=== PATIENT | female | born 1960 | race Two or more races ===

== ENCOUNTER 2022-11-24 11:00 | Outpatient (RCR) | payer OTHER, SELFPAY ==
--- NOTE | 2022-10-29 16:17 | MHC.OT.EP ---
[address] [phone] Occupational Therapy Plan of Care Date of Evaluation: 10/29/22 Diagnosis: Pain in right hand and shoulder Pain Location: Pain R shoulder/hand 10/10 Best: 5/10 Pain Score: 10 Pain Scale Used: Numeric (0 - 10) Aggravating Factors: AROM past 60 degrees shoulder flexion Forceful grasp Alleviating Factors: Heat, pain medication Assessment: Pt is a 62 y/o female referred for right hand pain. Pt states pain originated in the upper arm, and has progressively gotten worse over the last year. She has a history of HTN, fibromyalgia, falls, and obstructive sleep apnea. Pt. 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 She is dependent on a joey lift for bed/commode/chair transfers. She experiences pain with active shoulder flex/ABd past 60 degrees, reportedly 10/10 with movement and demonstrates generalized fatigue with light activity. Hand pain is mostly in the radial wrist and thumb, with decreased gross grasp strength and FMC R/L. Pt would benefit from skilled OT to address pain management, A/AA/PROM exercises for increased ease with ADL's, as well as education on home program for continued strengthening. Due to transportation constraints and decreased endurance, pt. will be seen 1x/wk for 4 weeks then d/c to HEP. Pt and son in agreement. Frequency and Duration: The patient will be seen 1x/wk for 4 weeks Short Term Goals: Decrease R UE pain <5/10 Improve B shoulder flexion by 20 degrees to inc ease w/ dressing IND with cane/dowel shoulder ROM HEP Improve R gross grasp by 5# Hydrator Operator Goals: Same as above Treatment Plan: Therapeutic Exercise Therapeutic Activity Home Exercise Program Patient Education ADL Training MHP Soft Tissue Mobilization Electronically Signed By: Diamante Alanis MS OTR/L Please Sign and return to therapist. Thank you once again for your referral.
== END 2023-02-02 11:17 | disposition home or self-care (01) ==
LOC: HO.OT 11:00
PROVIDERS: PCP Internal Medicine; Visit Provider Internal Medicine
DX: M79.641 Pain in right hand (principal)
CPT/HCPCS: 97110; 97166

== ENCOUNTER 2023-02-11 10:00 | Outpatient (RCR) | payer OTHER, SELFPAY ==
--- NOTE | 2023-02-05 13:55 | MHC.PT.EP ---
[facility] [place] [facility] [place] [facility] [place] Office [address] Andrea [address] [phone] F: [phone] F: [phone] F: [phone] F: [phone] Physical Therapy Plan of Care Date of Evaluation: Date of Surgery: Diagnosis: PAIN IN RIGHT ARM Assessment: 62 YO FEMALE REF TO PT FOR Rt UE PAIN- SHE IS NON-AMB, HAS BEEN IN A POWER CHAIR x 5YRS AND HER SON IS HER FREELANCE GRAPHIC DESIGNER (65 HRS/WK). THE Pt USES A MAT LIFT FOR TRANSFERS AND PER THE Pt AND HER FREELANCE GRAPHIC DESIGNER, SHE REQ MAX ASSIST W ALL ADLs. OBJECTIVE FINDINGS: DECR POSTURE WHILE IN WC, (+) NEER'S SIGN RT SH, DECR AROM NATE SH, DECR SCAP / POST RC STRENGTH NATE, DECR ADL KEYSHAWN, AND FLUCTUATING Rt SH Jt LINE PAIN. THE Pt WAS RECENTLY RECEIVING OCCUPATIONAL THERAPY FOR THE SAME DX AND A CUSTOM HEP WAS ISSUED, WITH WHICH THE Pt NOTES SHE HAS HAD POOR COMPLIANCY. THE Pt MAY BENEFIT FROM RE-ED RE HEP, POSTURAL ED AND SELF-CORRECT TECHN, AND INCR HER ACTIVE PARTICIPATION IN HER ADLs. Frequency and Duration: The patient will be seen 1 x WK x 4 WKS Short Term Goals: *DECR Rt SH PAIN TO 5/10 (AT EVAL 10/10) *EDUC THE Pt AND HER FREELANCE GRAPHIC DESIGNER-> IMPROVE Pt'S POSTURAL AWARENESS, ESPEC W SITTING IN HER POWER CHAIR AND POSTIONING IN HER BED *INCR ACTIV OF PARASCAP / POST RC MM *INCR Rt SH AROM *IMPROVE STRENGTH AND ADL PERF EVIDENT W IMPROVED SPADI (AT EVAL 80/80) Fpc Goals: SAME ABOVE STG Treatment Plan: Modalities to reduce pain, spasms and effusion. Manual therapy to restore motion and function. Therapeutic exercise to improve strength and flexibility. Neuromuscular re-education for posture and balance. Therapeutic activities to return to functional activities of daily living. Electronically signed by: CONCHITA CHRISTIAN,PT Please sign and return to therapist. Thank you for your referral.
--- NOTE | 2023-03-16 13:46 | MHC.PT.DC ---
[facility] [place] [facility] [place] Office [place] Office [address] [phone] F: [phone] F: [phone] F: [phone] F: [phone] Physical Therapy Discharge Report Diagnosis: PAIN IN RIGHT ARM Date of Surgery: Date of Evaluation: 02/05/23 Date of Discharge: 03/16/23 Treatments to Date: 2 Cancellations to Date: 3 No Shows to Date: 1 Discharge Status: Visit Non-compliance Discharge Summary: THE Pt IS D/C'D THIS DATE FROM PT DUE TO POOR ATTENDANCE FOR SCHED PT APPTS- SHE HAS A THOROUGH HEP AND WE HAVE ADDRESSED POSTURE, REPOSITIONING IN WC TO REDUCE POSTURAL STRAIN, AND SH PAIN MGMT. THE Pt WAS NOTING RELIEF FROM EDUC FOR HER FOREIGN CLERK AND Pt. Electronically signed by: Usman CHRISTIAN,PT Please sign and return to therapist. Thank you for your referral.
== END 2023-03-16 13:47 | disposition home or self-care (01) ==
LOC: HO.PT 10:00
PROVIDERS: PCP Internal Medicine; Visit Provider Internal Medicine
DX: M79.606 Pain in leg, unspecified (principal); M79.601 Pain in right arm
CPT/HCPCS: 97110; 97140; 97162; 97530

== ENCOUNTER 2023-02-11 10:59 | Outpatient (REF) | payer OTHER, SELFPAY ==
[2023-02-11 11:15] LABS: MANUAL DIFF FLAG NO
[2023-02-11 12:36] LABS: Basophils Absolute Auto 0.1 X10*3/uL (0.0-0.2); Basophils Percent Auto 0.6 % (0-2); Eosinophils Absolute Auto 0.3 X10*3/uL (0.0-0.4); Hematocrit 39.3 % (37.0-47.0); Hemoglobin 11.8 g/dl (12.0-16.0); Imm Gran Abs Auto 0.03 X10*3/uL (0.00-0.03); Imm Gran Pct Auto 0.3 % (0.0-0.4); Lymphocytes Absolute Auto 3.6 X10*3/uL (1.2-4.9); Lymphocytes Percent Auto 34.1 % (20-40); Mean Corpuscular Hemoglobin 26.5 pg (27.0-33.0); Mean Corpuscular Volume 88.3 fL (80.0-98.0); Mean Platelet Volume 11.3 fL (9.4-12.3); Monocytes Absolute Auto 0.8 X10*3/uL (0.1-1.2); Monocytes Percent Auto 7.9 % (2-11); Neutrophils Absolute Auto 5.6 x10*3/uL (2.0-8.3); Neutrophils Percent Auto 54.1 % (45-73); Platelet Count 252 X10*3/uL (160-400); Red Blood Count 4.45 X10*6/uL (4.20-5.50); Red Cell Distribution Width 15.4 % (11.0-16.0); White Blood Count 10.4 X10*3/uL (4.8-10.8)
[2023-02-11 13:25] LABS: Alanine Aminotransferase 14 U/L (0-31); Albumin Level 3.9 g/dL (3.5-5.0); Alkaline Phosphatase 91 U/L (39-117); Anion Gap 14 (12-20); Aspartate Amino Transferase 18 U/L (5-31); Bilirubin Total 0.4 mg/dL (0.0-1.0); Blood Urea Nitrogen 8 mg/dL (9-16); Calcium 8.7 mg/dL (8.4-10.2); Carbon Dioxide 29 mmol/L (22-29); Chloride 103 mmol/L (96-108); Cholesterol 164 mg/dL; Estimated Glomerular Filt Rate > 60; Glucose Fasting 75 mg/dL (60-99); HDL Cholesterol 37 mg/dL; Iron 69 mcg/dL (30-160); LDL Cholesterol Calculated 113 mg/dl; Percent Iron Saturation 28 % (15-50); Potassium 4.4 mmol/L (3.3-5.1); Sodium 142 mmol/L (135-145); Total Iron Binding Capacity 246 mcg/dL (228-428); Triglycerides 71 mg/dL; Unsaturated Iron Binding 177 ug/dL
[2023-02-11 13:29] LABS: Thyroid Stimulating Hormone 3.41 uIU/mL (0.32-4.0); Vitamin D 25-OH Total 8.8 ng/mL (>30)
== END 2023-02-11 11:00 | disposition home or self-care (01) ==
LOC: HO.LAB 10:59
PROVIDERS: PCP Internal Medicine; Visit Provider Internal Medicine
DX: G43.909 Migraine, unspecified, not intractable, without status migrainosus (principal); D64.9 Anemia, unspecified; E78.5 Hyperlipidemia, unspecified; E55.9 Vitamin D deficiency, unspecified; E66.9 Obesity, unspecified
CPT/HCPCS: 36415; 80053; 80061; 82306; 83540; 84443; 85025

== ENCOUNTER 2023-03-17 12:25 | Outpatient (REF) | payer OTHER, SELFPAY ==
[2023-03-17 13:12] LABS: Appearance Urine Clear; Color Urine Yellow; Glucose Urine UA Negative (Negative); Leukocyte Esterase Urine Small (1+) (Negative); Nitrite Urine Negative (Negative); Specific Gravity - Urine 1.025 (1.005-1.025); UMIC TRIGGER UACC YES; Urine Blood Negative (Negative); Urine Ketones Negative (Negative); Urine Protein 30 (1+) mg/dL (Neg-Trace)
[2023-03-17 13:14] LABS: Bacteria Urine 1+ (None Seen); Hyaline Casts Urine 0-2 /LPF (0-2); RBC Urine 0-2 /HPF (0-2); UACC Culture Trigger YES
== END 2023-03-17 12:26 | disposition home or self-care (01) ==
LOC: HO.LNP 12:25
PROVIDERS: Visit Provider Internal Medicine
DX: R39.9 Unspecified symptoms and signs involving the genitourinary system (principal)
CPT/HCPCS: 81001; 87086

== ENCOUNTER 2023-04-28 11:06 | Outpatient (AMB) | payer OTHER, SELFPAY ==
[2023-04-28 11:13] VITALS: BP 124/86
--- NOTE | 2023-04-28 11:13 | A.OFFPC_ITS ---
Vital Signs 04/28/23 11:13 BMI Reason not done Patient refused/unable BP 124/86 Blood Pressure Location Lt radial Position Sitting Intake Visit Reasons: bp Intake Note: Patient here for a follow up BP Certified Scrum Master Required: No Accompanied by: Self / Same As Patient Allergies Penicillins [PENICILLINS] Allergy (Unknown, Verified 04/28/23 11:27) ITCHING Medication List - Last Reconciled 04/28/23 by Rhina Malave MD albuterol sulfate 90 mcg/actuation (Ventolin HFA) 0 mcg inhalation albuterol sulfate mg inhalation Q6H PRN amitriptyline 50 mg PO BEDTIME amlodipine 5 mg PO DAILY cetirizine 10 mg PO DAILY [hospital mattress As directed] incontinence pad, liner, disp Use 1 pad three times a day lisinopril 40 mg PO DAILY miconazole nitrate 2% (Remedy Phytoplex Antifungal) 1 appl topical BID 30 days pregabalin 75 mg PO TID sumatriptan succinate 25 mg PO Q2-4H PRN 30 days Tobacco use date assessed: 12/08/22 Dental Screening Dental Screen Date: 04/28/23 Did you have a dental visit in the last 12 months?: No Did you have a dental problem in the last 6 months where you did not have access to dental care?: No Was dental information given to patient?: Patient has dentist HPI HPI Comments History of Present Illness Details This is a 62-year-old female with hypertension, migraines, fibromyalgia and urge urinary incontinence that comes today for follow-up on her conditions. She has alone in the room and is wheelchair-bound with electric wheelchair. Blood pressure stable. Blood pressure stable. Has migraines few times a month and I will start her on sumatriptan. Complains of dizziness and will be referred to vestibular therapy. On pregabalin for her fibromyalgia which is still present. Has urge urinary incontinence and would like incontinent pads. She is about 300 lb and was advised to diet. [facility] Surgical History History of knee surgery Family History Mother Diabetes Throat cancer Hypertension Father Hypertension Social History Housing: Apartment Alcohol intake: never Patient Tobacco Use Status: Never used Tobacco e-Cigarette/Vaping Use: Never Used Second Hand Smoke Exposure: No service: No Current occupational status: disabled Cognitive needs: Yes Hearing needs: No Vision needs: Yes Questionnaire Thrive Questionnaire Date Thrive assessed: 12/08/22 AUGUSTO-7 AMB Questionnaire AUGUSTO-7 Date AUGUSTO - 7 assessed: 12/08/22 Source: Developed by Drs. Jeronimo Trinidad, Nora Stone, Hipolito Finley and colleagues, with an educational neil from [employer]. Review of Systems Const All systems reviewed & are unremarkable except as noted in HPI and below Eyes Reports no additional complaints, Denies change in vision and Denies other visual disturbances Card Denies chest pain at rest, Denies chest pain with activity, Denies edema, Denies irregular heart rhythm, Denies claudication, Denies dyspnea, Denies dyspnea on exertion, Denies orthopnea, Denies paroxysmal nocturnal dyspnea and Denies slow heart rate Resp Denies cough, Denies dyspnea and Denies dyspnea on exertion GI Denies abdominal pain, Denies change in bowel habits, Denies excessive flatus, Denies nausea and Denies vomiting Denies urinary incontinence, Denies urinary hesitancy and Denies urinary urgency Musc Denies abnormal gait, Denies atrophy, Denies deformity and Denies limited range of motion Skin/Breast Denies bleeding lesions, Denies changing lesions and Denies rash Neuro Denies abnormal gait and Denies lack of coordination Physical exam (Primary Care) Vital Signs: Last Vital Signs BP 124/86 04/28/23 11:13 Tobacco/Smoking Status: Tobacco use Status Tobacco use date assessed 12/08/22 04/28/23 11:17 Patient Tobacco Use Status Never used Tobacco 04/28/23 11:17 e-Cigarette/Vaping Use Never Used 04/28/23 11:17 Thrive Assessment: Date of Thrive Assessment Date Thrive assessed 12/08/22 04/28/23 11:17 Const Limitations: wheelchair Eyes General: appearance normal, both eyes and all related structures Eyelids: Yes eyelids normal Conjunctivae: conjunctivae normal Neck Neck: Yes normal visual inspection and Yes supple Resp Effort & Inspection: normal respiratory effort Auscultation: clear to auscultation bilaterally Cardio Jugular venous distension: no JVD Rate: regular rate Rhythm: regular rhythm Heart sounds: S1 normal heart sound present and S2 normal heart sound present Extrem General: Yes full ROM Assessment and Plan Assessment & Plan (1) Essential hypertension: Code(s): I10 - Essential (primary) hypertension Plan: Continue lisinopril and amlodipine. Blood pressure goal is equal or less than 130/80. (2) Fibromyalgia: Code(s): M79.7 - Fibromyalgia Plan: Continue pregabalin. (3) Migraines: Code(s): G43.909 - Migraine, unspecified, not intractable, without status migrainosus Plan: Start sumatriptan as needed (4) Urge urinary incontinence: Code(s): N39.41 - Urge incontinence Plan: Start using incontinence pads Orders: Orders PT Evaluation and Treatment Today R42 - Dizziness and giddiness Referrals Gastroenterology Referral Z12.11 - Encounter for screening for malignant neoplasm of colon AIRCRAFT MOTOR MECHANIC Referral N93.8 - Other specified abnormal uterine and vaginal bleeding Medications: New sumatriptan succinate do not exceed 8 doses per 24 hrs 25 mg PO Q2-4H 30 days PRN 9 tabs 0RF migraine headache incontinence pad, liner, disp Use 1 pad three times a day 90 ea 11RF N39.41 - Urge incontinence, Z99.3 - Dependence on wheelchair Refilled miconazole nitrate 2% (Remedy Phytoplex Antifungal) 1 appl topical BID 30 days 85 grams 1RF B36.9 - Superficial mycosis, unspecified Coding Level of Care Code Est Pt Level 4 (80996) Diagnoses Essential hypertension I10 Fibromyalgia M79.7 Migraines G43.909 Urge urinary incontinence N39.41 Time Spent (min) 25
== END 2023-04-28 11:36 | disposition home or self-care (01) ==
PROVIDERS: Visit Provider Internal Medicine
DX: I10 Essential (primary) hypertension (principal); M79.7 Fibromyalgia; G43.909 Migraine, unspecified, not intractable, without status migrainosus; N39.41 Urge incontinence
CPT/HCPCS: 99214

== ENCOUNTER 2023-06-30 08:50 | Outpatient (AMB) | payer OTHER, SELFPAY ==
--- NOTE | 2023-06-30 09:04 | MHC.OFFVIS ---
Intake Vital Signs 06/30/23 09:16 Height 5 ft 4 in BMI Reason not done Patient refused/unable BP 160/83 H Blood Pressure Location Lt brachial Position Sitting Pulse 83 Intake Visit Reasons: Colonoscopy Screening Intake Note: Patient new consult for 2nd pre colonoscopy screening. Patient cc: Constant LLQ pain, acid reflex, swallowing problem with solid food on and off, constipation with bloody stool. Continuous Process Rotary Drum Tanner Required: Yes Accompanied by: Son Allergies Penicillins [PENICILLINS] Allergy (Unknown, Verified 06/30/23 09:03) ITCHING Medication List - Last Reconciled 06/30/23 by Mickie Ryan PA-C albuterol sulfate 90 mcg/actuation (Ventolin HFA) 0 mcg inhalation albuterol sulfate mg inhalation Q6H PRN amitriptyline 50 mg PO BEDTIME amlodipine 5 mg PO DAILY cetirizine 10 mg PO DAILY [hospital mattress As directed] incontinence pad, liner, disp Use 1 pad three times a day lisinopril 40 mg PO DAILY miconazole nitrate 2% (Remedy Phytoplex Antifungal) 1 appl topical BID 30 days pregabalin 75 mg PO TID sumatriptan succinate 25 mg PO Q2-4H PRN 30 days HPI HPI Comments History of Present Illness Details A 62 y/o obese female referred -for screening colonoscopy- she presents with chronic abdominal pain- (LLQ pain constant past4-6 months 7/10 pain scale) and chronic Constipation- BM Q3-4 days- rarely takes miralax- does not eat fiber She is w/c dependant has no excercise Weight is unknown- Appetite is very good She is w/c assisted- son is present- he is her BUSINESS QUALITY ASSURANCE ANALYST Continuous Process Rotary Drum Tanner device assisted No nausea, vomiting, hematemesis, hematochezia fever or chills PFSH Surgical History History of knee surgery Family History Mother Diabetes Throat cancer Hypertension Father Hypertension Social History Housing: Apartment Alcohol intake: never Patient Tobacco Use Status: Never used Tobacco e-Cigarette/Vaping Use: Never Used Second Hand Smoke Exposure: No service: No Current occupational status: disabled Cognitive needs: Yes Hearing needs: No Vision needs: Yes Review of Systems Const All systems reviewed & are unremarkable except as noted in HPI and below Card Denies chest pain and Denies dyspnea Resp Denies dyspnea GI Reports abdominal pain, Denies hematochezia, Denies constipation, Denies nausea and Denies vomiting Physical Exam Vital Signs: Last Vital Signs Pulse 83 06/30/23 09:16 BP 160/83 H 06/30/23 09:16 Const General: cooperative, comfortable and no acute distress Orientation/consciousness: patient oriented x3 Limitations: language barrier Eyes Sclerae: sclerae normal Resp Effort & Inspection: normal respiratory effort and able to speak in complete sentences Auscultation: clear to auscultation bilaterally, no rhonchi and no wheezes Cardio Rate: regular rate Rhythm: regular rhythm Heart sounds: S1 normal heart sound present and S2 normal heart sound present GI Inspection: Yes Abdominal panniculus present and Yes obesity Palpation (GI): Soft to palpation and nontender Auscultation: normal bowel sounds Skin General skin exam: no rashes or lesions noted Neuro General: patient oriented x3 Extrem Other: Lower extremities edema bilat Psych Affect: Labile affect present Attitude: cooperative Thought content: Normal thought content present Results Reviewed Results Reviewed: labs Assessment & Plan Assessment & Plan (1) Chronic abdominal pain: Comment: Morbidly obese-wheelchair dependent Chronic constipation Not a great historian- at check out-she tells me she is having U/S tomorrow ordered by pcp Code(s): R10.9 - Unspecified abdominal pain; G89.29 - Other chronic pain (2) Chronic constipation: Comment: Encouraged consistent bowel regimen Code(s): K59.09 - Other constipation Plan: Consistent bowel regimen High-fiber diet (3) Wheelchair confinement: Comment: Since 2017 Code(s): Z99.3 - Dependence on wheelchair Plan: Sedentary (4) Obesity: Comment: Weight and Code(s): E66.9 - Obesity, unspecified (5) Poor historian: Comment: Difficult to assess limited detail Code(s): Z78.9 - Other specified health status Plan Abdominal CT- IV oral contrast rule out-underlying causes pain, neoplasm CBC CMP Consistent bowel regimen HFD Call with concerns Orders: Orders CT abdomen wo/w IV con Today E66.9 - Obesity, unspecified, G89.29 - Other chronic pain, R10.9 - Unspecified abdominal pain Complete Blood Count Auto Diff Today G89.29 - Other chronic pain, R10.9 - Unspecified abdominal pain Comprehensive Met. Panel Today G89.29 - Other chronic pain, R10.9 - Unspecified abdominal pain Medications: New bisacodyl (Dulcolax (bisacodyl)) 10 mg [place] DAILY PRN 20 ea 2RF constipation polyethylene glycol 3350 (Miralax) 17 grams PO DAILY PRN 510 grams 6RF constipation 30 days barium sulfate 2%(w/v) (Readi-Cat 2) 450 mL PO DIRECTED 900 mL 0RF 1 day methylcellulose (laxative) (Citrucel) 500 mg PO TID 90 tabs 5RF 30 days docusate sodium (Colace) 200 mg (2 x 100 mg) PO BEDTIME 60 caps 5RF Patient Instructions: Abdominal CT- however will follow-up ultrasound CBC CMP Consistent bowel regimen HFD, literature given Call with concerns Coding Level of Care Code New Pt Level 4 (10958) Diagnoses Chronic abdominal pain R10.9; G89.29 Chronic constipation K59.09 Wheelchair confinement Z99.3 Obesity E66.9 Poor historian Z78.9 Time Spent (min) 40 Comment [id number]
[2023-06-30 09:16] VITALS: BP 160/83; PULSE 83
== END 2023-06-30 10:03 | disposition home or self-care (01) ==
PROVIDERS: PCP Internal Medicine; Visit Provider Physician Assistant
DX: R10.9 Unspecified abdominal pain (principal); K59.09 Other constipation; Z12.11 Encounter for screening for malignant neoplasm of colon
CPT/HCPCS: 99203

== ENCOUNTER → 2023-06-30 08:50 | Outpatient (BNVA) | payer OTHER, SELFPAY | PROVIDERS: PCP Internal Medicine; Visit Provider Physician Assistant ==

== ENCOUNTER 2023-07-02 10:42 | Outpatient (REF) | payer OTHER, SELFPAY ==
--- NOTE | ~2023-07-02 | US_ITS ---
EXAMINATION: US PELVIS CLINICAL INFORMATION: Postmenopausal bleeding COMPARISON: None available. TECHNIQUE: Ultrasound of the pelvis is performed using transabdominal transducers along with Doppler. Transabdominal imaging limited due to body habitus and limited range of motion. Transvaginal imaging was not completed due to patient's inability to tolerate. FINDINGS: Uterus: The uterus is anteverted measuring 11.1 x 4.6 x 4.9. No identifiable fibroid. The endometrium is heterogeneous measuring 0.9 to 1.2 cm. Adnexa: Bilateral ovaries are not visualized. No. US/US pelvic and transvaginal IMPRESSION: Thickened endometrium in patient presenting with postmenopausal bleeding. Consider tissue sampling.
== END 2023-07-02 10:43 | disposition home or self-care (01) ==
LOC: HO.US 10:42
PROVIDERS: PCP Internal Medicine; Visit Provider Obstetrics & Gynecology
DX: N95.0 Postmenopausal bleeding (principal)
CPT/HCPCS: 76830; 76856

== ENCOUNTER 2023-09-01 09:34 | Outpatient (AMB) | payer OTHER, SELFPAY ==
[2023-09-01 09:37] VITALS: BP 185/76; PULSE 83
--- NOTE | 2023-09-01 09:37 | A.OFFVIS_ITS ---
Intake Vital Signs 09/01/23 09:37 Height 5 ft 4 in BMI Reason not done Patient refused/unable BP 185/76 H Blood Pressure Location Lt brachial Position Sitting Pulse 83 Intake Visit Reasons: 2 month follow up Intake Note: Patient 2 month follow up for Chronic abdominal pain. Patient cc: abdominal pain with bloating, acid reflex on and off, diarrhea and some swallowing problems on and off. Laster Hand Required: Yes Laster Hand Name: Gemini [id number] Accompanied by: Family/Other Allergies Penicillins [PENICILLINS] Allergy (Unknown, Verified 09/01/23 09:36) ITCHING Medication List - Last Reconciled 09/01/23 by Mickie Ryan PA-C albuterol sulfate mg inhalation Q6H PRN amitriptyline 50 mg PO BEDTIME amlodipine 5 mg PO DAILY barium sulfate 2%(w/v) (Readi-Cat 2) 450 mL PO DIRECTED 1 day bisacodyl (Dulcolax (bisacodyl)) 10 mg [place] DAILY PRN cetirizine 10 mg PO DAILY docusate sodium (Colace) 200 mg (2 x 100 mg) PO BEDTIME [hospital mattress As directed] incontinence pad, liner, disp Use 1 pad three times a day lisinopril 40 mg PO DAILY methylcellulose (laxative) (Citrucel) 500 mg PO TID 30 days miconazole nitrate 2% (Remedy Phytoplex Antifungal) 1 appl topical BID 30 days polyethylene glycol 3350 (Miralax) 17 grams PO DAILY PRN 30 days pregabalin 75 mg PO TID sumatriptan succinate 25 mg PO Q2-4H PRN 30 days Ventolin HFA 90 mcg/actuation (albuterol sulfate) 2 puffs inhalation Q6H PRN 30 days NS HPI HPI Comments History of Present Illness Details A 63 y/o female wheelchair confined, seen in June with constipation-and chronic abdominal pain-left quadrant, right quadrant, wanders CT was ordered at that time-insurance denied auth- Now present s with c/o when she eats she has diarrhea- no blood in the stool, she has constant LQ pain- nothing specific causes it or makes it better, she has never had a fever, does not effect her appetite 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-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 have colonoscopy - could not do cologuard- seems it would be easier than repeating Cologuard, instructions were to difficult She is having a [employer] PERSONAL[employer] procedure in September- she / shearing shed worker- unclear-poor historian Reviewed medication list taking Colace and MiraLax daily- She complains of shortness of breath, however well wheelchair confined, no ambulation She does not use toilet or commode, Difficult assessment due to limited detail despite medical support assistant Denies nausea, vomiting, hematemesis, hematochezia, no fever or chills CT- insurance-for peer to peer- they will call back- for review submit Mickie this is the information you need to do the peer to peer for CT scan for this patient phone number- [phone] ref #- [id number] CPT CODE- 68381 ICD_10 CODES- R10.9, G89.29, E66.9 Called -Camelia MOODY Surgical History History of knee surgery Family History Mother Diabetes Throat cancer Hypertension Father Hypertension Social History Housing: Apartment Alcohol intake: never Patient Tobacco Use Status: Never used Tobacco e-Cigarette/Vaping Use: Never Used Second Hand Smoke Exposure: No service: No Current occupational status: disabled Cognitive needs: Yes Hearing needs: No Vision needs: Yes Review of Systems Const All systems reviewed & are unremarkable except as noted in HPI and below Denies chills, Denies fever(s) and Reports snoring ENT Denies odynophagia Card Denies chest pain and Reports dyspnea Resp Reports cough, Reports dyspnea and Reports snoring GI Reports abdominal pain, Denies hematochezia, Denies heartburn, Reports diarrhea, Denies nausea, Denies odynophagia, Denies vomiting and Reports other (Does not use commode-obese, wheelchair assisted) Physical Exam Vital Signs: Last Vital Signs Pulse 83 09/01/23 09:37 BP 185/76 H 09/01/23 09:37 Const General: comfortable Nutritional Appearance: obese Orientation/consciousness: patient oriented x3 Limitations: language barrier Resp Effort & Inspection: normal respiratory effort Auscultation: wheezes and diminished lung sounds Skin General skin exam: no rashes or lesions noted Neuro General: patient oriented x3 Psych Affect: Labile affect present Attitude: cooperative Thought process: Circumstantial thought process present Results Reviewed Results Reviewed: US/US pelvic and transvaginal IMPRESSION: Thickened endometrium in patient presenting with postmenopausal bleeding. Consider tissue sampling. Assessment & Plan Assessment & Plan (1) Chronic abdominal pain: Comment: Morbidly obese-wheelchair dependent-difficult to assess CT ordered last visit for chronic abdominal pain has a denied Chronic constipation initially, now diarrhea-however taking MiraLax Colace daily may had try to tweak that Not a great historian-and AFTER SCHOOL DRIVER present he is unable to give detail as well CBC Code(s): R10.9 - Unspecified abdominal pain; G89.29 - Other chronic pain Plan: Will try to get peer to peer however CT may be low yield (2) Poor historian: Comment: Extremely Difficult to assess limited detail Code(s): Z78.9 - Other specified health status (3) Diarrhea: Comment: Requesting colonoscopy however due to multiple comorbidities, increased anesthesia risk Code(s): R19.7 - Diarrhea, unspecified Plan: stool tests (4) Wheelchair confinement: Comment: Since 2017 Code(s): Z99.3 - Dependence on wheelchair Plan stool test CBC peer to peer- Call with plan Orders: Orders CDiff Gene PCR 09/01/23 R19.7 - Diarrhea, unspecified GI Panel 09/01/23 R19.7 - Diarrhea, unspecified Complete Blood Count Auto Diff 09/01/23 K52.9 - Noninfective gastroenteritis and colitis, unspecified Comprehensive Met. Panel 09/01/23 R19.7 - Diarrhea, unspecified Patient Instructions: Very difficult to assess, burring wheel operator issues currently no details available Will get stool test r/o underlying causes diarrhea However made to week Colace and MiraLax this may play a role, as we reviewed initially had diarrhea CBC peer to peer- Will call with progress with after insurance authorization Encouraged to call with any questions or concerns No major barriers to understanding were identified Coding Level of Care Code Est Pt Level 4 (66709) Diagnoses Chronic abdominal pain R10.9; G89.29 Poor historian Z78.9 Diarrhea R19.7 Wheelchair confinement Z99.3 Time Spent (min) 45 Comment [id number] interp, shearing shed worker-46
== END 2023-09-01 11:23 | disposition home or self-care (01) ==
PROVIDERS: PCP Internal Medicine; Visit Provider Physician Assistant
DX: R10.9 Unspecified abdominal pain (principal); G89.29 Other chronic pain; Z78.9 Other specified health status; R19.7 Diarrhea, unspecified; Z99.3 Dependence on wheelchair
CPT/HCPCS: 99214

== ENCOUNTER 2023-09-01 09:34 | Outpatient (REF) | payer OTHER, SELFPAY ==
[2023-09-01 11:24] LABS: MANUAL DIFF FLAG NO
[2023-09-01 11:47] LABS: Basophils Percent Auto 0.4 % (0-2); Eosinophils Absolute Auto 0.2 X10*3/uL (0.0-0.4); Hematocrit 39.2 % (37.0-47.0); Hemoglobin 11.8 g/dl (12.0-16.0); Imm Gran Abs Auto 0.02 X10*3/uL (0.00-0.03); Imm Gran Pct Auto 0.2 % (0.0-0.4); Lymphocytes Absolute Auto 3.3 X10*3/uL (1.2-4.9); Lymphocytes Percent Auto 32.4 % (20-40); Mean Corpuscular HGB Conc 30.1 g/dl (31.0-35.0); Mean Corpuscular Volume 89.7 fL (80.0-98.0); Mean Platelet Volume 10.2 fL (9.4-12.3); Monocytes Absolute Auto 0.8 X10*3/uL (0.1-1.2); Monocytes Percent Auto 7.6 % (2-11); Neutrophils Absolute Auto 5.8 x10*3/uL (2.0-8.3); Neutrophils Percent Auto 57.4 % (45-73); Platelet Count 274 X10*3/uL (160-400); Red Blood Count 4.37 X10*6/uL (4.20-5.50); Red Cell Distribution Width 15.8 % (11.0-16.0); White Blood Count 10.2 X10*3/uL (4.8-10.8)
[2023-09-01 12:30] LABS: Alanine Aminotransferase 13 U/L (0-31); Albumin Level 3.8 g/dL (3.5-5.0); Alkaline Phosphatase 76 U/L (39-117); Anion Gap 10 (12-20); Aspartate Amino Transferase 16 U/L (5-31); Bilirubin Total 0.4 mg/dL (0.0-1.0); Blood Urea Nitrogen 11 mg/dL (9-16); Carbon Dioxide 34 mmol/L (22-29); Chloride 102 mmol/L (96-108); Estimated Glomerular Filt Rate > 60; Glucose Random 77 mg/dL (60-115); Potassium 3.7 mmol/L (3.3-5.1); Sodium 142 mmol/L (135-145); Total Protein 8.2 g/dL (6.5-8.0)
== END 2023-09-01 09:35 | disposition home or self-care (01) ==
LOC: HO.LAB 09:34
PROVIDERS: PCP Internal Medicine; Visit Provider Physician Assistant
DX: R10.9 Unspecified abdominal pain (principal); R19.7 Diarrhea, unspecified; G89.29 Other chronic pain; Z78.9 Other specified health status; Z99.3 Dependence on wheelchair
CPT/HCPCS: 36415; 80053; 85025; 99212

== ENCOUNTER 2023-09-10 14:56 | Outpatient (REF) | payer OTHER, SELFPAY ==
[2023-09-11 10:40] LABS: Adenovirus F 40/41 Not Detected (Not Detect.); Astrovirus Not Detected (Not Detect.); Campylobacter Not Detected (Not Detect.); Cryptosporidium Not Detected (Not Detect.); Cyclospora cayetanensis Not Detected (Not Detect.); E. coli EAEC Not Detected (Not Detect.); E. coli EPEC Not Detected (Not Detect.); E. coli ETEC Not Detected (Not Detect.); E. coli STEC Not Detected (Not Detect.); Entamoeba histolytica Not Detected (Not Detect.); Giardia lamblia Not Detected (Not Detect.); Norovirus GI/GII Not Detected (Not Detect.); Plesiomonas shigelloides Not Detected (Not Detect.); Rotavirus A Not Detected (Not Detect.); Salmonella Not Detected (Not Detect.); Sapovirus Not Detected (Not Detect.); Shigella sp./EIEC Not Detected (Not Detect.); Vibrio Not Detected (Not Detect.); Vibrio Cholerae Not Detected (Not Detect.); Yersinia enterocolitica Not Detected (Not Detect.)
== END 2023-09-10 14:57 | disposition home or self-care (01) ==
LOC: HO.LNP 14:56
PROVIDERS: Visit Provider Physician Assistant
DX: R19.7 Diarrhea, unspecified (principal)
CPT/HCPCS: 87493; 87507

== ENCOUNTER 2023-11-04 08:16 | Outpatient (AMB) | payer OTHER, SELFPAY ==
--- NOTE | 2023-11-04 08:21 | MHC.OFFVIS ---
Intake Vital Signs 11/04/23 08:30 Height 5 ft 4 in BMI Reason not done Patient refused/unable BP 146/94 H Intake Visit Reasons: EMB/? Hyst/45 mins RM5 Records Manager Required: Yes Records Manager Language: Painting Department Supervisor Name: Jeimy MO Information Interpreted: non-clinical & clinical Board Stacker: Board Stacker Present (Jeimy MO) Accompanied by: Daughter Allergies Penicillins [PENICILLINS] Allergy (Unknown, Verified 11/04/23 08:34) ITCHING Post menopausal: Yes HPI HPI Comments History of Present Illness Details Presenting with history of continuous postmenopausal bleeding. Pelvic ultrasound done in 06/26 showed the following: Uterus: The uterus is anteverted measuring 11.1 x 4.6 x 4.9. No identifiable fibroid. The endometrium is heterogeneous measuring 0.9 to 1.2 cm. Adnexa: Bilateral ovaries are not visualized. No. Last co testing was many years ago [facility] Medical History Pre-diabetes HTN (hypertension) Surgical History Hx of tubal ligation Hx of section History of knee surgery Family History Mother Diabetes Throat cancer Hypertension Father Hypertension Social History Household Members Other:: son, jazmine Housing: Apartment Alcohol intake: never Patient Tobacco Use Status: Never used Tobacco e-Cigarette/Vaping Use: Never Used Second Hand Smoke Exposure: No service: No Current occupational status: disabled Sexually active: No Sexual orientation: Straight/Heterosexual Gender identity: Female Cognitive needs: Yes Hearing needs: No Vision needs: Yes Review of Systems Const All systems reviewed & are unremarkable except as noted in HPI and below Physical Exam Vital Signs: Last Vital Signs BP 146/94 H 11/04/23 08:30 Other: The patient is unable to abduct her right hip in addition because of the body habitus large amount of soft tissue was obstructing the perineum. With the help of 2 EMS and 2 assistants in the office, the patient was positioned on the examination table; then, multiple trials were attempted to insert the speculum in the vagina to evaluate the cervix and the vagina can not and to collect co testing and perform an EMB but failed because the patient could not tolerate an exam the exam, so at this point the evaluation was aborted. General: Yes no CVA tenderness External Female Exam: normal external appearance and normal appearance of the urethra Speculum Exam - Vagina: lesion and mass Speculum Exam - Cervix: Cervical mass present Bimanual Exam- Adnexa, other: normal adnexae Back/Spine/Pelvis Back: no CVA tenderness Assessment & Plan Assessment & Plan (1) Postmenopausal bleeding: Code(s): N95.0 - Postmenopausal bleeding Plan: Discussed with the patient the differential diagnosis of post menopausal bleeding with normal pelvic exam including but not limited to, endometrial hyperplasia, cancer, polyps and other causes; Discussed with the patient the pelvic ultrasound findings, the endometrial stripe thickenss measured by ultrasound was more than 4mm. The negative predictive value, positive predictive value, Sensitivity, specificity of using ultrasound measurement of endometrial stripe to detecting endometrial pathology including hyperplasia , polyp or cancer were discussed with the patient. Recommended to the patient that the next step is pelvic exam, co testing and an endometrial sampling via hysteroscopy D&C possible polypectomy versus endometrial biopsy to r/o endometrial pathology including hyperplasia or cancer. Given the patient's body habitus and her right hip inability to be abducted, a pelvic exam, co testing an EMB were not performed successfully. Recommended referral to [facility], a tertiary care center with more available resource for further evaluation . All questions answered, the patient verbalized understanding and agreed with the plan. Instructed the patient to call our office back in case a referral appointment is not scheduled, missed or canceled so that we will assist on rescheduling another appointment, the patient verbalized understanding agreed with the plan. Coding Level of Care Code Est Pt Level 3 (92570) Diagnoses Postmenopausal bleeding N95.0
[2023-11-04 08:30] VITALS: BP 146/94
== END 2023-11-04 09:28 | disposition home or self-care (01) ==
LOC: HO.HWS 08:16
PROVIDERS: PCP Internal Medicine; Visit Provider Obstetrics & Gynecology
DX: N95.0 Postmenopausal bleeding (principal)
CPT/HCPCS: 99213

== ENCOUNTER → 2023-11-04 08:16 | Outpatient (BNVA) | payer OTHER, SELFPAY | PROVIDERS: PCP Internal Medicine; Visit Provider Obstetrics & Gynecology | DX: N95.0 Postmenopausal bleeding (principal) | CPT/HCPCS: 99212 ==

== ENCOUNTER 2023-12-14 08:42 | Outpatient (AMB) | payer OTHER, SELFPAY ==
[2023-12-14 08:55] VITALS: BP 144/82; PULSE 81; O2SAT 97
--- NOTE | 2023-12-14 08:55 | A.OFFPC_ITS ---
Vital Signs 12/14/23 08:55 12/14/23 11:39 Height 5 ft 4 in BMI Reason not done Patient refused/unable BP 144/82 H 145/88 H Blood Pressure Location Lt brachial Lt brachial Position Sitting Sitting Pulse 81 Pulse Source Pulse Oximeter Pulse Oximetry (%) 97 Oxygen Delivery Method Room Air Intake Visit Reasons: Annual exam Web Site Specialist Required: No Accompanied by: Self / Same As Patient Allergies Penicillins [PENICILLINS] Allergy (Unknown, Verified 12/14/23 09:10) ITCHING Medication List - Last Reconciled 12/14/23 by Rhina Malave MD albuterol sulfate mg inhalation Q6H PRN amitriptyline 50 mg PO BEDTIME 90 days amlodipine 5 mg PO DAILY 90 days barium sulfate 2%(w/v) (Readi-Cat 2) 450 mL PO DIRECTED 1 day bisacodyl (Dulcolax (bisacodyl)) 10 mg MD DAILY PRN cetirizine 10 mg PO DAILY 90 days docusate sodium (Colace) 200 mg (2 x 100 mg) PO BEDTIME [[facility] bariatric mattress lifetime use] incontinence pad, liner, disp Use 1 pad three times a day lisinopril 40 mg PO DAILY 90 days methylcellulose (laxative) (Citrucel) 500 mg PO TID 30 days miconazole nitrate 2% (Remedy Phytoplex Antifungal) 1 appl topical BID 30 days miconazole nitrate 2% (Remedy Phytoplex Antifungal) 1 appl topical DAILY 30 days polyethylene glycol 3350 (Miralax) 17 grams PO DAILY PRN 30 days pregabalin 75 mg PO TID sumatriptan succinate 25 mg PO Q2-4H PRN 30 days Ventolin HFA 90 mcg/actuation (albuterol sulfate) 2 puffs inhalation Q6H PRN 30 days NS [wheelchair As directed] Tobacco use date assessed: 12/14/23 Dental Screening Dental Screen Date: 12/14/23 Did you have a dental visit in the last 12 months?: Yes Did you have a dental problem in the last 6 months where you did not have access to dental care?: No Was dental information given to patient?: Patient has dentist HPI HPI Comments History of Present Illness Details This is a 63-year-old female that comes accompanied by son in a wheelchair due to bilateral leg weakness and multiple falls and fractures in legs not able to walk for her physical exam. Mammogram was over a year ago. Will be referred for colonoscopy. Was having postmenopausal bleeding and was referred to [facility] by [facility]. Blood pressure elevated but she has not take her medication yet and will be recheck in 3 weeks by nurse navigator. No chest pain or shortness of breath. [facility] Medical History Pre-diabetes HTN (hypertension) Surgical History Hx of tubal ligation Hx of section History of knee surgery Family History Mother Diabetes Throat cancer Hypertension Father Hypertension Social History Household Members Other:: son, grandaughter Housing: Apartment Alcohol intake: never Patient Tobacco Use Status: Never used Tobacco e-Cigarette/Vaping Use: Never Used Second Hand Smoke Exposure: No service: No Current occupational status: disabled Sexual orientation: Straight/Heterosexual Gender identity: Female Cognitive needs: Yes Hearing needs: No Vision needs: Yes Questionnaire PHQ-9 Over the last 2 weeks, how often have you been bothered by any of the following problems? 1. Little interest or pleasure in doing things: not at all 2. Feeling down, depressed, or hopeless: several days 3. Trouble falling or staying asleep, or sleeping too much: several days 4. Feeling tired or having little energy: not at all 5. Poor appetite or overeating: several days 6. Feeling bad about yourself - or that you are a failure or have let yourself or your family down: not at all 7. Trouble concentrating on things, such as reading the newspaper or watching television: not at all 8. Moving or speaking so slowly that other people could have noticed. Or the opp osite - being so fidgety or restless that you have been moving around a lot more than usual: not at all 9. Thoughts that you would be better off or of hurting yourself in some way: not at all Total score: 3 Depression Screening Interpretation: Negative Depression Screening Done: Yes 95289 - PHQ-9 Billing: Yes Source: Developed by Drs. Jeronimo Trinidad, Nora Stone, Hipolito Finley and colleagues, with an educational neil from [employer]. Thrive Questionnaire Date Thrive assessed: 12/14/23 I am a: Patient What is your living situation today?: I have a steady place to live Within the past 12 months, did the food you bought not last and you didn't have the money to get more?: Never true Within the past 12 months, did you worry whether your food would run out before you got money to buy more?: Never true Do you have trouble paying for medicines?: No Do you have trouble getting transportation to medical appointments?: No Do you have trouble paying your heating and electricity bill?: No Do you have trouble taking care of your child, family member or friend?: No Do you have trouble with day-to-day activities such as bathing, preparing meals, shopping, managing finances, etc.?: No Are you currently unemployed and looking for a job?: No Are you interested in more education?: No Currently or been in a relationship where the following occur: no concerns reported THRIVE Score: 0 AUDIT C Alcohol Use Questionnaire (AUDIT-C) 1. How often do you have a drink containing alcohol?: Never Total Score: 0 AUGUSTO-7 AMB Questionnaire AUGUSTO-7 Date AUGUSTO - 7 assessed: 12/14/23 Feeling nervous, anxious, or on edge: 0 = Not at all Not being able to stop or control worryin = Not at all Worrying too much about different things: 0 = Not at all Trouble relaxin = Not at all Being so restless that it is hard to sit still: 0 = Not at all Becoming easily annoyed or irritable: 0 = Not at all Feeling afraid as if something awful might happen: 0 = Not at all Total AUGUSTO-7 score (0-4 normal; 5-9 mild; 10-14 moderate; 15-21 severe): 0 Source: Developed by Drs. Jeronimo Trinidad, Hipolito Diaz and colleagues, with an educational neil from [employer]. AUGUSTO-7 Assessment Billing AUGUSTO-7 Assessment Tool: AUGUSTO-7 Assessment 02077 Review of Systems Const All systems reviewed & are unremarkable except as noted in HPI and below Eyes Reports no additional complaints, Denies change in vision and Denies other visual disturbances Card Denies chest pain at rest, Denies chest pain with activity, Denies edema, Denies irregular heart rhythm, Denies claudication, Denies dyspnea, Denies dyspnea on exertion, Denies orthopnea, Denies paroxysmal nocturnal dyspnea and Denies slow heart rate Resp Denies cough, Denies dyspnea and Denies dyspnea on exertion GI Denies abdominal pain, Denies change in bowel habits, Denies excessive flatus, Denies nausea and Denies vomiting Denies urinary incontinence, Denies urinary hesitancy and Denies urinary urgency Skin/Breast Denies bleeding lesions, Denies changing lesions and Denies rash Neuro Denies lack of coordination Physical exam (Primary Care) Vital Signs: Last Vital Signs Pulse 81 12/14/23 08:55 BP 144/82 H 12/14/23 08:55 Pulse Ox 97 12/14/23 08:55 Oxygen Delivery Method Room Air 12/14/23 08:55 Tobacco/Smoking Status: Tobacco use Status Tobacco use date assessed 12/14/23 12/14/23 09:02 Patient Tobacco Use Status Never used Tobacco 12/14/23 09:02 e-Cigarette/Vaping Use Never Used 12/14/23 09:02 PHQ-9: PHQ-9 Score PHQ-9: Total score 3 12/14/23 09:13 Depression Screening Interpretation: Negative Thrive Assessment: Date of Thrive Assessment Date Thrive assessed 12/14/23 12/14/23 09:02 Currently or been in a relationship where the following occur: no concerns reported Const Orientation/consciousness: patient oriented x3 Limitations: wheelchair HENMT Head: Yes normal to inspection, Yes normocephalic and Yes atraumatic Ears: external ears normal Eyes General: appearance normal, both eyes and all related structures Eyelids: Yes eyelids normal Conjunctivae: conjunctivae normal Neck Neck: Yes normal visual inspection and Yes supple Resp Effort & Inspection: normal respiratory effort Auscultation: clear to auscultation bilaterally Cardio Jugular venous distension: no JVD Rate: regular rate Rhythm: regular rhythm Heart sounds: S1 normal heart sound present and S2 normal heart sound present GI Inspection: Yes normal to inspection Palpation (GI): Soft to palpation and nontender Auscultation: normal bowel sounds Skin General skin exam: no rashes or lesions noted Neuro Other: 3/5 left leg, 1/5 right leg General: patient oriented x3 Psych Appearance: grossly normal Assessment and Plan Assessment & Plan (1) Physical exam: Code(s): Z00.00 - Encounter for general adult medical examination without abnormal findings Plan: Repeat in a year. Orders: Orders MM screening mammo BI Today Z12.31 - Encounter for screening mammogram for malignant neoplasm of breast Lipid Panel Today E78.5 - Hyperlipidemia, unspecified, Z00.00 - Encounter for general adult medical examination without abnormal findings Comprehensive [place]. Panel Fast Today Z00.00 - Encounter for general adult medical examination without abnormal findings Referrals Gastroenterology Referral Z12.11 - Encounter for screening for malignant neoplasm of colon Medications: New spironolactone 25 mg PO DAILY 90 days 90 tabs 1RF Refilled miconazole nitrate 2% (Remedy Phytoplex Antifungal) 1 appl topical DAILY 30 days 85 grams 2RF Coding Level of Care Code Est Pt Prev Care 40-64y(03636) Diagnoses Physical exam Z00.00 Additional Codes AUGUSTO-7 Assessment Billing - AUGUSTO-7 Assessment Tool: AUGUSTO-7 Assessment 07238 ([id number]) Time Spent (min) 32
[2023-12-14 11:39] VITALS: BP 145/88
== END 2023-12-14 09:22 | disposition home or self-care (01) ==
PROVIDERS: Visit Provider Internal Medicine
DX: Z00.00 Encounter for general adult medical examination without abnormal findings (principal)
CPT/HCPCS: 99396

== ENCOUNTER 2024-01-20 11:15 | Outpatient (REF) | payer OTHER, SELFPAY ==
[2024-01-20 13:10] LABS: Alanine Aminotransferase 14 U/L (0-31); Alkaline Phosphatase 79 U/L (39-117); Anion Gap 10 (12-20); Aspartate Amino Transferase 18 U/L (5-31); Bilirubin Total 0.4 mg/dL (0.0-1.0); Blood Urea Nitrogen 11 mg/dL (9-16); Calcium 8.9 mg/dL (8.4-10.2); Carbon Dioxide 33 mmol/L (22-29); Chloride 102 mmol/L (96-108); Cholesterol 154 mg/dL (<200); Estimated Glomerular Filt Rate > 60; Glucose Fasting 83 mg/dL (60-99); HDL Cholesterol 37 mg/dL (>40); LDL Cholesterol Calculated 105 mg/dL (<100); Potassium 4.8 mmol/L (3.3-5.1); Sodium 140 mmol/L (135-145); Total Protein 8.5 g/dL (6.5-8.0); Triglycerides 60 mg/dL (<150)
== END 2024-01-20 11:16 | disposition home or self-care (01) ==
LOC: HO.LAB 11:15
PROVIDERS: Absent Provider Internal Medicine; PCP Internal Medicine; Visit Provider Physician Assistant
DX: Z00.00 Encounter for general adult medical examination without abnormal findings (principal); E78.5 Hyperlipidemia, unspecified; E66.9 Obesity, unspecified; R10.9 Unspecified abdominal pain; G89.29 Other chronic pain; Z99.3 Dependence on wheelchair
CPT/HCPCS: 36415; 80053; 80061; 99212

== ENCOUNTER 2024-01-20 11:15 | Outpatient (AMB) | payer OTHER, SELFPAY ==
--- NOTE | 2024-01-20 11:18 | A.OFFVIS_ITS ---
Vital Signs 01/20/24 11:20 Height 5 ft 4 in BMI Reason not done Patient refused/unable BP 148/59 H Blood Pressure Location Lt radial Position Sitting Pulse 80 Intake Visit Reasons: pre colonoscopy Intake Note: Monica presents in the office today as a pre colonoscopy screening CC: She states that she is constipated at times. Emergency Medicine Nurse Practitioner Required: Yes Emergency Medicine Nurse Practitioner Name: Fab [id number] Allergies Penicillins [PENICILLINS] Allergy (Unknown, Verified 01/20/24 11:24) ITCHING Medication List - Last Reconciled 01/20/24 by FARIDA GoldsteinC albuterol sulfate mg inhalation Q6H PRN amitriptyline 50 mg PO BEDTIME 90 days amlodipine 5 mg PO DAILY 90 days bisacodyl (Dulcolax (bisacodyl)) 10 mg AR DAILY PRN cetirizine 10 mg PO DAILY 90 days docusate sodium (Colace) 200 mg (2 x 100 mg) PO BEDTIME [hospital bariatric mattress lifetime use] incontinence pad, liner, disp Use 1 pad three times a day lisinopril 40 mg PO DAILY 90 days methylcellulose (laxative) (Citrucel) 500 mg PO TID 30 days miconazole nitrate 2% (Remedy Phytoplex Antifungal) 1 appl topical BID 30 days miconazole nitrate 2% (Remedy Phytoplex Antifungal) 1 appl topical DAILY 30 days polyethylene glycol 3350 (Miralax) 17 grams PO DAILY PRN 30 days pregabalin 75 mg PO TID spironolactone 25 mg PO DAILY 90 days sumatriptan succinate 25 mg PO Q2-4H PRN 30 days Ventolin HFA 90 mcg/actuation (albuterol sulfate) 2 puffs inhalation Q6H PRN 30 days NS [wheelchair As directed] HPI Comments Details: A 63 y/o obese female w/c assisted referred back for colonoscopy- accompanied by FOREST AIDE and granddaughter Seen last nov-with LLQ pain- we had ordered abdominal CT however it was not authorized by insurance- pretty much resolved- She has occ. Nonspecific abdominal pain- nothing brings it on- or makes worse or better- alternating stool pattern-has been typical for her for many years Appetite is good She has no other GI or general complaints No nausea, vomiting, hematemesis, hematochezia fever or chills Emergency Medicine Nurse Practitioner device [facility] Medical History (Updated 01/20/24 @ 14:17 by Mickie Ryan PA-C) Pre-diabetes HTN (hypertension) Surgical History Hx of colonoscopy Hx of tubal ligation Hx of section History of knee surgery Family History Mother Diabetes Throat cancer Hypertension Father Hypertension Social History Household Members Other:: son, jazmine Housing: Apartment Alcohol intake: never Patient Tobacco Use Status: Never used Tobacco e-Cigarette/Vaping Use: Never Used Second Hand Smoke Exposure: No service: No Current occupational status: disabled Sexual orientation: Straight/Heterosexual Gender identity: Female Cognitive needs: Yes Hearing needs: No Vision needs: Yes Physical Exam Vital Signs: Last Vital Signs Pulse 80 01/20/24 11:20 BP 148/59 H 01/20/24 11:20 pt states approx wt- 300lb Const General: cooperative, comfortable and no acute distress Nutritional Appearance: obese Orientation/consciousness: patient oriented x3 Limitations: language barrier, physical limitations and wheelchair Eyes Sclerae: sclerae normal Resp Effort & Inspection: normal respiratory effort and able to speak in complete sentences Auscultation: no rales, rhonchi and no wheezes Cardio Rate: regular rate Rhythm: regular rhythm Heart sounds: S1 normal heart sound present and S2 normal heart sound present GI Inspection: Yes Abdominal panniculus present and Yes obesity Palpation (GI): Soft to palpation and nontender Auscultation: normal bowel sounds Rectal Exam - Female: deferred Neuro General: patient oriented x3 Psych Speech and movement: Normal speech and movement present Affect: normal affect Attitude: cooperative Assessment & Plan Assessment & Plan (1) Chronic abdominal pain: Comment: Not appreciated on exam Morbidly obese-wheelchair dependent-difficult to assess CT ordered last visit for chronic abdominal pain has a denied MiraLax Colace daily may had try to tweak that FOREST AIDE present he is unable to give detail as well CBC Code(s): R10.9 - Unspecified abdominal pain; G89.29 - Other chronic pain Category: Medical (2) Encounter for screening colonoscopy: Code(s): Z12.11 - Encounter for screening for malignant neoplasm of colon Category: Medical Plan colonoscopy-anesthesia consult obesity Bariatric bed PEG/ dulcolax Orders: Orders Colonoscopy - GI Use Only Today E66.9 - Obesity, unspecified, G89.29 - Other chronic pain, R10.9 - Unspecified abdominal pain, Z99.3 - Dependence on wheelchair Medications: New bisacodyl (Dulcolax (bisacodyl)) Day before procedure @ 12 noon Take 4 tablets by mouth followed by large glass of water 20 mg (4 x 5 mg) PO ONCE 1 day PRN 4 tabs 0RF colonoscopy prep Z12.11 - Encounter for screening for malignant neoplasm of colon peg-electrolyte soln 420 gram Start at 6:00pm the evening before procedure, drink one 8oz glass every 15 minutes until complete 240 mL PO ONCE 1 day 4,000 mL 0RF laxative effect Patient Instructions: colonoscopy-discussed procedure, rare risks need for escort PEG/ dulcolax reviewed literature Encouraged to call questions or concerns
[2024-01-20 11:20] VITALS: BP 148/59; PULSE 80
== END 2024-01-20 13:10 | disposition home or self-care (01) ==
PROVIDERS: PCP Internal Medicine; Visit Provider Physician Assistant
DX: R10.9 Unspecified abdominal pain (principal); G89.29 Other chronic pain; Z12.11 Encounter for screening for malignant neoplasm of colon
CPT/HCPCS: 99213

== ENCOUNTER 2024-01-28 08:18 | Outpatient (REF) | payer OTHER, SELFPAY | END 2024-01-28 08:19 | disposition home or self-care (01) | LOC: HO.MAMMO 08:18 | PROVIDERS: PCP Internal Medicine; Visit Provider Internal Medicine | DX: Z13.89 Encounter for screening for other disorder (principal) ==

== ENCOUNTER 2024-06-19 09:38 | Outpatient (AMB) | payer OTHER, SELFPAY ==
--- NOTE | 2024-06-19 09:40 | A.OFFPC_ITS ---
Vital Signs 06/19/24 09:51 BMI Reason not done Patient refused/unable BP 128/80 Blood Pressure Location Lt radial Position Sitting Intake Visit Reasons: 6 Month F/U Intake Note: Patient here for a 6 month follow up Tub Washer Required: No Accompanied by: Son Allergies Penicillins [PENICILLINS] Allergy (Unknown, Verified 06/19/24 10:00) ITCHING Medication List - Last Reconciled 06/19/24 by Rhina Malave MD albuterol sulfate 2.5 mg (3 mL) inhalation Q6H PRN amitriptyline 50 mg PO BEDTIME 90 days amlodipine 5 mg PO DAILY 90 days [bariatric hospital bed As directed] [bariatric twin bed As directed] [bedside morales repair As directed] bisacodyl (Dulcolax (bisacodyl)) 10 mg UT DAILY PRN bisacodyl (Dulcolax (bisacodyl)) 20 mg (4 x 5 mg) PO ONCE PRN 1 day cetirizine 10 mg PO DAILY 90 days docusate sodium (Colace) 200 mg (2 x 100 mg) PO BEDTIME [electric marc lift As directed] [foam mattress As directed] [hospital bariatric mattress lifetime use] incontinence pad, liner, disp Use 1 pad three times a day lisinopril 40 mg PO DAILY 90 days [mattress repair As directed] methylcellulose (laxative) (Citrucel) 500 mg PO TID 30 days miconazole nitrate 2% (Remedy Phytoplex Antifungal) 1 appl topical BID 30 days miconazole nitrate 2% (Remedy Phytoplex Antifungal) 1 appl topical DAILY 30 days peg-electrolyte soln 420 gram 240 mL PO ONCE 1 day polyethylene glycol 3350 (Miralax) 17 grams PO DAILY PRN 30 days pregabalin 75 mg PO TID spironolactone 25 mg PO DAILY 90 days sumatriptan succinate 25 mg PO Q2-4H PRN 30 days [vehicle wheelchair lift repair As directed] Ventolin HFA 90 mcg/actuation (albuterol sulfate) 2 puffs inhalation Q6H PRN 30 days NS [wheelchair As directed] Tobacco use date assessed: 12/14/23 Dental Screening Dental Screen Date: 12/14/23 HPI HPI Comments History of Present Illness Details This is a 63-year-old female with hypertension, fibromyalgia, chronic constipation and wheelchair confinement that comes today accompanied by son which is her CAR WASH SUPERVISOR for follow-up on her conditions. Blood pressure stable. On Lyrica for her fibromyalgia. Constipation well controlled with medications as needed. She is wheelchair confined for over 5 years and is not able to flex her right knee since she has 10 years old. She has had multiple falls due to leg giving up and this is why she is on a wheelchair. She will benefit from an electric Marc lift. She also has a bariatric hospital bed at home and needs a new mattress. FORMERLY [facility], [facility] Medical History Pre-diabetes HTN (hypertension) Surgical History Hx of colonoscopy Hx of tubal ligation Hx of section History of knee surgery Family History Mother Diabetes Throat cancer Hypertension Father Hypertension Social History Household Members Other:: son, [facility] Housing: Apartment Alcohol intake: never Patient Tobacco Use Status: Never used Tobacco e-Cigarette/Vaping Use: Never Used Second Hand Smoke Exposure: No service: No Current occupational status: disabled Sexual orientation: Straight/Heterosexual Gender identity: Female Cognitive needs: Yes Hearing needs: No Vision needs: Yes Questionnaire Thrive Questionnaire Date Thrive assessed: 12/14/23 Are you currently unemployed and looking for a job?: I choose not to answer this question AUGUSTO-7 AMB Questionnaire AUGUSTO-7 Date AUGUSTO - 7 assessed: 12/14/23 Source: Developed by Drs. Jeronimo Trinidad, Nora Stone, Hipolito Finley and colleagues, with an educational neil from [employer]. Review of Systems Const All systems reviewed & are unremarkable except as noted in HPI and below Card Denies chest pain at rest, Denies chest pain with activity, Denies edema, Denies irregular heart rhythm, Denies claudication, Denies dyspnea, Denies dyspnea on exertion, Denies orthopnea, Denies paroxysmal nocturnal dyspnea and Denies slow heart rate Resp Denies cough, Denies dyspnea and Denies dyspnea on exertion GI Denies abdominal pain, Denies change in bowel habits, Denies excessive flatus, Denies nausea and Denies vomiting Denies urinary incontinence, Denies urinary hesitancy and Denies urinary urgency Musc Reports back pain, Denies atrophy, Denies deformity, Reports arthralgias and Reports limited range of motion Skin/Breast Denies bleeding lesions, Denies changing lesions and Denies rash Neuro Denies behavioral changes and Denies lack of coordination Psych Denies behavioral changes Physical exam (Primary Care) Vital Signs: Last Vital Signs BP 128/80 06/19/24 09:51 BMI Assessment/Plan discussion: High BMI High, discussed plan: lifestyle, weight reduction, dietary and physical activity Tobacco/Smoking Status: Tobacco use Status Tobacco use date assessed 12/14/23 06/19/24 09:42 Patient Tobacco Use Status Never used Tobacco 06/19/24 09:42 e-Cigarette/Vaping Use Never Used 06/19/24 09:42 Thrive Assessment: Date of Thrive Assessment Date Thrive assessed 12/14/23 06/19/24 09:42 Const Nutritional Appearance: obese morbidly obese Limitations: wheelchair (electric wheelchair) Resp Effort & Inspection: normal respiratory effort Auscultation: clear to auscultation bilaterally Cardio Jugular venous distension: no JVD Rate: regular rate Rhythm: regular rhythm Heart sounds: S1 normal heart sound present and S2 normal heart sound present Extrem Other: not able to flex right knee Assessment and Plan Assessment & Plan (1) Essential hypertension: Code(s): I10 - Essential (primary) hypertension Plan: Continue amlodipine, lisinopril and spironolactone. Blood pressure goal is equal or less than 130/80. (2) Wheelchair confinement: Comment: Since 2017 Code(s): Z99.3 - Dependence on wheelchair Plan: Continue the use of electric wheelchair. (3) Fibromyalgia: Code(s): M79.7 - Fibromyalgia Plan: Continue Lyrica. (4) Chronic constipation: Comment: Encouraged consistent bowel regimen Code(s): K59.09 - Other constipation Plan: Continue Colace as needed. Coding Level of Care Code Est Pt Level 4 (35500) Complex EM visit Add On G2211 Diagnoses Essential hypertension I10 Wheelchair confinement Z99.3 Fibromyalgia M79.7 Chronic constipation K59.09 Time Spent (min) 24
[2024-06-19 09:51] VITALS: BP 128/80
== END 2024-06-19 10:08 | disposition home or self-care (01) ==
PROVIDERS: PCP Internal Medicine; Visit Provider Internal Medicine
DX: I10 Essential (primary) hypertension (principal); Z99.3 Dependence on wheelchair; M79.7 Fibromyalgia; K59.09 Other constipation

== ENCOUNTER → 2024-06-19 09:38 | Outpatient (BNVA) | payer OTHER, SELFPAY | PROVIDERS: PCP Internal Medicine; Visit Provider Internal Medicine | DX: I10 Essential (primary) hypertension (principal); M79.7 Fibromyalgia; K59.09 Other constipation; Z99.3 Dependence on wheelchair | CPT/HCPCS: 99212 ==

== ENCOUNTER 2024-09-22 16:02 | Inpatient (IN) | payer OTHER, SELFPAY ==
--- NOTE | ~2024-09-22 | XR_ITS ---
EXAMINATION: XR CHEST CLINICAL INFORMATION: sob COMPARISON: None available. TECHNIQUE: Frontal view of the chest was obtained. FINDINGS: Study somewhat limited by patient body habitus. Cardiac enlargement. Mediastinal contours normal. Vascular congestion in the hilar regions. Diffuse hazy increased bronchovascular markings throughout both lungs with low lung volumes, without overt edema or Jesus B lines noted. Patchy airspace disease in the retrocardiac region, possibly atelectasis versus pneumonia. Mildly dilated colonic loops in the upper abdomen. Cholecystostomy tube in place, difficult to visualize. No soft tissue or osseous abnormality. XR/XR chest 1V IMPRESSION: 1. Limited exam due to patient habitus and low lung volumes. 2. Cardiac enlargement and mild vascular congestion without overt pulmonary edema. 3. Patchy bibasilar predominantly retrocardiac opacities, likely atelectasis although pneumonia is excluded. Would correlate with clinical presentation. 4. Partially imaged cholecystostomy tube in place. Electronically signed by: Cleveland Angela MD 09/28/2024 11:10 AM [facility]
--- NOTE | ~2024-09-22 | US_ITS ---
PROCEDURE: Ultrasound-guided cholecystostomy tube placement History: Acute cholecystitis Medications: 10 mL 1% lidocaine administered by M.DDyana 25 mcg fentanyl delivered by RN TECHNIQUE/FINDINGS: Informed consent was obtained following a discussion of the risks and benefits of the procedure with the patient utilizing a tire duster. Appropriate preprocedural clinical history and imaging studies were reviewed. The patient was brought to the department and placed on the CT gantry with the intention of performing the cholecystostomy tube under CT guidance. However, patient was unable to fit into the scanner on account of body habitus. We therefore elected to proceed with ultrasound guidance. Ultrasound demonstrates distended gallbladder with gallstones, wall thickening and minimal adjacent free fluid consistent with acute cholecystitis in concordance with previous imaging. A site was marked in the right upper quadrant and the area was sterilely prepped and draped. 1% lidocaine was administered. The gallbladder was then accessed with an 8 Yoruba pigtail drainage catheter utilizing trocar technique. Bilious fluid was encountered. 20 mL was manually aspirated and the catheter was maintained to LESLY bulb drainage. The external portion of the catheter was secured with a suture and a dressing was applied. Patient tolerated the procedure well. US/US drain judy retro perc Impression: Cholecystostomy tube placement Electronically signed by: Edson Hackett MD 09/25/2024 05:28 PM [facility]
--- NOTE | ~2024-09-22 | CT_ITS ---
EXAMINATION: CT ABDOMEN AND PELVIS WITH CONTRAST CLINICAL INFORMATION: . COMPARISON: Pelvic ultrasound dated 07/02/2023. Abdominal ultrasound dated 01/12/2020. TECHNIQUE: Multidetector volumetric images were obtained from the superior aspect of the liver through the pubic symphysis following administration 85 mL of Omnipaque 350 intravenous contrast. Sagittal and coronal reformatted images were obtained on the technologist's workstation. Oral contrast: No This CT examination was performed using dose optimization techniques as appropriate, variously including the following: *Automated exposure control *Adjustment of mA and/or kV according to patient size (this includes techniques or standardized protocols for targeted exams where dose is matched to indication/reason for exam; i.e. extremities or head) *Use of iterative reconstruction technique DLP: 1614 mGy-cm FINDINGS: LUNG BASES: Bibasilar linear atelectasis. LIVER, GALLBLADDER, AND BILIARY TREE: The liver is normal in size and shape. Parenchymal hypoattenuation, consistent with steatosis. Fatty sparing adjacent to the gallbladder fossa. No focal hepatic lesion or biliary ductal dilatation is present. The gallbladder is dilated with multiple gallstones. There is mild adjacent stranding extending inferiorly within the right retroperitoneum. Findings could represent early cholecystitis in the appropriate clinical setting. No organized fluid collection or abscess formation. PANCREAS: Unremarkable. SPLEEN: Unremarkable. ADRENAL GLANDS: Unremarkable. KIDNEYS AND URETERS: The kidneys are normal in size, shape, and attenuation. No hydronephrosis, hydroureter, or calculi seen. No perinephric stranding. BLADDER: Unremarkable. GASTROINTESTINAL TRACT: Mild air and stool throughout the colon. No small or large bowel obstruction. Sigmoid diverticulosis without evidence of acute diverticulitis. No bowel wall thickening or inflammatory change. There are lower pelvic fluid-filled small bowel loops without dilatation or significant enhancement/wall thickening. Findings could represent mild enteritis in the appropriate clinical setting. Unremarkable appendix. PERITONEAL CAVITY: No intra-abdominal free air. No significant free fluid. ABDOMINAL WALL: Diastasis of the rectus abdominal muscles without significant abdominal wall hernia. LYMPH NODES: Subcentimeter retroperitoneal lymph nodes without significant lymphadenopathy. VASCULAR: Unremarkable. PELVIC VISCERA: There is a somewhat linear cystic structure within the right adnexa measuring up to 3.6 x 2.4 x 6 cm in greatest dimension. Mild adjacent stranding which extends proximally into the mesenteric root and right upper quadrant in the region of the gallbladder. Exophytic soft tissue lesion along the right side of the uterine base measuring up to 3.3 cm in greatest dimension. Findings could be related to patient's reported history of uterine cancer. OSSEOUS STRUCTURES: Severe right hip osteoarthritis with prominent bony remodeling. No concerning lytic or blastic osseous lesion. CT/CT abdomen pelvis w IV con IMPRESSION: 1. Dilated gallbladder with multiple gallstones and mild adjacent stranding. Findings could represent early cholecystitis in the appropriate clinical setting. No organized fluid collection or abscess formation. 2. Sigmoid diverticulosis without evidence of acute diverticulitis. Fluid-filled lower pelvic small bowel loops without dilatation or wall thickening. Findings could represent mild enteritis in the appropriate clinical setting. No small or large bowel obstruction. Unremarkable appendix. 3. Hepatic steatosis. No hepatic parenchymal lesion or biliary ductal dilatation. 4. Somewhat linear cystic structure within the right adnexa measuring up to 6 cm in greatest dimension. Mild adjacent stranding which extends proximally into the mesenteric root and right upper quadrant in the region of the gallbladder. Findings could represent early cholecystitis in the appropriate clinical setting. 5. Exophytic soft tissue lesion along the right side of the uterine base measuring up to 3.3 cm. Findings could be related to patient's reported history of uterine cancer. 6. Severe right hip osteoarthritis with prominent bony remodeling. Fleischner guidelines were followed. Electronically signed by: Morgan Fish MD 09/22/2024 09:08 PM [facility]
--- NOTE | ~2024-09-22 | XR_ITS ---
EXAMINATION: XR CHEST CLINICAL INFORMATION: Hypoxia COMPARISON: Chest x-ray on 09/28/2024 TECHNIQUE: Frontal view of the chest was obtained. FINDINGS: HEART & VASCULARITY: There are moderate cardiomegaly and normal and pulmonary vascularity. LUNGS: Lungs are hypoinflated with exaggerated vascular markings. No pneumothorax is seen. BONES: Bony skeleton is intact. XR/XR chest 1V IMPRESSION: 1. Persistent moderate cardiomegaly without radiographic signs of congestive heart failure. 2. Unchanged marked hypoinflation of lungs. 3. Interval decrease in left lower lobe retrocardiac alveolar infiltrates. Electronically signed by: Nela James MD 09/29/2024 07:36 AM EST
--- NOTE | ~2024-09-22 | XR_ITS ---
EXAMINATION: XR CHEST CLINICAL INFORMATION: Cough. Shortness of breath. COMPARISON: Most recent chest CT dated 01/10/2020. TECHNIQUE: Frontal view of the chest was obtained. FINDINGS: No focal airspace consolidation. No pleural effusion or pneumothorax. Stable borderline cardiomegaly. XR/XR chest 1V IMPRESSION: No acute cardiopulmonary findings. Electronically signed by: Morgan Fish MD 09/22/2024 08:55 PM EST
--- NOTE | ~2024-09-22 | US_ITS ---
EXAMINATION: US PELVIS CLINICAL INFORMATION: Anemia and vaginal bleeding COMPARISON: Ultrasound pelvis 07/02/2023. TECHNIQUE: Ultrasound of the pelvis is performed using both transabdominal and transvaginal transducers along with Doppler. Transvaginal imaging is performed due to inadequate visualization transabdominally. FINDINGS: Uterus: The uterus is anteverted, anteflexed and measures 10.1 x 5.5 cm. The double wall endometrial thickness is 13 mm. The endometrium is thickened with echogenic clot of fluid within cervical canal. Cervix is not optimally visualized. The uterus is smooth in contour and has normal myometrial echogenicity. No visible fibroid. Adnexa: Both ovaries are not visualized. There is no free fluid in the cul-de-sac. US/US transvaginal IMPRESSION: Thickened endometrium with echogenic clot and fluid in cervix. The uterus is otherwise unremarkable. Ovaries are not seen. There is no free fluid in the cul-de-sac. Electronically signed by: Yazan Gonzalez MD 10/10/2024 10:44 AM [facility]
--- NOTE | ~2024-09-22 | XR_ITS ---
CLINICAL HISTORY: colonic ilues 1 view abdomen Comparison: None Findings: No definite free air. Well-positioned enteric tube. Looped pigtail drain projecting over the right kidney. Gas seen throughout mildly distended bowel. Severe degenerative change of the right hip and moderate degenerative change of the left hip. Impression: Gas-filled loops of mildly distended bowel, nonspecific. Continued follow-up. No evidence of free air. Severe degenerative change of the right hip. Tubes and lines as detailed. This document has been electronically signed by: Yosi Thomas MD on 10/06/2024 11:27:16
--- NOTE | ~2024-09-22 | XR_ITS ---
CLINICAL HISTORY: dialysis line Single view of the chest. Comparison 09/30/2024. Findings: Body habitus limits the study. The heart is enlarged. Mild elevation of the right hemidiaphragm. Nasogastric tube extends to the stomach. Impression: There is bronchial wall thickening in the lung suspicious for mild edema. The tip of the right central line is projected superior to the clavicle and exact position is uncertain. This document has been electronically signed by: Bran Lozano MD on 10/02/2024 18:12:25
--- NOTE | ~2024-09-22 | CT_ITS ---
EXAMINATION: CT ABDOMEN AND PELVIS WITH CONTRAST CLINICAL INFORMATION: Vomiting. Right upper quadrant pain. Question ileus versus bowel obstruction. COMPARISON: Most recent abdominal ultrasound dated 09/22/[address] abdomen/pelvis dated 09/22/2024. TECHNIQUE: Multidetector volumetric images were obtained from the superior aspect of the liver through the pubic symphysis following administration 85 mL of Omnipaque 350 intravenous contrast. Sagittal and coronal reformatted images were obtained on the technologist's workstation. Oral contrast: No This CT examination was performed using dose optimization techniques as appropriate, variously including the following: *Automated exposure control *Adjustment of mA and/or kV according to patient size (this includes techniques or standardized protocols for targeted exams where dose is matched to indication/reason for exam; i.e. extremities or head) *Use of iterative reconstruction technique DLP: 1148 mGy-cm FINDINGS: LUNG BASES: Bibasilar atelectasis versus infiltrates, slightly increased. LIVER, GALLBLADDER, AND BILIARY TREE: The liver is normal in size and shape. Parenchymal hypoattenuation, consistent with steatosis. No focal hepatic lesion or biliary ductal dilatation is present. Dilated gallbladder with multiple gallstones and associated wall thickening as well as mild adjacent inflammatory change, slightly decreased when compared to the prior examination. No evidence of perforation. PANCREAS: Unremarkable. SPLEEN: Unremarkable. ADRENAL GLANDS: Unremarkable. KIDNEYS AND URETERS: The kidneys are normal in size, shape, and attenuation. No hydronephrosis, hydroureter, or calculi seen. No perinephric stranding. BLADDER: Nondistended and unremarkable. GASTROINTESTINAL TRACT: Dilated and fluid-filled small bowel loops with air-fluid levels. The right colon and transverse colon are somewhat dilated with air-fluid levels. The descending, sigmoid colon, and rectum are nondistended. No definite transition point. Findings are thought to represent ileus. A distal colonic partial obstruction could be considered in the appropriate clinical setting. No significant bowel wall thickening or inflammatory change. Appendix not identified. Trace right hepatic ascites, new when compared to the prior examination. No organized fluid collection or abscess formation. ABDOMINAL WALL: No significant hernia is appreciated. LYMPH NODES: No significant lymphadenopathy. VASCULAR: No abdominal aortic dilatation or dissection. PELVIC VISCERA: The uterus and adnexa are unremarkable. OSSEOUS STRUCTURES: Severe right hip osteoarthritis and bony remodeling is redemonstrated. No acute osseous abnormality. CT/CT abdomen pelvis w IV con IMPRESSION: 1. Dilated and fluid-filled small bowel loops with air-fluid levels. Mildly dilated right colon and transverse colon with air-fluid levels. The descending, sigmoid colon, and rectum are nondistended. No definite transition point. Findings are thought to represent ileus. A distal colonic partial obstruction could be considered in the appropriate clinical setting. No significant bowel wall thickening or inflammatory change. 2. Trace right hepatic ascites, new when compared to the prior examination. No organized fluid collection or abscess formation. 3. Dilated gallbladder with multiple gallstones and associated wall thickening as well as mild adjacent inflammatory change, slightly decreased when compared to the prior examination. Findings are consistent with acute cholecystitis. No evidence of perforation. 4. Bibasilar atelectasis versus infiltrates, slightly increased when compared to the prior examination. Fleischner guidelines were followed. Electronically signed by: Morgan Fish MD 09/29/2024 12:24 PM [facility]
--- NOTE | ~2024-09-22 | XR_ITS ---
CLINICAL HISTORY: ng tube 1 view chest x-ray Comparison: Chest x-ray from 09/28/2024 Findings: A new enteric tube courses below the diaphragm with tip below the field of view. Worsening bilateral pulmonary opacities. These are nonspecific and potentially accentuated by technique. Question small right pleural effusion. No pneumothorax. Degenerative changes include imaged right AC joint. IMPRESSION: New enteric tube courses below the diaphragm. Mild worsening of the pulmonary opacities. This document has been electronically signed by: Nathanael Burk MD on 09/30/2024 01:31:31
--- NOTE | ~2024-09-22 | XR_ITS ---
EXAMINATION: XR CHEST CLINICAL INFORMATION: Maksoy catheter left IJ placement confirmation COMPARISON: Chest x-ray 10/02/2024. TECHNIQUE: Frontal view of the chest was obtained. FINDINGS: There is new left central venous catheter in the distal brachiocephalic vein. Right jugular central line has been removed from the neck. There is endotracheal tube is above the diaphragm the stomach. The lungs are expanded and clear. The heart size is borderline enlarged. Pulmonary vascularity is maintained normal. No gross bony abnormality seen. XR/XR chest 1V IMPRESSION: New enteric tube and left-sided jugular central line in satisfactory position. Electronically signed by: Yazan Gonzalez MD 10/05/2024 10:54 AM EST
--- NOTE | ~2024-09-22 | US_ITS ---
EXAMINATION: US ABDOMEN LIMITED CLINICAL INFORMATION: Right upper quadrant abdominal pain. Evaluate for acute cholecystitis. COMPARISON: CT abdomen/pelvis done earlier the same day. TECHNIQUE: Real-time imaging of the right upper quadrant abdominal viscera. FINDINGS: Gallbladder stones and sludge. Mild gallbladder wall thickening measuring up to 0.6 cm. Trace pericholecystic free fluid. Right upper quadrant pain during the examination. No common bile duct dilatation measuring up to 0.5 cm. US/US abdomen limited IMPRESSION: Cholelithiasis with gallbladder wall thickening and trace pericholecystic free fluid. Findings are consistent with acute cholecystitis. Electronically signed by: Morgan Fish MD 09/22/2024 10:55 PM EST
--- NOTE | ~2024-09-22 | NM_ITS ---
EXAMINATION: BILIARY TRACT IMAGING STUDY CLINICAL INDICATION: Right upper quadrant abdominal pain. Abnormal gallbladder seen on prior CT study as well as right upper quadrant abdominal ultrasound done on 09/22/2024. COMPARISON: CT of the abdomen and pelvis and right upper quadrant abdominal ultrasound and chest radiograph done on 09/22/2024. TECHNIQUE: Scintillation camera images were obtained over the abdomen for an observation of 120 minutes following the intravenous administration of 8 millicuries technetium 99m mebrofenin. The radiotracer was injected through a left hand superficial vein without complications. Following obtaining 2 hours post injection delayed images, the patient was requested to return for delayed 4 hours imaging (per protocol). However, the patient apparently declined. FINDINGS: There is good concentration of activity in the liver by 5 minutes post injection. Biliary activity is well visualized by 10 minutes, and there is good visualization of small bowel activity by 10 minutes. The gallbladder remains nonvisualized throughout the entire study (120 minutes post injection images). NM/NM hepatobiliary wo pharm IMPRESSION: * The common bile duct is patent. Liver function appears normal. * Nonvisualization of the gallbladder at 2 hours post injection images. Differential includes acute cholecystitis however, due to variable physiologic changes such as physiologically distended or contracted gallbladder as well as in patients with chronic cholecystitis, the scintigraphic appearance may have overlapping imaging features and cannot be absolutely differentiated. Clinical and lab correlation would be helpful for further differentiation. * 4 hours delayed imaging may also be considered for further clarification. This critical result was discussed with ROSEANN Ward at 4:07 PM on 09/23/2024 and it was ascertained that the content and urgency of the report was understood at the time of direct communication. Electronically signed by: Nathen Sheth MD 09/23/2024 04:13 PM [facility]
[2024-09-22 16:09] VITALS: BP 176/84; PULSE 120; PULSE 122; RESP 20; TEMP 37.1; O2SAT 100; O2SAT 77; BMI 63.7
--- NOTE | 2024-09-22 16:11 | ECG_ITS ---
Test Reason : SOB Blood Pressure : / mmHG Vent. Rate : 119 BPM Atrial Rate : 119 BPM P-R Int : 170 ms QRS Dur : 150 ms QT Int : 328 ms P-R-T Axes : 044 -21 017 degrees QTc Int : 461 ms Sinus tachycardia Right bundle branch block Abnormal ECG No previous ECGs available Referred By: Prabha Barrera Electronically Signed By:JUSTINO FRANKEL
[2024-09-22 16:17] VITALS: PULSE 119; RESP 18; O2SAT 100
[2024-09-22] MEDS: levalbuterol HCL 2.5 MG, Ipratropium Bromide 0.5 MG INHALE (16:22)
[2024-09-22] MEDS: methylPREDNISolone Sod Succ 125 MG/2 ML VIAL IVPUSH (16:31)
[2024-09-22] MEDS: Magnesium Sulfate/H2O 2 GM/50 ML PIGGYBACK IV (16:31)
--- NOTE | 2024-09-22 16:36 | ED_ITS ---
HPI - SOB/Dyspnea General Chief Complaint: Dyspnea Stated Complaint: DIFF BREATH, 77% ON RA, ABD PAIN PER EMS Time Seen by Provider: 09/22/24 16:03 Source: patient Mode of arrival: EMS Limitations: no limitations History of Present Illness ED Provider: Dr. Prabha Barrera HPI Narrative: Patient comes to the emergency room via ambulance from home. Patient reports that she has been having cough for 2 weeks, no fever. Patient states that also she has been having abdominal pain, constipation for 5 days, nausea and vomiting. Patient states that she was instructed by 1 of her providers to not use albuterol because she was nauseous. At this time, patient complaining of abdominal pain, constipation, and shortness of breath. Per EMS, patient's oxygenation was 70% on room air. Patient was given a DuoNeb EN route to the hospital. Patient reports that she is not a smoker, no previous history of COPD, known to be asthmatic. Also, patient mentioned that within the last 3 weeks, she was informed that she may have uterine cancer. Related Data Home Medications ?Medication ?Instructions ?Recorded ?Confirmed pregabalin 75 mg capsule 75 mg PO TID 12/08/22 07/10/24 Previous Rx's ?Medication ?Instructions ?Recorded incontinence pad, liner, disp #90 ea 04/28/23 bisacodyl 10 mg rectal suppository 10 mg SC DAILY PRN constipation 06/30/23 (Dulcolax (bisacodyl)) #20 ea docusate sodium 100 mg capsule 200 mg (2 x 100 mg) PO BEDTIME #60 06/30/23 (Colace) caps methylcellulose (laxative) 500 mg 500 mg PO TID 30 days #90 tabs 06/30/23 tablet (Citrucel) polyethylene glycol 3350 17 17 g PO DAILY PRN constipation 30 06/30/23 gram/dose oral powder (Miralax) days #510 grams sumatriptan succinate 25 mg tablet 25 mg PO Q2-4H PRN migraine 07/06/23 headache 30 days #9 tabs miconazole nitrate 2 % topical 1 appl topical BID 30 days #85 09/16/23 powder (Remedy Phytoplex grams Antifungal) Ventolin HFA 90 mcg/actuation 2 puff inhalation Q6H PRN wheezing 11/23/23 aerosol inhaler (albuterol sulfate) 30 days #18 grams wheelchair #1 ea 11/23/23 bisacodyl 5 mg tablet,delayed 20 mg (4 x 5 mg) PO ONCE PRN 01/20/24 release (Dulcolax (bisacodyl)) colonoscopy prep 1 day #4 tabs peg-electrolyte solution 420 gram 240 ml PO ONCE laxative effect 1 01/20/24 oral solution day #4,000 mL foam mattress #1 ea 03/01/24 miconazole nitrate 2 % topical 1 appl topical DAILY 30 days #85 05/12/24 powder (Remedy Phytoplex grams Antifungal) mattress repair #1 ea 05/21/24 vehicle wheelchair lift repair #1 ea 05/21/24 albuterol sulfate 2.5 mg/3 mL 2.5 mg (3 mL) inhalation Q6H PRN 05/24/24 (0.083 %) solution for nebulization wheezing #90 mL amitriptyline 50 mg tablet 50 mg PO BEDTIME 90 days #90 tabs 05/25/24 amlodipine 5 mg tablet 5 mg PO DAILY 90 days #90 tabs 05/25/24 cetirizine 10 mg tablet 10 mg PO DAILY 90 days #90 tabs 05/25/24 lisinopril 40 mg tablet 40 mg PO DAILY 90 days #90 tabs 05/25/24 bedside morales repair #1 ea 06/03/24 spironolactone 25 mg tablet 25 mg PO DAILY 90 days #90 tabs 06/14/24 bariatric hospital bed #1 ea 06/16/24 bariatric twin bed #1 ea 06/16/24 electric joey lift #1 ea 06/19/24 [facility] bariatric mattress #1 ea 06/19/24 Allergies Allergy/AdvReac Type Severity Reaction Status Date / Time Penicillins [PENICILLINS] Allergy Unknown ITCHING Verified 09/22/24 16:12 Review of Systems 2 Review of Systems: Constitutional : No Weight loss, No Fever, No Chills, No Night Sweats, No Fatigue, No Malaise ENT/Mouth : No Hearing loss, No Ear Pain, No Nasal Congestion, No Sinus Pain, No Hoarseness, No sore throat, No Rhinorrhea, No Swallowing Difficulty Eyes: No Eye Pain, No Swelling, No Redness, No Foreign Body, No Discharge, No Vision Changes Cardiovascular : No Chest Pain, No SOB, No Dyspnea on Exertion, No Orthopnea, No Edema, No Palpitations Respiratory : Complaining of cough for 3 weeks, wheezing, shortness of breath Gastrointestinal : No Nausea, No Vomiting, No Diarrhea, complaining of Constipation, complaining of abdominal discomfort secondary to constipation, denies melena or hematochezia Genitourinary : no irregular bleeding, No Dysuria, No Urinary Frequency, No Hematuria, No Urinary Incontinence, No Urgency, No Flank Pain, No Urinary Flow Changes, No Hesitancy Musculoskeletal : No joint pain, No Myalgias, No Joint Swelling Skin : No Skin Lesions, No rash Neuro : No Weakness, No Numbness, No Paresthesias, No Loss of Consciousness, No Dizziness, No Headache Psych : No Anxiety/Panic, No Depression, No SI/HI/AH/VH, No Social Issues, Heme/Lymph: No Bruising, No Bleeding,No Lymphadenopathy Endocrine : No Polyuria, No Polydipsia, No Temperature Intolerance PMFSH Past Medical History Medical History Fibromyalgia Hx of migraine headaches DELANEY (obstructive sleep apnea) Asthma Wheelchair dependent Obesity, morbid, BMI 50 or higher Pre-diabetes HTN (hypertension) Surgical History History of hysteroscopy (~05/2024) Hx of colonoscopy Hx of tubal ligation Hx of section History of knee surgery Family History Family History Mother Diabetes Throat cancer Hypertension Father Hypertension Social History Social History Household Members Other:: son, grandaughter Housing: Apartment Are you a primary workforce investment act career manager to a significant other at home: No Alcohol intake: never Patient Tobacco Use Status: Never used Tobacco Smoked in Last 30 Days: No e-Cigarette/Vaping Use: Never Used Second Hand Smoke Exposure: No Use of substances other than those prescribed or required for medical reasons: No Advance Directives: No Advance Directives Information Provided: Yes Patient : No service: No Current occupational status: disabled Sexual orientation: Straight/Heterosexual Gender identity: Female Cognitive needs: Yes Hearing needs: No Vision needs: Yes Physical Exam 2 Vital Signs: Vital Signs: Last Vital Signs Temp 98 F 09/22/24 20:33 Pulse 116 H 09/22/24 20:33 Resp 20 09/22/24 20:33 BP 146/65 H 09/22/24 20:33 Pulse Ox 95 09/22/24 20:33 O2 Del Method Nasal Cannula 09/22/24 20:33 O2 Flow Rate 2 09/22/24 20:33 Oxygen Flow Rate 9 09/22/24 16:09 BMI result Body Mass Index 63.7 Const: Other: Appearance: Alert. Oriented X3. No acute distress. Eyes: Pupils equal, round and reactive to light. ENT: Pharynx normal. Neck: Normal inspection. Neck supple. No lymph nodes noted. No crepitus CVS: Normal heart rate and rhythm. Pulses normal. Normal S1 and S2 Respiratory: Tachypneic, bilateral wheezing, no rales or crackles, oxygen saturation 100% currently finishing her 1st DuoNeb Abdomen: Soft , moderately tenderness to palpation in all quadrants No rigidity. Moderately distention. Skin: Skin warm and dry. Normal skin color. Normal skin turgor. Extremities: No lower extremity edema. No Lacerations. No Rash Neuro: Oriented X 3. No motor deficit. No sensory deficit. Moving all extremities. No slurred speech. CN 2 through 12 grossly intact Psych: calm, cooperative, normal affect Course Course Course Narrative: All of patient's labs and imaging pending. Patient receiving nebulization treatment, bronch protocol started, patient receiving Solu-Medrol and magnesium. Medications Administered Discontinued Medications Generic Name Dose Route Start Last Admin Trade Name Freq PRN Reason Stop Dose Admin Levalbuterol HCl 2.5 mg/ 0 mg 09/22/24 16:16 09/22/24 16:22 Ipratropium [place] 0.5 mg INHALE 09/22/24 16:17 1 dose ONCE ONE Administration Magnesium Sulfate 2 gm in 50 mls @ 25 mls/hr 09/22/24 16:13 09/22/24 18:19 Magnesium Sulfate/H2o IV 09/22/24 18:12 Infused ONCE ONE Infusion Iohexol 100 ml 09/22/24 19:07 09/22/24 19:07 Iohexol 350 Mg/Ml 100 Ml Infus..Btl IV 09/22/24 19:08 100 ml ONCE ONE Administration Methylprednisolone Sodium Succinate 125 mg 09/22/24 16:13 09/22/24 16:31 Methylprednisolone Sod Succ 125 Mg/2 Ml Vial IVPUSH 09/22/24 16:14 125 mg ONCE ONE Administration Medical Decision Making Medical Decision Making [facility] Narrative: My interpretation of labs: Patient's white blood cell count at 8.9. Patient recently received steroids for asthma for acute exacerbation. Chemistry does not show any abnormality. Serology negative for influenza, RSV and COVID CT scan of the abdomen shows suspicion for acute cholecystitis. Ultrasound of the abdomen pending Patient's asthma exacerbation has improved. Ultrasound of the abdomen is pending. -patient is saturating 94% on nasal cannula. Patient still feels a bit short of breath. -I discussed the patient with , patient being admitted for asthma exacerbation and abdominal pain. Possible acute cholecystitis. However, patient's LFTs do not suggest Pratima cholecystitis. Patient was empirically given Zosyn. At this time, sepsis is not suspected. Differential Diagnosis Differential Diagnoses: The differential diagnosis associated with the presentation includes (Asthma exacerbation, acute cholecystitis) Admission/Observation Consideration of admission/observation: Escalation of care including admission/observation considered Consult Healthcare Provider Management of the patient was discussed with: Hospitalist Lab Data [facility] Lab Attestation statement: I reviewed the patient's lab results. 09/22/24 16:30 09/22/24 18:00 Labs: Lab Results 09/22/24 09/22/24 09/22/24 Range/Units 16:30 16:36 18:00 WBC 19.9 H (4.8-10.8) X10*3/uL RBC 4.32 (4.20-5.50) X10*6/uL Hgb 11.7 L (12.0-16.0) g/dl Hct 38.7 (37.0-47.0) % MCV 89.6 (80.0-98.0) fL MCH 27.1 (27.0-33.0) pg MCHC 30.2 L (31.0-35.0) g/dl RDW 15.1 (11.0-16.0) % Plt Count 326 (160-400) X10*3/uL MPV 9.8 (9.4-12.3) fL Immature Gran % (Auto) 0.6 H (0.0-0.4) % Neut % (Auto) 77.2 H (45-73) % Lymph % (Auto) 10.2 L (20-40) % Lincoln % (Auto) 11.7 H (2-11) % Eos % (Auto) 0.1 (0-4) % Baso % (Auto) 0.2 (0-2) % Lymph # (Auto) 2.0 (1.2-4.9) X10*3/uL Lincoln # (Auto) 2.3 H (0.1-1.2) X10*3/uL Eos # (Auto) 0.0 (0.0-0.4) X10*3/uL Baso # (Auto) 0.0 (0.0-0.2) X10*3/uL Abs Immat Gran (auto) 0.11 H (0.00-0.03) X10*3/uL Absolute Neuts (auto) 15.3 H (2.0-8.3) x10*3/uL Absolute Nucleated RBC 0.000 (0.0-0.012) X10*3/uL Nucleated RBC % (auto) 0.0 (0.0-0.2) /100WBC Smear Tech's Comments VERIFIED PT 14.6 H (10.9-12.4) SEC INR 1.3 H (0.9-1.1) VBG pH 7.51 H (7.32-7.43) VBG pCO2 52 mmHg VBG pO2 183 mmHg VBG HCO3 41 H (22-26) mmol/L VBG O2 Saturation 100.0 % VBG Base Excess 16.3 mmol/L Sodium 143 (135-145) mmol/L Potassium 4.4 (3.3-5.1) mmol/L Chloride 103 (96-108) mmol/L Carbon Dioxide 33 H (22-29) mmol/L Anion Gap 11 L (12-20) BUN 15 (9-16) mg/dL Creatinine 0.72 (0.5-1.4) mg/dL Estim Creat Clear Calc 126.4 Estimated GFR > 60 Random Glucose 140 H (60-115) mg/dL Lactic Acid 1.0 (0.5-2.0) mmol/L Calcium 9.1 (8.4-10.2) mg/dL Total Bilirubin 0.8 (0.0-1.0) mg/dL Direct Bilirubin 0.3 (0.0-0.5) mg/dL AST 52 H (5-31) U/L ALT 23 (0-31) U/L Alkaline Phosphatase 96 (39-117) U/L Troponin I High Sens 2.8 (<3.5-17.0) ng/L B-Natriuretic Peptide < 10 (<100) pg/mL Total Protein 9.2 H (6.5-8.0) g/dL Albumin 4.1 (3.5-5.0) g/dL Influenza Type A (PCR) NEGATIVE (Negative) Influenza Type B (PCR) NEGATIVE (Negative) RSV RNA Qual (PCR) NEGATIVE (Negative) SARS-CoV-2 RNA (RT-PCR) NEGATIVE (Negative) 09/22/24 Range/Units 18:04 WBC (4.8-10.8) X10*3/uL RBC (4.20-5.50) X10*6/uL Hgb (12.0-16.0) g/dl Hct (37.0-47.0) % MCV (80.0-98.0) fL MCH (27.0-33.0) pg MCHC (31.0-35.0) g/dl RDW (11.0-16.0) % Plt Count (160-400) X10*3/uL MPV (9.4-12.3) fL Immature Gran % (Auto) (0.0-0.4) % Neut % (Auto) (45-73) % Lymph % (Auto) (20-40) % Lincoln % (Auto) (2-11) % Eos % (Auto) (0-4) % Baso % (Auto) (0-2) % Lymph # (Auto) (1.2-4.9) X10*3/uL Lincoln # (Auto) (0.1-1.2) X10*3/uL Eos # (Auto) (0.0-0.4) X10*3/uL Baso # (Auto) (0.0-0.2) X10*3/uL Abs Immat Gran (auto) (0.00-0.03) X10*3/uL Absolute Neuts (auto) (2.0-8.3) x10*3/uL Absolute Nucleated RBC (0.0-0.012) X10*3/uL Nucleated RBC % (auto) (0.0-0.2) /100WBC Smear Tech's Comments PT (10.9-12.4) SEC INR (0.9-1.1) VBG pH 7.45 H (7.32-7.43) VBG pCO2 52 mmHg VBG pO2 136 mmHg VBG HCO3 36 H (22-26) mmol/L VBG O2 Saturation 100.0 % VBG Base Excess 10.9 mmol/L Sodium (135-145) mmol/L Potassium (3.3-5.1) mmol/L Chloride (96-108) mmol/L Carbon Dioxide (22-29) mmol/L Anion Gap (12-20) BUN (9-16) mg/dL Creatinine (0.5-1.4) mg/dL Estim Creat Clear Calc Estimated GFR Random Glucose (60-115) mg/dL Lactic Acid (0.5-2.0) mmol/L Calcium (8.4-10.2) mg/dL Total Bilirubin (0.0-1.0) mg/dL Direct Bilirubin (0.0-0.5) mg/dL AST (5-31) U/L ALT (0-31) U/L Alkaline Phosphatase (39-117) U/L Troponin I High Sens (<3.5-17.0) ng/L B-Natriuretic Peptide (<100) pg/mL Total Protein (6.5-8.0) g/dL Albumin (3.5-5.0) g/dL Influenza Type A (PCR) (Negative) Influenza Type B (PCR) (Negative) RSV RNA Qual (PCR) (Negative) SARS-CoV-2 RNA (RT-PCR) (Negative) Independent Interpretation I performed an independent interpretation of an: Plain X-Ray Radiology Impression Discussion of test interpretation with radiology: I have reviewed the radiologist's reading. Radiologist Impression: Frontal view of the chest was obtained. FINDINGS: No focal airspace consolidation. No pleural effusion or pneumothorax. Stable borderline cardiomegaly. XR/XR chest 1V IMPRESSION: No acute cardiopulmonary findings. Critical Care Time Critical Care Time Critical Care Time: Yes Total Critical Care Time: 60 Attestation: I have personally provided critical care time. Time includes review of lab data, radiology results, discussion with consultants, and monitoring for potential decompensation. Intervention performed as documented. Discharge Plan Discharge Clinical Impression: Asthma exacerbation, Acute cholecystitis Patient Disposition: Admitted As Inpatient Prescriptions: No Action sumatriptan succinate 25 mg tablet 25 mg PO Q2-4H PRN (Reason: migraine headache) 30 Days Qty: 9 0RF Rx Instructions: do not exceed 8 doses per 24 hrs miconazole nitrate [Remedy Phytoplex Antifungal] 2 % powder 1 appl topical BID 30 Days Qty: 85 1RF albuterol sulfate [Ventolin HFA] 90 mcg/actuation HFA aerosol inhaler 2 puff inhalation Q6H PRN (Reason: wheezing) 30 Days Qty: 18 2RF (DME) wheelchair See Rx Instructions .Route .MEDSUPPLY Qty: 1 0RF Rx Instructions: As directed ([facility]) foam mattress See Rx Instructions .Route .MEDSUPPLY Qty: 1 0RF Rx Instructions: As directed miconazole nitrate [Remedy Phytoplex Antifungal] 2 % powder 1 appl topical DAILY 30 Days Qty: 85 2RF (DME) vehicle wheelchair lift repair See Rx Instructions .Route .MEDSUPPLY Qty: 1 0RF Rx Instructions: As directed ([facility]) mattress repair See Rx Instructions .Route .MEDSUPPLY Qty: 1 0RF Rx Instructions: As directed albuterol sulfate 2.5 mg /3 mL (0.083 %) solution for nebulization 2.5 mg inhalation Q6H PRN (Reason: wheezing) Qty: 90 0RF lisinopril 40 mg tablet 40 mg PO DAILY 90 Days Qty: 90 1RF amlodipine 5 mg tablet 5 mg PO DAILY 90 Days Qty: 90 1RF amitriptyline 50 mg tablet 50 mg PO BEDTIME 90 Days Qty: 90 1RF cetirizine 10 mg tablet 10 mg PO DAILY 90 Days Qty: 90 1RF (DME) bedside morales repair See Rx Instructions .Route .MEDSUPPLY Qty: 1 0RF Rx Instructions: As directed spironolactone 25 mg tablet 25 mg PO DAILY 90 Days Qty: 90 1RF (DME) bariatric twin bed See Rx Instructions .Route .MEDSUPPLY Qty: 1 0RF Rx Instructions: As directed (DME) bariatric hospital bed See Rx Instructions .Route .MEDSUPPLY Qty: 1 0RF Rx Instructions: As directed pregabalin 75 mg capsule 75 mg PO TID (DME) incontinence pad, liner, disp Pad See Rx Instructions .Route Qty: 90 11RF Rx Instructions: Use 1 pad three times a day Citrucel 500 mg tablet 500 mg PO TID 30 Days Qty: 90 5RF docusate sodium [Colace] 100 mg capsule 200 mg PO BEDTIME Qty: 60 5RF bisacodyl [Dulcolax (bisacodyl)] 10 mg suppository 10 mg SC DAILY PRN (Reason: constipation) Qty: 20 2RF polyethylene glycol 3350 [Miralax] 17 gram/dose powder 17 g PO DAILY PRN (Reason: constipation) 30 Days Qty: 510 6RF bisacodyl [Dulcolax (bisacodyl)] 5 mg tablet,delayed release (DR/EC) 20 mg PO ONCE PRN (Reason: colonoscopy prep) 1 Days Qty: 4 0RF Rx Instructions: Day before procedure @ 12 noon Take 4 tablets by mouth followed by large glass of water peg-electrolyte soln 420 gram recon soln 240 ml PO ONCE 1 Days Qty: 4000 0RF Rx Instructions: Start at 6:00pm the evening before procedure, drink one 8oz glass every 15 minutes until complete (DME) electric joey lift See Rx Instructions .Route .MEDSUPPLY Qty: 1 0RF Rx Instructions: As directed ([facility]) [facility] bariatric mattress twin See Rx Instructions .Route .MEDSUPPLY Qty: 1 0RF Rx Instructions: lifetime use Print Language: Slovak
[2024-09-22 16:38] LABS: Basophils Percent Auto 0.2 % (0-2); Eosinophils Percent Auto 0.1 % (0-4); Hematocrit 38.7 % (37.0-47.0); Hemoglobin 11.7 g/dl (12.0-16.0); Imm Gran Abs Auto 0.11 X10*3/uL (0.00-0.03); Imm Gran Pct Auto 0.6 % (0.0-0.4); Lymphocytes Percent Auto 10.2 % (20-40); MANUAL DIFF FLAG SCAN; Mean Corpuscular HGB Conc 30.2 g/dl (31.0-35.0); Mean Corpuscular Hemoglobin 27.1 pg (27.0-33.0); Mean Corpuscular Volume 89.6 fL (80.0-98.0); Mean Platelet Volume 9.8 fL (9.4-12.3); Monocytes Absolute Auto 2.3 X10*3/uL (0.1-1.2); Monocytes Percent Auto 11.7 % (2-11); Neutrophils Absolute Auto 15.3 x10*3/uL (2.0-8.3); Neutrophils Percent Auto 77.2 % (45-73); Platelet Count 326 X10*3/uL (160-400); Red Blood Count 4.32 X10*6/uL (4.20-5.50); Red Cell Distribution Width 15.1 % (11.0-16.0); SCAN SMEAR FLAG 1; White Blood Count 19.9 X10*3/uL (4.8-10.8)
[2024-09-22 16:40] LABS: Venous Blood Gas Refer to POC result
[2024-09-22 16:41] LABS: VBG Base Excess 16.3 mmol/L; VBG HCO3 41 mmol/L (22-26); VBG pCO2 52 mmHg; VBG pH 7.51 (7.32-7.43); VBG pO2 183 mmHg
--- NOTE | 2024-09-22 16:44 | MHC.EDTECH ---
at this time this tech attempted to get a second set of blood cultures on the pt, was unable to obtain specemins due to the pt moving during blood draw and stating that the needle hurts
[2024-09-22 16:58] LABS: SLIDE REVIEW VERIFIED
[2024-09-22 17:00] LABS: B Type Natriuretic Peptide < 10 pg/mL (<100)
[2024-09-22 17:01] LABS: Troponin-I High Sensitivity 2.8 ng/L (<3.5-17.0)
[2024-09-22 17:38] LABS: Influenza A PCR NEGATIVE (Negative); Influenza B PCR NEGATIVE (Negative); Resp Syncy Virus RNA Qual PCR NEGATIVE (Negative); SARS COV2 PCR INHOUSE NEGATIVE (Negative)
[2024-09-22 18:08] LABS: Venous Blood Gas Refer to POC result
[2024-09-22 18:09] LABS: VBG Base Excess 10.9 mmol/L; VBG HCO3 36 mmol/L (22-26); VBG pCO2 52 mmHg; VBG pH 7.45 (7.32-7.43); VBG pO2 136 mmHg
[2024-09-22 18:10] VITALS: BP 137/64; PULSE 117; RESP 20; TEMP 36.9; O2SAT 98
--- NOTE | 2024-09-22 18:10 | PC.NURSE ---
pt 100% on 2L of 02. abd firm, distended, reports abd pain
[2024-09-22 18:14] LABS: INTERNATIONAL NORM RATIO 1.3 (0.9-1.1); Prothrombin Time 14.6 SEC (10.9-12.4)
[2024-09-22 18:27] LABS: Alanine Aminotransferase 23 U/L (0-31); Albumin Level 4.1 g/dL (3.5-5.0); Alkaline Phosphatase 96 U/L (39-117); Anion Gap 11 (12-20); Aspartate Amino Transferase 52 U/L (5-31); Bilirubin Direct 0.3 mg/dL (0.0-0.5); Bilirubin Total 0.8 mg/dL (0.0-1.0); Blood Urea Nitrogen 15 mg/dL (9-16); Calcium 9.1 mg/dL (8.4-10.2); Carbon Dioxide 33 mmol/L (22-29); Chloride 103 mmol/L (96-108); Creatinine Clr Calc Pharmacy 126.4; Estimated Glomerular Filt Rate > 60; Glucose Random 140 mg/dL (60-115); Potassium 4.4 mmol/L (3.3-5.1); Sodium 143 mmol/L (135-145); Total Protein 9.2 g/dL (6.5-8.0)
[2024-09-22] MEDS: iohexoL 350 MG/ML 100 ML INFUS..BTL IV (19:07)
[2024-09-22 20:33] VITALS: BP 146/65; PULSE 116; RESP 20; TEMP 36.6; O2SAT 95
--- NOTE | 2024-09-22 21:40 | P.HPHOSP_ITS ---
History of Present Illness Date of Service: 09/22/24 Chief Complaint: Abdominal pain, nausea and vomiting This is a 64-year-old female with pertinent history of asthma not on home oxygen, hypertension, insomnia, migraine, uterine mass, hip osteoarthritis, DELANEY noncompliant with CPAP who presents to the emergency department for evaluation abdominal pain, nausea, vomiting and difficulty breathing. Patient states symptoms started 6 days prior to presentation. She has been having right upper abdominal discomfort which was initially intermittent but progressed to being constant. It was associated with nausea and multiple episodes of nonbloody emesis. Unable to tolerate p.o. intake. Also started having difficulty with breathing 2 days prior to presentation. Associated with wheezing and nonproductive cough. No history of similar abdominal discomfort before. Does endorse constipation. No fever, chills, chest pain, palpitations, changes in urinary habits. In the emergency department, patient requiring 2 L supplemental oxygen. Was found to be tachycardic with white count 19. Imaging concerning for early cholecystitis. Review of Systems 2 Constitutional: Constitutional: Reports fatigue, Reports malaise and Reports poor appetite Cardiovascular: Cardiovascular: Reports dyspnea on exertion Respiratory: Respiratory: Reports cough, Reports dyspnea on exertion and Reports wheezing Gastrointestinal: Gastrointestinal: Reports abdominal pain, Reports nausea and Reports vomiting Genitourinary: Genitourinary: Reports no additional female genitourinary complaints Endocrine: Endocrine: Reports fatigue Allergic/Immunologic: Allergic/Immunologic: Reports wheezing [facility] Medical History Fibromyalgia Hx of migraine headaches DELANEY (obstructive sleep apnea) Asthma Wheelchair dependent Obesity, morbid, BMI 50 or higher Pre-diabetes HTN (hypertension) Family History Mother Diabetes Throat cancer Hypertension Father Hypertension Surgical History History of hysteroscopy (~05/2024) Hx of colonoscopy Hx of tubal ligation Hx of section History of knee surgery Social History Household Members Other:: son, grandaughter Housing: Apartment Are you a primary career development consultant to a significant other at home: No Alcohol intake: never Patient Tobacco Use Status: Never used Tobacco Smoked in Last 30 Days: No e-Cigarette/Vaping Use: Never Used Second Hand Smoke Exposure: No Use of substances other than those prescribed or required for medical reasons: No Advance Directives: No Advance Directives Information Provided: Yes Patient : No service: No Current occupational status: disabled Sexual orientation: Straight/Heterosexual Gender identity: Female Cognitive needs: Yes Hearing needs: No Vision needs: Yes Meds Allergies Allergy/AdvReac Type Severity Reaction Status Date / Time Penicillins [PENICILLINS] Allergy Unknown ITCHING Verified 09/22/24 16:12 Active Medications: Current Medications Lactated Ringer's (Lr) 1,000 mls @ 999 mls/hr IV .Q1H1M ASHLEY Stop: 09/22/24 22:45 Piperacillin Sod/Tazobactam (Sod 4.5 gm/ Sodium Chloride) 100 mls @ 200 mls/hr IV Q6H ASHLEY Levalbuterol HCl (Levalbuterol Hcl 1.25 Mg/3 Ml Vial.Neb) 1.25 mg INHALE Q3H PRN PRN Reason: Wheezing Levalbuterol HCl (Levalbuterol Hcl 1.25 Mg/3 Ml Vial.Neb) 1.25 mg INHALE Q4H ASHLEY Methylprednisolone Sodium Succinate (Methylprednisolone Sod Succ 40 Mg/Ml Vial) 40 mg IVPUSH Q12H ASHLEY Home Medications ?Medication ?Instructions ?Recorded ?Confirmed ?Last Taken ?Type pregabalin 75 mg capsule 75 mg PO TID 12/08/22 07/10/24 Unknown History Physical Exam 2 Vital Signs and Narrative: Vital Signs: Last Vital Signs Temp 98 F 09/22/24 20:33 Pulse 116 H 09/22/24 20:33 Resp 20 09/22/24 20:33 BP 146/65 H 09/22/24 20:33 Pulse Ox 95 09/22/24 20:33 O2 Del Method Nasal Cannula 09/22/24 20:33 O2 Flow Rate 2 09/22/24 20:33 Oxygen Flow Rate 9 09/22/24 16:09 BMI result Body Mass Index 63.7 Middle-aged female lying in bed in mild distress on supplemental oxygen Neck supple, no JVD Regular rate and rhythm, S1-S2 heard Bilateral wheezing present Abdomen with right upper quadrant tenderness, no rigidity Patient is awake, alert and oriented to self, place, time and person ; no focal motor deficit Psych: Normal mood No pedal edema Results Labs 09/22/24 16:30 09/22/24 18:00 Labs: Laboratory Results - last 24 hr 09/22/24 09/22/24 09/22/24 16:30 16:36 18:00 MCV 89.6 MCH 27.1 MCHC 30.2 L RDW 15.1 Plt Count 326 MPV 9.8 Immature Gran % (Auto) 0.6 H Neut % (Auto) 77.2 H Lymph % (Auto) 10.2 L [place] % (Auto) 11.7 H Eos % (Auto) 0.1 Baso % (Auto) 0.2 Lymph # (Auto) 2.0 [place] # (Auto) 2.3 H Eos # (Auto) 0.0 Baso # (Auto) 0.0 Abs Immat Gran (auto) 0.11 H Absolute Neuts (auto) 15.3 H Absolute Nucleated RBC 0.000 Nucleated RBC % (auto) 0.0 Smear Tech's Comments VERIFIED PT 14.6 H INR 1.3 H VBG pH 7.51 H VBG pCO2 52 VBG pO2 183 VBG HCO3 41 H VBG O2 Saturation 100.0 VBG Base Excess 16.3 Anion Gap 11 L Estim Creat Clear Calc 126.4 Estimated GFR > 60 Random Glucose 140 H Lactic Acid 1.0 Calcium 9.1 Total Bilirubin 0.8 Direct Bilirubin 0.3 AST 52 H ALT 23 Alkaline Phosphatase 96 Troponin I High Sens 2.8 B-Natriuretic Peptide < 10 Total Protein 9.2 H Albumin 4.1 Influenza Type A (PCR) NEGATIVE Influenza Type B (PCR) NEGATIVE RSV RNA Qual (PCR) NEGATIVE SARS-CoV-2 RNA (RT-PCR) NEGATIVE 09/22/24 18:04 MCV MCH MCHC RDW Plt Count MPV Immature Gran % (Auto) Neut % (Auto) Lymph % (Auto) [place] % (Auto) Eos % (Auto) Baso % (Auto) Lymph # (Auto) [place] # (Auto) Eos # (Auto) Baso # (Auto) Abs Immat Gran (auto) Absolute Neuts (auto) Absolute Nucleated RBC Nucleated RBC % (auto) Smear Tech's Comments PT INR VBG pH 7.45 H VBG pCO2 52 VBG pO2 136 VBG HCO3 36 H VBG O2 Saturation 100.0 VBG Base Excess 10.9 Anion Gap Estim Creat Clear Calc Estimated GFR Random Glucose Lactic Acid Calcium Total Bilirubin Direct Bilirubin AST ALT Alkaline Phosphatase Troponin I High Sens B-Natriuretic Peptide Total Protein Albumin Influenza Type A (PCR) Influenza Type B (PCR) RSV RNA Qual (PCR) SARS-CoV-2 RNA (RT-PCR) Imaging Radiologist's Impressions: Impressions Chest X-Ray 09/22/24 16:38 IMPRESSION: No acute cardiopulmonary findings. Electronically signed by: Morgan Fish MD 09/22/2024 08:55 PM EST RP Abdomen/Pelvis CT 09/22/24 18:54 IMPRESSION: 1. Dilated gallbladder with multiple gallstones and mild adjacent stranding. Findings could represent early cholecystitis in the appropriate clinical setting. No organized fluid collection or abscess formation. 2. Sigmoid diverticulosis without evidence of acute diverticulitis. Fluid-filled lower pelvic small bowel loops without dilatation or wall thickening. Findings could represent mild enteritis in the appropriate clinical setting. No small or large bowel obstruction. Unremarkable appendix. 3. Hepatic steatosis. No hepatic parenchymal lesion or biliary ductal dilatation. 4. Somewhat linear cystic structure within the right adnexa measuring up to 6 cm in greatest dimension. Mild adjacent stranding which extends proximally into the mesenteric root and right upper quadrant in the region of the gallbladder. Findings could represent early cholecystitis in the appropriate clinical setting. 5. Exophytic soft tissue lesion along the right side of the uterine base measuring up to 3.3 cm. Findings could be related to patient's reported history of uterine cancer. 6. Severe right hip osteoarthritis with prominent bony remodeling. Fleischner guidelines were followed. Electronically signed by: Morgan Fish MD 09/22/2024 09:08 PM EST RP Assessment and Plan (1) Acute calculous cholecystitis: Status: Acute (2) Acute hypoxemic respiratory failure: Status: Acute (3) Acute asthma exacerbation: Status: Acute Plan This is a 64-year-old female with pertinent history of asthma not on home oxygen, hypertension, insomnia, migraine, uterine mass, hip osteoarthritis, DELANEY noncompliant with CPAP who presents to the emergency department for evaluation abdominal pain, nausea, vomiting and difficulty breathing. #. Sepsis due to acute calculous cholecystitis: Resuscitating with IV crystalloids. Initiating IV Zosyn. Will keep patient NPO and consult General surgery. Ultrasound of the abdomen pending. May need HIDA scan and MRCP pending ultrasound results #. Acute hypoxemic respiratory failure due to acute exacerbation of asthma: Initiating systemic steroids, scheduled and p.r.n. Xopenex. Monitor oxygen saturation and wean as tolerated. Continue home inhaler #. Insomnia: On amitriptyline #. DELANEY: Initiating CPAP at bedtime #. Hypertension: Hold lisinopril, continue remaining home antihypertensives #. Obesity: Counseled regarding diet and exercise Med rec pending DVT prophylaxis: Mechanical Full code Admit as inpatient and will require two night minimum hospital stay for supplemental oxygen, IV antibiotics (as above), which is not possible in a lesser acute setting. General surgery consult pending Quality Stroke Does the patient have a stroke diagnosis?: No VTE Prior VTE?: No VTE Risk Level:: Medical - moderate - high VTE Device Contraindication: N/A - Device Ordered VTE Drug Contraindication: Treatment Not Indicated
--- NOTE | 2024-09-22 22:04 | PC.NURSE ---
pt to be admitted for cholecystitis. off unit john for ultrasound.
[2024-09-22] MEDS: Lactated Ringers 1,000 ML 999 ML IV (22:42)
[2024-09-22] MEDS: Amitriptyline HCl 50 MG TABLET PO (22:42)
[2024-09-22] MEDS: Piperacillin Sodium/Tazobactam 4.5 GM in 0.9 % Sodium Chloride 100 ML IV (22:42)
[2024-09-22] MEDS: levalbuterol HCL 1.25 MG/3 ML VIAL.NEB INHALE (23:00)
[2024-09-22 23:01] VITALS: PULSE 120; RESP 20; O2SAT 95
[2024-09-22] MEDS: Morphine Sulfate 4 MG/ML CARTRIDGE IVPUSH (23:52)
[2024-09-22] MEDS: ondansetron HCL 4 MG/2 ML VIAL IVPUSH (23:52)
[2024-09-22 23:53] VITALS: BP 135/74; PULSE 116; RESP 17; TEMP 36.4; O2SAT 94
[2024-09-23] VITALS (10 sets, daily range): BP systolic 129–147; BP diastolic 60–77; PULSE 104–120; RESP 16–20; TEMP 36–36.5; O2SAT 71–100; BMI 60.8
[2024-09-23] MEDS: levalbuterol HCL 1.25 MG/3 ML VIAL.NEB INHALE ×5 (03:14→18:53)
[2024-09-23] MEDS: Piperacillin Sodium/Tazobactam 4.5 GM in 0.9 % Sodium Chloride 100 ML IV ×4 (03:37→21:19)
--- NOTE | 2024-09-23 07:31 | P.PNIM_ITS ---
Subjective Subjective Date of Service: 09/23/24 Review of Systems Follow up abd pain no nausea or vomiting Physical Exam 2 Vital Signs: Vital Signs: Last Vital Signs Temp 97.0 F 09/23/24 00:00 Pulse 114 H 09/23/24 03:15 Resp 19 09/23/24 03:15 BP 142/65 H 09/23/24 00:00 Pulse Ox 94 09/23/24 00:00 O2 Del Method Nasal Cannula 09/23/24 00:00 O2 Flow Rate 2 09/23/24 00:00 Oxygen Flow Rate 9 09/22/24 16:09 BMI result Body Mass Index 60.8 Appearing in no acute distress lung sounds are clear to auscultation heart regular rate rhythm, clear S1, S2 positive bowel sounds, abdomen is soft, nontender neuro patient is alert x3, no focal deficits Objective Data Active Medications Acetaminophen (Acetaminophen 325 Mg Tablet) 650 mg PO Q6H PRN PRN Reason: Pain, Mild (Pain Scale 1-3), fever or headache Calcium Carbonate (Calcium Carbonate 750 Mg Tab.Chew) 750 mg PO Q4H PRN PRN Reason: Heartburn Piperacillin Sod/Tazobactam (Sod 4.5 gm/ Sodium Chloride) 100 mls @ 200 mls/hr IV Q6H [facility] Last Infusion: 09/23/24 04:10 Dose: Infused Documented By: SUJATHA Levalbuterol HCl (Levalbuterol Hcl 1.25 Mg/3 Ml Vial.Neb) 1.25 mg INHALE Q3H PRN PRN Reason: Wheezing Levalbuterol HCl (Levalbuterol Hcl 1.25 Mg/3 Ml Vial.Neb) 1.25 mg INHALE Q4H [facility] Last Admin: 09/23/24 07:31 Dose: 1.25 mg Documented By: JON Magnesium Hydroxide (Milk Of Magnesia 30 Ml Oral.Susp) 30 ml PO DAILY PRN PRN Reason: Constipation Melatonin (Melatonin 3 Mg Tablet) 6 mg PO BEDTIME PRN PRN Reason: Insomnia Methylprednisolone Sodium Succinate (Methylprednisolone Sod Succ 40 Mg/Ml Vial) 40 mg IVPUSH Q12H ASH[facility] Morphine Sulfate (Morphine Sulfate 4 Mg/Ml Cartridge) 4 mg IVPUSH Q4H PRN; Protocol PRN Reason: Pain, Severe (Pain Scale 7-10) Last Admin: 09/22/24 23:52 Dose: 4 mg Documented By: JAUN Ondansetron HCl (Ondansetron Hcl 4 Mg/2 Ml Vial) 4 mg IVPUSH Q8H PRN PRN Reason: Nausea and Vomiting Last Admin: 09/22/24 23:52 Dose: 4 mg Documented By: JAUN Sodium Chloride (0.9 % Sodium Chloride Flush 3 Ml Syringe) 3 ml IVFLUSH QSHIFT ASHLEY Last Admin: 09/23/24 00:32 Dose: Not Given Documented By: JAUN Non-Admin Reason: IV Running Labs 09/23/24 08:34 09/23/24 08:34 Labs: Laboratory Results - last 24 hr 09/22/24 09/22/24 09/22/24 16:30 16:36 18:00 MCV 89.6 MCH 27.1 MCHC 30.2 L RDW 15.1 Plt Count 326 MPV 9.8 Immature Gran % (Auto) 0.6 H Neut % (Auto) 77.2 H Lymph % (Auto) 10.2 L [place] % (Auto) 11.7 H Eos % (Auto) 0.1 Baso % (Auto) 0.2 Lymph # (Auto) 2.0 [place] # (Auto) 2.3 H Eos # (Auto) 0.0 Baso # (Auto) 0.0 Abs Immat Gran (auto) 0.11 H Absolute Neuts (auto) 15.3 H Absolute Nucleated RBC 0.000 Nucleated RBC % (auto) 0.0 Smear Tech's Comments VERIFIED PT 14.6 H INR 1.3 H VBG pH 7.51 H VBG pCO2 52 VBG pO2 183 VBG HCO3 41 H VBG O2 Saturation 100.0 VBG Base Excess 16.3 Anion Gap 11 L Estim Creat Clear Calc 126.4 Estimated GFR > 60 Random Glucose 140 H Lactic Acid 1.0 Calcium 9.1 Total Bilirubin 0.8 Direct Bilirubin 0.3 AST 52 H ALT 23 Alkaline Phosphatase 96 Troponin I High Sens 2.8 B-Natriuretic Peptide < 10 Total Protein 9.2 H Albumin 4.1 Influenza Type A (PCR) NEGATIVE Influenza Type B (PCR) NEGATIVE RSV RNA Qual (PCR) NEGATIVE SARS-CoV-2 RNA (RT-PCR) NEGATIVE 09/22/24 18:04 MCV MCH MCHC RDW Plt Count MPV Immature Gran % (Auto) Neut % (Auto) Lymph % (Auto) [place] % (Auto) Eos % (Auto) Baso % (Auto) Lymph # (Auto) [place] # (Auto) Eos # (Auto) Baso # (Auto) Abs Immat Gran (auto) Absolute Neuts (auto) Absolute Nucleated RBC Nucleated RBC % (auto) Smear Tech's Comments PT INR VBG pH 7.45 H VBG pCO2 52 VBG pO2 136 VBG HCO3 36 H VBG O2 Saturation 100.0 VBG Base Excess 10.9 Anion Gap Estim Creat Clear Calc Estimated GFR Random Glucose Lactic Acid Calcium Total Bilirubin Direct Bilirubin AST ALT Alkaline Phosphatase Troponin I High Sens B-Natriuretic Peptide Total Protein Albumin Influenza Type A (PCR) Influenza Type B (PCR) RSV RNA Qual (PCR) SARS-CoV-2 RNA (RT-PCR) Assessment and Plan (1) Acute cholecystitis: Status: Acute Plan 64-year-old female with pertinent history of asthma not on home oxygen, hypertension, insomnia, migraine, uterine mass, hip osteoarthritis, DELANEY noncompliant with CPAP who presents to the emergency department for evaluation abdominal pain, nausea, vomiting and difficulty breathing. Sepsis due to acute calculous cholecystitis Resuscitating with IV crystalloids. IV Zosyn. keep patient NPO and consult General surgery. Ultrasound of the abdomen showing acute yair Hida scan ordered Acute hypoxemic respiratory failure due to acute exacerbation of asthma. Resp failure resolved Initiating systemic steroids, scheduled and p.r.n. Xopenex. Monitor oxygen saturation and wean as tolerated. Continue home inhaler Insomnia On amitriptyline DELANEY CPAP at bedtime Hypertension Hold lisinopril, continue remaining home antihypertensives Super morbid Obesity. BMI 60.8 Counseled regarding diet and exercise DVT prophylaxis: Mechanical Full code Quality Stroke Does the patient have a stroke diagnosis?: No VTE Prior VTE?: No VTE Risk Level:: Medical - moderate - high VTE Device Contraindication: N/A - Device Ordered VTE Drug Contraindication: Treatment Not Indicated
[2024-09-23] MEDS: 0.9 % Sodium Chloride Flush 3 ML SYRINGE IVFLUSH ×2 (08:18→15:51)
[2024-09-23] MEDS: methylPREDNISolone Sod Succ 40 MG/ML VIAL IVPUSH ×2 (08:18→20:02)
[2024-09-23 08:39] LABS: Mean Corpuscular HGB Conc 29.3 g/dl (31.0-35.0); Mean Corpuscular Volume 92.3 fL (80.0-98.0); Mean Platelet Volume 9.8 fL (9.4-12.3); Platelet Count 342 X10*3/uL (160-400); Red Blood Count 4.44 X10*6/uL (4.20-5.50); Red Cell Distribution Width 15.5 % (11.0-16.0); White Blood Count 29.3 X10*3/uL (4.8-10.8)
[2024-09-23 08:54] LABS: Alanine Aminotransferase 32 U/L (0-31); Alkaline Phosphatase 89 U/L (39-117); Anion Gap 11 (12-20); Aspartate Amino Transferase 50 U/L (5-31); Bilirubin Total 0.6 mg/dL (0.0-1.0); Blood Urea Nitrogen 17 mg/dL (9-16); Calcium 8.9 mg/dL (8.4-10.2); Carbon Dioxide 33 mmol/L (22-29); Chloride 103 mmol/L (96-108); Creatinine Clr Calc Pharmacy 116.1; Estimated Glomerular Filt Rate > 60; Glucose Random 147 mg/dL (60-115); Potassium 4.6 mmol/L (3.3-5.1); Sodium 142 mmol/L (135-145); Total Protein 9.1 g/dL (6.5-8.0)
[2024-09-23 09:24] LABS: SLIDE REVIEW MANUAL DIFF
--- NOTE | 2024-09-23 09:26 | PHA.MEDREC ---
Pharmacy Consult ? Medication Reconciliation Pharmacy has completed the medication reconciliation. [employer] services used; patients son at bedside with RX bottles. He also noted that she uses albuterol, miconazole, miralax, and sumatriptan only as needed.
[2024-09-23 09:27] LABS: Band Neutrophils Percent 8 % (3-5); Lymphocytes Absolute Manual 1.8 X10*3/uL (1.2-4.9); Lymphocytes Percent Manual 6 % (20-40); Metamyelocytes Absolute 0.3 X10*3/uL; Metamyelocytes Percent 1 %; Monocytes Absolute Manual 0.6 X10*3/uL (0.1-1.2); Monocytes Percent Manual 2 % (2-11); Myelocytes Absolute 0.3 X10*/uL; Myelocytes Percent 1 %; Neutrophils Absolute Manual 26.4 X10*3/uL (2.0-8.3); Neutrophils Percent Manual 82 % (45-73)
[2024-09-23 09:29] LABS: RBC Morphology NORMAL
[2024-09-23 09:30] LABS: Platelet Estimate NORMAL (NORMAL); Platelet Morphology Comment NORMAL
[2024-09-23] MEDS: Morphine Sulfate 4 MG/ML CARTRIDGE IVPUSH ×2 (09:58→19:41)
--- NOTE | 2024-09-23 13:05 | P.CONGS_ITS ---
History of Present Illness Consult details Consult date: 09/23/24 Narrative: The pt is a 64 year old female with asthma who has also been having abdominal pain. the pt is morbidly obese with a BMI of 60. In the ER she had CTscan and u/s which showed thickend GB. She was tender in the right upper quadrant and findings were concerning for cholecystitis. Her LFTs were mildly elevated. [place] [address] and then went up to 29,000. HIDA scan was carried out and the patient tolerated this for about 2 hours but the gallbladder did not fill during this time. She said it was too uncomfortable for her to return to do more HIDA scan images. She also has issues with acute hypoxemic respiratory failure and was admitted by the medical team for this. She received steroids was on oxygen in his now on 2 L of oxygen with sats in the 90s. Review of Systems 2 Review of Systems: Yes all other systems are reviewed and are negative PMFSH Past Medical History Medical History Fibromyalgia Hx of migraine headaches DELANEY (obstructive sleep apnea) Asthma Wheelchair dependent Obesity, morbid, BMI 50 or higher Pre-diabetes HTN (hypertension) Family History Family History Mother Diabetes Throat cancer Hypertension Father Hypertension Surgical History Surgical History History of hysteroscopy (~05/2024) Hx of colonoscopy Hx of tubal ligation Hx of section History of knee surgery Social History Social History Household Members: Children Household Members Other:: son, grandaughter Housing: Apartment Are you a primary physician locums urgent care to a significant other at home: No Do you presently have visiting nurse or other home services: No Alcohol intake: never Patient Tobacco Use Status: Never used Tobacco Smoked in Last 30 Days: No e-Cigarette/Vaping Use: Never Used Second Hand Smoke Exposure: No Use of substances other than those prescribed or required for medical reasons: No Currently Displaying Signs/Symptoms of Drug Intoxication Withdrawal: No Have you been hit, kicked, punched, or otherwise hurt by someone within the past year? If so, by whom?: No Do you feel safe in your current relationship?: Yes Is there a partner from a previous relationship who is making you feel unsafe now?: No Are you made to feel afraid or neglected: No Advance Directives: No Advance Directives Information Provided: Yes Do you have a plan to hurt others: No Plan Recently lost weight without trying: No Nutrition Risks: Difficulty swallowing Patient : No : No Poor oral hygiene: No service: No Current occupational status: disabled Sexual orientation: Straight/Heterosexual Gender identity: Female Cognitive needs: Yes Hearing needs: No Vision needs: Yes Meds Allergies Allergy/AdvReac Type Severity Reaction Status Date / Time Penicillins [PENICILLINS] Allergy Unknown ITCHING Verified 09/22/24 16:12 Active Medications: Current Medications Acetaminophen (Acetaminophen 325 Mg Tablet) 650 mg PO Q6H PRN PRN Reason: Pain, Mild (Pain Scale 1-3), fever or headache Amitriptyline HCl (Amitriptyline Hcl 50 Mg Tablet) 50 mg PO BEDTIME ASHLEY Amlodipine Besylate (Amlodipine Besylate 5 Mg Tablet) 5 mg PO DAILY ASHLEY; Protocol Calcium Carbonate (Calcium Carbonate 750 Mg Tab.Chew) 750 mg PO Q4H PRN PRN Reason: Heartburn Piperacillin Sod/Tazobactam (Sod 4.5 gm/ Sodium Chloride) 100 mls @ 200 mls/hr IV Q6H [facility] Last Infusion: 09/23/24 10:22 Dose: Infused Levalbuterol HCl (Levalbuterol Hcl 1.25 Mg/3 Ml Vial.Neb) 1.25 mg INHALE Q3H PRN PRN Reason: Wheezing Levalbuterol HCl (Levalbuterol Hcl 1.25 Mg/3 Ml Vial.Neb) 1.25 mg INHALE Q4H [facility] Last Admin: 09/23/24 11:19 Dose: Not Given Loratadine (Loratadine 10 Mg Tablet) 10 mg PO DAILY [facility] Magnesium Hydroxide (Milk Of Magnesia 30 Ml Oral.Susp) 30 ml PO DAILY PRN PRN Reason: Constipation Melatonin (Melatonin 3 Mg Tablet) 6 mg PO BEDTIME PRN PRN Reason: Insomnia Methylprednisolone Sodium Succinate (Methylprednisolone Sod Succ 40 Mg/Ml Vial) 40 mg IVPUSH Q12H [facility] Last Admin: 09/23/24 08:18 Dose: 40 mg Morphine Sulfate (Morphine Sulfate 4 Mg/Ml Cartridge) 4 mg IVPUSH Q4H PRN; Protocol PRN Reason: Pain, Severe (Pain Scale 7-10) Last Admin: 09/23/24 09:58 Dose: 4 mg Ondansetron HCl (Ondansetron Hcl 4 Mg/2 Ml Vial) 4 mg IVPUSH Q8H PRN PRN Reason: Nausea and Vomiting Last Admin: 09/22/24 23:52 Dose: 4 mg Polyethylene Glycol (Polyethylene Glycol 3350 17 Gm Powd.Pack) 17 gm PO DAILY PRN PRN Reason: constipation Sodium Chloride (0.9 % Sodium Chloride Flush 3 Ml Syringe) 3 ml IVFLUSH QSHIFT ASHLEY Last Admin: 09/23/24 08:18 Dose: 3 ml Spironolactone (Spironolactone 25 Mg Tablet) 25 mg PO DAILY ASHLEY; Protocol Sumatriptan Succinate (Sumatriptan Succinate 25 Mg Tablet) 25 mg PO Q2H PRN PRN Reason: migraine headache Home Medications ?Medication ?Instructions ?Recorded ?Confirmed ?Last Taken ?Type miconazole nitrate 2 % topical 1 appl topical DAILY PRN Rash 09/23/24 09/23/24 Unknown History powder (Remedy Phytoplex Antifungal) Physical Exam 2 Vital Signs: Vital Signs: Last Vital Signs Temp 96.8 F 09/23/24 07:28 Pulse 104 H 09/23/24 07:34 Resp 18 09/23/24 07:34 BP 129/66 09/23/24 07:28 Pulse Ox 98 09/23/24 07:28 O2 Del Method Nasal Cannula 09/23/24 07:28 O2 Flow Rate 2 09/23/24 07:28 Oxygen Flow Rate 9 09/22/24 16:09 BMI result Body Mass Index 60.8 Const: General: cooperative and lethargic Nutritional Appearance: obese Orientation/consciousness: lethargic Eyes: Other: Nonicteric GI: Other: abdo soft tender right upper quadrant Morbidly obese Skin: Other: Not icteric Results Labs 09/24/24 07:45 09/24/24 07:45 Labs: Abnormal lab results 09/22/24 09/22/24 09/22/24 Range/Units 16:30 16:36 18:00 WBC 19.9 H (4.8-10.8) X10*3/uL Hgb 11.7 L (12.0-16.0) g/dl MCHC 30.2 L (31.0-35.0) g/dl Immature Gran % (Auto) 0.6 H (0.0-0.4) % Neut % (Auto) 77.2 H (45-73) % Lymph % (Auto) 10.2 L (20-40) % [place] % (Auto) 11.7 H (2-11) % [place] # (Auto) 2.3 H (0.1-1.2) X10*3/uL Abs Immat Gran (auto) 0.11 H (0.00-0.03) X10*3/uL Absolute Neuts (auto) 15.3 H (2.0-8.3) x10*3/uL Neutrophils % (Manual) (45-73) % Band Neutrophils % (3-5) % Lymphocytes % (Manual) (20-40) % Abs Neuts (Manual) (2.0-8.3) X10*3/uL PT 14.6 H (10.9-12.4) SEC INR 1.3 H (0.9-1.1) VBG pH 7.51 H (7.32-7.43) VBG HCO3 41 H (22-26) mmol/L Carbon Dioxide 33 H (22-29) mmol/L Anion Gap 11 L (12-20) BUN (9-16) mg/dL Random Glucose 140 H (60-115) mg/dL AST 52 H (5-31) U/L ALT (0-31) U/L Total Protein 9.2 H (6.5-8.0) g/dL 09/22/24 09/23/24 Range/Units 18:04 08:34 WBC 29.3 H (4.8-10.8) X10*3/uL Hgb (12.0-16.0) g/dl MCHC 29.3 L (31.0-35.0) g/dl Immature Gran % (Auto) (0.0-0.4) % Neut % (Auto) (45-73) % Lymph % (Auto) (20-40) % [place] % (Auto) (2-11) % [place] # (Auto) (0.1-1.2) X10*3/uL Abs Immat Gran (auto) (0.00-0.03) X10*3/uL Absolute Neuts (auto) (2.0-8.3) x10*3/uL Neutrophils % (Manual) 82 H (45-73) % Band Neutrophils % 8 H (3-5) % Lymphocytes % (Manual) 6 L (20-40) % Abs Neuts (Manual) 26.4 H (2.0-8.3) X10*3/uL PT (10.9-12.4) SEC INR (0.9-1.1) VBG pH 7.45 H (7.32-7.43) VBG HCO3 36 H (22-26) mmol/L Carbon Dioxide 33 H (22-29) mmol/L Anion Gap 11 L (12-20) BUN 17 H (9-16) mg/dL Random Glucose 147 H (60-115) mg/dL AST 50 H (5-31) U/L ALT 32 H (0-31) U/L Total Protein 9.1 H (6.5-8.0) g/dL Short CBC 09/22/24 09/23/24 Range/Units 16:30 08:34 WBC 19.9 H 29.3 H (4.8-10.8) X10*3/uL Hgb 11.7 L 12.0 (12.0-16.0) g/dl Hct 38.7 41.0 (37.0-47.0) % Plt Count 326 342 (160-400) X10*3/uL BMP 09/22/24 09/23/24 18:00 08:34 Sodium 143 142 Potassium 4.4 4.6 Chloride 103 103 Carbon Dioxide 33 H 33 H BUN 15 17 H Creatinine 0.72 0.76 Calcium 9.1 8.9 Liver Function 09/22/24 09/23/24 Range/Units 18:00 08:34 Total Bilirubin 0.8 0.6 (0.0-1.0) mg/dL Direct Bilirubin 0.3 (0.0-0.5) mg/dL AST 52 H 50 H (5-31) U/L ALT 23 32 H (0-31) U/L Alkaline Phosphatase 96 89 (39-117) U/L Albumin 4.1 4.0 (3.5-5.0) g/dL All other labs normal. Imaging Abdomen CT scan report/results: report reviewed and image reviewed CT scan - pelvis: report reviewed and image reviewed Assessment and Plan (1) Acute cholecystitis: Status: Acute Plan 64 year old female morbidly obese, with resp failure and acute cholecystitis - wbc up to 29, tachy - ? pt with some sepsis symptoms and probably with acute cholecystitis but high risk for yair surgery we talked about transfer to [facility] for IR drainage but they cannot accpet transfer until wednesday- pt stable at this time - resp status ok, on steroids, tachy, but ok will check labs in am, cont with iv antibx and reassess Procedures Date of Service Date of Service: 09/25/24
--- NOTE | 2024-09-23 15:43 | PM.DS ---
DS: Providers Provider Date of admission: 09/22/24 21:37 Primary care physician: Rhina Malave MD Consults: 09/22/24 21:44 Consult to General Surgery Routine Consulting Provider: [facility] [place] General Surgeons Reason for consultation: calculous cholecystitis DS: Diagnosis Discharge Diagnosis (1) Acute cholecystitis: Status: Acute DS: Summary Hospital Course Hospital Course: History and physical as per admitting provider. This is a 64-year-old female with pertinent history of asthma not on home oxygen, hypertension, insomnia, migraine, uterine mass, hip osteoarthritis, DELANEY noncompliant with CPAP who presents to the emergency department for evaluation abdominal pain, nausea, vomiting and difficulty breathing. Patient states symptoms started 6 days prior to presentation. She has been having right upper abdominal discomfort which was initially intermittent but progressed to being constant. It was associated with nausea and multiple episodes of nonbloody emesis. Unable to tolerate p.o. intake. Also started having difficulty with breathing 2 days prior to presentation. Associated with wheezing and nonproductive cough. No history of similar abdominal discomfort before. Does endorse constipation. No fever, chills, chest pain, palpitations, changes in urinary habits. In the emergency department, patient requiring 2 L supplemental oxygen. Was found to be tachycardic with white count 19. Imaging concerning for early cholecystitis. Sepsis due to acute calculous cholecystitis Resuscitating with IV crystalloids. IV Zosyn. keep patient NPO and consult General surgery. Ultrasound of the abdomen showing acute yair Hida scan ordered Acute hypoxemic respiratory failure due to acute exacerbation of asthma. Resp failure resolved Initiating systemic steroids, scheduled and p.r.n. Xopenex. Monitor oxygen saturation and wean as tolerated. Continue home inhaler Insomnia On amitriptyline DELANEY CPAP at bedtime Hypertension Hold lisinopril, continue remaining home antihypertensives Super morbid Obesity. BMI 60.8 Counseled regarding diet and exercise Physical Exam Vital Signs: Vital Signs: Last Vital Signs Temp 97.0 F 09/23/24 15:15 Pulse 113 H 09/23/24 15:15 Resp 16 09/23/24 15:15 BP 135/60 09/23/24 15:15 Pulse Ox 100 09/23/24 15:15 O2 Del Method Nasal Cannula 09/23/24 15:15 O2 Flow Rate 2 09/23/24 15:15 Oxygen Flow Rate 9 09/22/24 16:09 BMI result Body Mass Index 60.8 Appearing in no acute distress head is normocephalic atraumatic eyes pupils are PERRLA sclera is anicteric mouth throat mucous membranes are intact and moist neck is supple no lymphadenopathy, no JVD noted lung sounds are clear to auscultation heart regular rate rhythm, clear S1, S2 positive bowel sounds, abdomen is soft, nontender neuro patient is alert x3, no focal deficits DS: Data Data Completed and Pending Labs on day of discharge: Laboratory Results - last 24 hr 09/22/24 09/22/24 09/22/24 16:30 16:36 18:00 WBC 19.9 H RBC 4.32 Hgb 11.7 L Hct 38.7 MCV 89.6 MCH 27.1 MCHC 30.2 L RDW 15.1 Plt Count 326 MPV 9.8 Immature Gran % (Auto) 0.6 H Neut % (Auto) 77.2 H Lymph % (Auto) 10.2 L [place] % (Auto) 11.7 H Eos % (Auto) 0.1 Baso % (Auto) 0.2 Lymph # (Auto) 2.0 [place] # (Auto) 2.3 H Eos # (Auto) 0.0 Baso # (Auto) 0.0 Abs Immat Gran (auto) 0.11 H Absolute Neuts (auto) 15.3 H Absolute Nucleated RBC 0.000 Nucleated RBC % (auto) 0.0 Neutrophils % (Manual) Band Neutrophils % Lymphocytes % (Manual) Monocytes % (Manual) Metamyelocytes % Myelocytes % Abs Neuts (Manual) Lymphocytes # (Manual) Monocytes # (Manual) Metamyelocytes # Myelocytes # Platelet Estimate Plt Morphology Comment RBC Morphology Smear Tech's Comments VERIFIED PT 14.6 H INR 1.3 H VBG pH 7.51 H VBG pCO2 52 VBG pO2 183 VBG HCO3 41 H VBG O2 Saturation 100.0 VBG Base Excess 16.3 Sodium 143 Potassium 4.4 Chloride 103 Carbon Dioxide 33 H Anion Gap 11 L BUN 15 Creatinine 0.72 Estim Creat Clear Calc 126.4 Estimated GFR > 60 Random Glucose 140 H Lactic Acid 1.0 Calcium 9.1 Total Bilirubin 0.8 Direct Bilirubin 0.3 AST 52 H ALT 23 Alkaline Phosphatase 96 Troponin I High Sens 2.8 B-Natriuretic Peptide < 10 Total Protein 9.2 H Albumin 4.1 Influenza Type A (PCR) NEGATIVE Influenza Type B (PCR) NEGATIVE RSV RNA Qual (PCR) NEGATIVE SARS-CoV-2 RNA (RT-PCR) NEGATIVE 09/22/24 09/23/24 18:04 08:34 WBC 29.3 H RBC 4.44 Hgb 12.0 Hct 41.0 MCV 92.3 MCH 27.0 MCHC 29.3 L RDW 15.5 Plt Count 342 MPV 9.8 Immature Gran % (Auto) Cancelled Neut % (Auto) Cancelled Lymph % (Auto) Cancelled [place] % (Auto) Cancelled Eos % (Auto) Cancelled Baso % (Auto) Cancelled Lymph # (Auto) Cancelled [place] # (Auto) Cancelled Eos # (Auto) Cancelled Baso # (Auto) Cancelled Abs Immat Gran (auto) Cancelled Absolute Neuts (auto) Cancelled Absolute Nucleated RBC 0.000 Nucleated RBC % (auto) 0.0 Neutrophils % (Manual) 82 H Band Neutrophils % 8 H Lymphocytes % (Manual) 6 L Monocytes % (Manual) 2 Metamyelocytes % 1 Myelocytes % 1 Abs Neuts (Manual) 26.4 H Lymphocytes # (Manual) 1.8 Monocytes # (Manual) 0.6 Metamyelocytes # 0.3 Myelocytes # 0.3 Platelet Estimate NORMAL Plt Morphology Comment NORMAL RBC Morphology NORMAL Smear Tech's Comments MANUAL DIFF PT INR VBG pH 7.45 H VBG pCO2 52 VBG pO2 136 VBG HCO3 36 H VBG O2 Saturation 100.0 VBG Base Excess 10.9 Sodium 142 Potassium 4.6 Chloride 103 Carbon Dioxide 33 H Anion Gap 11 L BUN 17 H Creatinine 0.76 Estim Creat Clear Calc 116.1 Estimated GFR > 60 Random Glucose 147 H Lactic Acid Calcium 8.9 Total Bilirubin 0.6 Direct Bilirubin AST 50 H ALT 32 H Alkaline Phosphatase 89 Troponin I High Sens B-Natriuretic Peptide Total Protein 9.1 H Albumin 4.0 Influenza Type A (PCR) Influenza Type B (PCR) RSV RNA Qual (PCR) SARS-CoV-2 RNA (RT-PCR) Discharge Plan Discharge Referrals: Rhina Mcgrath MD [Primary Care Provider] - 1 Week Discharge Medications: Continued sumatriptan succinate 25 mg tablet 25 mg PO Q2-4H PRN (Reason: migraine headache) 30 Days Qty: 9 0RF Rx Instructions: do not exceed 8 doses per 24 hrs albuterol sulfate [Ventolin HFA] 90 mcg/actuation HFA aerosol inhaler 2 puff inhalation Q6H PRN (Reason: wheezing) 30 Days Qty: 18 2RF albuterol sulfate 2.5 mg /3 mL (0.083 %) solution for nebulization 2.5 mg inhalation Q6H PRN (Reason: wheezing) Qty: 90 0RF lisinopril 40 mg tablet 40 mg PO DAILY 90 Days Qty: 90 1RF amlodipine 5 mg tablet 5 mg PO DAILY 90 Days Qty: 90 1RF amitriptyline 50 mg tablet 50 mg PO BEDTIME 90 Days Qty: 90 1RF cetirizine 10 mg tablet 10 mg PO DAILY 90 Days Qty: 90 1RF spironolactone 25 mg tablet 25 mg PO DAILY 90 Days Qty: 90 1RF miconazole nitrate [Remedy Phytoplex Antifungal] 2 % powder 1 appl topical DAILY PRN (Reason: Rash) polyethylene glycol 3350 [Miralax] 17 gram/dose powder 17 g PO DAILY PRN (Reason: constipation) 30 Days Qty: 510 6RF Activity on Discharge: As tolerated Print Language: Sinhala Health Concerns: Acute cholecystitis Asthma exacerbatiion Acute hypoxic respiratory failure Assessment: See discharge summary
[2024-09-23] MEDS: Lactated Ringers 1,000 ML 100 ML IVCONT (16:24)
[2024-09-23] MEDS: polyethylene glycoL 3350 17 GM POWD.PACK PO (16:28)
[2024-09-23] MEDS: Amitriptyline HCl 50 MG TABLET PO (20:02)
[2024-09-24] VITALS (8 sets, daily range): BP systolic 138–181; BP diastolic 62–74; PULSE 98–118; RESP 16–20; TEMP 36.1–36.6; O2SAT 95–98
[2024-09-24] MEDS: Lactated Ringers 1,000 ML 100 ML IVCONT (01:41)
[2024-09-24] MEDS: Piperacillin Sodium/Tazobactam 4.5 GM in 0.9 % Sodium Chloride 100 ML IV ×4 (03:26→21:52)
[2024-09-24] MEDS: levalbuterol HCL 1.25 MG/3 ML VIAL.NEB INHALE ×3 (07:50→14:40)
[2024-09-24 08:17] LABS: Hematocrit 35.5 % (37.0-47.0); Hemoglobin 9.9 g/dl (12.0-16.0); Mean Corpuscular HGB Conc 27.9 g/dl (31.0-35.0); Mean Corpuscular Hemoglobin 26.8 pg (27.0-33.0); Mean Corpuscular Volume 95.9 fL (80.0-98.0); Mean Platelet Volume 10.3 fL (9.4-12.3); Platelet Count 311 X10*3/uL (160-400); Red Cell Distribution Width 15.6 % (11.0-16.0); White Blood Count 28.5 X10*3/uL (4.8-10.8)
[2024-09-24] MEDS: methylPREDNISolone Sod Succ 40 MG/ML VIAL IVPUSH (08:22)
[2024-09-24 08:27] LABS: Alanine Aminotransferase 35 U/L (0-31); Albumin Level 3.6 g/dL (3.5-5.0); Alkaline Phosphatase 81 U/L (39-117); Anion Gap 12 (12-20); Aspartate Amino Transferase 49 U/L (5-31); Bilirubin Direct 0.3 mg/dL (0.0-0.5); Bilirubin Total 0.5 mg/dL (0.0-1.0); Blood Urea Nitrogen 31 mg/dL (9-16); Calcium 8.5 mg/dL (8.4-10.2); Carbon Dioxide 34 mmol/L (22-29); Chloride 103 mmol/L (96-108); Creatinine Clr Calc Pharmacy 102.6; Estimated Glomerular Filt Rate > 60; Glucose Random 132 mg/dL (60-115); Potassium 4.9 mmol/L (3.3-5.1); Sodium 144 mmol/L (135-145); Total Protein 8.3 g/dL (6.5-8.0)
--- NOTE | 2024-09-24 08:43 | HO.PM.IMPN ---
Subjective Subjective Date of Service: 09/24/24 Review of Systems Follow up abd pain no nausea or vomiting Physical Exam Vital Signs: Vital Signs: Last Vital Signs Temp 97.0 F 09/24/24 08:00 Pulse 111 H 09/24/24 08:00 Resp 20 09/24/24 08:00 BP 142/62 H 09/24/24 08:00 Pulse Ox 96 09/24/24 08:00 O2 Del Method Nasal Cannula 09/24/24 08:00 O2 Flow Rate 2 09/24/24 08:00 Oxygen Flow Rate 9 09/22/24 16:09 BMI result Body Mass Index 60.8 Appearing in no acute distress lung sounds are clear to auscultation heart regular rate rhythm, clear S1, S2 positive bowel sounds, abdomen is soft, tender to RUQ, obese abdomen neuro patient is alert x3, no focal deficits Objective Data Active Medications Acetaminophen (Acetaminophen 325 Mg Tablet) 650 mg PO Q6H PRN PRN Reason: Pain, Mild (Pain Scale 1-3), fever or headache Amitriptyline HCl (Amitriptyline Hcl 50 Mg Tablet) 50 mg PO BEDTIME [facility] Last Admin: 09/23/24 20:02 Dose: 50 mg Documented By: SUJATHA Amlodipine Besylate (Amlodipine Besylate 5 Mg Tablet) 5 mg PO DAILY [facility]; Protocol Calcium Carbonate (Calcium Carbonate 750 Mg Tab.Chew) 750 mg PO Q4H PRN PRN Reason: Heartburn Piperacillin Sod/Tazobactam (Sod 4.5 gm/ Sodium Chloride) 100 mls @ 200 mls/hr IV Q6H [facility] Last Infusion: 09/24/24 04:05 Dose: Infused Documented By: SUJATHA Lactated Ringer's (Lr) 1,000 mls @ 100 mls/hr IVCONT .Q10H [facility] Last Admin: 09/24/24 01:41 Dose: 100 mls/hr Documented By: SUJAHTA Levalbuterol HCl (Levalbuterol Hcl 1.25 Mg/3 Ml Vial.Neb) 1.25 mg INHALE Q3H PRN PRN Reason: Wheezing Levalbuterol HCl (Levalbuterol Hcl 1.25 Mg/3 Ml Vial.Neb) 1.25 mg INHALE Q4H [facility] Last Admin: 09/24/24 07:50 Dose: 1.25 mg Documented By: SLIM Loratadine (Loratadine 10 Mg Tablet) 10 mg PO DAILY [facility] Magnesium Hydroxide (Milk Of Magnesia 30 Ml Oral.Susp) 30 ml PO DAILY PRN PRN Reason: Constipation Melatonin (Melatonin 3 Mg Tablet) 6 mg PO BEDTIME PRN PRN Reason: Insomnia Methylprednisolone Sodium Succinate (Methylprednisolone Sod Succ 40 Mg/Ml Vial) 40 mg IVPUSH DAILY [facility] Last Admin: 09/24/24 08:22 Dose: 40 mg Documented By: DEAN Morphine Sulfate (Morphine Sulfate 4 Mg/Ml Cartridge) 4 mg IVPUSH Q4H PRN; Protocol PRN Reason: Pain, Severe (Pain Scale 7-10) Last Admin: 09/23/24 19:41 Dose: 4 mg Documented By: SUJATHA Ondansetron HCl (Ondansetron Hcl 4 Mg/2 Ml Vial) 4 mg IVPUSH Q8H PRN PRN Reason: Nausea and Vomiting Last Admin: 09/22/24 23:52 Dose: 4 mg Documented By: BRENDEN-MIGUEL Polyethylene Glycol (Polyethylene Glycol 3350 17 Gm Powd.Pack) 17 gm PO DAILY PRN PRN Reason: constipation Last Admin: 09/23/24 16:28 Dose: 17 gm Documented By: DEAN Sodium Chloride (0.9 % Sodium Chloride Flush 3 Ml Syringe) 3 ml IVFLUSH QSHIFT [facility] Last Admin: 09/24/24 08:22 Dose: Not Given Documented By: DEAN Non-Admin Reason: IV Running Spironolactone (Spironolactone 25 Mg Tablet) 25 mg PO DAILY [facility]; Protocol Sumatriptan Succinate (Sumatriptan Succinate 25 Mg Tablet) 25 mg PO Q2H PRN PRN Reason: migraine headache Labs 09/24/24 07:45 09/24/24 07:45 Labs: Laboratory Results - last 24 hr 09/23/24 09/24/24 08:34 07:45 MCV 92.3 95.9 MCH 27.0 26.8 L MCHC 29.3 L 27.9 L RDW 15.5 15.6 Plt Count 342 311 MPV 9.8 10.3 Immature Gran % (Auto) Cancelled Neut % (Auto) Cancelled Lymph % (Auto) Cancelled [place] % (Auto) Cancelled Eos % (Auto) Cancelled Baso % (Auto) Cancelled Lymph # (Auto) Cancelled [place] # (Auto) Cancelled Eos # (Auto) Cancelled Baso # (Auto) Cancelled Abs Immat Gran (auto) Cancelled Absolute Neuts (auto) Cancelled Absolute Nucleated RBC 0.000 0.000 Nucleated RBC % (auto) 0.0 0.0 Neutrophils % (Manual) 82 H Band Neutrophils % 8 H Lymphocytes % (Manual) 6 L Monocytes % (Manual) 2 Metamyelocytes % 1 Myelocytes % 1 Abs Neuts (Manual) 26.4 H Lymphocytes # (Manual) 1.8 Monocytes # (Manual) 0.6 Metamyelocytes # 0.3 Myelocytes # 0.3 Platelet Estimate NORMAL Plt Morphology Comment NORMAL RBC Morphology NORMAL Smear Tech's Comments MANUAL DIFF Anion Gap 11 L 12 Estim Creat Clear Calc 116.1 102.6 Estimated GFR > 60 > 60 Random Glucose 147 H 132 H Calcium 8.9 8.5 Total Bilirubin 0.6 0.5 Direct Bilirubin 0.3 AST 50 H 49 H ALT 32 H 35 H Alkaline Phosphatase 89 81 Total Protein 9.1 H 8.3 H Albumin 4.0 3.6 Microbiology Microbiology Results: Microbiology 09/22/24 18:00 Blood Culture - Preliminary Blood - Venous No growth after 24 hours. 09/22/24 16:30 Blood Culture - Preliminary Blood - Venous No growth after 24 hours. Assessment and Plan (1) Acute cholecystitis: Status: Acute Plan 64-year-old female with pertinent history of asthma not on home oxygen, hypertension, insomnia, migraine, uterine mass, hip osteoarthritis, DELANEY noncompliant with CPAP who presents to the emergency department for evaluation abdominal pain, nausea, vomiting and difficulty breathing. Sepsis due to acute calculous cholecystitis Tachycardia could be due to respiratory treatments, WBC could be due to steroids continue IV crystalloids , may have clears today continue IV Zosyn. Ultrasound of the abdomen and HIDA showing acute yair but patient hemodynamically stable General surgery following> likely plan is for drain placement by IR Wednesday (ordered), High risk patient for surgery due to respiratory status and obesity Acute hypoxemic respiratory failure due to acute exacerbation of asthma. Resp failure resolved IV systemic steroids daily, wean to oral scheduled and p.r.n. Xopenex due to tachycardia Monitor oxygen saturation and wean as tolerated to keep o2 sat>92%. Continue home inhaler Insomnia On amitriptyline DELANEY CPAP at bedtime Hypertension Hold lisinopril to avoid hypotension, continue amlodipine Super morbid Obesity. BMI 60.8 Counseled regarding diet and exercise DVT prophylaxis: Mechanical Full code Quality Stroke Does the patient have a stroke diagnosis?: No VTE Prior VTE?: No VTE Risk Level:: Medical - moderate - high VTE Device Contraindication: N/A - Device Ordered VTE Drug Contraindication: Treatment Not Indicated
[2024-09-24] MEDS: amLODIPine Besylate 5 MG TABLET PO (09:11)
[2024-09-24] MEDS: Loratadine 10 MG TABLET PO (09:11)
[2024-09-24] MEDS: Spironolactone 25 MG TABLET PO (09:11)
--- NOTE | 2024-09-24 10:28 | MHC.CM.PN ---
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
[2024-09-24] MEDS: ondansetron HCL 4 MG/2 ML VIAL IVPUSH ×2 (12:18→19:23)
[2024-09-24] MEDS: Lactated Ringers 1,000 ML 75 ML IVCONT ×2 (12:19→19:02)
--- NOTE | 2024-09-24 15:03 | PM.PNGS ---
Subjective Subjective Date of Service: 09/25/24 Interval history: Patient continues to feel about the same maybe a little more comfortable. No nausea no vomiting Physical Exam Vital Signs: Vital Signs: Last Vital Signs Temp 97.0 F 09/24/24 08:00 Pulse 116 H 09/24/24 14:37 Resp 16 09/24/24 14:37 BP 142/62 H 09/24/24 08:00 Pulse Ox 96 09/24/24 08:00 O2 Del Method Nasal Cannula 09/24/24 08:00 O2 Flow Rate 2 09/24/24 08:00 Oxygen Flow Rate 9 09/22/24 16:09 BMI result Body Mass Index 60.8 GI: Other: Abdomen soft morbidly obese tender in the right upper quadrant area to epigastric area with mild guarding Objective Data Active Medications Acetaminophen (Acetaminophen 325 Mg Tablet) 650 mg PO Q6H PRN PRN Reason: Pain, Mild (Pain Scale 1-3), fever or headache Amitriptyline HCl (Amitriptyline Hcl 50 Mg Tablet) 50 mg PO BEDTIME [facility] Last Admin: 09/23/24 20:02 Dose: 50 mg Documented By: SUJATHA Amlodipine Besylate (Amlodipine Besylate 5 Mg Tablet) 5 mg PO DAILY [facility]; Protocol Last Admin: 09/24/24 09:11 Dose: 5 mg Documented By: DEAN Calcium Carbonate (Calcium Carbonate 750 Mg Tab.Chew) 750 mg PO Q4H PRN PRN Reason: Heartburn Piperacillin Sod/Tazobactam (Sod 4.5 gm/ Sodium Chloride) 100 mls @ 200 mls/hr IV Q6H [facility] Last Infusion: 09/24/24 10:15 Dose: Infused Documented By: DEAN Lactated Ringer's (Lr) 1,000 mls @ 75 mls/hr IVCONT .[id number] [facility] Last Admin: 09/24/24 12:19 Dose: 75 mls/hr Documented By: DEAN Levalbuterol HCl (Levalbuterol Hcl 1.25 Mg/3 Ml Vial.Neb) 1.25 mg INHALE Q3H PRN PRN Reason: Wheezing Levalbuterol HCl (Levalbuterol Hcl 1.25 Mg/3 Ml Vial.Neb) 1.25 mg INHALE RQ8H [facility] Last Admin: 09/24/24 14:40 Dose: 1.25 mg Documented By: SLIM Loratadine (Loratadine 10 Mg Tablet) 10 mg PO DAILY [facility] Last Admin: 09/24/24 09:11 Dose: 10 mg Documented By: DEAN Magnesium Hydroxide (Milk Of Magnesia 30 Ml Oral.Susp) 30 ml PO DAILY PRN PRN Reason: Constipation Melatonin (Melatonin 3 Mg Tablet) 6 mg PO BEDTIME PRN PRN Reason: Insomnia Methylprednisolone Sodium Succinate (Methylprednisolone Sod Succ 40 Mg/Ml Vial) 40 mg IVPUSH DAILY [facility] Last Admin: 09/24/24 08:22 Dose: 40 mg Documented By: DEAN Morphine Sulfate (Morphine Sulfate 4 Mg/Ml Cartridge) 4 mg IVPUSH Q4H PRN; Protocol PRN Reason: Pain, Severe (Pain Scale 7-10) Last Admin: 09/23/24 19:41 Dose: 4 mg Documented By: SUJATHA Ondansetron HCl (Ondansetron Hcl 4 Mg/2 Ml Vial) 4 mg IVPUSH Q8H PRN PRN Reason: Nausea and Vomiting Last Admin: 09/24/24 12:18 Dose: 4 mg Documented By: DEAN Polyethylene Glycol (Polyethylene Glycol 3350 17 Gm Powd.Pack) 17 gm PO DAILY PRN PRN Reason: constipation Last Admin: 09/23/24 16:28 Dose: 17 gm Documented By: DEAN Sodium Chloride (0.9 % Sodium Chloride Flush 3 Ml Syringe) [address] [facility] Last Admin: 09/24/24 08:22 Dose: Not Given Documented By: DEAN Non-Admin Reason: IV Running Spironolactone (Spironolactone 25 Mg Tablet) 25 mg PO DAILY [facility]; Protocol Last Admin: 09/24/24 09:11 Dose: 25 mg Documented By: EDAN Sumatriptan Succinate (Sumatriptan Succinate 25 Mg Tablet) 25 mg PO Q2H PRN PRN Reason: migraine headache Labs 09/24/24 07:45 09/24/24 07:45 Labs: Laboratory Results - last 24 hr 09/24/24 07:45 MCV 95.9 MCH 26.8 L MCHC 27.9 L RDW 15.6 Plt Count 311 MPV 10.3 Absolute Nucleated RBC 0.000 Nucleated RBC % (auto) 0.0 Anion Gap 12 Estim Creat Clear Calc 102.6 Estimated GFR > 60 Random Glucose 132 H Calcium 8.5 Total Bilirubin 0.5 Direct Bilirubin 0.3 AST 49 H ALT 35 H Alkaline Phosphatase 81 Total Protein 8.3 H Albumin 3.6 Microbiology Microbiology Results: Microbiology 09/22/24 18:00 Blood Culture - Preliminary Blood - Venous No growth after 24 hours. 09/22/24 16:30 Blood Culture - Preliminary Blood - Venous No growth after 24 hours. Procedures Date of Service Date of Service: 09/25/24 Progress Note: A&P Assessment and plan (1) Acute cholecystitis: Status: Acute Assessment and Plan: Our plan has been to try to treat her conservatively for the acute cholecystitis with IV antibiotics NPO and so far she is doing okay. Her white count is little less but pretty much the same. We are thinking that it could have gone higher secondary to the steroid dosing and treatment. She continues to be tachycardic in the 1 teens to low 1 teens and upper 100s but this maybe due to her regular updrafts for her respiratory issues as well. At this point her blood pressure etc. stable so plan will be to continue with her treatment of NPO IV fluids control medical issues and consider interventional drainage of her gallbladder on Wednesday. This was all extensively discussed with the patient and her family and they understand and agree Time Spent With Patient Time: Total time managing care of this patient today ____ minutes. Quality Stroke Does the patient have a stroke diagnosis?: No VTE Prior VTE?: No VTE Risk Level:: Medical - moderate - high VTE Device Contraindication: N/A - Device Ordered VTE Drug Contraindication: Treatment Not Indicated
[2024-09-24] MEDS: hydrALAZINE HCl 25 MG TABLET PO (16:20)
[2024-09-24] MEDS: 0.9 % Sodium Chloride Flush 3 ML SYRINGE IVFLUSH ×2 (16:21→21:53)
[2024-09-24] MEDS: Morphine Sulfate 4 MG/ML CARTRIDGE IVPUSH (19:17)
[2024-09-24] MEDS: Amitriptyline HCl 50 MG TABLET PO (20:17)
[2024-09-25] VITALS (20 sets, daily range): BP systolic 135–188; BP diastolic 66–95; PULSE 106–120; RESP 16–20; TEMP 36.1–36.7; O2SAT 93–98
--- NOTE | 2024-09-25 00:37 | PC.RT ---
Pt refused NOC CPAP
[2024-09-25] MEDS: Piperacillin Sodium/Tazobactam 4.5 GM in 0.9 % Sodium Chloride 100 ML IV ×4 (04:00→23:10)
[2024-09-25 06:38] LABS: Anion Gap 12 (12-20); Blood Urea Nitrogen 34 mg/dL (9-16); Calcium 8.6 mg/dL (8.4-10.2); Carbon Dioxide 32 mmol/L (22-29); Chloride 102 mmol/L (96-108); Creatinine Clr Calc Pharmacy 93.8; Estimated Glomerular Filt Rate > 60; Glucose Random 126 mg/dL (60-115); Potassium 4.5 mmol/L (3.3-5.1); Sodium 141 mmol/L (135-145)
[2024-09-25 06:48] LABS: Hematocrit 34.7 % (37.0-47.0); Hemoglobin 9.8 g/dl (12.0-16.0); Mean Corpuscular HGB Conc 28.2 g/dl (31.0-35.0); Mean Corpuscular Hemoglobin 27.1 pg (27.0-33.0); Mean Corpuscular Volume 95.9 fL (80.0-98.0); Mean Platelet Volume 10.4 fL (9.4-12.3); NRBC Pct Auto 0.3 /100WBC (0.0-0.2); Platelet Count 319 X10*3/uL (160-400); Red Blood Count 3.62 X10*6/uL (4.20-5.50); Red Cell Distribution Width 15.5 % (11.0-16.0); White Blood Count 22.8 X10*3/uL (4.8-10.8)
--- NOTE | 2024-09-25 07:13 | P.PNGS_ITS ---
Subjective Subjective Date of Service: 09/25/24 Interval history: Patient was still having right upper quadrant pain. White blood cell count 18 Physical Exam 2 Vital Signs: Vital Signs: Last Vital Signs Temp 97.5 F 09/25/24 07:11 Pulse 108 H 09/25/24 07:11 Resp 16 09/25/24 07:11 BP 147/71 H 09/25/24 07:11 Pulse Ox 97 09/25/24 07:11 O2 Del Method CPAP 09/25/24 07:11 O2 Flow Rate 2 09/25/24 07:11 Oxygen Flow Rate 9 09/22/24 16:09 BMI result Body Mass Index 60.8 GI: Other: Massively corpulent abdomen. Marked right upper quadrant tenderness/positive Lewis's sign. Objective Data Active Medications Acetaminophen (Acetaminophen 325 Mg Tablet) 650 mg PO Q6H PRN PRN Reason: Pain, Mild (Pain Scale 1-3), fever or headache Amitriptyline HCl (Amitriptyline Hcl 50 Mg Tablet) 50 mg PO BEDTIME [facility] Last Admin: 09/24/24 20:17 Dose: 50 mg Documented By: SUJATHA Amlodipine Besylate (Amlodipine Besylate 5 Mg Tablet) 5 mg PO DAILY [facility]; Protocol Last Admin: 09/24/24 09:11 Dose: 5 mg Documented By: GRAZIC Calcium Carbonate (Calcium Carbonate 750 Mg Tab.Chew) 750 mg PO Q4H PRN PRN Reason: Heartburn Hydralazine HCl (Hydralazine Hcl 20 Mg/Ml Vial) 10 mg IVPUSH Q6H PRN; Protocol PRN Reason: sbp>180 Piperacillin Sod/Tazobactam (Sod 4.5 gm/ Sodium Chloride) 100 mls @ 200 mls/hr IV Q6H [facility] Last Infusion: 09/25/24 04:40 Dose: Infused Documented By: SUJATHA Lactated Ringer's (Lr) 1,000 mls @ 75 mls/hr IVCONT .[id number] [facility] Last Admin: 09/24/24 19:02 Dose: 75 mls/hr Documented By: SUJATHA Levalbuterol HCl (Levalbuterol Hcl 1.25 Mg/3 Ml Vial.Neb) 1.25 mg INHALE Q3H PRN PRN Reason: Wheezing Levalbuterol HCl (Levalbuterol Hcl 1.25 Mg/3 Ml Vial.Neb) 1.25 mg INHALE Q4H PRN PRN Reason: Wheezing Lisinopril (Lisinopril 40 Mg Tablet) 40 mg PO DAILY [facility]; Protocol Loratadine (Loratadine 10 Mg Tablet) 10 mg PO DAILY [facility] Last Admin: 09/24/24 09:11 Dose: 10 mg Documented By: DEAN Magnesium Hydroxide (Milk Of Magnesia 30 Ml Oral.Susp) 30 ml PO DAILY PRN PRN Reason: Constipation Melatonin (Melatonin 3 Mg Tablet) 6 mg PO BEDTIME PRN PRN Reason: Insomnia Morphine Sulfate (Morphine Sulfate 4 Mg/Ml Cartridge) 4 mg IVPUSH Q4H PRN; Protocol PRN Reason: Pain, Severe (Pain Scale 7-10) Last Admin: 09/24/24 19:17 Dose: 4 mg Documented By: SUJATHA Ondansetron HCl (Ondansetron Hcl 4 Mg/2 Ml Vial) 4 mg IVPUSH Q8H PRN PRN Reason: Nausea and Vomiting Last Admin: 09/24/24 19:23 Dose: 4 mg Documented By: SUJATHA Polyethylene Glycol (Polyethylene Glycol 3350 17 Gm Powd.Pack) 17 gm PO DAILY PRN PRN Reason: constipation Last Admin: 09/23/24 16:28 Dose: 17 gm Documented By: DEAN Prednisone (Prednisone 20 Mg Tablet) 40 mg PO DAILY [facility] Sodium Chloride (0.9 % Sodium Chloride Flush 3 Ml Syringe) 3 ml IVFLUSH [facility] Last Admin: 09/24/24 21:53 Dose: 3 ml Documented By: SUJATHA Spironolactone (Spironolactone 25 Mg Tablet) 25 mg PO DAILY [facility]; Protocol Last Admin: 09/24/24 09:11 Dose: 25 mg Documented By: DEAN Sumatriptan Succinate (Sumatriptan Succinate 25 Mg Tablet) 25 mg PO Q2H PRN PRN Reason: migraine headache Labs 09/25/24 05:34 09/25/24 05:34 Labs: Laboratory Results - last 24 hr 09/24/24 09/25/24 07:45 05:34 MCV 95.9 95.9 MCH 26.8 L 27.1 MCHC 27.9 L 28.2 L RDW 15.6 15.5 Plt Count 311 319 MPV 10.3 10.4 Absolute Nucleated RBC 0.000 0.060 H Nucleated RBC % (auto) 0.0 0.3 H Anion Gap 12 12 Estim Creat Clear Calc 102.6 93.8 Estimated GFR > 60 > 60 Random Glucose 132 H 126 H Calcium 8.5 8.6 Total Bilirubin 0.5 Direct Bilirubin 0.3 AST 49 H ALT 35 H Alkaline Phosphatase 81 Total Protein 8.3 H Albumin 3.6 Microbiology Microbiology Results: Microbiology 09/22/24 18:00 Blood Culture - Preliminary Blood - Venous No growth after 48 hours. 09/22/24 16:30 Blood Culture - Preliminary Blood - Venous No growth after 48 hours. Procedures Date of Service Date of Service: 09/25/24 Progress Note: A&P Assessment and plan (1) Acute calculous cholecystitis: Status: Acute Plan Patient was scheduled for IR cholecystostomy tube today. Continue IV antibiotics Time Spent With Patient Time: Total time managing care of this patient today ____ minutes. Quality Stroke Does the patient have a stroke diagnosis?: No VTE Prior VTE?: No VTE Risk Level:: Medical - moderate - high VTE Device Contraindication: N/A - Device Ordered VTE Drug Contraindication: Treatment Not Indicated
[2024-09-25] MEDS: amLODIPine Besylate 5 MG TABLET PO (08:02)
[2024-09-25] MEDS: predniSONE 20 MG TABLET 40 MG PO (08:03)
[2024-09-25] MEDS: Loratadine 10 MG TABLET PO (08:03)
[2024-09-25] MEDS: 0.9 % Sodium Chloride Flush 3 ML SYRINGE IVFLUSH ×3 (08:04→20:22)
[2024-09-25] MEDS: Morphine Sulfate 4 MG/ML CARTRIDGE IVPUSH ×2 (08:11→20:36)
[2024-09-25] MEDS: levalbuterol HCL 1.25 MG/3 ML VIAL.NEB INHALE (08:12)
[2024-09-25] MEDS: Lactated Ringers 1,000 ML 75 ML IVCONT (08:53)
--- NOTE | 2024-09-25 10:20 | HO.PM.IMPN ---
Subjective Subjective Date of Service: 09/25/24 Interval History: seen and examined reprots right sided abdominal pain Review of Systems Negative except HPI/interval history. Physical Exam Vital Signs: Vital Signs: Last Vital Signs Temp 97.5 F 09/25/24 07:11 Pulse 108 H 09/25/24 07:11 Resp 16 09/25/24 07:11 BP 147/71 H 09/25/24 07:11 Pulse Ox 97 09/25/24 07:11 O2 Del Method CPAP 09/25/24 07:11 O2 Flow Rate 2 09/25/24 07:11 Oxygen Flow Rate 9 09/22/24 16:09 BMI result Body Mass Index 60.8 Const: Other: General - no acute distress, appears comfortable Cardiovascular - regular rate and rhythm, S1-S2 Lungs - diffuse wheezing Abdomen - soft but TTP on right > Left Extremities - no edema bilaterally Neuro - drowsy but awakens with verbal stimuli Objective Data Active Medications Acetaminophen (Acetaminophen 325 Mg Tablet) 650 mg PO Q6H PRN PRN Reason: Pain, Mild (Pain Scale 1-3), fever or headache Amitriptyline HCl (Amitriptyline Hcl 50 Mg Tablet) 50 mg PO BEDTIME [facility] Last Admin: 09/24/24 20:17 Dose: 50 mg Documented By: SUJATHA Amlodipine Besylate (Amlodipine Besylate 5 Mg Tablet) 5 mg PO DAILY [facility]; Protocol Last Admin: 09/25/24 08:02 Dose: 5 mg Documented By: JIGNESH Calcium Carbonate (Calcium Carbonate 750 Mg Tab.Chew) 750 mg PO Q4H PRN PRN Reason: Heartburn Hydralazine HCl (Hydralazine Hcl 20 Mg/Ml Vial) 10 mg IVPUSH Q6H PRN; Protocol PRN Reason: sbp>180 Piperacillin Sod/Tazobactam (Sod 4.5 gm/ Sodium Chloride) 100 mls @ 200 mls/hr IV Q6H [facility] Last Infusion: 09/25/24 04:40 Dose: Infused Documented By: SUJATHA Lactated Ringer's (Lr) 1,000 mls @ 75 mls/hr IVCONT .[id number] [facility] Last Admin: 09/25/24 08:53 Dose: 75 mls/hr Documented By: JIGNESH Levalbuterol HCl (Levalbuterol Hcl 1.25 Mg/3 Ml Vial.Neb) 1.25 mg INHALE Q3H PRN PRN Reason: Wheezing Levalbuterol HCl (Levalbuterol Hcl 1.25 Mg/3 Ml Vial.Neb) 1.25 mg INHALE Q4H PRN PRN Reason: Wheezing Last Admin: 09/25/24 08:12 Dose: 1.25 mg Documented By: JIGNESH Lisinopril (Lisinopril 40 Mg Tablet) 40 mg PO DAILY [facility]; Protocol Last Admin: 09/25/24 07:51 Dose: Not Given Documented By: JIGNESH Non-Admin Reason: hold per MD Gagnon Loratadine (Loratadine 10 Mg Tablet) 10 mg PO DAILY [facility] Last Admin: 09/25/24 08:03 Dose: 10 mg Documented By: JIGNESH Magnesium Hydroxide (Milk Of Magnesia 30 Ml Oral.Susp) 30 ml PO DAILY PRN PRN Reason: Constipation Melatonin (Melatonin 3 Mg Tablet) 6 mg PO BEDTIME PRN PRN Reason: Insomnia Morphine Sulfate (Morphine Sulfate 4 Mg/Ml Cartridge) 4 mg IVPUSH Q4H PRN; Protocol PRN Reason: Pain, Severe (Pain Scale 7-10) Last Admin: 09/25/24 08:11 Dose: 4 mg Documented By: JIGNESH Ondansetron HCl (Ondansetron Hcl 4 Mg/2 Ml Vial) 4 mg IVPUSH Q8H PRN PRN Reason: Nausea and Vomiting Last Admin: 09/24/24 19:23 Dose: 4 mg Documented By: DAVIDRISGaudencio Polyethylene Glycol (Polyethylene Glycol 3350 17 Gm Powd.Pack) 17 gm PO DAILY PRN PRN Reason: constipation Last Admin: 09/23/24 16:28 Dose: 17 gm Documented By: DEAN Prednisone (Prednisone 20 Mg Tablet) 40 mg PO DAILY [facility] Last Admin: 09/25/24 08:03 Dose: 40 mg Documented By: JIGNESH Sodium Chloride (0.9 % Sodium Chloride Flush 3 Ml Syringe) [facility] Last Admin: 09/25/24 08:04 Dose: 3 ml Documented By: JIGNESH Spironolactone (Spironolactone 25 Mg Tablet) 25 mg PO DAILY [facility]; Protocol Last Admin: 09/25/24 07:51 Dose: Not Given Documented By: JIGNESH Non-Admin Reason: hold per MD gagnon Sumatriptan Succinate (Sumatriptan Succinate 25 Mg Tablet) 25 mg PO Q2H PRN PRN Reason: migraine headache Labs 09/25/24 05:34 09/25/24 05:34 Labs: Laboratory Results - last 24 hr 09/25/24 05:34 MCV 95.9 MCH 27.1 MCHC 28.2 L RDW 15.5 Plt Count 319 MPV 10.4 Absolute Nucleated RBC 0.060 H Nucleated RBC % (auto) 0.3 H Anion Gap 12 Estim Creat Clear Calc 93.8 Estimated GFR > 60 Random Glucose 126 H Calcium 8.6 Microbiology Microbiology Results: Microbiology 09/22/24 18:00 Blood Culture - Preliminary Blood - Venous No growth after 48 hours. 09/22/24 16:30 Blood Culture - Preliminary Blood - Venous No growth after 48 hours. Assessment and Plan (1) Acute cholecystitis: Status: Acute Plan 64-year-old female with pertinent history of asthma not on home oxygen, hypertension, insomnia, migraine, uterine mass, hip osteoarthritis, DELANEY noncompliant with CPAP who presents to the emergency department for evaluation abdominal pain, nausea, vomiting and difficulty breathing. Sepsis due to acute calculous cholecystitis wbc improving continue IV Zosyn. Ultrasound of the abdomen and HIDA showing acute yair General surgery following -> recs for IR drainage, ordered for today; NPO for procedure Acute hypoxemic respiratory failure due to acute exacerbation of asthma. Resp failure resolved weaned to prednisone scheduled and p.r.n. Xopenex due to tachycardia Monitor oxygen saturation and wean as tolerated to keep o2 sat>92%. Continue home inhaler Insomnia On amitriptyline DELANEY CPAP at bedtime Hypertension Hold lisinopril to avoid hypotension, continue amlodipine Super morbid Obesity. BMI 60.8 Counseled regarding diet and exercise DVT prophylaxis: Mechanical, consider pharmacologic after procedures completed Full code Quality Stroke Does the patient have a stroke diagnosis?: No VTE Prior VTE?: No VTE Risk Level:: Medical - moderate - high VTE Device Contraindication: N/A - Device Ordered VTE Drug Contraindication: Treatment Not Indicated
--- NOTE | 2024-09-25 10:27 | PC.NURSE ---
Pt LS dim in bases, wheezing in upper airways PRN neb given with mild effect. Pt on 2L nc, no SOB noted. MD Byrne made aware, per MD will change nebs from PRN to scheduled.
--- NOTE | 2024-09-25 13:44 | MHC.CM.PN ---
EMR REVIEWED AND PER MD ROUNDS, PT IS NOT MEDICALLY CLEARED FOR DC. CM MET WITH SON/[employer] F[employer]ER AT BEDSIDE WITH DATA REPORT ANALYST. SON IS WILLING TO MANAGE MOTHER AT HOME AND WOULD PREFER HER NOT IN A SNF. PT VERY LETHARGIC AND THIS CM WAS UNABLE TO COMPLETE A HCP AT THIS TIME. CM WILL CONTINUE TO FOLLOW FOR ANY CHANGE TO DC PLAN/NEEDS.
[2024-09-25] MEDS: ondansetron HCL 4 MG/2 ML VIAL IVPUSH (13:56)
[2024-09-25] MEDS: levalbuterol HCL 1.25 MG, Ipratropium Bromide 0.5 MG INHALE ×2 (14:02→19:14)
--- NOTE | 2024-09-25 14:06 | PC.NURSE ---
MD Byrne made aware pt vomited 2x, color and amount was not noted family disposed of vomit. Zofran given per orders pending effectiveness. Pt continues to be wheezy ordered IVP solu-medrol for 1800. RT currently in room giving scheduled neb treatment.
[2024-09-25] MEDS: fentaNYL citrate/PF 100 MCG/2 ML VIAL 25 MCG IVPUSH (16:56)
[2024-09-25] MEDS: methylPREDNISolone Sod Succ 40 MG/ML VIAL IVPUSH (18:23)
[2024-09-25 18:29] LABS: Hematocrit 35.2 % (37.0-47.0); Hemoglobin 10.1 g/dl (12.0-16.0)
[2024-09-25] MEDS: diphenhydrAMINE HCL 50 MG/ML VIAL 25 MG IVPUSH (18:35)
--- NOTE | 2024-09-25 18:43 | PC.NURSE ---
Pt arrived from PACU A&Ox3-4. LESLY drain in place, 115ml of dark green drainage emptied. Pt noted to have moderate vaginal bleeding, MD Byrne made aware STAT H&H ordered. Per son pt has vaginal bleeding 3-4x a month. Pt endorsing mild pain but refusing morphine at this time d/t nausea, MD Fiore covering, ordered 1x dose of Benadryl IVP, given and pending effectiveness will report off to night RN.
[2024-09-25] MEDS: Amitriptyline HCl 50 MG TABLET PO (20:21)
[2024-09-25] MEDS: Melatonin 3 MG TABLET 6 MG PO (20:33)
[2024-09-26] VITALS (9 sets, daily range): BP systolic 120–152; BP diastolic 68–75; PULSE 96–128; RESP 15–28; TEMP 36.4–36.8; O2SAT 65–96
[2024-09-26] MEDS: Piperacillin Sodium/Tazobactam 4.5 GM in 0.9 % Sodium Chloride 100 ML IV ×4 (04:57→21:04)
[2024-09-26] MEDS: methylPREDNISolone Sod Succ 40 MG/ML VIAL IVPUSH ×2 (05:07→17:00)
[2024-09-26 06:28] LABS: Hematocrit 33.1 % (37.0-47.0); Hemoglobin 9.3 g/dl (12.0-16.0); Mean Corpuscular HGB Conc 28.1 g/dl (31.0-35.0); Mean Corpuscular Hemoglobin 26.7 pg (27.0-33.0); Mean Corpuscular Volume 95.1 fL (80.0-98.0); Mean Platelet Volume 10.4 fL (9.4-12.3); NRBC Pct Auto 0.6 /100WBC (0.0-0.2); Platelet Count 288 X10*3/uL (160-400); Red Blood Count 3.48 X10*6/uL (4.20-5.50); Red Cell Distribution Width 15.8 % (11.0-16.0); White Blood Count 13.2 X10*3/uL (4.8-10.8)
[2024-09-26 06:44] LABS: Alanine Aminotransferase 73 U/L (0-31); Albumin Level 3.5 g/dL (3.5-5.0); Alkaline Phosphatase 80 U/L (39-117); Anion Gap 11 (12-20); Aspartate Amino Transferase 77 U/L (5-31); Bilirubin Total 0.5 mg/dL (0.0-1.0); Blood Urea Nitrogen 29 mg/dL (9-16); Calcium 8.6 mg/dL (8.4-10.2); Carbon Dioxide 34 mmol/L (22-29); Chloride 103 mmol/L (96-108); Estimated Glomerular Filt Rate > 60; Glucose Random 126 mg/dL (60-115); Potassium 4.8 mmol/L (3.3-5.1); Sodium 143 mmol/L (135-145)
[2024-09-26] MEDS: levalbuterol HCL 1.25 MG, Ipratropium Bromide 0.5 MG INHALE ×3 (08:04→19:37)
[2024-09-26] MEDS: Spironolactone 25 MG TABLET PO (08:26)
[2024-09-26] MEDS: lisinopriL 40 MG TABLET PO (08:26)
[2024-09-26] MEDS: 0.9 % Sodium Chloride Flush 3 ML SYRINGE IVFLUSH ×3 (08:27→21:00)
[2024-09-26] MEDS: amLODIPine Besylate 5 MG TABLET PO (08:27)
[2024-09-26] MEDS: Loratadine 10 MG TABLET PO (08:27)
--- NOTE | 2024-09-26 09:06 | P.PNGS_ITS ---
Subjective Subjective Date of Service: 09/26/24 Interval history: Patient was status post IR gallbladder drainage. States that abdominal/right upper quadrant symptoms improved. Bilious output in drained. Physical Exam 2 Vital Signs: Vital Signs: Last Vital Signs Temp 97.6 F 09/26/24 07:02 Pulse 100 09/26/24 08:05 Resp 16 09/26/24 08:05 BP 130/68 09/26/24 07:02 Pulse Ox 96 09/26/24 07:02 O2 Del Method Nasal Cannula 09/26/24 07:02 O2 Flow Rate 2 09/26/24 07:02 Oxygen Flow Rate 9 09/22/24 16:09 BMI result Body Mass Index 60.8 GI: Other: Abdomen is massively corpulent, soft. Minimal right upper quadrant tenderness Objective Data Active Medications Acetaminophen (Acetaminophen 325 Mg Tablet) 650 mg PO Q6H PRN PRN Reason: Pain, Mild (Pain Scale 1-3), fever or headache Amitriptyline HCl (Amitriptyline Hcl 50 Mg Tablet) 50 mg PO BEDTIME [facility] Last Admin: 09/25/24 20:21 Dose: 50 mg Documented By: KETURAH Amlodipine Besylate (Amlodipine Besylate 5 Mg Tablet) 5 mg PO DAILY [facility]; Protocol Last Admin: 09/26/24 08:27 Dose: 5 mg Documented By: JIGNESH Calcium Carbonate (Calcium Carbonate 750 Mg Tab.Chew) 750 mg PO Q4H PRN PRN Reason: Heartburn Levalbuterol HCl 1.25 mg/ (Ipratropium [place] 0.5 mg) 0 mg INHALE RTID [facility] Last Admin: 09/26/24 08:04 Dose: 1 dose Documented By: CONSTANTIN Hydralazine HCl (Hydralazine Hcl 20 Mg/Ml Vial) 10 mg IVPUSH Q6H PRN; Protocol PRN Reason: sbp>180 Piperacillin Sod/Tazobactam (Sod 4.5 gm/ Sodium Chloride) 100 mls @ 200 mls/hr IV Q6H [facility] Last Infusion: 09/26/24 06:00 Dose: Infused Documented By: KETURAH Levalbuterol HCl (Levalbuterol Hcl 1.25 Mg/3 Ml Vial.Neb) 1.25 mg INHALE Q4H PRN PRN Reason: Wheezing Last Admin: 09/25/24 08:12 Dose: 1.25 mg Documented By: JIGNESH Lisinopril (Lisinopril 40 Mg Tablet) 40 mg PO DAILY [facility]; Protocol Last Admin: 09/26/24 08:26 Dose: 40 mg Documented By: JIGNESH Loratadine (Loratadine 10 Mg Tablet) 10 mg PO DAILY [facility] Last Admin: 09/26/24 08:27 Dose: 10 mg Documented By: JIGNESH Magnesium Hydroxide (Milk Of Magnesia 30 Ml Oral.Susp) 30 ml PO DAILY PRN PRN Reason: Constipation Melatonin (Melatonin 3 Mg Tablet) 6 mg PO BEDTIME PRN PRN Reason: Insomnia Last Admin: 09/25/24 20:33 Dose: 6 mg Documented By: KETURAH Methylprednisolone Sodium Succinate (Methylprednisolone Sod Succ 40 Mg/Ml Vial) 40 mg IVPUSH Q12H [facility] Last Admin: 09/26/24 05:07 Dose: 40 mg Documented By: KETURAH Morphine Sulfate (Morphine Sulfate 4 Mg/Ml Cartridge) 4 mg IVPUSH Q4H PRN; Protocol PRN Reason: Pain, Severe (Pain Scale 7-10) Last Admin: 09/25/24 20:36 Dose: 4 mg Documented By: KETURAH Ondansetron HCl (Ondansetron Hcl 4 Mg/2 Ml Vial) 4 mg IVPUSH Q8H PRN PRN Reason: Nausea and Vomiting Last Admin: 09/25/24 13:56 Dose: 4 mg Documented By: JIGNESH Polyethylene Glycol (Polyethylene Glycol 3350 17 Gm Powd.Pack) 17 gm PO DAILY PRN PRN Reason: constipation Last Admin: 09/23/24 16:28 Dose: 17 gm Documented By: DEAN Sodium Chloride (0.9 % Sodium Chloride Flush 3 Ml Syringe) [facility] Last Admin: 09/26/24 08:27 Dose: 3 ml Documented By: JIGNESH Spironolactone (Spironolactone 25 Mg Tablet) 25 mg PO DAILY [facility]; Protocol Last Admin: 09/26/24 08:26 Dose: 25 mg Documented By: JIGNESH Sumatriptan Succinate (Sumatriptan Succinate 25 Mg Tablet) 25 mg PO Q2H PRN PRN Reason: migraine headache Labs 09/26/24 05:09 12/24/24 05:09 Labs: Laboratory Results - last 24 hr 09/26/24 05:09 MCV 95.1 MCH 26.7 L MCHC 28.1 L RDW 15.8 Plt Count 288 MPV 10.4 Absolute Nucleated RBC 0.080 H Nucleated RBC % (auto) 0.6 H Anion Gap 11 L Estim Creat Clear Calc 109.0 Estimated GFR > 60 Random Glucose 126 H Calcium 8.6 Total Bilirubin 0.5 AST 77 H ALT 73 H Alkaline Phosphatase 80 Total Protein 8.0 Albumin 3.5 Procedures Date of Service Date of Service: 09/26/24 Progress Note: A&P Assessment and plan (1) Acute calculous cholecystitis: Status: Acute (2) Obesity: Status: Acute Plan Continue current plan, biliary drainage, IV antibiotics, can commence diet as tolerated, if possible out of bed with the assistance, incentive spirometry Time Spent With Patient Time: Total time managing care of this patient today ____ minutes. Quality Stroke Does the patient have a stroke diagnosis?: No VTE Prior VTE?: No VTE Risk Level:: Medical - moderate - high VTE Device Contraindication: N/A - Device Ordered VTE Drug Contraindication: Treatment Not Indicated
--- NOTE | 2024-09-26 09:41 | P.PNIM_ITS ---
Subjective Subjective Date of Service: 09/26/24 Interval History: seen and examined reports pain is much improved as is her breathing Review of Systems Negative except HPI/interval history. Physical Exam 2 Vital Signs: Vital Signs: Last Vital Signs Temp 97.6 F 09/26/24 07:02 Pulse 100 09/26/24 08:05 Resp 16 09/26/24 08:05 BP 130/68 09/26/24 07:02 Pulse Ox 96 09/26/24 07:02 O2 Del Method Nasal Cannula 09/26/24 07:02 O2 Flow Rate 2 09/26/24 07:02 Oxygen Flow Rate 9 09/22/24 16:09 BMI result Body Mass Index 60.8 Const: Other: General - no acute distress, appears comfortable Cardiovascular - regular rate and rhythm, S1-S2 Lungs - still with coarse sounds, improved compared to yesterday Abdomen - soft, with RUQ TTP, mild; drain with bilious output Extremities - no edema bilaterally Neuro - awake and alert, no focal deficits Objective Data Active Medications Acetaminophen (Acetaminophen 325 Mg Tablet) 650 mg PO Q6H PRN PRN Reason: Pain, Mild (Pain Scale 1-3), fever or headache Amitriptyline HCl (Amitriptyline Hcl 50 Mg Tablet) 50 mg PO BEDTIME [facility] Last Admin: 09/25/24 20:21 Dose: 50 mg Documented By: KETURAH Amlodipine Besylate (Amlodipine Besylate 5 Mg Tablet) 5 mg PO DAILY [facility]; Protocol Last Admin: 09/26/24 08:27 Dose: 5 mg Documented By: JIGNESH Calcium Carbonate (Calcium Carbonate 750 Mg Tab.Chew) 750 mg PO Q4H PRN PRN Reason: Heartburn Levalbuterol HCl 1.25 mg/ (Ipratropium [place] 0.5 mg) 0 mg INHALE RTID [facility] Last Admin: 09/26/24 08:04 Dose: 1 dose Documented By: CONSTANTIN Hydralazine HCl (Hydralazine Hcl 20 Mg/Ml Vial) 10 mg IVPUSH Q6H PRN; Protocol PRN Reason: sbp>180 Piperacillin Sod/Tazobactam (Sod 4.5 gm/ Sodium Chloride) 100 mls @ 200 mls/hr IV Q6H [facility] Last Admin: 09/26/24 09:29 Dose: 200 mls/hr Documented By: JIGNESH Levalbuterol HCl (Levalbuterol Hcl 1.25 Mg/3 Ml Vial.Neb) 1.25 mg INHALE Q4H PRN PRN Reason: Wheezing Last Admin: 09/25/24 08:12 Dose: 1.25 mg Documented By: JIGNESH Lisinopril (Lisinopril 40 Mg Tablet) 40 mg PO DAILY [facility]; Protocol Last Admin: 09/26/24 08:26 Dose: 40 mg Documented By: JIGNESH Loratadine (Loratadine 10 Mg Tablet) 10 mg PO DAILY [facility] Last Admin: 09/26/24 08:27 Dose: 10 mg Documented By: JIGNESH Magnesium Hydroxide (Milk Of Magnesia 30 Ml Oral.Susp) 30 ml PO DAILY PRN PRN Reason: Constipation Melatonin (Melatonin 3 Mg Tablet) 6 mg PO BEDTIME PRN PRN Reason: Insomnia Last Admin: 09/25/24 20:33 Dose: 6 mg Documented By: KETURAH Methylprednisolone Sodium Succinate (Methylprednisolone Sod Succ 40 Mg/Ml Vial) 40 mg IVPUSH Q12H [facility] Last Admin: 09/26/24 05:07 Dose: 40 mg Documented By: KETURAH Morphine Sulfate (Morphine Sulfate 4 Mg/Ml Cartridge) 4 mg IVPUSH Q4H PRN; Protocol PRN Reason: Pain, Severe (Pain Scale 7-10) Last Admin: 09/25/24 20:36 Dose: 4 mg Documented By: KETURAH Ondansetron HCl (Ondansetron Hcl 4 Mg/2 Ml Vial) 4 mg IVPUSH Q8H PRN PRN Reason: Nausea and Vomiting Last Admin: 09/25/24 13:56 Dose: 4 mg Documented By: JIGNESH Polyethylene Glycol (Polyethylene Glycol 3350 17 Gm Powd.Pack) 17 gm PO DAILY PRN PRN Reason: constipation Last Admin: 09/23/24 16:28 Dose: 17 gm Documented By: GRAZIC Sodium Chloride (0.9 % Sodium Chloride Flush 3 Ml Syringe) [facility] Last Admin: 09/26/24 08:27 Dose: 3 ml Documented By: JIGNESH Spironolactone (Spironolactone 25 Mg Tablet) 25 mg PO DAILY [facility]; Protocol Last Admin: 09/26/24 08:26 Dose: 25 mg Documented By: JIGNESH Sumatriptan Succinate (Sumatriptan Succinate 25 Mg Tablet) 25 mg PO Q2H PRN PRN Reason: migraine headache Labs 09/26/24 05:09 09/26/24 05:09 Labs: Laboratory Results - last 24 hr 09/26/24 05:09 MCV 95.1 MCH 26.7 L MCHC 28.1 L RDW 15.8 Plt Count 288 MPV 10.4 Absolute Nucleated RBC 0.080 H Nucleated RBC % (auto) 0.6 H Anion Gap 11 L Estim Creat Clear Calc 109.0 Estimated GFR > 60 Random Glucose 126 H Calcium 8.6 Total Bilirubin 0.5 AST 77 H ALT 73 H Alkaline Phosphatase 80 Total Protein 8.0 Albumin 3.5 Assessment and Plan (1) Acute cholecystitis: Status: Acute Plan 64-year-old female with pertinent history of asthma not on home oxygen, hypertension, insomnia, migraine, uterine mass, hip osteoarthritis, DELANEY noncompliant with CPAP who presents to the emergency department for evaluation abdominal pain, nausea, vomiting and difficulty breathing. Sepsis due to acute calculous cholecystitis s/p IR GB drain -- with bilious output this AM continue iv abx gen surg on board will advance diet as tolerated incentive nalini + out of bed Acute hypoxemic respiratory failure due to acute exacerbation of asthma wean o2 as tolerated weaned to prednisone but still with o2 requirements and diffuse wheezing, so hence restarted solu-medrol 09/25; will continue x 24 hours and re-eval scheduled and p.r.n. Xopenex due to tachycardia Monitor oxygen saturation and wean as tolerated to keep o2 sat>92%. Continue home inhaler Insomnia On amitriptyline DELANEY CPAP at bedtime Hypertension continue baseline meds Super morbid Obesity. BMI 60.8 Counseled regarding diet and exercise DVT prophylaxis: Mechanical, may start heparin/lovenox by tomorrow Full code Quality Stroke Does the patient have a stroke diagnosis?: No VTE Prior VTE?: No VTE Risk Level:: Medical - moderate - high VTE Device Contraindication: N/A - Device Ordered VTE Drug Contraindication: Treatment Not Indicated
--- NOTE | 2024-09-26 09:51 | P.CDIM_ITS ---
PROVIDER RESPONSE TEXT: To clarify, the appropriate diagnosis supported by the clinical indicators: Mild persistent QUERY TEXT: PHYSICIAN'S DOCUMENTATION REQUEST Date of Query: 09/26/2024 09:39 AM EST Patient Name: Monica Henry Admit Date: 09/23/2024 Dear Davis Byrne MD, A review of the medical record indicates additional documentation may be needed. Please review below and update the documentation accordingly. Clinical indicators: Progress notes within the Plan 09/25 - Acute hypoxemic respiratory failure due to acute exacerbation of asthma. Weaned to prednisone. Continue home inhaler. Based on the above, please clarify in the Progress Notes further specificity regarding the type of as thma: Mild intermittent Mild persistent Moderate persistent Severe persistent Exercise induced Other (explain) Clinically unable to determine (explain) Thank you, Radha Perdomo, CCS, CDIS Use of terms such as suspected, likely, concern for, or probable (associated with a specific diagnosi s that is being evaluated, monitored, or treated as if it exists) are acceptable and can be coded in the inpatient se tting, when documented at the time of discharge. Please use your independent medical judgment in providing your response. THIS QUERY IS PART OF THE PERMANENT MEDICAL RECORD
[2024-09-26] MEDS: Acetaminophen 325 MG TABLET 650 MG PO ×2 (10:16→16:16)
[2024-09-26] MEDS: Morphine Sulfate 4 MG/ML CARTRIDGE IVPUSH ×3 (13:12→21:03)
[2024-09-26] MEDS: Amitriptyline HCl 50 MG TABLET PO (21:10)
[2024-09-27] VITALS (10 sets, daily range): BP systolic 124–142; BP diastolic 62–84; PULSE 115–129; RESP 16–18; TEMP 36.6–37.1; O2SAT 93–96
--- NOTE | 2024-09-27 00:59 | MHC.PIE ---
late entry; p; 09/26 2000. notified per respiratory pt o2 sat 60-70's on ra? i; upd given, o2 applied, o2 sat monitor applied, made aware p; 09/26 2300 pt tachy at 120-130 since previous shift even at rest. i; dr santos notified e; will cont to [facility]
[2024-09-27] MEDS: Piperacillin Sodium/Tazobactam 4.5 GM in 0.9 % Sodium Chloride 100 ML IV ×4 (04:39→21:37)
[2024-09-27] MEDS: methylPREDNISolone Sod Succ 40 MG/ML VIAL IVPUSH ×2 (04:39→16:48)
[2024-09-27 06:43] LABS: Hematocrit 35.2 % (37.0-47.0); Hemoglobin 10.2 g/dl (12.0-16.0); Mean Corpuscular Hemoglobin 26.9 pg (27.0-33.0); Mean Corpuscular Volume 92.9 fL (80.0-98.0); Mean Platelet Volume 10.1 fL (9.4-12.3); NRBC Pct Auto 0.4 /100WBC (0.0-0.2); Platelet Count 315 X10*3/uL (160-400); Red Blood Count 3.79 X10*6/uL (4.20-5.50); Red Cell Distribution Width 15.5 % (11.0-16.0); White Blood Count 18.6 X10*3/uL (4.8-10.8)
[2024-09-27 07:03] LABS: Alanine Aminotransferase 104 U/L (0-31); Albumin Level 3.8 g/dL (3.5-5.0); Alkaline Phosphatase 80 U/L (39-117); Anion Gap 14 (12-20); Aspartate Amino Transferase 83 U/L (5-31); Bilirubin Total 0.8 mg/dL (0.0-1.0); Blood Urea Nitrogen 39 mg/dL (9-16); Calcium 8.8 mg/dL (8.4-10.2); Carbon Dioxide 34 mmol/L (22-29); Chloride 102 mmol/L (96-108); Creatinine Clr Calc Pharmacy 85.7; Estimated Glomerular Filt Rate 54; Glucose Random 162 mg/dL (60-115); Potassium 4.7 mmol/L (3.3-5.1); Sodium 145 mmol/L (135-145); Total Protein 8.7 g/dL (6.5-8.0)
[2024-09-27] MEDS: Spironolactone 25 MG TABLET PO (08:45)
[2024-09-27] MEDS: amLODIPine Besylate 5 MG TABLET PO (08:46)
[2024-09-27] MEDS: lisinopriL 40 MG TABLET PO (08:46)
[2024-09-27] MEDS: Loratadine 10 MG TABLET PO (08:46)
[2024-09-27] MEDS: 0.9 % Sodium Chloride Flush 3 ML SYRINGE IVFLUSH ×3 (08:46→21:39)
--- NOTE | 2024-09-27 13:18 | HO.PM.IMPN ---
Subjective Subjective Date of Service: 09/27/24 Interval History: Complaining of anterior chest wall pain with coughing, no fevers no chills no acute overnight events Review of Systems All other system reviewed and are negative. Physical Exam Vital Signs: Vital Signs: Last Vital Signs Temp 98.2 F 09/27/24 07:43 Pulse 115 H 09/27/24 07:43 Resp 16 09/27/24 07:43 BP 132/72 09/27/24 07:43 Pulse Ox 95 09/27/24 07:43 O2 Del Method CPAP 09/27/24 07:43 O2 Flow Rate 3.0 09/27/24 07:43 Oxygen Flow Rate 9 09/22/24 16:09 BMI result Body Mass Index 60.8 Const: Other: General morbidly abuse, resting comfortably in no acute distress. Neck no JVD. CVS regular rate rhythm, Respiratory lungs bilateral upper airway wheeze, no respiratory distress Gastrointestinal abdomen soft, mild right upper quadrant discomfort with palpation, LESLY drain with bilious drainage, bowel sounds audible, no guarding , no rigidity. Extremities no pitting edema. Neuro non focal /awake ,alert Objective Data Active Medications Acetaminophen (Acetaminophen 325 Mg Tablet) 650 mg PO Q6H PRN PRN Reason: Pain, Mild (Pain Scale 1-3), fever or headache Last Admin: 09/26/24 16:16 Dose: 650 mg Documented By: MALOU Amitriptyline HCl (Amitriptyline Hcl 50 Mg Tablet) 50 mg PO BEDTIME [facility] Last Admin: 09/26/24 21:10 Dose: 50 mg Documented By: CANDIS Amlodipine Besylate (Amlodipine Besylate 5 Mg Tablet) 5 mg PO DAILY [facility]; Protocol Last Admin: 09/27/24 08:46 Dose: 5 mg Documented By: ACE Calcium Carbonate (Calcium Carbonate 750 Mg Tab.Chew) 750 mg PO Q4H PRN PRN Reason: Heartburn Levalbuterol HCl 1.25 mg/ (Ipratropium [place] 0.5 mg) 0 mg INHALE RTID [facility] Last Admin: 09/27/24 08:24 Dose: Not Given Documented By: CARY Non-Admin Reason: pt asleep on cpap Hydralazine HCl (Hydralazine Hcl 20 Mg/Ml Vial) 10 mg IVPUSH Q6H PRN; Protocol PRN Reason: sbp>180 Piperacillin Sod/Tazobactam (Sod 4.5 gm/ Sodium Chloride) 100 mls @ 200 mls/hr IV Q6H [facility] Last Infusion: 09/27/24 10:49 Dose: Infused Documented By: ACE Levalbuterol HCl (Levalbuterol Hcl 1.25 Mg/3 Ml Vial.Neb) 1.25 mg INHALE Q4H PRN PRN Reason: Wheezing Last Admin: 09/25/24 08:12 Dose: 1.25 mg Documented By: JIGNESH Lisinopril (Lisinopril 40 Mg Tablet) 40 mg PO DAILY [facility]; Protocol Last Admin: 09/27/24 08:46 Dose: 40 mg Documented By: ACE Loratadine (Loratadine 10 Mg Tablet) 10 mg PO DAILY [facility] Last Admin: 09/27/24 08:46 Dose: 10 mg Documented By: ACE Magnesium Hydroxide (Milk Of Magnesia 30 Ml Oral.Susp) 30 ml PO DAILY PRN PRN Reason: Constipation Melatonin (Melatonin 3 Mg Tablet) 6 mg PO BEDTIME PRN PRN Reason: Insomnia Last Admin: 09/25/24 20:33 Dose: 6 mg Documented By: KETURAH Methylprednisolone Sodium Succinate (Methylprednisolone Sod Succ 40 Mg/Ml Vial) 40 mg IVPUSH Q12H [facility] Last Admin: 09/27/24 04:39 Dose: 40 mg Documented By: CANDIS Morphine Sulfate (Morphine Sulfate 4 Mg/Ml Cartridge) 4 mg IVPUSH Q4H PRN; Protocol PRN Reason: Pain, Severe (Pain Scale 7-10) Last Admin: 09/26/24 21:03 Dose: 4 mg Documented By: CANDIS Ondansetron HCl (Ondansetron Hcl 4 Mg/2 Ml Vial) 4 mg IVPUSH Q8H PRN PRN Reason: Nausea and Vomiting Last Admin: 09/25/24 13:56 Dose: 4 mg Documented By: JIGNESH Polyethylene Glycol (Polyethylene Glycol 3350 17 Gm Powd.Pack) 17 gm PO DAILY PRN PRN Reason: constipation Last Admin: 09/23/24 16:28 Dose: 17 gm Documented By: DEAN Sodium Chloride (0.9 % Sodium Chloride Flush 3 Ml Syringe) 3 ml IVFLUSH QSHIFT ASHLEY Last Admin: 09/27/24 08:46 Dose: 3 ml Documented By: ACE Spironolactone (Spironolactone 25 Mg Tablet) 25 mg PO DAILY [facility]; Protocol Last Admin: 09/27/24 08:45 Dose: 25 mg Documented By: ACE Sumatriptan Succinate (Sumatriptan Succinate 25 Mg Tablet) 25 mg PO Q2H PRN PRN Reason: migraine headache Labs 09/27/24 06:24 09/27/24 06:24 Labs: Laboratory Results - last 24 hr 09/27/24 06:24 MCV 92.9 MCH 26.9 L MCHC 29.0 L RDW 15.5 Plt Count 315 MPV 10.1 Absolute Nucleated RBC 0.080 H Nucleated RBC % (auto) 0.4 H Anion Gap 14 Estim Creat Clear Calc 85.7 Estimated GFR 54 Random Glucose 162 H Calcium 8.8 Total Bilirubin 0.8 AST 83 H ALT 104 H Alkaline Phosphatase 80 Total Protein 8.7 H Albumin 3.8 Assessment and Plan (1) Acute cholecystitis: Status: Acute (2) Asthma exacerbation: Status: Acute Plan 64-year-old female with pertinent history of asthma not on home oxygen, hypertension, insomnia, migraine, uterine mass, hip osteoarthritis, DELANEY noncompliant with CPAP who presents to the emergency department for evaluation abdominal pain, nausea, vomiting and difficulty breathing. Sepsis due to acute calculous cholecystitis s/p IR GB drain -- with persistent bilious output continue iv Zosyn started on Persistent leukocytosis, gradually coming down and elevated LFTs Spoke with Dr. Stone he recommend to advance diet as tolerated /recommend to keep cholecystostomy tube for 4-6 weeks/will be discharged home with it Will advance diet to full liquids Encourage incentive nalini /follow LFTs and CBC Acute hypoxemic respiratory failure due to acute exacerbation of asthma wean o2 as tolerated restarted solu-medrol 09/25; will continue due to persistent wheeze and re-eval scheduled and p.r.n. Xopenex due to tachycardia Monitor oxygen saturation and wean as tolerated to keep o2 sat>92%. Continue home inhaler Question need O2 on discharge Insomnia On amitriptyline DELANEY CPAP at bedtime/noncompliant with CPAP at home Hypertension continue baseline meds Super morbid Obesity. BMI 60.8 Counseled regarding diet and exercise Uterine mass with history of intermittent vaginal bleed, stable hematocrit DVT prophylaxis: Mechanical, hold heparin today due to vaginal bleed, reassess at a.m. Full code Quality Stroke Does the patient have a stroke diagnosis?: No VTE Prior VTE?: No VTE Risk Level:: Medical - moderate - high VTE Device Contraindication: N/A - Device Ordered VTE Drug Contraindication: Treatment Not Indicated
[2024-09-27] MEDS: Morphine Sulfate 4 MG/ML CARTRIDGE IVPUSH (14:11)
[2024-09-27] MEDS: levalbuterol HCL 1.25 MG, Ipratropium Bromide 0.5 MG INHALE ×2 (15:39→20:21)
[2024-09-27] MEDS: Morphine Sulfate 4 MG/ML CARTRIDGE 3 MG IVPUSH (19:07)
[2024-09-27] MEDS: ondansetron HCL 4 MG/2 ML VIAL IVPUSH (21:37)
[2024-09-27] MEDS: Acetaminophen 325 MG TABLET 650 MG PO (21:37)
[2024-09-27] MEDS: Melatonin 3 MG TABLET 6 MG PO (21:39)
[2024-09-27] MEDS: Amitriptyline HCl 50 MG TABLET PO (21:39)
[2024-09-28] VITALS (20 sets, daily range): BP systolic 113–151; BP diastolic 58–90; PULSE 109–132; RESP 13–35; TEMP 35.9–37.6; O2SAT 88–95
[2024-09-28] MEDS: Morphine Sulfate 4 MG/ML CARTRIDGE 3 MG IVPUSH ×2 (00:55→04:41)
[2024-09-28] MEDS: Piperacillin Sodium/Tazobactam 4.5 GM in 0.9 % Sodium Chloride 100 ML IV ×4 (04:30→22:38)
[2024-09-28] MEDS: ondansetron HCL 4 MG/2 ML VIAL IVPUSH ×3 (05:24→23:43)
[2024-09-28] MEDS: methylPREDNISolone Sod Succ 40 MG/ML VIAL IVPUSH (05:25)
[2024-09-28 05:28] LABS: Venous Blood Gas Refer to POC result
[2024-09-28 05:30] LABS: Hematocrit 38.4 % (37.0-47.0); Hemoglobin 10.9 g/dl (12.0-16.0); Mean Corpuscular HGB Conc 28.4 g/dl (31.0-35.0); Mean Corpuscular Hemoglobin 26.7 pg (27.0-33.0); Mean Corpuscular Volume 94.1 fL (80.0-98.0); Mean Platelet Volume 9.8 fL (9.4-12.3); NRBC Pct Auto 0.4 /100WBC (0.0-0.2); Platelet Count 330 X10*3/uL (160-400); Red Blood Count 4.08 X10*6/uL (4.20-5.50); Red Cell Distribution Width 15.5 % (11.0-16.0); White Blood Count 27.6 X10*3/uL (4.8-10.8)
[2024-09-28 05:34] LABS: VBG Base Excess 12.1 mmol/L; VBG HCO3 40 mmol/L (22-26); VBG pCO2 71 mmHg; VBG pH 7.36 (7.32-7.43); VBG pO2 86 mmHg
[2024-09-28 05:46] LABS: Alanine Aminotransferase 88 U/L (0-31); Albumin Level 3.8 g/dL (3.5-5.0); Alkaline Phosphatase 78 U/L (39-117); Anion Gap 15 (12-20); Aspartate Amino Transferase 58 U/L (5-31); Bilirubin Direct 0.6 mg/dL (0.0-0.5); Bilirubin Total 0.9 mg/dL (0.0-1.0); Blood Urea Nitrogen 42 mg/dL (9-16); Calcium 9.1 mg/dL (8.4-10.2); Carbon Dioxide 32 mmol/L (22-29); Chloride 103 mmol/L (96-108); Creatinine Clr Calc Pharmacy 76.7; Estimated Glomerular Filt Rate 48; Glucose Random 157 mg/dL (60-115); Potassium 4.9 mmol/L (3.3-5.1); Sodium 145 mmol/L (135-145)
[2024-09-28] MEDS: levalbuterol HCL 1.25 MG, Ipratropium Bromide 0.5 MG INHALE ×3 (07:49→19:42)
[2024-09-28] MEDS: amLODIPine Besylate 5 MG TABLET PO (09:18)
[2024-09-28] MEDS: Loratadine 10 MG TABLET PO (09:18)
[2024-09-28] MEDS: 0.9 % Sodium Chloride Flush 3 ML SYRINGE IVFLUSH ×3 (09:18→22:38)
[2024-09-28 10:36] LABS: Venous Blood Gas Refer to POC result
[2024-09-28 10:37] LABS: VBG Base Excess 11.7 mmol/L; VBG HCO3 41 mmol/L (22-26); VBG pCO2 80 mmHg; VBG pH 7.32 (7.32-7.43); VBG pO2 138 mmHg
--- NOTE | 2024-09-28 10:55 | HO.PM.IMPN ---
Subjective Subjective Date of Service: 09/28/24 Interval History: seen and examined this morning pt lethargic, hard to get history son at bedside reports she is not usually this hard to wake up unable to obtain ROS Physical Exam Vital Signs: Vital Signs: Last Vital Signs Temp 99.1 F 09/28/24 08:00 Pulse 125 H 09/28/24 08:00 Resp 18 09/28/24 08:00 BP 140/90 H 09/28/24 08:00 Pulse Ox 93 09/28/24 08:00 O2 Del Method Nasal Cannula 09/28/24 08:00 O2 Flow Rate 1.5 09/28/24 08:00 Oxygen Flow Rate 9 09/22/24 16:09 BMI result Body Mass Index 60.8 Const: Other: morbidly obese; lethargic, minimally responsive to painful stimuli;unable to assess orientation General: lethargic Nutritional Appearance: obese Orientation/consciousness: lethargic Resp: Other: difficult to assess; no respiratory distress; diminished Cardio: Rate: tachycardic GI: Other: LESLY drain just emptied Palpation (GI): Soft to palpation Objective Data Active Medications Acetaminophen (Acetaminophen 325 Mg Tablet) 650 mg PO Q6H PRN PRN Reason: Pain, Mild (Pain Scale 1-3), fever or headache Last Admin: 09/27/24 21:37 Dose: 650 mg Documented By: YOKASTA Amitriptyline HCl (Amitriptyline Hcl 50 Mg Tablet) 50 mg PO BEDTIME [facility] Last Admin: 09/27/24 21:39 Dose: 50 mg Documented By: YOKASTA Amlodipine Besylate (Amlodipine Besylate 5 Mg Tablet) 5 mg PO DAILY [facility]; Protocol Last Admin: 09/28/24 09:18 Dose: 5 mg Documented By: ACE Calcium Carbonate (Calcium Carbonate 750 Mg Tab.Chew) 750 mg PO Q4H PRN PRN Reason: Heartburn Levalbuterol HCl 1.25 mg/ (Ipratropium [place] 0.5 mg) 0 mg INHALE RTID [facility] Last Admin: 09/28/24 07:49 Dose: 6 dose Documented By: JON Hydralazine HCl (Hydralazine Hcl 20 Mg/Ml Vial) 10 mg IVPUSH Q6H PRN; Protocol PRN Reason: sbp>180 Piperacillin Sod/Tazobactam (Sod 4.5 gm/ Sodium Chloride) 100 mls @ 200 mls/hr IV Q6H [facility] Last Infusion: 09/28/24 10:15 Dose: Infused Documented By: ACE Levalbuterol HCl (Levalbuterol Hcl 1.25 Mg/3 Ml Vial.Neb) 1.25 mg INHALE Q4H PRN PRN Reason: Wheezing Last Admin: 09/25/24 08:12 Dose: 1.25 mg Documented By: JIGNESH Lisinopril (Lisinopril 40 Mg Tablet) 40 mg PO DAILY [facility]; Protocol Last Admin: 09/27/24 08:46 Dose: 40 mg Documented By: ACE Loratadine (Loratadine 10 Mg Tablet) 10 mg PO DAILY [facility] Last Admin: 09/28/24 09:18 Dose: 10 mg Documented By: ACE Magnesium Hydroxide (Milk Of Magnesia 30 Ml Oral.Susp) 30 ml PO DAILY PRN PRN Reason: Constipation Melatonin (Melatonin 3 Mg Tablet) 6 mg PO BEDTIME PRN PRN Reason: Insomnia Last Admin: 09/27/24 21:39 Dose: 6 mg Documented By: YOKASTA Methylprednisolone Sodium Succinate (Methylprednisolone Sod Succ 40 Mg/Ml Vial) 40 mg IVPUSH Q12H [facility] Last Admin: 09/28/24 05:25 Dose: 40 mg Documented By: YOKASTA Ondansetron HCl (Ondansetron Hcl 4 Mg/2 Ml Vial) 4 mg IVPUSH Q8H PRN PRN Reason: Nausea and Vomiting Last Admin: 09/28/24 05:24 Dose: 4 mg Documented By: YOKASTA Polyethylene Glycol (Polyethylene Glycol 3350 17 Gm Powd.Pack) 17 gm PO DAILY PRN PRN Reason: constipation Last Admin: 09/23/24 16:28 Dose: 17 gm Documented By: DEAN Sodium Chloride (0.9 % Sodium Chloride Flush 3 Ml Syringe) 3 ml IVFLUSH QSHIFT [facility] Last Admin: 09/28/24 09:18 Dose: 3 ml Documented By: ACE Spironolactone (Spironolactone 25 Mg Tablet) 25 mg PO DAILY [facility]; Protocol Last Admin: 09/27/24 08:45 Dose: 25 mg Documented By: ACE Labs 09/28/24 05:24 09/28/24 05:24 Labs: Laboratory Results - last 24 hr 09/28/24 09/28/24 09/28/24 05:24 05:28 10:32 MCV 94.1 MCH 26.7 L MCHC 28.4 L RDW 15.5 Plt Count 330 MPV 9.8 Absolute Nucleated RBC 0.100 H Nucleated RBC % (auto) 0.4 H VBG pH 7.36 7.32 VBG pCO2 71 80 VBG pO2 86 138 VBG HCO3 40 H 41 H VBG O2 Saturation 98.0 100.0 VBG Base Excess 12.1 11.7 Anion Gap 15 Estim Creat Clear Calc 76.7 Estimated GFR 48 Random Glucose 157 H Calcium 9.1 Total Bilirubin 0.9 Direct Bilirubin 0.6 H AST 58 H ALT 88 H Alkaline Phosphatase 78 Total Protein 9.0 H Albumin 3.8 Microbiology Microbiology Results: Microbiology 09/22/24 18:00 Blood Culture - Final Blood - Venous No growth after 5 days. 09/22/24 16:30 Blood Culture - Final Blood - Venous No growth after 5 days. Assessment and Plan (1) Acute cholecystitis: Status: Acute (2) Acute asthma exacerbation: Status: Acute Plan 64-year-old female with pertinent history of asthma not on home oxygen, hypertension, insomnia, migraine, uterine mass, hip osteoarthritis, DELANEY noncompliant with CPAP who presents to the emergency department for evaluation abdominal pain, nausea, vomiting and difficulty breathing. Acute hypoxemic and hypercarbic respiratory failure restarted solu-medrol 09/25; will continue due to persistent wheeze and re-eval scheduled and p.r.n. Xopenex due to tachycardia became lethargic, vbg with increasing pco2; will transfer to ICU for bipap speech evaluation pending due to lethargy ammonia level obtained as well Sepsis due to acute calculous cholecystitis s/p IR GB drain -- with persistent bilious output continue iv Zosyn started on Persistent leukocytosis likely due to steroid Spoke with Dr. Stone he recommend to advance diet as tolerated /recommend to keep cholecystostomy tube for 4-6 weeks/will be discharged home with it Encourage incentive nalini /follow LFTs and CBC not safe for po intake at this time due to lethargy CASSIE hold lisinopril and aldactone follow renal function Insomnia On amitriptyline - will hold to prevent sedation DELANEY CPAP at bedtime/noncompliant with CPAP at home Hypertension hold meds as above due to cassie Super morbid Obesity. BMI 60.8 Counseled regarding diet and exercise Uterine mass with history of intermittent vaginal bleed, stable hematocrit. outpatient follow up DVT prophylaxis: Mechanical, hold heparin today due to vaginal bleed, reassess at a.m. Full code Quality Stroke Does the patient have a stroke diagnosis?: No VTE Prior VTE?: No VTE Risk Level:: Medical - moderate - high VTE Device Contraindication: N/A - Device Ordered VTE Drug Contraindication: Treatment Not Indicated
[2024-09-28 11:28] LABS: Ammonia 80 umol/L (13-55)
--- NOTE | 2024-09-28 12:08 | MHC.CM.PN ---
Patient transferred to ICU from Med-surg 09/28/24.
[2024-09-28 14:09] LABS: ABG Base Excess 18.5 mmol/L; ABG HCO3 49 mmol/L (22-26); ABG pCO2 91 mmHg (32-45); ABG pH 7.33 (7.35-7.45); ABG pO2 89 mmHg (83-108)
[2024-09-28] MEDS: Ketorolac Tromethamine 15 MG/ML VIAL IVPUSH (17:26)
[2024-09-28 17:41] LABS: VBG Base Excess 11.7 mmol/L; VBG HCO3 40 mmol/L (22-26); VBG pCO2 72 mmHg; VBG pH 7.35 (7.32-7.43); VBG pO2 80 mmHg
[2024-09-28 17:41] LABS: Venous Blood Gas Refer to POC result
--- NOTE | 2024-09-28 17:56 | PC.NURSE ---
Patient bladder scanned due to no noted urine this shift or after arrival to unit, 32mls noted, MD made aware, no new orders. Zofran given for c/o nausea, spitting up small amounts noted, Bipap removed until Nausea subsides, 1l NC appplied to maintain O2 Sat 88-92%. Toradol ordered IV for pain, given without any good effect, MD aware and Fentanyl ordered.
[2024-09-28] MEDS: fentaNYL citrate/PF 100 MCG/2 ML VIAL IVPUSH (18:10)
[2024-09-28 18:41] LABS: B Type Natriuretic Peptide < 10 pg/mL (<100)
--- NOTE | 2024-09-28 19:45 | P.CONCC_ITS ---
History of Present Illness Data of Consult Service Date: 09/28/24 Requesting physician: Mary Emerson Primary Care Provider: Rhina Malave MD [facility] Reason for consult: Hypercapnic respiratory failure ?The patient is a 64-year-old Yi-speaking only female with a past medical history of asthma, hypertension, insomnia, migraines, uterine mass, hip osteoarthritis, and DELANEY noncompliant with CPAP who presented to the emergency department on 09/22/2024 with complaints of abdominal pain, nausea and vomiting admitted to Hospital Medicine for sepsis due to acute calculous cholecystitis that was treated? initially conservatively with antibiotics and NPO,? but on 09/25/2024 cholecystostomy tube was placed by IR.? ?Today patient was? difficult to arouse,? has refused to wear CPAP throughout the hospitalization,? venous gas showing? significant hypercapnia.? Patient transferred to ICU for management of acute? hypercapnic respiratory failure requiring BiPAP from noncompliance with CPAP Review of Systems 2 Review of Systems: Yes Unobtainable due to mental condition PMFSH Past Medical History Medical History Fibromyalgia Hx of migraine headaches DELANEY (obstructive sleep apnea) Asthma Wheelchair dependent Obesity, morbid, BMI 50 or higher Pre-diabetes HTN (hypertension) Family History Family History Mother Diabetes Throat cancer Hypertension Father Hypertension Surgical History Surgical History History of hysteroscopy (~05/2024) Hx of colonoscopy Hx of tubal ligation Hx of section History of knee surgery Social History Social History Household Members: Children Household Members Other:: son, grandaughter Housing: Apartment Are you a primary foster care social worker to a significant other at home: No Do you presently have visiting nurse or other home services: No Alcohol intake: never Patient Tobacco Use Status: Never used Tobacco e-Cigarette/Vaping Use: Never Used Second Hand Smoke Exposure: No service: No Current occupational status: disabled Sexual orientation: Straight/Heterosexual Gender identity: Female Cognitive needs: Yes Hearing needs: No Vision needs: Yes Meds Allergies Allergy/AdvReac Type Severity Reaction Status Date / Time Penicillins [PENICILLINS] Allergy Unknown ITCHING Verified 09/22/24 16:12 Active Medications: Current Medications Acetaminophen (Acetaminophen 325 Mg Tablet) 650 mg PO Q6H PRN PRN Reason: Pain, Mild (Pain Scale 1-3), fever or headache Last Admin: 09/27/24 21:37 Dose: 650 mg Amlodipine Besylate (Amlodipine Besylate 5 Mg Tablet) 5 mg PO DAILY [facility]; Protocol Last Admin: 09/28/24 09:18 Dose: 5 mg Calcium Carbonate (Calcium Carbonate 750 Mg Tab.Chew) 750 mg PO Q4H PRN PRN Reason: Heartburn Levalbuterol HCl 1.25 mg/ (Ipratropium [place] 0.5 mg) 0 mg INHALE RTID [facility] Last Admin: 09/28/24 19:42 Dose: 1 dose Fentanyl (Fentanyl Citrate/Pf 100 Mcg/2 Ml Vial) 50 mcg IVPUSH Q2H PRN; Protocol PRN Reason: Pain, Severe (Pain Scale 7-10) Piperacillin Sod/Tazobactam (Sod 4.5 gm/ Sodium Chloride) 100 mls @ 200 mls/hr IV Q6H [facility] Last Infusion: 09/28/24 16:37 Dose: Infused Ketorolac Tromethamine (Ketorolac Tromethamine 15 Mg/Ml Vial) 15 mg IVPUSH Q6H PRN PRN Reason: Pain, Moderate(Pain Scale 4-6) Last Admin: 09/28/24 17:26 Dose: 15 mg Levalbuterol HCl (Levalbuterol Hcl 1.25 Mg/3 Ml Vial.Neb) 1.25 mg INHALE Q4H PRN PRN Reason: Wheezing Last Admin: 09/25/24 08:12 Dose: 1.25 mg Loratadine (Loratadine 10 Mg Tablet) 10 mg PO DAILY [facility] Last Admin: 09/28/24 09:18 Dose: 10 mg Magnesium Hydroxide (Milk Of Magnesia 30 Ml Oral.Susp) 30 ml PO DAILY PRN PRN Reason: Constipation Melatonin (Melatonin 3 Mg Tablet) 6 mg PO BEDTIME PRN PRN Reason: Insomnia Last Admin: 09/27/24 21:39 Dose: 6 mg Ondansetron HCl (Ondansetron Hcl 4 Mg/2 Ml Vial) 4 mg IVPUSH Q8H PRN PRN Reason: Nausea and Vomiting Last Admin: 09/28/24 17:11 Dose: 4 mg Polyethylene Glycol (Polyethylene Glycol 3350 17 Gm Powd.Pack) 17 gm PO DAILY PRN PRN Reason: constipation Last Admin: 09/23/24 16:28 Dose: 17 gm Sodium Chloride (0.9 % Sodium Chloride Flush 3 Ml Syringe) 3 ml IVFLUSH QSHIFT [facility]SHLEY Last Admin: 09/28/24 16:06 Dose: 3 ml Home Medications ?Medication ?Instructions ?Recorded ?Confirmed ?Last Taken ?Type miconazole nitrate 2 % topical 1 appl topical DAILY PRN Rash 09/23/24 09/23/24 Unknown History powder (Remedy Phytoplex Antifungal) Physical Exam 2 Vital Signs: Vital Signs: Last Vital Signs Temp 99.6 F 09/28/24 12:00 Pulse 119 H 09/28/24 18:59 Resp 14 09/28/24 18:59 BP 121/65 09/28/24 18:59 Pulse Ox 90 L 09/28/24 18:59 O2 Del Method BiPAP 09/28/24 18:59 O2 Flow Rate 2 09/28/24 12:00 FiO2 24 09/28/24 18:59 Oxygen Flow Rate 9 09/22/24 16:09 BMI result Body Mass Index 60.8 ?General:? Patient is lethargic, but able to answer yes and no questions. Following simple commands. ?HEENT:? Head is normocephalic, atraumatic, pupils equal round reactive to light accommodation bilaterally.? Extraocular movements appear intact.? Buccal mucosa is dry, Neck is supple ?Cardiac:? Sinus tach, Clear S1-S2, no murmurs rubs or gallops. Bilateral lower extremity edema ?Pulmonary:? Clear to auscultation, no wheezes, rales or rhonchi. ?Abdomen:? ?Abdomen soft, non-tender, non-distended. Normal bowel sounds. No pulsatile mass. No hepatosplenomegaly. ?Musculoskeletal:? Moving all 4 extremities upon request a major joints, there is no crepitus or tenderness.? The strength is 5/5 bilaterally and throughout all 4 extremities.? Gait not assessed at this point. ?Neurologic:? cranial nerves 2-12 are grossly intact.? No focal deficits noted.Motor strength as above.?? ?Skin:? Cholecystostomy tube, draining small amount of bile fluid. No ulcers. Vascular:? 2+ pulses upper and lower extremities distally.? Results Labs 09/29/24 05:11 09/29/24 05:11 Labs: Short CBC 09/28/24 Range/Units 05:24 WBC 27.6 H (4.8-10.8) X10*3/uL Hgb 10.9 L (12.0-16.0) g/dl Hct 38.4 (37.0-47.0) % Plt Count 330 (160-400) X10*3/uL BMP 09/28/24 05:24 Sodium 145 Potassium 4.9 Chloride 103 Carbon Dioxide 32 H BUN 42 H Creatinine 1.15 Calcium 9.1 Liver Function 09/28/24 Range/Units 05:24 Total Bilirubin 0.9 (0.0-1.0) mg/dL Direct Bilirubin 0.6 H (0.0-0.5) mg/dL AST 58 H (5-31) U/L ALT 88 H (0-31) U/L Alkaline Phosphatase 78 (39-117) U/L Albumin 3.8 (3.5-5.0) g/dL Microbiology Microbiology Results: Microbiology 09/22/24 18:00 Blood - Venous Blood Culture - Final No growth after 5 days. 09/22/24 16:30 Blood - Venous Blood Culture - Final No growth after 5 days. Assessment and Plan (1) Acute hypercapnic respiratory failure: Status: Acute (2) Acute cholecystitis: Status: Acute (3) Acute calculous cholecystitis: Status: Acute (4) Sepsis: Status: Acute (5) CASSIE (acute kidney injury): Status: Acute Plan Neuro:? ?Obtunded:? from CO2 retention,? should improve on BiPAP.? Cardiac:?? ?No acute issues Pulmonary:? ?Acute hypercapnic respiratory failure:? patient?s history of noncompliance with CPAP,? and also has some degree of O2 poisoning.? Continue BiPAP,? wean off as tolerated.? Renal:?? ?CASSIE: ? nonoliguric,? continue to trend renal indices and urine output GI:?? ?Acute calculus cholecystitis:? status post cholecystostomy, by IR, being followed by general surgery.? Dr. Stone he recommend to advance diet as tolerated /recommend to keep cholecystostomy tube for 4-6 weeks/will be discharged home with it. Encourage incentive nalini /follow LFTs. Appreciate surgery recommendations.? Continue Zosyn for antibiotic.? Endo:?? ?No acute issues Heme/Onc:? ?Anemia:? hemoglobin is stable ID:? ?Sepsis:? from acute cholecystitis status post cholecystostomy,? no evidence of? worsening infection at this time.? Cultures negative as of today. Continue antibiotics .?Psych:? No acute issues. DIET: NPO due to BiPAP Code? status: ? ? FULL CODE.? Critical care time: x 60 min of critical care time?
[2024-09-28 22:41] LABS: VBG Base Excess 13.5 mmol/L; VBG HCO3 43 mmol/L (22-26); VBG pCO2 82 mmHg; VBG pH 7.32 (7.32-7.43); VBG pO2 78 mmHg
[2024-09-28 22:49] LABS: Basophils Absolute Auto 0.1 X10*3/uL (0.0-0.2); Basophils Percent Auto 0.2 % (0-2); Eosinophils Absolute Auto 0.1 X10*3/uL (0.0-0.4); Eosinophils Percent Auto 0.3 % (0-4); Hematocrit 36.4 % (37.0-47.0); Hemoglobin 10.5 g/dl (12.0-16.0); Imm Gran Abs Auto 0.52 X10*3/uL (0.00-0.03); Imm Gran Pct Auto 1.8 % (0.0-0.4); Lymphocytes Absolute Auto 1.3 X10*3/uL (1.2-4.9); Lymphocytes Percent Auto 4.5 % (20-40); MANUAL DIFF FLAG SCAN; Mean Corpuscular HGB Conc 28.8 g/dl (31.0-35.0); Mean Corpuscular Hemoglobin 27.1 pg (27.0-33.0); Mean Corpuscular Volume 94.1 fL (80.0-98.0); Mean Platelet Volume 10.2 fL (9.4-12.3); Monocytes Absolute Auto 2.7 X10*3/uL (0.1-1.2); Monocytes Percent Auto 9.4 % (2-11); NRBC Pct Auto 0.3 /100WBC (0.0-0.2); Neutrophils Absolute Auto 23.7 x10*3/uL (2.0-8.3); Neutrophils Percent Auto 83.8 % (45-73); Platelet Count 331 X10*3/uL (160-400); Red Blood Count 3.87 X10*6/uL (4.20-5.50); Red Cell Distribution Width 15.8 % (11.0-16.0); SCAN SMEAR FLAG 1; White Blood Count 28.4 X10*3/uL (4.8-10.8)
[2024-09-28 23:10] LABS: SLIDE REVIEW VERIFIED
[2024-09-28 23:13] LABS: B Type Natriuretic Peptide < 10 pg/mL (<100)
[2024-09-28 23:27] LABS: Venous Blood Gas Refer to POC result
[2024-09-28 23:32] LABS: ABG Refer to POC result
[2024-09-29] VITALS (34 sets, daily range): BP systolic 105–138; BP diastolic 41–74; PULSE 103–123; RESP 12–24; TEMP 36–36.9; O2SAT 90–99
[2024-09-29 00:29] LABS: VBG Base Excess 12.5 mmol/L; VBG HCO3 41 mmol/L (22-26); VBG pCO2 71 mmHg; VBG pH 7.37 (7.32-7.43); VBG pO2 78 mmHg
[2024-09-29] MEDS: fentaNYL citrate/PF 100 MCG/2 ML VIAL 50 MCG IVPUSH ×8 (00:31→22:00)
--- NOTE | 2024-09-29 00:47 | PM.EVENT ---
Documented by User: Lois Golden NP 09/29/24 00:52 Event Note Date of Service: 09/29/24 Event Note: Patient daughter, Kaye Oneill, informed me, patient does not want to be intubated. I spend time with Daughter and son Charles, both request for code status to be changed to DNI, as is patient wishes. Due to patient difficulties getting to primary care office they havent done a MOLST form. I educated daughter/ son on code status, explained DNR/ DNI status, and they continue to request only DNI status to be updated in chart. Will change code status per family request Time Spent With Patient Time: Total time managing care of this patient today ____ minutes. Documented by User: Sylvester Hernandez MD 09/29/24 10:52 Event Note Date of Service: 09/29/24
[2024-09-29 00:49] LABS: Alanine Aminotransferase 74 U/L (0-31); Albumin Level 3.6 g/dL (3.5-5.0); Alkaline Phosphatase 75 U/L (39-117); Anion Gap 14 (12-20); Aspartate Amino Transferase 50 U/L (5-31); Bilirubin Direct 0.6 mg/dL (0.0-0.5); Blood Urea Nitrogen 58 mg/dL (9-16); Calcium 8.9 mg/dL (8.4-10.2); Carbon Dioxide 32 mmol/L (22-29); Chloride 104 mmol/L (96-108); Creatinine Clr Calc Pharmacy 46.2; Estimated Glomerular Filt Rate 27; Glucose Random 132 mg/dL (60-115); Magnesium 3.5 mg/dL (1.6-2.6); Phosphorus 3.4 mg/dL (2.7-4.5); Sodium 145 mmol/L (135-145); Total Protein 8.7 g/dL (6.5-8.0)
[2024-09-29] MEDS: Furosemide 20 MG/2 ML VIAL IVPUSH (02:11)
[2024-09-29] MEDS: Lactulose 320 GM/480 ML SOLUTION 200 GM PR ×3 (02:13→17:17)
[2024-09-29 02:42] LABS: Venous Blood Gas Refer to POC result
[2024-09-29] MEDS: Piperacillin Sodium/Tazobactam 4.5 GM in 0.9 % Sodium Chloride 100 ML IV (04:38)
[2024-09-29 05:09] LABS: VBG Base Excess 12.8 mmol/L; VBG HCO3 37 mmol/L (22-26); VBG pCO2 46 mmHg; VBG pH 7.51 (7.32-7.43); VBG pO2 137 mmHg; Venous Blood Gas Refer to POC result
[2024-09-29 05:18] LABS: Basophils Absolute Auto 0.1 X10*3/uL (0.0-0.2); Basophils Percent Auto 0.3 % (0-2); Eosinophils Absolute Auto 0.1 X10*3/uL (0.0-0.4); Eosinophils Percent Auto 0.2 % (0-4); Hematocrit 37.1 % (37.0-47.0); Hemoglobin 10.4 g/dl (12.0-16.0); Imm Gran Abs Auto 0.52 X10*3/uL (0.00-0.03); Lymphocytes Absolute Auto 1.2 X10*3/uL (1.2-4.9); Lymphocytes Percent Auto 4.5 % (20-40); MANUAL DIFF FLAG SCAN; Mean Corpuscular Hemoglobin 26.7 pg (27.0-33.0); Mean Corpuscular Volume 95.1 fL (80.0-98.0); Mean Platelet Volume 10.2 fL (9.4-12.3); Monocytes Absolute Auto 2.4 X10*3/uL (0.1-1.2); Monocytes Percent Auto 9.1 % (2-11); NRBC Pct Auto 0.2 /100WBC (0.0-0.2); Neutrophils Absolute Auto 22.3 x10*3/uL (2.0-8.3); Neutrophils Percent Auto 83.9 % (45-73); PLT CLUMP 1; Red Cell Distribution Width 15.9 % (11.0-16.0); SCAN SMEAR FLAG 1
[2024-09-29 05:19] LABS: White Blood Count 26.6 X10*3/uL (4.8-10.8)
[2024-09-29 05:33] LABS: Platelet Count 314 X10*3/uL (160-400)
[2024-09-29 05:38] LABS: Alanine Aminotransferase 68 U/L (0-31); Albumin Level 3.4 g/dL (3.5-5.0); Alkaline Phosphatase 70 U/L (39-117); Anion Gap 18 (12-20); Aspartate Amino Transferase 46 U/L (5-31); Bilirubin Total 0.9 mg/dL (0.0-1.0); Blood Urea Nitrogen 61 mg/dL (9-16); Calcium 8.5 mg/dL (8.4-10.2); Carbon Dioxide 30 mmol/L (22-29); Chloride 102 mmol/L (96-108); Creatinine Clr Calc Pharmacy 39.7; Estimated Glomerular Filt Rate 22; Glucose Random 132 mg/dL (60-115); Magnesium 3.5 mg/dL (1.6-2.6); Phosphorus 3.7 mg/dL (2.7-4.5); Potassium 5.1 mmol/L (3.3-5.1); Sodium 145 mmol/L (135-145); Total Protein 8.3 g/dL (6.5-8.0)
[2024-09-29 05:54] LABS: Ammonia 65 umol/L (13-55)
[2024-09-29] MEDS: Albumin Human 25 % 100 ML IV ×2 (06:08→07:48)
[2024-09-29] MEDS: 0.9 % Sodium Chloride Flush 3 ML SYRINGE IVFLUSH ×2 (07:34→14:40)
[2024-09-29] MEDS: ondansetron HCL 4 MG/2 ML VIAL IVPUSH ×2 (07:36→20:18)
[2024-09-29] MEDS: levalbuterol HCL 1.25 MG, Ipratropium Bromide 0.5 MG INHALE ×3 (08:02→19:57)
--- NOTE | 2024-09-29 09:29 | PC.NURSE ---
Addendum entered by Nydia Harrison RN 09/29/24 13:22: Pt remains comfortable, resting in bed. Breathing observed even and unlabored without distress. Pt remains NPO pending formal CT results. PIPE AND TEST SUPERVISOR came to bedside this morning though swallow eval was deferred by Dr. Elliott, pending CT results for ? ileus vs bowel obstruction. VSS. Handoff report given to oncoming RN at 12:30. Addendum entered by Nydia Harrison RN 09/29/24 11:11: Patient was transported monitored by physician underwriter and ancillary staff to CT. Pt was pre-medicated with prn fentanyl with +effect. japanese interpreter used for duration of CT scan. Pt tolerated CT well without issue. VSS taken previously and on return from CT. Son remains at bedside. Original Note: Assumed care of patient at 07:00. Pt is A&Ox4. Malay speaking only. Son Charles also present at bedside. japanese interpreter used for assessments, education, and care. +BSx4. Abdomen semi-firm to b/l upper quadrants. Pt passing lots of flatus. On scheduled lactulose enemas. +Effect. MD made aware. CT abdomen ordered, scheduled with CT dept for 10am. Consent for contrast for CT was obtained with physician underwriter and in-person japanese interpreter present. Pt remains NPO per MD pending CT results. Continues with no UOP on bladder scans. Dr. Hernandez aware. Plan of care continues.
[2024-09-29] MEDS: iohexoL 350 MG/ML 100 ML INFUS..BTL IV (10:35)
[2024-09-29] MEDS: Piperacillin Sodium/Tazobactam 3.375 GM in 0.9 % Sodium Chloride 50 ML IV ×3 (10:36→21:07)
--- NOTE | 2024-09-29 10:53 | PM.CCPN ---
Subjective Subjective Date of Service: 09/29/24 Interval History: 64-year-old lady with underlying history of morbid obesity, hypertension, asthma, uterine mass, DELANEY noncompliant with CPAP admitted on 09/22/2024 with nausea, vomiting, and abdominal pain. Patient noted to have sepsis with likely etiology being cholecystitis. Surgical consultation is obtained. Initially patient was managed conservatively. Then on 09/25/2024 she had cholecystostomy drain placed. Hospital stay complicated by development of acute hypercapnic respiratory failure on 09/28/2024 necessitating transfer to intensive care unit in application of rescue BiPAP and further development of anuria and acute kidney injury overnight 09/29. Overnight events as above. Critical Care Time (minutes): 60 Physical Exam Vital Signs: Vital Signs: Last Vital Signs Temp 98.5 F 09/29/24 08:00 Pulse 117 H 09/29/24 10:32 Resp 12 09/29/24 10:35 BP 125/57 L 09/29/24 10:32 Pulse Ox 94 09/29/24 10:32 O2 Del Method Nasal Cannula 09/29/24 10:32 O2 Flow Rate 1 09/29/24 10:32 FiO2 30 09/29/24 07:00 Oxygen Flow Rate 9 09/22/24 16:09 BMI result Body Mass Index 60.8 Const: General: no acute distress, ill appearing and lethargic (Arousable) Nutritional Appearance: obese Orientation/consciousness: lethargic (Arousable) Eyes: Sclerae: sclerae normal EOM: EOMs intact bilaterally Neck: Neck: Yes no lymphadenopathy, Yes trachea midline and Yes supple Resp: Effort & Inspection: normal respiratory effort and no respiratory distress Auscultation: clear to auscultation bilaterally Cardio: Rate: tachycardic Rhythm: regular rhythm Heart sounds: no gallops, no murmurs and no rubs GI: Palpation (GI): Firmness to palpation present (GI) in the RUQ, Tenderness to palpation present (GI) in the RUQ and Other GI palpation findings present Auscultation: Hypoactive bowel sounds present Extrem: General: Yes no pedal edema, No clubbing and No cyanosis Objective Data Labs 09/29/24 05:11 09/29/24 05:11 Labs: Laboratory Results - last 24 hr 09/28/24 09/28/24 09/28/24 10:27 11:09 13:57 WBC RBC Hgb Hct MCV MCH MCHC RDW Plt Count MPV Immature Gran % (Auto) Neut % (Auto) Lymph % (Auto) [place] % (Auto) Eos % (Auto) Baso % (Auto) Lymph # (Auto) [place] # (Auto) Eos # (Auto) Baso # (Auto) Abs Immat Gran (auto) Absolute Neuts (auto) Absolute Nucleated RBC Nucleated RBC % (auto) Smear Tech's Comments O2 Saturation 98.0 ABG pH at Pt Temp 7.33 L ABG pCO2 at Pt Temp 91 H* ABG pO2 at Pt Temp 89 ABG HCO3 49 H ABG Base Excess (Actual) 18.5 VBG pH VBG pCO2 VBG pO2 VBG HCO3 VBG O2 Saturation VBG Base Excess Sodium Potassium Chloride Carbon Dioxide Anion Gap BUN Creatinine Estim Creat Clear Calc Estimated GFR Random Glucose Calcium Phosphorus Magnesium Total Bilirubin Direct Bilirubin AST ALT Alkaline Phosphatase Ammonia 80 H B-Natriuretic Peptide < 10 Total Protein Albumin 09/28/24 09/28/24 09/28/24 17:35 22:31 22:38 WBC 28.4 H RBC 3.87 L Hgb 10.5 L Hct 36.4 L MCV 94.1 MCH 27.1 MCHC 28.8 L RDW 15.8 Plt Count 331 MPV 10.2 Immature Gran % (Auto) 1.8 H Neut % (Auto) 83.8 H Lymph % (Auto) 4.5 L [place] % (Auto) 9.4 Eos % (Auto) 0.3 Baso % (Auto) 0.2 Lymph # (Auto) 1.3 [place] # (Auto) 2.7 H Eos # (Auto) 0.1 Baso # (Auto) 0.1 Abs Immat Gran (auto) 0.52 H Absolute Neuts (auto) 23.7 H Absolute Nucleated RBC 0.080 H Nucleated RBC % (auto) 0.3 H Smear Tech's Comments VERIFIED O2 Saturation ABG pH at Pt Temp ABG pCO2 at Pt Temp ABG pO2 at Pt Temp ABG HCO3 ABG Base Excess (Actual) VBG pH 7.35 7.32 VBG pCO2 72 82 VBG pO2 80 78 VBG HCO3 40 H 43 H VBG O2 Saturation 96.0 95.0 VBG Base Excess 11.7 13.5 Sodium Cancelled Potassium Cancelled Chloride Cancelled Carbon Dioxide Cancelled Anion Gap Cancelled BUN Cancelled Creatinine Cancelled Estim Creat Clear Calc Cancelled Estimated GFR Cancelled Random Glucose Cancelled Calcium Cancelled Phosphorus Magnesium Total Bilirubin Cancelled Direct Bilirubin AST Cancelled ALT Cancelled Alkaline Phosphatase Cancelled Ammonia B-Natriuretic Peptide < 10 Total Protein Cancelled Albumin Cancelled 09/28/24 09/29/24 09/29/24 23:40 00:16 04:57 WBC RBC Hgb Hct MCV MCH MCHC RDW Plt Count MPV Immature Gran % (Auto) Neut % (Auto) Lymph % (Auto) [place] % (Auto) Eos % (Auto) Baso % (Auto) Lymph # (Auto) [place] # (Auto) Eos # (Auto) Baso # (Auto) Abs Immat Gran (auto) Absolute Neuts (auto) Absolute Nucleated RBC Nucleated RBC % (auto) Smear Tech's Comments O2 Saturation ABG pH at Pt Temp ABG pCO2 at Pt Temp ABG pO2 at Pt Temp ABG HCO3 ABG Base Excess (Actual) VBG pH 7.37 7.51 H VBG pCO2 71 46 VBG pO2 78 137 VBG HCO3 41 H 37 H VBG O2 Saturation 97.0 100.0 VBG Base Excess 12.5 12.8 Sodium 145 Potassium 5.0 Chloride 104 Carbon Dioxide 32 H Anion Gap 14 BUN 58 H Creatinine 1.91 H Estim Creat Clear Calc 46.2 Estimated GFR 27 Random Glucose 132 H Calcium 8.9 Phosphorus 3.4 Magnesium 3.5 H* Total Bilirubin 1.0 Direct Bilirubin 0.6 H AST 50 H ALT 74 H Alkaline Phosphatase 75 Ammonia B-Natriuretic Peptide Total Protein 8.7 H Albumin 3.6 09/29/24 09/29/24 05:11 05:37 WBC 26.6 H RBC 3.90 L Hgb 10.4 L Hct 37.1 MCV 95.1 MCH 26.7 L MCHC 28.0 L RDW 15.9 Plt Count 314 MPV 10.2 Immature Gran % (Auto) 2.0 H Neut % (Auto) 83.9 H Lymph % (Auto) 4.5 L [place] % (Auto) 9.1 Eos % (Auto) 0.2 Baso % (Auto) 0.3 Lymph # (Auto) 1.2 [place] # (Auto) 2.4 H Eos # (Auto) 0.1 Baso # (Auto) 0.1 Abs Immat Gran (auto) 0.52 H Absolute Neuts (auto) 22.3 H Absolute Nucleated RBC 0.060 H Nucleated RBC % (auto) 0.2 Smear Tech's Comments O2 Saturation ABG pH at Pt Temp ABG pCO2 at Pt Temp ABG pO2 at Pt Temp ABG HCO3 ABG Base Excess (Actual) VBG pH VBG pCO2 VBG pO2 VBG HCO3 VBG O2 Saturation VBG Base Excess Sodium 145 Potassium 5.1 Chloride 102 Carbon Dioxide 30 H Anion Gap 18 BUN 61 H Creatinine 2.22 H Estim Creat Clear Calc 39.7 Estimated GFR 22 Random Glucose 132 H Calcium 8.5 Phosphorus 3.7 Magnesium 3.5 H* Total Bilirubin 0.9 Direct Bilirubin AST 46 H ALT 68 H Alkaline Phosphatase 70 Ammonia 65 H B-Natriuretic Peptide Total Protein 8.3 H Albumin 3.4 L Microbiology Microbiology Results: Microbiology 09/22/24 18:00 Blood - Venous Blood Culture - Final No growth after 5 days. 09/22/24 16:30 Blood - Venous Blood Culture - Final No growth after 5 days. Progress Note: A&P Assessment and plan (1) Acute calculous cholecystitis: Status: Acute (2) CASSIE (acute kidney injury): Status: Acute (3) Morbid obesity: Status: Acute (4) Obesity hypoventilation syndrome: Status: Acute Plan Assessment: 64-year-old lady admitted with abdominal pain and not environmental deemed to be secondary to cholecystitis, now status post cholecystostomy with hospital course further complicated by acute hypercapnic respiratory failure and acute kidney injury Plan: Neuro: Septic versus metabolic encephalopathy. Cardiac: No acute issues. Pulmonary: Acute hypercapnic respiratory failure secondary to underlying obesity hypoventilation syndrome, improved with noninvasive positive pressure ventilatory support. Continue nocturnal BiPAP. Renal: Acute kidney injury, oliguric. Continue to monitoring renal indices and urine output. Endo: No acute issues. GI: Cholecystitis status post cholecystostomy. Surgical service care appreciated. Now with concerns for possible SBO versus ileus. CT abdomen is pending. ID: No acute issues Heme/Onc: No acute issues. Psych: No acute issues. Miscellaneous: No acute issues. Prophylaxis: Lovenox Diet: NPO Critical care time spent: 60 minutes Quality Stroke Does the patient have a stroke diagnosis?: No VTE Prior VTE?: No VTE Risk Level:: Medical - moderate - high VTE Device Contraindication: N/A - Device Ordered VTE Drug Contraindication: Treatment Not Indicated
--- NOTE | 2024-09-29 11:13 | MHC.SLORD ---
Addendum entered and electronically signed by Kalani Cerda MA, CCC-PHYSICAL THERAPY DIRECTOR 09/29/24 15:07: Abdominal CT suggestive of ileus. Per RN, patient continues NPO. PHYSICAL THERAPY DIRECTOR eval deferred. Original Note: Speech Language Pathology Order Status: Pt now with concerns for possible SBO versus ileus, NPO pending workup. PHYSICAL THERAPY DIRECTOR order on hold for now per Dr. Hernandez.
[2024-09-29 11:57] LABS: Lactic Acid 0.8 mmol/L (0.5-2.0)
--- NOTE | 2024-09-29 13:55 | MHC.CM.PN ---
Pt transferred to ICU on 09/28: now with worsening renal fx: plan for today: CT of abd. Pt from home with son/HUMAN SERVICES CARE SPECIALIST. Pt is w/c bound and will need BLS transport. CM to follow for changes in d/c plan
[2024-09-29] MEDS: Ketorolac Tromethamine 15 MG/ML VIAL IVPUSH (14:39)
[2024-09-29 20:16] LABS: VBG Base Excess 10.3 mmol/L; VBG HCO3 38 mmol/L (22-26); VBG pCO2 67 mmHg; VBG pH 7.35 (7.32-7.43); VBG pO2 71 mmHg
[2024-09-29 20:44] LABS: Albumin Level 3.9 g/dL (3.5-5.0); Anion Gap 19 (12-20); Blood Urea Nitrogen 70 mg/dL (9-16); Calcium 8.8 mg/dL (8.4-10.2); Carbon Dioxide 31 mmol/L (22-29); Chloride 102 mmol/L (96-108); Creatinine Clr Calc Pharmacy 30.5; Estimated Glomerular Filt Rate 16; Glucose Random 132 mg/dL (60-115); Magnesium 3.7 mg/dL (1.6-2.6); Phosphorus 4.6 mg/dL (2.7-4.5); Potassium 4.9 mmol/L (3.3-5.1); Sodium 147 mmol/L (135-145)
[2024-09-30] VITALS (33 sets, daily range): BP systolic 103–149; BP diastolic 41–76; PULSE 92–116; RESP 13–22; TEMP 35.9–36.8; O2SAT 91–100
[2024-09-30] MEDS: Lactulose 320 GM/480 ML SOLUTION 200 GM PR (00:10)
[2024-09-30 03:29] LABS: Venous Blood Gas Refer to POC result
[2024-09-30] MEDS: Piperacillin Sodium/Tazobactam 3.375 GM in 0.9 % Sodium Chloride 50 ML IV ×4 (04:12→21:05)
[2024-09-30 04:45] LABS: VBG HCO3 39 mmol/L (22-26); VBG pCO2 82 mmHg; VBG pH 7.28 (7.32-7.43); VBG pO2 72 mmHg
[2024-09-30 05:26] LABS: Basophils Percent Auto 0.2 % (0-2); Eosinophils Absolute Auto 0.7 X10*3/uL (0.0-0.4); Eosinophils Percent Auto 3.3 % (0-4); Hematocrit 34.4 % (37.0-47.0); Hemoglobin 9.7 g/dl (12.0-16.0); Imm Gran Abs Auto 0.54 X10*3/uL (0.00-0.03); Imm Gran Pct Auto 2.5 % (0.0-0.4); Lymphocytes Percent Auto 4.6 % (20-40); MANUAL DIFF FLAG SCAN; Mean Corpuscular HGB Conc 28.2 g/dl (31.0-35.0); Mean Corpuscular Hemoglobin 26.7 pg (27.0-33.0); Mean Corpuscular Volume 94.8 fL (80.0-98.0); Mean Platelet Volume 10.3 fL (9.4-12.3); Monocytes Absolute Auto 1.7 X10*3/uL (0.1-1.2); NRBC Pct Auto 0.3 /100WBC (0.0-0.2); Neutrophils Absolute Auto 17.8 x10*3/uL (2.0-8.3); Neutrophils Percent Auto 81.4 % (45-73); Platelet Count 289 X10*3/uL (160-400); Red Blood Count 3.63 X10*6/uL (4.20-5.50); Red Cell Distribution Width 16.2 % (11.0-16.0); SCAN SMEAR FLAG 1; White Blood Count 21.9 X10*3/uL (4.8-10.8)
[2024-09-30 05:51] LABS: Alanine Aminotransferase 46 U/L (0-31); Albumin Level 3.7 g/dL (3.5-5.0); Alkaline Phosphatase 58 U/L (39-117); Anion Gap 16 (12-20); Aspartate Amino Transferase 36 U/L (5-31); Bilirubin Total 0.9 mg/dL (0.0-1.0); Blood Urea Nitrogen 74 mg/dL (9-16); Carbon Dioxide 30 mmol/L (22-29); Chloride 106 mmol/L (96-108); Creatinine Clr Calc Pharmacy 24.7; Estimated Glomerular Filt Rate 13; Glucose Random 115 mg/dL (60-115); Magnesium 3.5 mg/dL (1.6-2.6); Phosphorus 4.6 mg/dL (2.7-4.5); Sodium 147 mmol/L (135-145); Total Protein 7.9 g/dL (6.5-8.0)
[2024-09-30 05:56] LABS: SLIDE REVIEW VERIFIED
[2024-09-30] MEDS: fentaNYL citrate/PF 100 MCG/2 ML VIAL 50 MCG IVPUSH ×3 (06:25→23:38)
[2024-09-30] MEDS: levalbuterol HCL 1.25 MG, Ipratropium Bromide 0.5 MG INHALE (07:27)
[2024-09-30 08:44] LABS: Venous Blood Gas Refer to POC result
[2024-09-30 08:44] LABS: VBG HCO3 37 mmol/L (22-26); VBG pCO2 73 mmHg; VBG pH 7.31 (7.32-7.43); VBG pO2 105 mmHg
[2024-09-30] MEDS: ondansetron HCL 4 MG/2 ML VIAL IVPUSH ×2 (09:29→18:13)
--- NOTE | 2024-09-30 09:37 | MHC.CLN ---
CONSULT FOR PPN REVIEWED LABS DISCUSSED WITH PHARMACY RECOMMEND PPN AT 45ML/HR TO PROVIDE 551KCALS, 108G DEXTROSE, 46G PROTEIN REPLETE LYTES NEEDED, CHECK TRIGS TOMORROW PLAN FOR MONDAY 10/01 INCREASE PPN TO TO 65ML/HR TO PROVIDE 796KCALS, 156G DEXTROSE, 66G PROTEIN (1.2G/KG BASED ON IBW) REPLETE LYTES NEEDED FULL ASSESSMENT TO FOLLOW
--- NOTE | 2024-09-30 10:04 | PM.CCPN ---
Subjective Subjective Date of Service: 09/30/24 Interval History: 64-year-old lady with underlying history of morbid obesity, hypertension, asthma, uterine mass, DELANEY noncompliant with CPAP admitted on 09/22/2024 with nausea, vomiting, and abdominal pain. Patient noted to have sepsis with likely etiology being cholecystitis. Surgical consultation is obtained. Initially patient was managed conservatively. Then on 09/25/2024 she had cholecystostomy drain placed. Hospital stay complicated by development of acute hypercapnic respiratory failure on 09/28/2024 necessitating transfer to intensive care unit in application of rescue BiPAP and further development of anuria and acute kidney injury overnight 09/29. Repeat CT abdomen with ileus, but no obstruction. No events overnight. Critical Care Time (minutes): 60 Physical Exam Vital Signs: Vital Signs: Last Vital Signs Temp 97.6 F 09/30/24 08:00 Pulse 106 H 09/30/24 08:00 Resp 15 09/30/24 08:49 BP 106/52 L 09/30/24 08:00 Pulse Ox 96 09/30/24 08:00 O2 Del Method BiPAP 09/30/24 08:00 O2 Flow Rate 2 09/30/24 01:00 FiO2 25 09/30/24 08:00 Oxygen Flow Rate 9 09/22/24 16:09 BMI result Body Mass Index 60.8 Const: General: no acute distress and lethargic (Arousable) Nutritional Appearance: obese Orientation/consciousness: lethargic (Arousable) Eyes: Sclerae: sclerae normal EOM: EOMs intact bilaterally Neck: Neck: Yes no lymphadenopathy, Yes trachea midline and Yes supple Resp: Effort & Inspection: normal respiratory effort and no respiratory distress Auscultation: clear to auscultation bilaterally Cardio: Rate: tachycardic Rhythm: regular rhythm Heart sounds: no gallops, no murmurs and no rubs GI: Palpation (GI): Soft to palpation and Tenderness to palpation present (GI) (Right upper quadrant) Auscultation: normal bowel sounds Extrem: General: Yes no pedal edema, No clubbing and No cyanosis Objective Data Labs 09/30/24 04:38 09/30/24 04:38 Labs: Laboratory Results - last 24 hr 09/29/24 09/29/24 09/29/24 11:34 20:05 20:08 WBC RBC Hgb Hct MCV MCH MCHC RDW Plt Count MPV Immature Gran % (Auto) Neut % (Auto) Lymph % (Auto) [place] % (Auto) Eos % (Auto) Baso % (Auto) Lymph # (Auto) [place] # (Auto) Eos # (Auto) Baso # (Auto) Abs Immat Gran (auto) Absolute Neuts (auto) Absolute Nucleated RBC Nucleated RBC % (auto) Smear Tech's Comments VBG pH 7.35 VBG pCO2 67 VBG pO2 71 VBG HCO3 38 H VBG O2 Saturation 96.0 VBG Base Excess 10.3 Sodium 147 H Potassium 4.9 Chloride 102 Carbon Dioxide 31 H Anion Gap 19 BUN 70 H Creatinine 2.89 H Estim Creat Clear Calc 30.5 Estimated GFR 16 Random Glucose 132 H Lactic Acid 0.8 Calcium 8.8 Phosphorus 4.6 H Magnesium 3.7 H* Total Bilirubin AST ALT Alkaline Phosphatase Total Protein Albumin 3.9 09/30/24 09/30/24 09/30/24 04:34 04:38 08:35 WBC 21.9 H RBC 3.63 L Hgb 9.7 L Hct 34.4 L MCV 94.8 MCH 26.7 L MCHC 28.2 L RDW 16.2 H Plt Count 289 MPV 10.3 Immature Gran % (Auto) 2.5 H Neut % (Auto) 81.4 H Lymph % (Auto) 4.6 L [place] % (Auto) 8.0 Eos % (Auto) 3.3 Baso % (Auto) 0.2 Lymph # (Auto) 1.0 L [place] # (Auto) 1.7 H Eos # (Auto) 0.7 H Baso # (Auto) 0.0 Abs Immat Gran (auto) 0.54 H Absolute Neuts (auto) 17.8 H Absolute Nucleated RBC 0.060 H Nucleated RBC % (auto) 0.3 H Smear Tech's Comments VERIFIED VBG pH 7.28 L 7.31 L VBG pCO2 82 73 VBG pO2 72 105 VBG HCO3 39 H 37 H VBG O2 Saturation 95.0 99.0 VBG Base Excess 10.0 9.0 Sodium 147 H Potassium 5.0 Chloride 106 Carbon Dioxide 30 H Anion Gap 16 BUN 74 H Creatinine 3.58 H Estim Creat Clear Calc 24.7 Estimated GFR 13 Random Glucose 115 Lactic Acid Calcium 9.0 Phosphorus 4.6 H Magnesium 3.5 H* Total Bilirubin 0.9 AST 36 H ALT 46 H Alkaline Phosphatase 58 Total Protein 7.9 Albumin 3.7 Microbiology Microbiology Results: Microbiology 09/22/24 18:00 Blood - Venous Blood Culture - Final No growth after 5 days. 09/22/24 16:30 Blood - Venous Blood Culture - Final No growth after 5 days. Progress Note: A&P Assessment and plan (1) Ileus: Status: Acute (2) Acute cholecystitis: Status: Acute (3) Morbid obesity: Status: Acute (4) Obesity hypoventilation syndrome: Status: Acute (5) CASSIE (acute kidney injury): Status: Acute Plan Assessment: 64-year-old lady admitted with abdominal pain and not environmental deemed to be secondary to cholecystitis, now status post cholecystostomy with hospital course further complicated by acute hypercapnic respiratory failure and acute kidney injury Plan: Neuro: Septic versus metabolic encephalopathy. Cardiac: No acute issues. Pulmonary: Acute hypercapnic respiratory failure secondary to underlying obesity hypoventilation syndrome, improved with noninvasive positive pressure ventilatory support. Continue nocturnal BiPAP. Renal: Acute kidney injury, oliguric. Continue to monitoring renal indices and urine output. Endo: No acute issues. GI: Cholecystitis status post cholecystostomy. Surgical service care appreciated. Repeat CT abdomen with no evidence of bowel obstruction, but ileus noted. ID: No acute issues Heme/Onc: No acute issues. Psych: No acute issues. Miscellaneous: No acute issues. Prophylaxis: Lovenox Diet: PPN Critical care time spent: 60 minutes Quality Stroke Does the patient have a stroke diagnosis?: No VTE Prior VTE?: No VTE Risk Level:: Medical - moderate - high VTE Device Contraindication: N/A - Device Ordered VTE Drug Contraindication: Treatment Not Indicated
[2024-09-30 11:34] LABS: Venous Blood Gas Refer to POC result
--- NOTE | 2024-09-30 15:21 | PC.NURSE ---
Addendum entered by Rhys Carrillo RN 09/30/24 16:36: md informed pt is very lethargic, slightly obtunded. continues to c/o abd pain and cries out/moans. little to no output through NGT and firm abd Original Note: informed md pt hasnt voided. current bladder scan 210ml.
[2024-09-30] MEDS: Ketorolac Tromethamine 30 MG/ML VIAL IVPUSH (15:35)
[2024-09-30 16:59] LABS: Venous Blood Gas Refer to POC result
[2024-09-30 17:00] LABS: VBG Base Excess 8.4 mmol/L; VBG HCO3 37 mmol/L (22-26); VBG pCO2 80 mmHg; VBG pH 7.27 (7.32-7.43); VBG pO2 151 mmHg
[2024-09-30 17:22] LABS: Alanine Aminotransferase 39 U/L (0-31); Albumin Level 3.5 g/dL (3.5-5.0); Anion Gap 17 (12-20); Aspartate Amino Transferase 44 U/L (5-31); Bilirubin Total 0.9 mg/dL (0.0-1.0); Blood Urea Nitrogen 84 mg/dL (9-16); Calcium 8.5 mg/dL (8.4-10.2); Carbon Dioxide 32 mmol/L (22-29); Chloride 104 mmol/L (96-108); Creatinine Clr Calc Pharmacy 20.7; Estimated Glomerular Filt Rate 11; Glucose Random 115 mg/dL (60-115); Potassium 5.2 mmol/L (3.3-5.1); Sodium 148 mmol/L (135-145); Total Protein 7.6 g/dL (6.5-8.0)
[2024-09-30 18:06] LABS: Alkaline Phosphatase 55 U/L (39-117)
[2024-09-30 19:41] LABS: VBG Base Excess 9.1 mmol/L; VBG HCO3 35 mmol/L (22-26); VBG pCO2 59 mmHg; VBG pH 7.38 (7.32-7.43); VBG pO2 135 mmHg
[2024-09-30 19:43] LABS: Venous Blood Gas Refer to POC result
[2024-09-30] MEDS: Parenteral Nutrition 1,080 ML 45 ML IV (20:54)
[2024-09-30] MEDS: 0.9 % Sodium Chloride Flush 3 ML SYRINGE IVFLUSH (23:42)
[2024-10-01] VITALS (30 sets, daily range): BP systolic 110–159; BP diastolic 41–76; PULSE 91–109; RESP 12–22; TEMP 36.5–37; O2SAT 91–97
[2024-10-01] MEDS: Piperacillin Sodium/Tazobactam 3.375 GM in 0.9 % Sodium Chloride 50 ML IV (04:06)
[2024-10-01 04:51] LABS: VBG Base Excess 12.1 mmol/L; VBG HCO3 36 mmol/L (22-26); VBG pCO2 47 mmHg; VBG pH 7.49 (7.32-7.43); VBG pO2 65 mmHg
[2024-10-01 05:10] LABS: MANUAL DIFF FLAG NO
[2024-10-01 05:11] LABS: Basophils Percent Auto 0.2 % (0-2); Eosinophils Absolute Auto 1.1 X10*3/uL (0.0-0.4); Eosinophils Percent Auto 6.8 % (0-4); Hematocrit 30.6 % (37.0-47.0); Hemoglobin 8.9 g/dl (12.0-16.0); Imm Gran Pct Auto 1.9 % (0.0-0.4); Lymphocytes Percent Auto 5.9 % (20-40); Mean Corpuscular HGB Conc 29.1 g/dl (31.0-35.0); Mean Corpuscular Hemoglobin 27.1 pg (27.0-33.0); Mean Platelet Volume 10.5 fL (9.4-12.3); Monocytes Absolute Auto 1.5 X10*3/uL (0.1-1.2); NRBC Pct Auto 0.3 /100WBC (0.0-0.2); Neutrophils Absolute Auto 12.2 x10*3/uL (2.0-8.3); Neutrophils Percent Auto 76.2 % (45-73); Platelet Count 287 X10*3/uL (160-400); Red Blood Count 3.29 X10*6/uL (4.20-5.50); Red Cell Distribution Width 16.2 % (11.0-16.0); White Blood Count 16.1 X10*3/uL (4.8-10.8)
[2024-10-01 05:22] LABS: Triglycerides 123 mg/dL (<150)
[2024-10-01 05:33] LABS: Alanine Aminotransferase 31 U/L (0-31); Albumin Level 3.2 g/dL (3.5-5.0); Alkaline Phosphatase 52 U/L (39-117); Anion Gap 21 (12-20); Aspartate Amino Transferase 35 U/L (5-31); Bilirubin Total 0.8 mg/dL (0.0-1.0); Blood Urea Nitrogen 87 mg/dL (9-16); Carbon Dioxide 28 mmol/L (22-29); Chloride 105 mmol/L (96-108); Creatinine Clr Calc Pharmacy 18.9; Estimated Glomerular Filt Rate 9; Glucose Random 142 mg/dL (60-115); Magnesium 3.5 mg/dL (1.6-2.6); Phosphorus 4.2 mg/dL (2.7-4.5); Potassium 5.5 mmol/L (3.3-5.1); Sodium 148 mmol/L (135-145); Total Protein 7.4 g/dL (6.5-8.0)
[2024-10-01 05:43] LABS: Venous Blood Gas Refer to POC result
[2024-10-01] MEDS: Acetaminophen 1,000 MG/100 ML PIGGYBACK 400 MG IV ×2 (07:35→20:09)
[2024-10-01] MEDS: 0.9 % Sodium Chloride Flush 3 ML SYRINGE IVFLUSH ×3 (07:36→23:18)
--- NOTE | 2024-10-01 11:13 | PM.CCPN ---
Subjective Subjective Date of Service: 10/01/24 Interval History: 64-year-old lady with underlying history of morbid obesity, hypertension, asthma, uterine mass, DELANEY noncompliant with CPAP admitted on 09/22/2024 with nausea, vomiting, and abdominal pain. Patient noted to have sepsis with likely etiology being cholecystitis. Surgical consultation is obtained. Initially patient was managed conservatively. Then on 09/25/2024 she had cholecystostomy drain placed. Hospital stay complicated by development of acute hypercapnic respiratory failure on 09/28/2024 necessitating transfer to intensive care unit in application of rescue BiPAP and further development of anuria and acute kidney injury overnight 09/29. Repeat CT abdomen with ileus, but no obstruction. No events overnight. More awake today. Critical Care Time (minutes): 60 Physical Exam Vital Signs: Vital Signs: Last Vital Signs Temp 98.6 F 10/01/24 08:00 Pulse 104 H 10/01/24 11:00 Resp 13 10/01/24 11:00 BP 128/41 L 10/01/24 11:00 Pulse Ox 95 10/01/24 11:00 O2 Del Method Nasal Cannula 10/01/24 11:00 O2 Flow Rate 1 10/01/24 11:00 FiO2 28 10/01/24 08:00 Oxygen Flow Rate 9 09/22/24 16:09 BMI result Body Mass Index 60.8 Const: General: no acute distress, alert and awake Nutritional Appearance: obese Eyes: Sclerae: sclerae normal EOM: EOMs intact bilaterally Neck: Neck: Yes no lymphadenopathy, Yes trachea midline and Yes supple Resp: Effort & Inspection: normal respiratory effort and no respiratory distress Auscultation: clear to auscultation bilaterally Cardio: Rate: tachycardic Rhythm: regular rhythm Heart sounds: no gallops, no murmurs and no rubs GI: Palpation (GI): Soft to palpation and Tenderness to palpation present (GI) in the RUQ Auscultation: normal bowel sounds Extrem: General: Yes no pedal edema, No clubbing and No cyanosis Objective Data Labs 10/01/24 04:39 10/01/24 04:39 Labs: Laboratory Results - last 24 hr 09/30/24 09/30/24 09/30/24 16:47 16:55 19:36 WBC RBC Hgb Hct MCV MCH MCHC RDW Plt Count MPV Immature Gran % (Auto) Neut % (Auto) Lymph % (Auto) [place] % (Auto) Eos % (Auto) Baso % (Auto) Lymph # (Auto) [place] # (Auto) Eos # (Auto) Baso # (Auto) Abs Immat Gran (auto) Absolute Neuts (auto) Absolute Nucleated RBC Nucleated RBC % (auto) VBG pH 7.27 L 7.38 VBG pCO2 80 59 VBG pO2 151 135 VBG HCO3 37 H 35 H VBG O2 Saturation 99.0 99.0 VBG Base Excess 8.4 9.1 Sodium 148 H Potassium 5.2 H Chloride 104 Carbon Dioxide 32 H Anion Gap 17 BUN 84 H Creatinine 4.24 H* Estim Creat Clear Calc 20.7 Estimated GFR 11 Random Glucose 115 Calcium 8.5 Phosphorus Magnesium Total Bilirubin 0.9 AST 44 H ALT 39 H Alkaline Phosphatase 55 Total Protein 7.6 Albumin 3.5 Triglycerides 10/01/24 10/01/24 04:38 04:39 WBC 16.1 H RBC 3.29 L Hgb 8.9 L Hct 30.6 L MCV 93.0 MCH 27.1 MCHC 29.1 L RDW 16.2 H Plt Count 287 MPV 10.5 Immature Gran % (Auto) 1.9 H Neut % (Auto) 76.2 H Lymph % (Auto) 5.9 L [place] % (Auto) 9.0 Eos % (Auto) 6.8 H Baso % (Auto) 0.2 Lymph # (Auto) 1.0 L [place] # (Auto) 1.5 H Eos # (Auto) 1.1 H Baso # (Auto) 0.0 Abs Immat Gran (auto) 0.30 H Absolute Neuts (auto) 12.2 H Absolute Nucleated RBC 0.050 H Nucleated RBC % (auto) 0.3 H VBG pH 7.49 H VBG pCO2 47 VBG pO2 65 VBG HCO3 36 H VBG O2 Saturation 96.0 VBG Base Excess 12.1 Sodium 148 H Potassium 5.5 H Chloride 105 Carbon Dioxide 28 Anion Gap 21 H BUN 87 H Creatinine 4.66 H* Estim Creat Clear Calc 18.9 Estimated GFR 9 Random Glucose 142 H Calcium 8.0 L Phosphorus 4.2 Magnesium 3.5 H* Total Bilirubin 0.8 AST 35 H ALT 31 Alkaline Phosphatase 52 Total Protein 7.4 Albumin 3.2 L Triglycerides 123 Microbiology Microbiology Results: Microbiology 09/22/24 18:00 Blood - Venous Blood Culture - Final No growth after 5 days. 09/22/24 16:30 Blood - Venous Blood Culture - Final No growth after 5 days. Progress Note: A&P Assessment and plan (1) Morbid obesity: Status: Acute (2) Acute cholecystitis: Status: Acute (3) Ileus: Status: Acute (4) CASSIE (acute kidney injury): Status: Acute (5) Obesity hypoventilation syndrome: Status: Acute Plan Assessment: 64-year-old lady admitted with abdominal pain and not environmental deemed to be secondary to cholecystitis, now status post cholecystostomy with hospital course further complicated by acute hypercapnic respiratory failure and acute kidney injury Plan: Neuro: Septic versus metabolic encephalopathy, improving. Cardiac: No acute issues. Pulmonary: Acute hypercapnic respiratory failure secondary to underlying obesity hypoventilation syndrome, improved with noninvasive positive pressure ventilatory support. Continue nocturnal BiPAP. Renal: Acute kidney injury, oliguric. Continue to monitoring renal indices and urine output. Nephrology evaluation requested. Endo: No acute issues. GI: Cholecystitis status post cholecystostomy. Surgical service care appreciated. Repeat CT abdomen with no evidence of bowel obstruction, but ileus noted. Continue bowel decompression with NG tube. ID: No acute issues Heme/Onc: No acute issues. Psych: No acute issues. Miscellaneous: No acute issues. Prophylaxis: Lovenox Diet: PPN Critical care time spent: 60 minutes Quality Stroke Does the patient have a stroke diagnosis?: No VTE Prior VTE?: No VTE Risk Level:: Medical - moderate - high VTE Device Contraindication: N/A - Device Ordered VTE Drug Contraindication: Treatment Not Indicated
[2024-10-01] MEDS: Piperacillin Sodium/Tazobactam 2.25 GM in 0.9 % Sodium Chloride 50 ML IV ×3 (11:24→22:52)
[2024-10-01] MEDS: Lactulose 20 GM/30 ML SOLUTION 30 GM PO ×2 (11:29→20:15)
[2024-10-01] MEDS: Parenteral Nutrition 1,560 ML 65 ML IV (21:03)
[2024-10-01] MEDS: fentaNYL citrate/PF 100 MCG/2 ML VIAL 50 MCG IVPUSH (23:11)
[2024-10-02] VITALS (31 sets, daily range): BP systolic 115–176; BP diastolic 31–82; PULSE 5–103; RESP 12–21; TEMP 36.4–36.9; O2SAT 5–100; BMI 60.8
[2024-10-02] MEDS: Piperacillin Sodium/Tazobactam 2.25 GM in 0.9 % Sodium Chloride 50 ML IV ×4 (03:47→21:25)
--- NOTE | 2024-10-02 05:06 | PC.NURSE ---
hnv,,,bladder scanned [id number] [id number] ng-tube drained 1000ml
--- NOTE | 2024-10-02 05:22 | MHC.CLN ---
PT REQUIRES PPN FOR NUTRITION SUPPORT R/T PROLONGED NPO STATUS PT STARTED ON PPN OVER WEEKEND CURRENTLY NPO WITH NG TUBE IN PLACE R/T ILEUS REVIEWED LABS RECEIVING PPN AT 65ML/HR PROVIDES 796KCALS, 66G PROTEIN (1.2G/KG), 156G DEXTROSE RECOMMEND ADDING 46G LIPIDS TO PROVIDE 1256 TOTAL KCALS (23KCALS/KG BASED ON IBW) REPLETE LYTES NEEDED FOLLOWING WITH TEAM SEE ALSO FULL CLINICAL NUTRITION ASSESSMENT
[2024-10-02 05:23] LABS: VBG Base Excess 14.7 mmol/L; VBG HCO3 41 mmol/L (22-26); VBG pCO2 62 mmHg; VBG pH 7.42 (7.32-7.43); VBG pO2 70 mmHg
[2024-10-02 05:25] LABS: Basophils Percent Auto 0.2 % (0-2); Eosinophils Absolute Auto 1.1 X10*3/uL (0.0-0.4); Eosinophils Percent Auto 6.5 % (0-4); Hemoglobin 8.5 g/dl (12.0-16.0); Imm Gran Abs Auto 0.24 X10*3/uL (0.00-0.03); Imm Gran Pct Auto 1.4 % (0.0-0.4); Lymphocytes Absolute Auto 1.1 X10*3/uL (1.2-4.9); Lymphocytes Percent Auto 6.5 % (20-40); MANUAL DIFF FLAG SCAN; Mean Corpuscular HGB Conc 29.3 g/dl (31.0-35.0); Mean Corpuscular Hemoglobin 26.8 pg (27.0-33.0); Mean Corpuscular Volume 91.5 fL (80.0-98.0); Mean Platelet Volume 9.6 fL (9.4-12.3); Monocytes Absolute Auto 1.6 X10*3/uL (0.1-1.2); Monocytes Percent Auto 9.3 % (2-11); NRBC Pct Auto 0.2 /100WBC (0.0-0.2); Neutrophils Absolute Auto 12.9 x10*3/uL (2.0-8.3); Neutrophils Percent Auto 76.1 % (45-73); Platelet Count 280 X10*3/uL (160-400); Red Blood Count 3.17 X10*6/uL (4.20-5.50); Red Cell Distribution Width 15.9 % (11.0-16.0); SCAN SMEAR FLAG 1
[2024-10-02 05:25] LABS: Venous Blood Gas Refer to POC result
[2024-10-02 05:48] LABS: SLIDE REVIEW VERIFIED
[2024-10-02 05:52] LABS: Alanine Aminotransferase 26 U/L (0-31); Alkaline Phosphatase 52 U/L (39-117); Anion Gap 19 (12-20); Aspartate Amino Transferase 40 U/L (5-31); Bilirubin Total 0.7 mg/dL (0.0-1.0); Blood Urea Nitrogen 97 mg/dL (9-16); Calcium 8.4 mg/dL (8.4-10.2); Carbon Dioxide 32 mmol/L (22-29); Chloride 103 mmol/L (96-108); Creatinine Clr Calc Pharmacy 14.8; Estimated Glomerular Filt Rate 7; Glucose Random 144 mg/dL (60-115); Magnesium 3.6 mg/dL (1.6-2.6); Phosphorus 3.8 mg/dL (2.7-4.5); Potassium 4.8 mmol/L (3.3-5.1); Sodium 149 mmol/L (135-145); Total Protein 6.8 g/dL (6.5-8.0); Triglycerides 102 mg/dL (<150)
--- NOTE | 2024-10-02 08:27 | PM.CCPN ---
Subjective Subjective Date of Service: 10/02/24 Critical Care Time (minutes): 40 Comment: Doing well off BiPAP this morning saturations stable Mental status slowly improving Physical Exam Vital Signs: Vital Signs: Last Vital Signs Temp 98.4 F 10/02/24 08:00 Pulse 98 10/02/24 08:00 Resp 18 10/02/24 08:00 BP 155/73 H 10/02/24 08:00 Pulse Ox 95 10/02/24 08:00 O2 Del Method Nasal Cannula 10/02/24 08:00 O2 Flow Rate 1 10/02/24 08:00 FiO2 30 10/02/24 07:00 Oxygen Flow Rate 9 09/22/24 16:09 BMI result Body Mass Index 60.8 General: Chronic ill appearing and tired appearing Nutritional Appearance: Morbidly obese Eyes: appearance normal, both eyes and all related structures; Alignment and Position: alignment normal and position normal Neck: No lymphadenopathy, no thyromegaly Resp: bilateral air entry equal, distant breath sounds due to morbid obesity Cardio: Regular rate, regular rhythm; Heart sounds: S1 normal heart sound present and S2 normal heart sound present GI: soft, nontender, no guarding, no hepatosplenomegaly : bladder normal to inspection, bladder normal to palpation, no renal angle tenderness Skin: no rashes or lesions noted and elasticity normal Neuro: oriented to person, oriented to place, oriented to time and moves all extremities Objective Data Labs 10/02/24 05:17 10/02/24 05:17 Labs: Laboratory Results - last 24 hr 10/02/24 10/02/24 05:12 05:17 WBC 17.0 H RBC 3.17 L Hgb 8.5 L Hct 29.0 L MCV 91.5 MCH 26.8 L MCHC 29.3 L RDW 15.9 Plt Count 280 MPV 9.6 Immature Gran % (Auto) 1.4 H Neut % (Auto) 76.1 H Lymph % (Auto) 6.5 L [place] % (Auto) 9.3 Eos % (Auto) 6.5 H Baso % (Auto) 0.2 Lymph # (Auto) 1.1 L [place] # (Auto) 1.6 H Eos # (Auto) 1.1 H Baso # (Auto) 0.0 Abs Immat Gran (auto) 0.24 H Absolute Neuts (auto) 12.9 H Absolute Nucleated RBC 0.030 H Nucleated RBC % (auto) 0.2 Smear Tech's Comments VERIFIED VBG pH 7.42 VBG pCO2 62 VBG pO2 70 VBG HCO3 41 H VBG O2 Saturation 96.0 VBG Base Excess 14.7 Sodium 149 H Potassium 4.8 Chloride 103 Carbon Dioxide 32 H Anion Gap 19 BUN 97 H Creatinine 5.96 H* Estim Creat Clear Calc 14.8 Estimated GFR 7 Random Glucose 144 H Calcium 8.4 Phosphorus 3.8 Magnesium 3.6 H* Total Bilirubin 0.7 AST 40 H ALT 26 Alkaline Phosphatase 52 Total Protein 6.8 Albumin 3.0 L Triglycerides 102 Microbiology Microbiology Results: Microbiology 09/22/24 18:00 Blood - Venous Blood Culture - Final No growth after 5 days. 09/22/24 16:30 Blood - Venous Blood Culture - Final No growth after 5 days. Progress Note: A&P Assessment and plan (1) Essential hypertension: Status: Acute (2) Obesity: Status: Acute (3) Morbid obesity: Status: Acute (4) Acute cholecystitis: Status: Acute (5) CASSIE (acute kidney injury): Status: Acute (6) Acute hypercapnic respiratory failure: Status: Acute (7) Obesity hypoventilation syndrome: Status: Acute (8) Obstructive sleep apnea: Status: Acute Plan 64-year-old lady with underlying history of morbid obesity, hypertension, asthma, uterine mass, DELANEY noncompliant with CPAP admitted on 09/22/2024 with nausea, vomiting, and abdominal pain. Patient noted to have sepsis with likely etiology being cholecystitis. Surgical consultation is obtained. Initially patient was managed conservatively. Then on 09/25/2024 she had cholecystostomy drain placed. Hospital stay complicated by development of acute hypercapnic respiratory failure on 09/28/2024 necessitating transfer to intensive care unit in application of rescue BiPAP and further development of anuria and acute kidney injury overnight 09/29. Repeat CT abdomen with ileus, but no obstruction. Neuro: Acute encephalopathy possibly due to metabolic encephalopathy, however uremic encephalopathy can not be completely ruled out We will avoid any sedating medications Acute on chronic hypercapnic respiratory failure due to obesity hypoventilation syndrome given her BMI of 60 with non compliance to NIPPV and multiple sedative pain medications. This is improving with nocturnal BiPAP support, VBG for the past 2 morning showing pH. Continue with the current nocturnal BiPAP support Acute cholecystitis: Status post cholecystostomy tube placement CT abdomen suggestive of acute cholecystitis and dilated bowel loop with the possibility of partial distal colon obstruction Continue Zosyn for antibiotic coverage Partial distal colon obstruction: hypoactive bowel sounds will hold off on lactulose NG tube suction Renal: Acute kidney injury possibly secondary to ATN from cholecystitis partial bowel obstruction Baseline creatinine normal, creatinine today is up to 5.96, BUN increasing to 97 Total I's and O's -500 mostly due to NG tube output with the support 1700 cc and 300 cc of G-tube output We will give her a L of LR bolus, albumin bolus and repeat the labs to see if it is improving the renal function We will closely monitor I's and O's Avoid nephrotoxic medications Heme: Chronic anemia, closely monitor H&H, transfuse for hemoglobin less than 7 grams/deciliter Endocrine: Blood sugars under control Sliding scale insulin as needed Infectious disease: On Zosyn for cholecystitis Blood cultures remain negative Musculoskeletal: Decubitus ulcer prevention protocol Prophylaxis: Heparin, pantoprazole Quality Stroke Does the patient have a stroke diagnosis?: No VTE Prior VTE?: No VTE Risk Level:: Medical - moderate - high VTE Device Contraindication: N/A - Device Ordered VTE Drug Contraindication: Treatment Not Indicated
[2024-10-02] MEDS: Acetaminophen 1,000 MG/100 ML PIGGYBACK 400 MG IV ×2 (08:28→15:17)
[2024-10-02] MEDS: ondansetron HCL 4 MG/2 ML VIAL IVPUSH (08:28)
[2024-10-02] MEDS: 0.9 % Sodium Chloride Flush 3 ML SYRINGE IVFLUSH ×3 (08:28→21:26)
--- NOTE | 2024-10-02 09:04 | PM.CNNEP ---
History of Present Illness Reason for Consult Consult date: 10/02/24 Reason for consult: CASSIE Chief Complaint Chief complaint: Abd pain History of Present Illness Narrative: 64-year-old woman with a medical history of asthma, hypertension, insomnia, migraines, uterine mass, hip osteoarthritis, and DELANEY noncompliant with CPAP who presented to the emergency department on 09/22/2024 with complaints of abdominal pain, nausea and vomiting admitted to Hospital Medicine for sepsis due to acute calculous cholecystitis that was treated? initially conservatively with antibiotics and NPO,? but on 09/25/2024 cholecystostomy tube was placed by IR.? Subsequently, patient was? difficult to arouse,? has refused to wear CPAP throughout the hospitalization,? venous gas showing? significant hypercapnia.? Patient transferred to ICU for management of acute? hypercapnic respiratory failure requiring BiPAP from noncompliance with CPAP Found to have CASSIE and hence this consultation Review of Systems Review of Systems Yes Unobtainable due to mental status PMFSH Past Medical History Medical History Fibromyalgia Hx of migraine headaches DELANEY (obstructive sleep apnea) Asthma Wheelchair dependent Obesity, morbid, BMI 50 or higher Pre-diabetes HTN (hypertension) Family History Family History Mother Diabetes Throat cancer Hypertension Father Hypertension Surgical History Surgical History History of hysteroscopy (~05/2024) Hx of colonoscopy Hx of tubal ligation Hx of section History of knee surgery Social History Social History Household Members: Children Household Members Other:: son, grandaughter Housing: Apartment Are you a primary healthcare analyst to a significant other at home: No Do you presently have visiting nurse or other home services: No Alcohol intake: never Patient Tobacco Use Status: Never used Tobacco e-Cigarette/Vaping Use: Never Used Second Hand Smoke Exposure: No service: No Current occupational status: disabled Sexual orientation: Straight/Heterosexual Gender identity: Female Cognitive needs: Yes Hearing needs: No Vision needs: Yes Meds Allergies Allergy/AdvReac Type Severity Reaction Status Date / Time Penicillins [PENICILLINS] Allergy Unknown ITCHING Verified 09/22/24 16:12 Active Medications: Current Medications Acetaminophen (Acetaminophen 325 Mg Tablet) 650 mg PO Q6H PRN PRN Reason: Pain, Mild (Pain Scale 1-3), fever or headache Last Admin: 09/27/24 21:37 Dose: 650 mg Calcium Carbonate (Calcium Carbonate 750 Mg Tab.Chew) 750 mg PO Q4H PRN PRN Reason: Heartburn Acetaminophen (Ofirmev) 1,000 mg in 100 mls @ 400 mls/hr IV Q6H PRN PRN Reason: Pain, Moderate(Pain Scale 4-6) Last Infusion: 10/02/24 08:52 Dose: Infused Nutrition (Parenteral) (Parenteral Nutrition) 1,560 mls @ 65 mls/hr IV .Q24H ASHLEY; Protocol Stop: 10/02/24 20:59 Last Admin: 10/01/24 21:03 Dose: 65 mls/hr Piperacillin Sod/Tazobactam (Sod 2.25 gm/ Sodium Chloride) 50 mls @ 100 mls/hr IV Q6H ASHLEY Last Infusion: 10/02/24 04:37 Dose: Infused Lactated Ringer's (Lr) 500 mls @ 999 mls/hr IV .Q31M ASHLEY Stop: 10/02/24 09:15 Albumin Human (Kedbumin 25 %) 100 mls @ 133.333 mls/hr IV Q1H ASHLEY Stop: 10/02/24 10:29 Lactulose (Lactulose 20 Gm/30 Ml Solution) 30 gm PO BID ASHLEY Last Admin: 10/01/24 20:15 Dose: 30 gm Magnesium Hydroxide (Milk Of Magnesia 30 Ml Oral.Susp) 30 ml PO DAILY PRN PRN Reason: Constipation Melatonin (Melatonin 3 Mg Tablet) 6 mg PO BEDTIME PRN PRN Reason: Insomnia Last Admin: 09/27/24 21:39 Dose: 6 mg Ondansetron HCl (Ondansetron Hcl 4 Mg/2 Ml Vial) 4 mg IVPUSH Q8H PRN PRN Reason: Nausea and Vomiting Last Admin: 10/02/24 08:28 Dose: 4 mg Pharmacy Consult (Consult Rx Parenteral Nutrition Ordering) 1 each MISCELLANE DAILY PRN PRN Reason: Consult order Polyethylene Glycol (Polyethylene Glycol 3350 17 Gm Powd.Pack) 17 gm PO DAILY PRN PRN Reason: constipation Last Admin: 09/23/24 16:28 Dose: 17 gm Sodium Chloride (0.9 % Sodium Chloride Flush 3 Ml Syringe) 3 ml IVFLUSH QSHIFT [facility] Last Admin: 10/02/24 08:28 Dose: 3 ml Home Medications ?Medication ?Instructions ?Recorded ?Confirmed ?Last Taken ?Type miconazole nitrate 2 % topical 1 appl topical DAILY PRN Rash 09/23/24 09/23/24 Unknown History powder (Remedy Phytoplex Antifungal) Physical Exam Vital Signs: Last Vital Signs Temp 98.4 F 10/02/24 08:00 Pulse 98 10/02/24 08:00 Resp 18 10/02/24 08:00 BP 155/73 H 10/02/24 08:00 Pulse Ox 95 10/02/24 08:00 O2 Del Method Nasal Cannula 10/02/24 08:00 O2 Flow Rate 1 10/02/24 08:00 FiO2 30 10/02/24 07:00 Oxygen Flow Rate 9 09/22/24 16:09 BMI result Body Mass Index 60.8 Const General: ill appearing Neck Neck: Yes supple Resp Auscultation: clear to auscultation bilaterally Cardio Palpation: no palpable S3 Heart sounds: no rubs GI Palpation (GI): Soft to palpation Auscultation: normal bowel sounds Neuro Motor exam (neuro): no asterixis Results Lab Results 10/02/24 05:17 10/02/24 05:17 Lab results: Chemistry 09/29/24 09/30/24 09/30/24 20:08 04:38 16:47 Sodium 147 H 147 H 148 H Potassium 4.9 5.0 5.2 H Carbon Dioxide 31 H 30 H 32 H BUN 70 H 74 H 84 H Creatinine 2.89 H 3.58 H 4.24 H* Calcium 8.8 9.0 8.5 Phosphorus 4.6 H 4.6 H 10/01/24 10/02/24 04:39 05:17 Sodium 148 H 149 H Potassium 5.5 H 4.8 Carbon Dioxide 28 32 H BUN 87 H 97 H Creatinine 4.66 H* 5.96 H* Calcium 8.0 L 8.4 Phosphorus 4.2 3.8 Hematology 09/30/24 10/01/24 10/02/24 04:38 04:39 05:17 WBC 21.9 H 16.1 H 17.0 H Hgb 9.7 L 8.9 L 8.5 L Plt Count 289 287 280 Assessment and Plan (1) CASSIE (acute kidney injury): Status: Acute Plan Most likley due to hypoperfusion/Progressed to ATN No obstructive uropathy Check urine for UA/Pro: Cr to screen for glomerular /interstitial causes Foe now Keep I > O Continue to avoid nephrotoxins May need renal replacement therapy Shall follow closely Procedures Date of Service Date of Service: 10/02/24
[2024-10-02] MEDS: Albumin Human 25 % 100 ML 133.33 ML IV ×2 (09:19→10:22)
[2024-10-02] MEDS: Lactated Ringers 500 ML 999 ML IV (09:23)
[2024-10-02 09:41] LABS: Anion Gap 22 (12-20); Blood Urea Nitrogen 110 mg/dL (9-16); Calcium 8.4 mg/dL (8.4-10.2); Carbon Dioxide 29 mmol/L (22-29); Chloride 102 mmol/L (96-108); Creatinine Clr Calc Pharmacy 14.1; Estimated Glomerular Filt Rate 7; Glucose Random 141 mg/dL (60-115); Potassium 5.8 mmol/L (3.3-5.1); Sodium 147 mmol/L (135-145)
--- NOTE | 2024-10-02 10:43 | MHC.SLORD ---
Speech Language Pathology Order Status: GLAZIER HELPER checked pt status this morning, RN reported pt is not appropriate for bedside swallow eval d/t AMS. RN to contact GLAZIER HELPER as indicated, GLAZIER HELPER to check status tomorrow if no eval today.
[2024-10-02] MEDS: 0.9 % Sodium Chloride 1,000 ML 999 ML IV (12:28)
[2024-10-02] MEDS: fentaNYL citrate/PF 100 MCG/2 ML VIAL 25 MCG IVPUSH ×3 (12:28→21:51)
[2024-10-02 14:58] LABS: Anion Gap 18 (12-20); Blood Urea Nitrogen 102 mg/dL (9-16); Calcium 8.3 mg/dL (8.4-10.2); Carbon Dioxide 33 mmol/L (22-29); Chloride 102 mmol/L (96-108); Creatinine Clr Calc Pharmacy 14.4; Estimated Glomerular Filt Rate 7; Glucose Random 139 mg/dL (60-115); Potassium 4.6 mmol/L (3.3-5.1); Sodium 148 mmol/L (135-145)
--- NOTE | 2024-10-02 15:08 | PC.RT ---
Pt noted to alternate between bipap and nap and 1 lpm N/c. RN keeping RT informed. Pt in with family face timing on phone, in no distress.
[2024-10-02 17:28] LABS: VBG Base Excess 11.6 mmol/L; VBG HCO3 40 mmol/L (22-26); VBG pCO2 86 mmHg; VBG pH 7.28 (7.32-7.43); VBG pO2 38 mmHg
--- NOTE | 2024-10-02 19:23 | W.PM.CCHP ---
Procedures Date of Service Date of Service: 10/02/24 Central Line Placement Right IJ: Consent for Procedure: Elective - informed consent obtained Time out performed: Yes Sterile Technique Used: Yes Patient placed on monitor/pulse ox: Yes MD prep: mask, gown and gloves Central line prep: Chlorhexidine scrub Local anesthesia used: lidocaine 1% Amount of anesthesia used (ml): 10 Ultrasound used for placement: Yes Central line lumen inserted: triple Post procedure: sutured in place, good blood return and all ports aspirated, flushed, capped Post procedure x-ray: tip of catheter in good position, no pneumothorax seen and other (confirmed the positioning with VBG.) Patient tolerated procedure: well Complications: none
[2024-10-02 19:40] LABS: Venous Blood Gas Refer to POC result
[2024-10-02] MEDS: Parenteral Nutrition 1,560 ML 65 ML IV (20:53)
[2024-10-02 21:21] LABS: VBG HCO3 41 mmol/L (22-26); VBG pCO2 74 mmHg; VBG pH 7.34 (7.32-7.43); VBG pO2 78 mmHg
[2024-10-02] MEDS: hydrALAZINE HCl 20 MG/ML VIAL 10 MG IVPUSH (21:25)
[2024-10-02 21:45] LABS: Alanine Aminotransferase 25 U/L (0-31); Albumin Level 3.3 g/dL (3.5-5.0); Alkaline Phosphatase 56 U/L (39-117); Anion Gap 19 (12-20); Aspartate Amino Transferase 51 U/L (5-31); Bilirubin Total 0.8 mg/dL (0.0-1.0); Blood Urea Nitrogen 110 mg/dL (9-16); Calcium 8.1 mg/dL (8.4-10.2); Carbon Dioxide 32 mmol/L (22-29); Chloride 102 mmol/L (96-108); Creatinine Clr Calc Pharmacy 14.5; Estimated Glomerular Filt Rate 7; Glucose Random 133 mg/dL (60-115); Potassium 4.7 mmol/L (3.3-5.1); Sodium 148 mmol/L (135-145); Total Protein 6.9 g/dL (6.5-8.0)
[2024-10-02 23:05] LABS: Venous Blood Gas Refer to POC result
[2024-10-03] VITALS (30 sets, daily range): BP systolic 110–172; BP diastolic 32–80; PULSE 96–114; RESP 13–22; TEMP 36.4–37.2; O2SAT 90–99; BMI 63.0
[2024-10-03] MEDS: hydrALAZINE HCl 20 MG/ML VIAL 10 MG IVPUSH ×2 (01:02→21:37)
[2024-10-03] MEDS: Acetaminophen 1,000 MG/100 ML PIGGYBACK 400 MG IV ×2 (01:34→10:03)
[2024-10-03] MEDS: Piperacillin Sodium/Tazobactam 2.25 GM in 0.9 % Sodium Chloride 50 ML IV (03:14)
[2024-10-03] MEDS: fentaNYL citrate/PF 100 MCG/2 ML VIAL 25 MCG IVPUSH ×2 (03:55→19:49)
--- NOTE | 2024-10-03 04:35 | PC.NURSE ---
Addendum entered by Robert Snell RN 10/03/24 06:39: NG-TUBE DRAINED ADDITIONAL 400ML FOR TOTAL 2200ML Addendum entered by Robert Snell RN 10/03/24 06:06: NG-TUBE DRAINED 1800ML BILIOUS DRAINAGE OVER PAST 12 HOURS Original Note: BLADDER SCANNED 9PM FOR 118ml....INCONTINANT 4AM MODERATE AMOUNT..BLADDER SCANNED 143ml...T-TUBE DRAINED TOTAL 160ml [place]-YELLOW DRAINAGE..NG-TUBE DRAINING LARGE AMOUNT BILIOUS DRAINAGE....
[2024-10-03 04:41] LABS: VBG Base Excess 17.1 mmol/L; VBG HCO3 42 mmol/L (22-26); VBG pCO2 55 mmHg; VBG pH 7.49 (7.32-7.43); VBG pO2 80 mmHg
[2024-10-03 04:49] LABS: Venous Blood Gas Refer to POC result
[2024-10-03 04:49] LABS: MANUAL DIFF FLAG NO
[2024-10-03 04:50] LABS: Basophils Absolute Auto 0.1 X10*3/uL (0.0-0.2); Basophils Percent Auto 0.4 % (0-2); Eosinophils Percent Auto 5.1 % (0-4); Hematocrit 28.7 % (37.0-47.0); Hemoglobin 8.6 g/dl (12.0-16.0); Imm Gran Abs Auto 0.33 X10*3/uL (0.00-0.03); Imm Gran Pct Auto 1.6 % (0.0-0.4); Lymphocytes Absolute Auto 1.1 X10*3/uL (1.2-4.9); Lymphocytes Percent Auto 5.5 % (20-40); Mean Corpuscular Hemoglobin 26.8 pg (27.0-33.0); Mean Corpuscular Volume 89.4 fL (80.0-98.0); Mean Platelet Volume 10.2 fL (9.4-12.3); Monocytes Absolute Auto 1.1 X10*3/uL (0.1-1.2); Monocytes Percent Auto 5.3 % (2-11); NRBC Pct Auto 0.1 /100WBC (0.0-0.2); Neutrophils Absolute Auto 16.7 x10*3/uL (2.0-8.3); Neutrophils Percent Auto 82.1 % (45-73); Platelet Count 283 X10*3/uL (160-400); Red Blood Count 3.21 X10*6/uL (4.20-5.50); Red Cell Distribution Width 15.8 % (11.0-16.0); White Blood Count 20.4 X10*3/uL (4.8-10.8)
[2024-10-03 05:09] LABS: Alanine Aminotransferase 25 U/L (0-31); Albumin Level 3.3 g/dL (3.5-5.0); Alkaline Phosphatase 61 U/L (39-117); Anion Gap 20 (12-20); Aspartate Amino Transferase 50 U/L (5-31); Bilirubin Total 0.8 mg/dL (0.0-1.0); Blood Urea Nitrogen 114 mg/dL (9-16); Calcium 8.4 mg/dL (8.4-10.2); Carbon Dioxide 33 mmol/L (22-29); Chloride 99 mmol/L (96-108); Creatinine Clr Calc Pharmacy 14.4; Estimated Glomerular Filt Rate 7; Glucose Random 143 mg/dL (60-115); Magnesium 3.3 mg/dL (1.6-2.6); Phosphorus 3.3 mg/dL (2.7-4.5); Potassium 4.4 mmol/L (3.3-5.1); Sodium 148 mmol/L (135-145); Total Protein 6.9 g/dL (6.5-8.0)
[2024-10-03] MEDS: 0.9 % Sodium Chloride Flush 3 ML SYRINGE IVFLUSH ×3 (07:33→22:44)
--- NOTE | 2024-10-03 08:23 | P.PNCC_ITS ---
Subjective Subjective Date of Service: 10/03/24 Critical Care Time (minutes): 35 Comment: Stable, undergoing hemodialysis this morning given worsening CASSIE with a anuria Remained on BiPAP support overnight Physical Exam 2 Vital Signs: Vital Signs: Last Vital Signs Temp 97.5 F 10/03/24 08:00 Pulse 104 H 10/03/24 08:00 Resp 20 10/03/24 08:00 BP 151/65 H 10/03/24 08:00 Pulse Ox 92 10/03/24 08:00 O2 Del Method Nasal Cannula 10/03/24 08:00 O2 Flow Rate 1 10/03/24 08:00 FiO2 30 10/03/24 07:00 Oxygen Flow Rate 9 09/22/24 16:09 BMI result Body Mass Index 63.0 General: Morbidly obese lady chronically ill tired appearing lying in the bed Nutritional Appearance: Morbidly obese, well-nourished Eyes: appearance normal, both eyes and all related structures; Alignment and Position: alignment normal and position normal Neck: No lymphadenopathy, no thyromegaly Resp: bilateral air entry equal, distant breath sounds Cardio: Regular rate, regular rhythm; Heart sounds: S1 normal heart sound present and S2 normal heart sound present GI: soft, nontender, no guarding, no hepatosplenomegaly : bladder normal to inspection, bladder normal to palpation, no renal angle tenderness Skin: no rashes or lesions noted and elasticity normal Neuro: oriented to person, oriented to place, oriented to time and moves all extremities Objective Data Labs 10/03/24 04:24 10/03/24 04:24 Labs: Laboratory Results - last 24 hr 10/02/24 10/02/24 10/02/24 09:19 14:20 17:17 WBC RBC Hgb Hct MCV MCH MCHC RDW Plt Count MPV Immature Gran % (Auto) Neut % (Auto) Lymph % (Auto) [place] % (Auto) Eos % (Auto) Baso % (Auto) Lymph # (Auto) [place] # (Auto) Eos # (Auto) Baso # (Auto) Abs Immat Gran (auto) Absolute Neuts (auto) Absolute Nucleated RBC Nucleated RBC % (auto) VBG pH 7.28 L VBG pCO2 86 VBG pO2 38 VBG HCO3 40 H VBG O2 Saturation 60.0 VBG Base Excess 11.6 Sodium 147 H 148 H Potassium 5.8 H D 4.6 D Chloride 102 102 Carbon Dioxide 29 33 H Anion Gap 22 H 18 BUN 110 H 102 H Creatinine 6.24 H* 6.14 H* Estim Creat Clear Calc 14.1 14.4 Estimated GFR 7 7 Random Glucose 141 H 139 H Calcium 8.4 8.3 L Phosphorus Magnesium Total Bilirubin AST ALT Alkaline Phosphatase Total Protein Albumin 10/02/24 10/02/24 10/03/24 21:08 21:11 04:24 WBC 20.4 H RBC 3.21 L Hgb 8.6 L Hct 28.7 L MCV 89.4 MCH 26.8 L MCHC 30.0 L RDW 15.8 Plt Count 283 MPV 10.2 Immature Gran % (Auto) 1.6 H Neut % (Auto) 82.1 H Lymph % (Auto) 5.[address] [place] % (Auto) 5.3 Eos % (Auto) 5.1 H Baso % (Auto) 0.4 Lymph # (Auto) 1.[address] [place] # (Auto) 1.1 Eos # (Auto) 1.0 H Baso # (Auto) 0.1 Abs Immat Gran (auto) 0.33 H Absolute Neuts (auto) 16.7 H Absolute Nucleated RBC 0.030 H Nucleated RBC % (auto) 0.1 VBG pH 7.34 VBG pCO2 74 VBG pO2 78 VBG HCO3 41 H VBG O2 Saturation 97.0 VBG Base Excess 13.0 Sodium 148 H 148 H Potassium 4.7 4.4 Chloride 102 99 Carbon Dioxide 32 H 33 H Anion Gap 19 20 BUN 110 H 114 H Creatinine 6.07 H* 6.28 H* Estim Creat Clear Calc 14.5 14.4 Estimated GFR 7 7 Random Glucose 133 H 143 H Calcium 8.1 L 8.4 Phosphorus 3.3 Magnesium 3.3 H Total Bilirubin 0.8 0.8 AST 51 H 50 H ALT 25 25 Alkaline Phosphatase 56 61 Total Protein 6.9 6.9 Albumin 3.3 L 3.3 L 10/03/24 04:31 WBC RBC Hgb Hct MCV MCH MCHC RDW Plt Count MPV Immature Gran % (Auto) Neut % (Auto) Lymph % (Auto) [place] % (Auto) Eos % (Auto) Baso % (Auto) Lymph # (Auto) [place] # (Auto) Eos # (Auto) Baso # (Auto) Abs Immat Gran (auto) Absolute Neuts (auto) Absolute Nucleated RBC Nucleated RBC % (auto) VBG pH 7.49 H VBG pCO2 55 VBG pO2 80 VBG HCO3 42 H VBG O2 Saturation 99.0 VBG Base Excess 17.1 Sodium Potassium Chloride Carbon Dioxide Anion Gap BUN Creatinine Estim Creat Clear Calc Estimated GFR Random Glucose Calcium Phosphorus Magnesium Total Bilirubin AST ALT Alkaline Phosphatase Total Protein Albumin Microbiology Microbiology Results: Microbiology 09/22/24 18:00 Blood - Venous Blood Culture - Final No growth after 5 days. 09/22/24 16:30 Blood - Venous Blood Culture - Final No growth after 5 days. Progress Note: A&P Assessment and plan (1) Acute calculous cholecystitis: Status: Acute (2) Acute cholecystitis: Status: Acute (3) CASSIE (acute kidney injury): Status: Acute (4) Dysfunctional uterine bleeding: Status: Acute (5) Acute asthma exacerbation: Status: Acute (6) Obesity hypoventilation syndrome: Status: Acute (7) Acute hypercapnic respiratory failure: Status: Acute (8) Obstructive sleep apnea: Status: Acute Plan 64-year-old lady with underlying history of morbid obesity, hypertension, asthma, uterine mass, DELANEY noncompliant with CPAP admitted on 09/22/2024 with nausea, vomiting, and abdominal pain. Patient noted to have sepsis with likely etiology being cholecystitis. Surgical consultation is obtained. Initially patient was managed conservatively. Then on 09/25/2024 she had cholecystostomy drain placed. Hospital stay complicated by development of acute hypercapnic respiratory failure on 09/28/2024 necessitating transfer to intensive care unit in application of rescue BiPAP and further development of anuria and acute kidney injury overnight 09/29. Repeat CT abdomen with ileus, but no obstruction. Neuro: Acute encephalopathy possibly due to metabolic encephalopathy, however uremic encephalopathy can not be completely ruled out; let us see if the mentation improves after hemodialysis session today We will avoid any sedating medications Acute on chronic hypercapnic respiratory failure due to obesity hypoventilation syndrome given her BMI of 60 with non compliance to NIPPV and multiple sedative pain medications. VBG better after nighttime BiPAP support. Continue took the BiPAP support at daytime NIPPV as needed Acute cholecystitis: Status post cholecystostomy tube placement CT abdomen suggestive of acute cholecystitis and dilated bowel loop with the possibility of partial distal colon obstruction Continue Zosyn for antibiotic coverage Partial distal colon obstruction: hypoactive bowel sounds will hold off on lactulose NG tube suction, overnight 2200 has some urinary incontinence, will get Lemos catheter to see if she has any urinary output will do soap enema Renal: Acute kidney injury possibly secondary to ATN from cholecystitis partial bowel obstruction Given anuria and progressive renal dysfunction patient is planned to be initiated on renal replacement therapy today We will closely monitor I's and O's Avoid nephrotoxic medications Heme: Chronic anemia, closely monitor H&H, transfuse for hemoglobin less than 7 grams/deciliter Endocrine: Blood sugars under control Sliding scale insulin as needed Infectious disease: On Zosyn for cholecystitis has some rash, will switch to meropenem Blood cultures remain negative Musculoskeletal: Decubitus ulcer prevention protocol Prophylaxis: Heparin, pantoprazole Quality Stroke Does the patient have a stroke diagnosis?: No VTE Prior VTE?: No VTE Risk Level:: Medical - moderate - high VTE Device Contraindication: N/A - Device Ordered VTE Drug Contraindication: Treatment Not Indicated
--- NOTE | 2024-10-03 09:49 | MHC.CLN ---
F/U PT REMAINS NPO DISCUSSED AT ROUNDS WITH MD ARREDONDO NOTED HIGH OUTPUT FROM NGT HD CATH AND HD STARTED TODAY REVIEWED LABS DISCUSSED WITH PHARMACY RECOMMEND INCREASING PPN AT 75ML/HR WITH 46 G LIPIDS TO PROVIDE 1378 TOTAL KCALS (25KCALS/KG BASED ON IBW), 77G PROTEIN (1.4G/KG BASED ON IBW), 180G DEXTROSE REPLETE LYTES NEEDED
[2024-10-03] MEDS: Meropenem 1 GM VIAL IVPUSH (10:03)
[2024-10-03] MEDS: Metoclopramide HCl 10 MG/2 ML VIAL IVPUSH ×2 (10:03→16:36)
[2024-10-03 10:16] LABS: HBS Num1 0.09 mIU/mL (0-7.99); HBc Num1 0.16 S/CO (0.00-0.79); HBsAGNum1 0.37 S/CO (0.00-0.99); Hepatitis B Core Antibody Nonreactive (Nonreactive); Hepatitis B Surface Antigen Negative (Negative); ~Hepatitis B Surface Antibody NONREACTIVE (Nonreactive)
[2024-10-03] MEDS: ondansetron HCL 4 MG/2 ML VIAL IVPUSH ×2 (10:24→22:43)
--- NOTE | 2024-10-03 10:28 | W.PM.DNNEP ---
Subjective Subjective Date of Service: 10/03/24 This patient was seen during dialysis. Interval history: No events overnight. More awake today. Physical Exam Vital Signs: Vital Signs: Last Vital Signs Temp 97.5 F 10/03/24 08:00 Pulse 107 H 10/03/24 10:00 Resp 20 10/03/24 10:00 BP 145/59 H 10/03/24 10:00 Pulse Ox 95 10/03/24 10:00 O2 Del Method Nasal Cannula 10/03/24 10:00 O2 Flow Rate 1 10/03/24 10:00 FiO2 30 10/03/24 07:00 Oxygen Flow Rate 9 09/22/24 16:09 BMI result Body Mass Index 63.0 Const: General: ill appearing Neck: Neck: Yes supple Resp: Auscultation: clear to auscultation bilaterally Cardio: Palpation: no palpable S3 Heart sounds: no rubs GI: Palpation (GI): Soft to palpation Auscultation: normal bowel sounds Neuro: Motor exam (neuro): no asterixis Assessment & Plan Assessment and plan (1) CASSIE (acute kidney injury): Status: Acute Plan Most likley due to hypoperfusion/Progressed to ATN No obstructive uropathy HD today Continue to avoid nephrotoxins Time Spent With Patient Time: Total time managing care of this patient today ____ minutes. Procedures Date of Service Date of Service: 10/03/24
--- NOTE | 2024-10-03 12:25 | MHC.CM.PN ---
Pt continues care in ICU: permacath placed and pt had initial HD session today. Unknown if this will be permanent following d/c. Pt will remain in ICU for another 24-48 days to ensure medical stability. Pt may need placement versus home w/[facility] and CONFERENCE CENTER COORDINATOR services. CM to follow
--- NOTE | 2024-10-03 12:49 | MHC.SPEECHCO ---
Per RN, Pt NPO with large ileus. PROJECT CONTROL MANAGER monitoring.
[2024-10-03 15:22] LABS: Appearance Urine Turbid; Color Urine Yellow; Glucose Urine UA Negative (Negative); Leukocyte Esterase Urine Trace (Negative); Nitrite Urine Negative (Negative); Specific Gravity - Urine 1.025 (1.005-1.025); UMIC TRIGGER UA YES; Urine Blood Large (3+) (Negative); Urine Ketones Negative (Negative); Urine Protein 100 (2+) mg/dL (Neg-Trace)
[2024-10-03 15:45] LABS: Bacteria Urine 3+ (None Seen); Calcium Oxalate Crystals Urine Present; Granular Casts Urine Present; Other Crystals Urine Present
[2024-10-03] MEDS: Parenteral Nutrition 1,800 ML 75 ML IV (21:26)
[2024-10-03 22:36] LABS: Creatinine Urine 65.43 mg/dL; Total Protein Urine Random 108 mg/dL (<12)
[2024-10-04] VITALS (31 sets, daily range): BP systolic 105–145; BP diastolic 34–68; PULSE 97–128; RESP 11–22; TEMP 36.4–37.3; O2SAT 91–110
[2024-10-04] MEDS: Metoclopramide HCl 10 MG/2 ML VIAL IVPUSH ×3 (00:40→16:08)
[2024-10-04] MEDS: fentaNYL citrate/PF 100 MCG/2 ML VIAL 25 MCG IVPUSH ×3 (00:44→16:08)
[2024-10-04] MEDS: hydrALAZINE HCl 20 MG/ML VIAL 10 MG IVPUSH ×3 (02:28→14:23)
[2024-10-04 05:26] LABS: Hematocrit 26.5 % (37.0-47.0); Hemoglobin 8.1 g/dl (12.0-16.0); Mean Corpuscular HGB Conc 30.6 g/dl (31.0-35.0); Mean Corpuscular Hemoglobin 26.8 pg (27.0-33.0); Mean Corpuscular Volume 87.7 fL (80.0-98.0); NRBC Pct Auto 0.1 /100WBC (0.0-0.2); Platelet Count 291 X10*3/uL (160-400); Red Blood Count 3.02 X10*6/uL (4.20-5.50); Red Cell Distribution Width 15.5 % (11.0-16.0); White Blood Count 22.2 X10*3/uL (4.8-10.8)
[2024-10-04 05:28] LABS: Venous Blood Gas Refer to POC result
[2024-10-04 05:29] LABS: VBG Base Excess 18.7 mmol/L; VBG HCO3 44 mmol/L (22-26); VBG pCO2 55 mmHg; VBG pO2 79 mmHg
[2024-10-04 05:50] LABS: Alanine Aminotransferase 27 U/L (0-31); Albumin Level 3.1 g/dL (3.5-5.0); Alkaline Phosphatase 73 U/L (39-117); Anion Gap 19 (12-20); Aspartate Amino Transferase 57 U/L (5-31); Bilirubin Total 0.7 mg/dL (0.0-1.0); Blood Urea Nitrogen 108 mg/dL (9-16); Calcium 8.8 mg/dL (8.4-10.2); Carbon Dioxide 33 mmol/L (22-29); Chloride 97 mmol/L (96-108); Creatinine Clr Calc Pharmacy 14.9; Estimated Glomerular Filt Rate 7; Glucose Random 142 mg/dL (60-115); Phosphorus 2.2 mg/dL (2.7-4.5); Potassium 3.9 mmol/L (3.3-5.1); Sodium 145 mmol/L (135-145); Total Protein 6.7 g/dL (6.5-8.0)
[2024-10-04] MEDS: 0.9 % Sodium Chloride Flush 3 ML SYRINGE IVFLUSH (07:46)
[2024-10-04] MEDS: Meropenem 1 GM VIAL IVPUSH (10:23)
--- NOTE | 2024-10-04 10:47 | MHC.CLN ---
F/U PT REMAINS NPO REVIEWED LABS. COMMUNICATED WITH PHARMACY. RECEIVED HD ON 10/03. RECOMMEND CONTINUE PPN AT 75ML/HR WITH 46 G LIPIDS TO PROVIDE 1378 TOTAL KCALS (25KCALS/KG BASED ON IBW), 77G PROTEIN (1.4G/KG BASED ON IBW), 180G DEXTROSE. REPLETE LYTES NEEDED.
--- NOTE | 2024-10-04 10:53 | PM.CCPN ---
Subjective Subjective Date of Service: 10/04/24 Critical Care Time (minutes): 35 Comment: Underwent hemodialysis yesterday but not good enough URR NG tube output decreased to 900 cc over 24 hours Physical Exam Vital Signs: Vital Signs: Last Vital Signs Temp 98.6 F 10/04/24 09:59 Pulse 109 H 10/04/24 09:59 Resp 19 10/04/24 09:59 BP 124/53 L 10/04/24 09:59 Pulse Ox 97 10/04/24 09:59 O2 Del Method Nasal Cannula 10/04/24 09:59 O2 Flow Rate 1 10/04/24 09:59 FiO2 30 10/04/24 02:00 Oxygen Flow Rate 9 09/22/24 16:09 BMI result Body Mass Index 63.0 General: Morbidly obese lady, resting in the bed Nutritional Appearance: well nourished and overweight Eyes: appearance normal, both eyes and all related structures; Alignment and Position: alignment normal and position normal Neck: No lymphadenopathy, no thyromegaly Resp: bilateral air entry equal, occasional added sounds present Cardio: Regular rate, regular rhythm; Heart sounds: S1 normal heart sound present and S2 normal heart sound present GI: soft, nontender, no guarding, no hepatosplenomegaly : bladder normal to inspection, bladder normal to palpation, no renal angle tenderness Skin: no rashes or lesions noted and elasticity normal Neuro: oriented to person, oriented to place, oriented to time and moves all extremities, follows commands Objective Data Labs 10/04/24 05:16 10/04/24 05:16 Labs: Laboratory Results - last 24 hr 10/03/24 10/04/24 10/04/24 14:29 05:16 05:24 WBC 22.2 H RBC 3.02 L Hgb 8.1 L Hct 26.5 L MCV 87.7 MCH 26.8 L MCHC 30.6 L RDW 15.5 Plt Count 291 MPV 10.0 Absolute Nucleated RBC 0.020 H Nucleated RBC % (auto) 0.1 VBG pH 7.50 H VBG pCO2 55 VBG pO2 79 VBG HCO3 44 H VBG O2 Saturation 98.0 VBG Base Excess 18.7 Sodium 145 Potassium 3.9 Chloride 97 Carbon Dioxide 33 H Anion Gap 19 BUN 108 H Creatinine 6.05 H* Estim Creat Clear Calc 14.9 Estimated GFR 7 Random Glucose 142 H Calcium 8.8 Phosphorus 2.2 L Magnesium 3.0 H Total Bilirubin 0.7 AST 57 H ALT 27 Alkaline Phosphatase 73 Total Protein 6.7 Albumin 3.1 L Urine Color Yellow Urine Appearance Turbid Urine pH 5.0 Ur Specific [place] 1.025 Urine Protein 100 (2+) H Urine Glucose (UA) Negative Urine Ketones Negative Urine Blood Large (3+) H Urine Nitrite Negative Ur Leukocyte Esterase Trace H Urine RBC 3-5 H Urine WBC 6-10 Ur Squamous Epith Cells 6-10 Calcium Oxalate Crystal Present Other Crystals Present Urine Bacteria 3+ Hyaline Casts 3-5 Granular Casts Present U Random Total Protein 108 H Urine Creatinine 65.43 Microbiology Microbiology Results: Microbiology 09/22/24 18:00 Blood - Venous Blood Culture - Final No growth after 5 days. 09/22/24 16:30 Blood - Venous Blood Culture - Final No growth after 5 days. Progress Note: A&P Assessment and plan (1) Essential hypertension: Status: Acute (2) Acute calculous cholecystitis: Status: Acute (3) Acute cholecystitis: Status: Acute (4) CASSIE (acute kidney injury): Status: Acute (5) Dysfunctional uterine bleeding: Status: Acute (6) Sepsis: Status: Acute (7) Moderate persistent asthma: Status: Acute (8) Acute asthma exacerbation: Status: Acute (9) Asthma exacerbation: Status: Acute (10) Acute hypoxemic respiratory failure: Status: Acute Plan 64-year-old lady with underlying history of morbid obesity, hypertension, asthma, uterine mass, DELANEY noncompliant with CPAP admitted on 09/22/2024 with nausea, vomiting, and abdominal pain. Patient noted to have sepsis with likely etiology being cholecystitis. Surgical consultation is obtained. Initially patient was managed conservatively. Then on 09/25/2024 she had cholecystostomy drain placed. Hospital stay complicated by development of acute hypercapnic respiratory failure on 09/28/2024 necessitating transfer to intensive care unit in application of rescue BiPAP and further development of anuria and acute kidney injury overnight 09/29. Repeat CT abdomen with ileus, but no obstruction. Neuro: Acute encephalopathy possibly due to metabolic encephalopathy, mental status slowly improving We will avoid any sedating medications Acute on chronic hypercapnic respiratory failure due to obesity hypoventilation syndrome given her BMI of 60 with non compliance to NIPPV and multiple sedative pain medications. VBG better after nighttime BiPAP support. Continue nocturnal BiPAP support and daytime NIPPV as needed Acute cholecystitis: Status post cholecystostomy tube placement CT abdomen suggestive of acute cholecystitis and dilated bowel loop with the possibility of partial distal colon obstruction Continue Zosyn for antibiotic coverage Partial distal colon obstruction: hypoactive bowel sounds will hold off on lactulose NG tube suction, overnight output decreased to 900cc after adding Reglan has some urinary incontinence, will get Lemos catheter to see if she has any urinary output Renal: Acute kidney injury possibly secondary to ATN from cholecystitis partial bowel obstruction, started to making some urine which is a positive sign of renal recovery. Underwent renal replacement therapy yesterday but URR has not been great post dialysis. We will place a new hemodialysis catheter in the left IJ We will closely monitor I's and O's Avoid nephrotoxic medications Distance Heme: Chronic anemia, closely monitor H&H, transfuse for hemoglobin less than 7 grams/deciliter Endocrine: Blood sugars under control Sliding scale insulin as needed Infectious disease: On Zosyn for cholecystitis had some rash, so switched to meropenem Blood cultures remain negative Musculoskeletal: Decubitus ulcer prevention protocol Prophylaxis: Heparin, pantoprazole Quality Stroke Does the patient have a stroke diagnosis?: No VTE Prior VTE?: No VTE Risk Level:: Medical - moderate - high VTE Device Contraindication: N/A - Device Ordered VTE Drug Contraindication: Treatment Not Indicated
[2024-10-04 13:15] LABS: INTERNATIONAL NORM RATIO 1.1 (0.9-1.1); Prothrombin Time 13.2 SEC (10.9-12.4)
--- NOTE | 2024-10-04 15:49 | MHC.SLORD ---
Speech Language Pathology Order Status: HEPATOLOGY PHYSICIAN checked pt status, RN reported cognitively she has improved, MD order for NPO remains active d/t NG tube draining. HEPATOLOGY PHYSICIAN to assess swallow tomorrow as indicated.
[2024-10-04] MEDS: Parenteral Nutrition 1,800 ML 75 ML IV (21:11)
[2024-10-05] VITALS (27 sets, daily range): BP systolic 91–156; BP diastolic 37–65; PULSE 94–110; RESP 13–25; TEMP 36–36.7; O2SAT 90–100
[2024-10-05] MEDS: 0.9 % Sodium Chloride Flush 3 ML SYRINGE IVFLUSH ×4 (00:51→21:08)
[2024-10-05] MEDS: Metoclopramide HCl 10 MG/2 ML VIAL IVPUSH ×3 (00:51→17:39)
[2024-10-05 04:39] LABS: VBG Base Excess 18.2 mmol/L; VBG HCO3 44 mmol/L (22-26); VBG pCO2 59 mmHg; VBG pH 7.48 (7.32-7.43); VBG pO2 58 mmHg
[2024-10-05 04:48] LABS: Venous Blood Gas Refer to POC result
[2024-10-05 05:36] LABS: MANUAL DIFF FLAG NO
[2024-10-05 05:39] LABS: Basophils Absolute Auto 0.1 X10*3/uL (0.0-0.2); Basophils Percent Auto 0.3 % (0-2); Eosinophils Absolute Auto 0.9 X10*3/uL (0.0-0.4); Eosinophils Percent Auto 3.8 % (0-4); Hematocrit 25.1 % (37.0-47.0); Hemoglobin 7.8 g/dl (12.0-16.0); Imm Gran Abs Auto 0.76 X10*3/uL (0.00-0.03); Imm Gran Pct Auto 3.2 % (0.0-0.4); Lymphocytes Absolute Auto 1.8 X10*3/uL (1.2-4.9); Lymphocytes Percent Auto 7.8 % (20-40); Mean Corpuscular HGB Conc 31.1 g/dl (31.0-35.0); Mean Corpuscular Volume 86.9 fL (80.0-98.0); Mean Platelet Volume 10.5 fL (9.4-12.3); Monocytes Absolute Auto 1.2 X10*3/uL (0.1-1.2); Monocytes Percent Auto 5.1 % (2-11); Neutrophils Absolute Auto 18.7 x10*3/uL (2.0-8.3); Neutrophils Percent Auto 79.8 % (45-73); Platelet Count 291 X10*3/uL (160-400); Red Blood Count 2.89 X10*6/uL (4.20-5.50); Red Cell Distribution Width 15.6 % (11.0-16.0); White Blood Count 23.5 X10*3/uL (4.8-10.8)
[2024-10-05 05:58] LABS: Alanine Aminotransferase 33 U/L (0-31); Albumin Level 2.9 g/dL (3.5-5.0); Anion Gap 21 (12-20); Aspartate Amino Transferase 71 U/L (5-31); Bilirubin Total 0.6 mg/dL (0.0-1.0); Blood Urea Nitrogen 118 mg/dL (9-16); Calcium 9.3 mg/dL (8.4-10.2); Carbon Dioxide 34 mmol/L (22-29); Chloride 92 mmol/L (96-108); Creatinine Clr Calc Pharmacy 12.8; Estimated Glomerular Filt Rate 6; Glucose Random 132 mg/dL (60-115); Magnesium 3.1 mg/dL (1.6-2.6); Phosphorus 2.5 mg/dL (2.7-4.5); Potassium 3.8 mmol/L (3.3-5.1); Sodium 143 mmol/L (135-145); Total Protein 6.8 g/dL (6.5-8.0)
[2024-10-05 06:12] LABS: Alkaline Phosphatase 99 U/L (39-117)
--- NOTE | 2024-10-05 08:33 | PM.CCPN ---
Subjective Subjective Date of Service: 10/05/24 Critical Care Time (minutes): 35 Comment: Slowly improving urine output, up to 500 cc overnight, however creatinine tends to slowly rise Had a few bowel movements yesterday Physical Exam Vital Signs: Vital Signs: Last Vital Signs Temp 97.0 F 10/05/24 08:00 Pulse 110 H 10/05/24 08:00 Resp 20 10/05/24 08:00 BP 136/39 L 10/05/24 08:00 Pulse Ox 91 L 10/05/24 08:00 O2 Del Method Nasal Cannula 10/05/24 08:00 O2 Flow Rate 1 10/05/24 08:00 FiO2 25 10/05/24 06:00 Oxygen Flow Rate 9 09/22/24 16:09 BMI result Body Mass Index 63.0 General: Not in acute distress, comfortably sitting in the bed Nutritional Appearance: Morbidly obese and overweight Eyes: appearance normal, both eyes and all related structures; Alignment and Position: alignment normal and position normal Neck: No lymphadenopathy, no thyromegaly Resp: bilateral air entry equal, occasional added sounds present Cardio: Regular rate, regular rhythm; Heart sounds: S1 normal heart sound present and S2 normal heart sound present GI: soft, nontender, no guarding, no hepatosplenomegaly : bladder normal to inspection, bladder normal to palpation, no renal angle tenderness Skin: no rashes or lesions noted and elasticity normal Neuro: oriented to person, oriented to place, oriented to time and moves all extremities Objective Data Labs 10/05/24 04:33 10/05/24 04:33 Labs: Laboratory Results - last 24 hr 10/04/24 10/05/24 10/05/24 12:59 04:27 04:33 WBC 23.5 H RBC 2.89 L Hgb 7.8 L Hct 25.1 L MCV 86.9 MCH 27.0 MCHC 31.1 RDW 15.6 Plt Count 291 MPV 10.5 Immature Gran % (Auto) 3.2 H Neut % (Auto) 79.8 H Lymph % (Auto) 7.8 L [place] % (Auto) 5.1 Eos % (Auto) 3.8 Baso % (Auto) 0.3 Lymph # (Auto) 1.8 [place] # (Auto) 1.2 Eos # (Auto) 0.9 H Baso # (Auto) 0.1 Abs Immat Gran (auto) 0.76 H Absolute Neuts (auto) 18.7 H Absolute Nucleated RBC 0.000 Nucleated RBC % (auto) 0.0 PT 13.2 H INR 1.1 VBG pH 7.48 H VBG pCO2 59 VBG pO2 58 VBG HCO3 44 H VBG O2 Saturation 94.0 VBG Base Excess 18.2 Sodium 143 Potassium 3.8 Chloride 92 L Carbon Dioxide 34 H Anion Gap 21 H BUN 118 H Creatinine 7.02 H* Estim Creat Clear Calc 12.8 Estimated GFR 6 Random Glucose 132 H Calcium 9.3 Phosphorus 2.5 L Magnesium 3.1 H Total Bilirubin 0.6 AST 71 H ALT 33 H Alkaline Phosphatase 99 Total Protein 6.8 Albumin 2.9 L Microbiology Microbiology Results: Microbiology 09/22/24 18:00 Blood - Venous Blood Culture - Final No growth after 5 days. 09/22/24 16:30 Blood - Venous Blood Culture - Final No growth after 5 days. Progress Note: A&P Assessment and plan (1) Acute cholecystitis: Status: Acute (2) Acute calculous cholecystitis: Status: Acute (3) Moderate persistent asthma: Status: Acute (4) Acute hypercapnic respiratory failure: Status: Acute (5) Obesity hypoventilation syndrome: Status: Acute Plan 64-year-old lady with underlying history of morbid obesity, hypertension, asthma, uterine mass, DELANEY noncompliant with CPAP admitted on 09/22/2024 with nausea, vomiting, and abdominal pain. Patient noted to have sepsis with likely etiology being cholecystitis. Surgical consultation is obtained. Initially patient was managed conservatively. Then on 09/25/2024 she had cholecystostomy drain placed. Hospital stay complicated by development of acute hypercapnic respiratory failure on 09/28/2024 necessitating transfer to intensive care unit in application of rescue BiPAP and further development of anuria and acute kidney injury overnight 09/29. Repeat CT abdomen with ileus, but no obstruction. Neuro: Acute encephalopathy possibly due to metabolic encephalopathy, mental status improved since last session of dialysis, more alert and answering questions appropriately We will avoid any sedating medications Acute on chronic hypercapnic respiratory failure due to obesity hypoventilation syndrome given her BMI of 60 with non compliance to NIPPV and multiple sedative pain medications. VBG better after nighttime BiPAP support. Continue nocturnal BiPAP support and daytime NIPPV as needed while sleeping Acute cholecystitis: Status post cholecystostomy tube placement CT abdomen suggestive of acute cholecystitis and dilated bowel loop with the possibility of partial distal colon obstruction Continue Zosyn for antibiotic coverage Partial distal colon obstruction: NG tube suction, overnight output decreased to 500cc after adding Reglan. Will withhold NG suction. had 3 stool output yesterday, one bowel movement this morning. will do speech eval today. PPN for nutrition Renal: Acute kidney injury possibly secondary to ATN from cholecystitis partial bowel obstruction, started to making some urine which is a positive sign of renal recovery. Received for session of hemodialysis 2 days ago, however creatinine tends to slowly go up. Will repeat a BMP after HD to look for URR; if the URR is poor will replace her dialysis line to a bigger line. We will closely monitor I's and O's Avoid nephrotoxic medications Heme: Chronic anemia, closely monitor H&H, transfuse for hemoglobin less than 7 grams/deciliter Endocrine: Blood sugars under control Sliding scale insulin as needed Infectious disease: On Zosyn for cholecystitis had some rash, so switched to meropenem Blood cultures remain negative Vaginal bleed secondary to uterine mass, will continue closely monitor while on prophylactic heparin Musculoskeletal: Decubitus ulcer prevention protocol Prophylaxis: Heparin, pantoprazole Quality Stroke Does the patient have a stroke diagnosis?: No VTE Prior VTE?: No VTE Risk Level:: Medical - moderate - high VTE Device Contraindication: N/A - Device Ordered VTE Drug Contraindication: Treatment Not Indicated
--- NOTE | 2024-10-05 09:47 | W.PM.DNNEP ---
Subjective Subjective Date of Service: 10/05/24 This patient was seen during dialysis. Interval history: No events overnight. More awake today. Physical Exam Vital Signs: Vital Signs: Last Vital Signs Temp 96.8 F 10/05/24 09:00 Pulse 102 H 10/05/24 09:00 Resp 16 10/05/24 09:00 BP 141/44 H 10/05/24 09:00 Pulse Ox 96 10/05/24 09:00 O2 Del Method Nasal Cannula 10/05/24 09:00 O2 Flow Rate 1 10/05/24 09:00 FiO2 25 10/05/24 06:00 Oxygen Flow Rate 9 09/22/24 16:09 BMI result Body Mass Index 63.0 Const: General: ill appearing Neck: Neck: Yes supple Resp: Auscultation: clear to auscultation bilaterally Cardio: Palpation: no palpable S3 Heart sounds: no rubs GI: Palpation (GI): Soft to palpation Auscultation: normal bowel sounds Neuro: Motor exam (neuro): no asterixis Assessment & Plan Assessment and plan (1) CASSIE (acute kidney injury): Status: Acute Plan Most likley due to hypoperfusion/Progressed to ATN No obstructive uropathy HD today Continue to avoid nephrotoxins Time Spent With Patient Time: Total time managing care of this patient today ____ minutes. Procedures Date of Service Date of Service: 10/05/24
--- NOTE | 2024-10-05 10:06 | MHC.CLN ---
F/U PT REMAINS NPO REVIEWED LABS DISCUSSED WITH PHARMACY SPEECH PATHOLOGIST ASSISTANT PENDING TODAY DISCUSSED AT ROUNDS WITH MD CONTINUE PPN AT 75ML/HR WITH 46 G LIPIDS PROVIDES 1378 TOTAL KCALS (25KCALS/KG BASED ON IBW), 77G PROTEIN (1.4G/KG BASED ON IBW), 180G DEXTROSE REPLETE LYTES NEEDED
[2024-10-05] MEDS: fentaNYL citrate/PF 100 MCG/2 ML VIAL 50 MCG IVPUSH (10:08)
--- NOTE | 2024-10-05 11:01 | W.PM.CCHP ---
Procedures Date of Service Date of Service: 10/05/24 Central Line Placement Left IJ: Central Line Comments: dialysis line placement Consent for Procedure: Elective - informed consent obtained Time out performed: Yes Sterile Technique Used: Yes Patient placed on monitor/pulse ox: Yes MD prep: mask, gown and gloves Central line prep: Povidone-Iodine 1% and Chlorhexidine scrub Local anesthesia used: lidocaine 1% Amount of anesthesia used (ml): 10 Ultrasound used for placement: Yes Central line lumen inserted: double Post procedure: sutured in place, good blood return, all ports aspirated, flushed, capped and sterile dressing applied Post procedure x-ray: tip of catheter in good position and no pneumothorax seen Patient tolerated procedure: well and no complications Complications: none
--- NOTE | 2024-10-05 12:58 | MHC.SPEECHCO ---
Per RN, Pt at dialysis this morning. CERTIFIED CYTOTECHNOLOGIST will follow-up in the afternoon.
--- NOTE | 2024-10-05 13:17 | P.CDIM_ITS ---
PROVIDER RESPONSE TEXT: To clarify, the appropriate diagnosis supported by the clinical indicators: Hypernatremia: possible QUERY TEXT: PHYSICIAN'S DOCUMENTATION REQUEST Date of Query: 10/05/2024 12:09 PM EST Patient Name: Monica Henry Admit Date: 09/23/2024 Dear Kaden Stewart MD, A review of the medical record indicates additional documentation may be needed. Please review below and update the documentation accordingly. Clinical Indicators: LABS: sodium 148 H 145 Fluids Based on the above, is there a diagnosis that correlates with these lab findings: Hypernatremia resolved, possible, probable etc. Labs indicate a diagnosis of (please specify) Other (explain) Clinically unable to determine (explain) Thank you, Radha Perdomo, CCS, CDIS Use of terms such as suspected, likely, concern for, or probable (associated with a specific diagnosi s that is being evaluated, monitored, or treated as if it exists) are acceptable and can be coded in the inpatient se tting, when documented at the time of discharge. Please use your independent medical judgment in providing your response. THIS QUERY IS PART OF THE PERMANENT MEDICAL RECORD
[2024-10-05] MEDS: Norepinephrine Bitartrate/D5W 8 MG/250 ML PLAST..BAG 15.62 MG IVCONT (13:44)
--- NOTE | 2024-10-05 14:45 | MHC.CM.PN ---
Pt continues care in ICU: started HD for worsening renal fx and poor urinary output: unsure if this will be ongoing following d/c. Referred pt to [facility] as it seems unlikely that she will be able to manage at home. CM to follow.
--- NOTE | 2024-10-05 14:52 | P.EN_ITS ---
Event Note Date of Service: 10/06/24 Event Note: Spoke with sales representative gas service since patient scheduled for transfer to Medical floor patient started on Levophed drip since blood pressure dropped during hemodialysis currently on IV hydralazine q.6 hours that will be discontinued Patient noted to have minimal uterine bleeding intermittently with known history of uterine mass and also noted to have bleeding from cuts and wounds. Noted to have hematoma at site of left IJ hemodialysis catheter Will accept patient once patient off of Levophed drip with stable blood pressures At present patient is awake NG tube in place with 700 mL output 64-year-old lady with underlying history of morbid obesity, hypertension, ast hma, uterine mass, DELANEY noncompliant with CPAP admitted on 09/22/2024 with nausea, vomiting, and abdominal pain. Patient noted to have sepsis with likely etiology being cholecystitis. Surgical consultation is obtained. Initially patient was managed conservatively. Then on 09/25/2024 she had cholecystostomy drain placed. Hospital stay complicated by development of acute hypercapnic respiratory failure on 09/28/2024 necessitating transfer to intensive care unit in application of rescue BiPAP and further development of anuria and acute kidney injury overnight 09/29. Repeat CT abdomen with ileus, but no obstruction. Acute toxic metabolic encephalopathy mental status improved since last session of dialysis, more alert and answering questions appropriately Continue to treat infection, and continue hemodialysis till renal recovery avoid sedating medications Acute on chronic hypercapnic respiratory failure due to obesity hypoventilation syndrome given BMI of 60 with non compliance to NIPPV and multiple sedative pain medications. Continue nocturnal BiPAP support and daytime NIPPV as needed while sleeping Avoid sedatives Acute calculus cholecystitis: Status post cholecystostomy tube placement CT abdomen suggestive of acute cholecystitis and dilated bowel loop with the possibility of partial distal colon obstruction Initially treated with Zosyn for cholecystitis developed rash therefore switch to meropenem blood cultures x2 negative Persistent leukocytosis received prednisone last dose Blood cultures negative follow CBC and clinical course Partial distal colon obstruction: NG tube output decreasing /had 3 stool output yesterday, one bowel movement this morning. speech eval today. Continue PPN for nutrition Acute kidney injury possibly secondary to hypo perfusion progressed to ATN from cholecystitis / partial bowel obstruction/no obstructive uropathy noted Started on hemodialysis on 10/03 Last hemodialysis on 10/05/24 Acute on chronic normocytic anemia, hematocrit dropped to 25, likely due to intermittent vaginal bleed and bleeding from puncture sites transfuse for hemoglobin less than 7 grams/deciliter Prediabetic Blood sugars stable hold insulin. Vaginal bleed secondary to uterine mass, will continue close monitoring, if noted to have heavy bleeding will obtain OBGYN consult Super morbid Obesity. BMI 60.8 recommend low-calorie diet Prophylaxis: Will place on IV Protonix/compression boots Time Spent With Patient Time: Total time managing care of this patient today ____ minutes.
[2024-10-05] MEDS: Meropenem 1 GM VIAL IVPUSH (16:18)
[2024-10-05 16:30] LABS: Basophils Absolute Auto 0.1 X10*3/uL (0.0-0.2); Basophils Percent Auto 0.2 % (0-2); Eosinophils Absolute Auto 0.8 X10*3/uL (0.0-0.4); Eosinophils Percent Auto 3.2 % (0-4); Hematocrit 25.2 % (37.0-47.0); Hemoglobin 7.8 g/dl (12.0-16.0); Imm Gran Abs Auto 1.29 X10*3/uL (0.00-0.03); Imm Gran Pct Auto 4.9 % (0.0-0.4); Lymphocytes Absolute Auto 1.6 X10*3/uL (1.2-4.9); Lymphocytes Percent Auto 6.2 % (20-40); MANUAL DIFF FLAG SCAN; Mean Corpuscular Hemoglobin 27.3 pg (27.0-33.0); Mean Corpuscular Volume 88.1 fL (80.0-98.0); Mean Platelet Volume 10.4 fL (9.4-12.3); Monocytes Absolute Auto 1.2 X10*3/uL (0.1-1.2); Monocytes Percent Auto 4.5 % (2-11); Neutrophils Absolute Auto 21.4 x10*3/uL (2.0-8.3); Platelet Count 306 X10*3/uL (160-400); Red Blood Count 2.86 X10*6/uL (4.20-5.50); Red Cell Distribution Width 15.5 % (11.0-16.0); SCAN SMEAR FLAG 1; White Blood Count 26.5 X10*3/uL (4.8-10.8)
[2024-10-05 16:49] LABS: SLIDE REVIEW VERIFIED
--- NOTE | 2024-10-05 18:30 | PC.NURSE ---
Pt transferred from ICU to [facility] tele. Canelo left in place per MD for accurate I+Os; new dialysis patient
[2024-10-05] MEDS: HYDROmorphone HCl 0.5 MG/0.5 ML SYRINGE 0.25 MG IVPUSH (21:05)
[2024-10-05] MEDS: Parenteral Nutrition 1,800 ML 75 ML IV (21:22)
[2024-10-06] VITALS (7 sets, daily range): BP systolic 141–177; BP diastolic 63–75; PULSE 98–107; RESP 18–20; TEMP 36–37; O2SAT 94–100; BMI 59.4
[2024-10-06] MEDS: Metoclopramide HCl 10 MG/2 ML VIAL IVPUSH ×3 (00:18→16:38)
[2024-10-06] MEDS: Pantoprazole Sodium 40 MG/10 ML VIAL IVPUSH (06:02)
[2024-10-06 07:50] LABS: Alanine Aminotransferase 55 U/L (0-31); Albumin Level 2.9 g/dL (3.5-5.0); Alkaline Phosphatase 114 U/L (39-117); Anion Gap 16 (12-20); Aspartate Amino Transferase 98 U/L (5-31); Bilirubin Total 0.5 mg/dL (0.0-1.0); Blood Urea Nitrogen 68 mg/dL (9-16); Calcium 8.6 mg/dL (8.4-10.2); Carbon Dioxide 27 mmol/L (22-29); Chloride 99 mmol/L (96-108); Estimated Glomerular Filt Rate 11; Glucose Random 142 mg/dL (60-115); Magnesium 2.2 mg/dL (1.6-2.6); Phosphorus 2.6 mg/dL (2.7-4.5); Sodium 138 mmol/L (135-145); Total Protein 6.7 g/dL (6.5-8.0)
[2024-10-06] MEDS: 0.9 % Sodium Chloride Flush 3 ML SYRINGE IVFLUSH ×2 (09:29→17:43)
[2024-10-06] MEDS: Meropenem 1 GM VIAL IVPUSH (09:30)
--- NOTE | 2024-10-06 10:50 | HO.WOUND ---
Wound Consult: Initial 64yr old female admitted to [facility] on 09/22/24 - See progress notes and H&P for detailed history.? Wound consult placed for coccyx.? Patient agreeable to assessment and photo documentation.? Patient primary care coordinator at bedside and provided detailed information. Patient is Georgian Speaking - Creative Specialist present throughout visit. Coccyx and Buttock Bilateral Ischium Etiology: ??MASD (Moisture Associated Skin Damage) Wound Bed: scattered areas of moist epidermal desquamation noted - mirrored hyperpigmentation noted Drainage / Odor: none noted Edges: ? mirrored and attached Eula wound: ?Intact - MASD No Induration, Fluctuance or Warmth noted Evidence to the ischium of old pressure injury - scar tissue noted Pain: denies Goals of Treatment: ? Triad to protect from moisture and friction Bilateral groin and skin folds noted for MASD - Intertrigo. Base of skin fold noted for partial thickness tissue loss - clean pink moist wound beds with macerated tissue noted. Barrier cream applied. May transition to Interdry if desired. Recommendations: 1. Turn and Reposition every 2 hours and as needed for patient comfort.? Use pillows or wedges to support off loading positions. Wedges in use. 2. Off Load all bony prominences with use of pillows and heel boots if needed.? Apply Preventative foams where needed. ? 3. Monitor for incontinence and moisture control, use barrier creams when needed for prevention and treatment. 4. Provide adequate and supplemental nutrition.? 5. Patient on Bariatric bed at this time. 6. When applicable maintain blood glucose levels per Providers order. 7. Abdominal skin folds and bilateral groin - Routine Cleansing with PH Balanced wipes, pat dry. Apply skin barrier cream twice dailty and PRN. 8. Buttock and Coccyx - Off Load Pressure with Q2 hr turns - Routine Cleansing with PH Balanced wipes, pat dry. Apply triad cream twice dailty and PRN. Re-consult wound care Nurse for wound deterioration or wound changes.
--- NOTE | 2024-10-06 11:03 | PM.PNGS ---
Subjective Subjective Date of Service: 10/06/24 Interval history: 64-year-old lady with multiple medical comorbidities including morbid obesity, hypertension, asthma, uterine mass, DELANEY noncompliant with CPAP admitted on 09/22/2024 with nausea, vomiting, and abdominal pain. Patient noted to have sepsis with likely etiology being cholecystitis. Initially patient was managed conservatively with IV abx and cholecystostomy tube placement given her comorbidities and morbid obesity. Hospital stay complicated by development of acute hypercapnic respiratory failure on 09/28/2024 necessitating transfer to ICU for rescue BiPAP and further development of anuria and acute kidney injury, now on dialysis. She had a repeat CT abdomen which showed distended stomach, dilated small bowel loops. NGT is now in place. She was transferred out of the ICU yesterday and is now on the medical/telemetry floor. Cholecystostomy tube in place with moderate output. She reports mild epigastric pain, unchanged. She has had multiple loose stools yesterday and today, passing flatus. NGT output is slowly decreasing. Reports some occasional nausea. Physical Exam Vital Signs: Vital Signs: Last Vital Signs Temp 98.6 F 10/06/24 07:23 Pulse 104 H 10/06/24 07:23 Resp 20 10/06/24 07:23 BP 165/70 H 10/06/24 07:23 Pulse Ox 97 10/06/24 07:23 O2 Del Method Nasal Cannula 10/06/24 07:23 O2 Flow Rate 2 10/06/24 07:23 FiO2 25 10/05/24 08:00 Oxygen Flow Rate 9 09/22/24 16:09 BMI result Body Mass Index 59.4 Const: General: comfortable, no acute distress and alert Orientation/consciousness: patient oriented x3 GI: Other: markedly corpulent pigtail drain in RUQ draining bilious fluid Palpation (GI): Soft to palpation, Tenderness to palpation present (GI) (mild upper abdominal tenderness ) and no guarding Percussion: Yes tympanic to percussion Neuro: General: patient oriented x3 Objective Data Active Medications Acetaminophen (Acetaminophen 325 Mg Tablet) 650 mg PO Q6H PRN PRN Reason: Pain, Mild (Pain Scale 1-3), fever or headache Last Admin: 09/27/24 21:37 Dose: 650 mg Documented By: YOKASTA Calcium Carbonate (Calcium Carbonate 750 Mg Tab.Chew) 750 mg PO Q4H PRN PRN Reason: Heartburn Hydralazine HCl (Hydralazine Hcl 20 Mg/Ml Vial) 10 mg IVPUSH Q6H [facility]; Protocol Last Admin: 10/05/24 15:42 Dose: Not Given Documented By: MERLINE Non-Admin Reason: Pt on evophed Hydromorphone HCl (Hydromorphone Hcl 0.5 Mg/0.5 Ml Syringe) 0.25 mg IVPUSH Q4H PRN; Protocol PRN Reason: Pain, Moderate(Pain Scale 4-6) Last Admin: 10/05/24 21:05 Dose: 0.25 mg Documented By: KANDY Nutrition (Parenteral) (Parenteral Nutrition) 1,800 mls @ 75 mls/hr IV .Q24H [facility]; Protocol Stop: 10/06/24 20:59 Last Admin: 10/05/24 21:22 Dose: 75 mls/hr Documented By: KANDY Magnesium Hydroxide (Milk Of Magnesia 30 Ml Oral.Susp) 30 ml PO DAILY PRN PRN Reason: Constipation Melatonin (Melatonin 3 Mg Tablet) 6 mg PO BEDTIME PRN PRN Reason: Insomnia Last Admin: 09/27/24 21:39 Dose: 6 mg Documented By: YOKASTA Meropenem (Meropenem 1 Gm Vial) 1 gm IVPUSH Q24H [facility] Last Admin: 10/06/24 09:30 Dose: 1 gm Documented By: MARIELA Metoclopramide HCl (Metoclopramide Hcl 10 Mg/2 Ml Vial) 10 mg IVPUSH Q8H [facility] Last Admin: 10/06/24 09:29 Dose: 10 mg Documented By: MARIELA Ondansetron HCl (Ondansetron Hcl 4 Mg/2 Ml Vial) 4 mg IVPUSH Q8H PRN PRN Reason: Nausea and Vomiting Last Admin: 10/03/24 22:43 Dose: 4 mg Documented By: STEF Pantoprazole Sodium (Pantoprazole Sodium 40 Mg/10 Ml Vial) 40 mg IVPUSH DAILY@0630 [facility] Last Admin: 10/06/24 06:02 Dose: 40 mg Documented By: KANDY Pharmacy Consult (Consult Rx Parenteral Nutrition Ordering) 1 each MISCELLANE DAILY PRN PRN Reason: Consult order Polyethylene Glycol (Polyethylene Glycol 3350 17 Gm Powd.Pack) 17 gm PO DAILY PRN PRN Reason: constipation Last Admin: 09/23/24 16:28 Dose: 17 gm Documented By: DEAN Sodium Chloride (0.9 % Sodium Chloride Flush 3 Ml Syringe) 3 ml IVFLUSH QSHIFT [facility] Last Admin: 10/06/24 09:29 Dose: 3 ml Documented By: MARIELA Labs 10/05/24 15:47 10/06/24 06:55 Labs: Laboratory Results - last 24 hr 10/05/24 10/06/24 15:47 06:55 MCV 88.1 MCH 27.3 MCHC 31.0 RDW 15.5 Plt Count 306 MPV 10.4 Immature Gran % (Auto) 4.9 H Neut % (Auto) 81.0 H Lymph % (Auto) 6.2 L [place] % (Auto) 4.5 Eos % (Auto) 3.2 Baso % (Auto) 0.2 Lymph # (Auto) 1.6 [place] # (Auto) 1.2 Eos # (Auto) 0.8 H Baso # (Auto) 0.1 Abs Immat Gran (auto) 1.29 H Absolute Neuts (auto) 21.4 H Absolute Nucleated RBC 0.000 Nucleated RBC % (auto) 0.0 Smear Tech's Comments VERIFIED Anion Gap 16 Estim Creat Clear Calc 21.0 Estimated GFR 11 Random Glucose 142 H Calcium 8.6 D Phosphorus 2.6 L Magnesium 2.2 Total Bilirubin 0.5 AST 98 H ALT 55 H Alkaline Phosphatase 114 Total Protein 6.7 Albumin 2.9 L Procedures Date of Service Date of Service: 10/06/24 Progress Note: A&P Assessment and plan (1) Ileus: Status: Acute (2) Morbid obesity: Status: Acute (3) Acute cholecystitis: Status: Acute Plan Multiple acute problems including acute cholecystitis with cholecystostomy tube in place with bilious drainage. She is overall improved and nontoxic appearing. Developed ileus, SB dilatation improving. Now with evidence of GI function and NGT output downtrending. Hopefully can remove NGT in the next few days, recommend trial clamping tomorrow if NGT output cont to decrease. Can obtain Cdiff as WBC count is increasing and now with diarrhea, although may be secondary to resolving ileus. Keep cholecystostomy drain in place for now. Time Spent With Patient Time: Total time managing care of this patient today ____ minutes. Quality Stroke Does the patient have a stroke diagnosis?: No VTE Prior VTE?: No VTE Risk Level:: Medical - moderate - high VTE Device Contraindication: N/A - Device Ordered VTE Drug Contraindication: Treatment Not Indicated
--- NOTE | 2024-10-06 12:22 | MHC.CLN ---
F/U PT TRANSFERRED TO MEDICAL FLOOR CURRENTLY NO DIET ORDER-WILL RE-START NPO REVIEWED LABS DISCUSSED WITH PHARMACY FLIGHT SURGEON PENDING SWALLOW EVAL CONTINUE PPN AT MAX GOAL RATE 75ML/HR WITH 46 G LIPIDS PROVIDES 1378 TOTAL KCALS (25KCALS/KG BASED ON IBW), 77G PROTEIN (1.4G/KG BASED ON IBW), 180G DEXTROSE REPLETE LYTES NEEDED RD CAN BE REACHED VIA TIGER CONNECT DURING OFF HOURS IF NEEDED
--- NOTE | 2024-10-06 12:48 | MHC.SLORD ---
Speech Language Pathology Order Status: Per MD, Pt swallow evaluation on hold while using NG tube for suctioning. SALES PRODUCT MANAGER monitoring closely.
[2024-10-06] MEDS: HYDROmorphone HCl 0.5 MG/0.5 ML SYRINGE 0.25 MG IVPUSH ×2 (15:01→21:10)
--- NOTE | 2024-10-06 15:41 | HO.PM.IMPN ---
Subjective Subjective Date of Service: 10/06/24 Interval History: Transferred from ICU on October 05 Patient awake alert this morning complaining of epigastric pain otherwise denies nausea, no vomiting, no shortness of breath, no fevers, no chills, no lightheadedness or dizziness no acute events overnight. Blood pressure is stable. Review of Systems All other system reviewed and are negative Physical Exam Vital Signs: Vital Signs: Last Vital Signs Temp 97 F 10/06/24 15:39 Pulse 107 H 10/06/24 15:39 Resp 18 10/06/24 15:39 BP 163/65 H 10/06/24 15:39 Pulse Ox 94 10/06/24 15:39 O2 Del Method Nasal Cannula 10/06/24 15:39 O2 Flow Rate 1 10/06/24 15:39 FiO2 25 10/05/24 08:00 Oxygen Flow Rate 9 09/22/24 16:09 BMI result Body Mass Index 59.4 Const: Other: General morbidly obese, resting comfortably in no acute distress. Neck no JVD. CVS regular rate rhythm, Respiratory lungs no respiratory distress Gastrointestinal abdomen soft, epigastric tenderness to palpation no right upper quadrant discomfort with palpation, LESLY drain with bilious drainage, bowel sounds audible, no guarding , no rigidity. Extremities no pitting edema. Neuro non focal /awake ,alert Left IJ catheter in place NG to suction Objective Data Active Medications Acetaminophen (Acetaminophen 325 Mg Tablet) 650 mg PO Q6H PRN PRN Reason: Pain, Mild (Pain Scale 1-3), fever or headache Last Admin: 09/27/24 21:37 Dose: 650 mg Documented By: YOKASTA Calcium Carbonate (Calcium Carbonate 750 Mg Tab.Chew) 750 mg PO Q4H PRN PRN Reason: Heartburn Hydralazine HCl (Hydralazine Hcl 20 Mg/Ml Vial) 10 mg IVPUSH Q6H [facility]; Protocol Last Admin: 10/05/24 15:42 Dose: Not Given Documented By: MERLINE Non-Admin Reason: Pt on evophed Hydromorphone HCl (Hydromorphone Hcl 0.5 Mg/0.5 Ml Syringe) 0.25 mg IVPUSH Q4H PRN; Protocol PRN Reason: Pain, Moderate(Pain Scale 4-6) Last Admin: 10/06/24 15:01 Dose: 0.25 mg Documented By: MARIELA Nutrition (Parenteral) (Parenteral Nutrition) 1,800 mls @ 75 mls/hr IV .Q24H [facility]; Protocol Stop: 10/06/24 20:59 Last Admin: 10/05/24 21:22 Dose: 75 mls/hr Documented By: KANDY Nutrition (Parenteral) (Parenteral Nutrition) 1,800 mls @ 75 mls/hr IV .Q24H [facility]; Protocol Stop: 10/07/24 20:59 Magnesium Hydroxide (Milk Of Magnesia 30 Ml Oral.Susp) 30 ml PO DAILY PRN PRN Reason: Constipation Melatonin (Melatonin 3 Mg Tablet) 6 mg PO BEDTIME PRN PRN Reason: Insomnia Last Admin: 09/27/24 21:39 Dose: 6 mg Documented By: YOKASTA Metoclopramide HCl (Metoclopramide Hcl 10 Mg/2 Ml Vial) 10 mg IVPUSH Q8H [facility] Last Admin: 10/06/24 09:29 Dose: 10 mg Documented By: MARIELA Ondansetron HCl (Ondansetron Hcl 4 Mg/2 Ml Vial) 4 mg IVPUSH Q8H PRN PRN Reason: Nausea and Vomiting Last Admin: 10/03/24 22:43 Dose: 4 mg Documented By: STEF Pantoprazole Sodium (Pantoprazole Sodium 40 Mg/10 Ml Vial) 40 mg IVPUSH DAILY@0630 [facility] Last Admin: 10/06/24 06:02 Dose: 40 mg Documented By: KANDY Pharmacy Consult (Consult Rx Parenteral Nutrition Ordering) 1 each MISCELLANE DAILY PRN PRN Reason: Consult order Polyethylene Glycol (Polyethylene Glycol 3350 17 Gm Powd.Pack) 17 gm PO DAILY PRN PRN Reason: constipation Last Admin: 09/23/24 16:28 Dose: 17 gm Documented By: DEAN Sodium Chloride (0.9 % Sodium Chloride Flush 3 Ml Syringe) 3 ml IVFLUSH QSHIFT [facility] Last Admin: 10/06/24 09:29 Dose: 3 ml Documented By: MARIELA Labs 10/05/24 15:47 10/06/24 06:55 Labs: Laboratory Results - last 24 hr 10/05/24 10/06/24 15:47 06:55 MCV 88.1 MCH 27.3 MCHC 31.0 RDW 15.5 Plt Count 306 MPV 10.4 Immature Gran % (Auto) 4.9 H Neut % (Auto) 81.0 H Lymph % (Auto) 6.2 L [place] % (Auto) 4.5 Eos % (Auto) 3.2 Baso % (Auto) 0.2 Lymph # (Auto) 1.6 [place] # (Auto) 1.2 Eos # (Auto) 0.8 H Baso # (Auto) 0.1 Abs Immat Gran (auto) 1.29 H Absolute Neuts (auto) 21.4 H Absolute Nucleated RBC 0.000 Nucleated RBC % (auto) 0.0 Smear Tech's Comments VERIFIED Anion Gap 16 Estim Creat Clear Calc 21.0 Estimated GFR 11 Random Glucose 142 H Calcium 8.6 D Phosphorus 2.6 L Magnesium 2.2 Total Bilirubin 0.5 AST 98 H ALT 55 H Alkaline Phosphatase 114 Total Protein 6.7 Albumin 2.9 L Assessment and Plan (1) Ileus: Status: Acute (2) Obesity hypoventilation syndrome: Status: Acute (3) Morbid obesity: Status: Acute (4) CASSIE (acute kidney injury): Status: Acute (5) Sepsis: Status: Acute (6) Acute hypercapnic respiratory failure: Status: Acute (7) Acute cholecystitis: Status: Acute Plan 64-year-old lady with underlying history of morbid obesity, hypertension, asthma, uterine mass, DELANEY noncompliant with CPAP admitted on 09/22/2024 with nausea, vomiting, and abdominal pain. Patient noted to have sepsis with likely etiology being cholecystitis. Surgical consultation is obtained. Initially patient was managed conservatively. Then on 09/25/2024 she had cholecystostomy drain placed. Hospital stay complicated by development of acute hypercapnic respiratory failure on 09/28/2024 necessitating transfer to intensive care unit in application of rescue BiPAP and further development of anuria and acute kidney injury overnight 09/29. Repeat CT abdomen with ileus, but no obstruction. Acute toxic metabolic encephalopathy Resolved, was likely due to infection and uremia Continue to treat infection, and continue hemodialysis till renal recovery avoid sedating medications Acute on chronic hypercapnic respiratory failure due to obesity hypoventilation syndrome given BMI of 60 with non compliance to NIPPV and multiple sedative pain medications. Continue nocturnal BiPAP support and daytime NIPPV as needed while sleeping Avoid sedatives Acute calculus cholecystitis/persistent leukocytosis: Status post cholecystostomy tube placement, LESLY drain with small CT abdomen suggestive of acute cholecystitis and dilated bowel loop with the possibility of partial distal colon obstruction Initially treated with Zosyn for cholecystitis developed rash therefore switch to meropenem blood cultures x2 negative , has allergy to penicillin Persistent leukocytosis received prednisone last dose Blood cultures negative Case discussed with ID will discontinue meropenem, follow CBC and clinical course, check C diff Continue cholecystostomy tube/added IV Protonix for epigastric discomfort Partial distal colon obstruction: NG tube output decreasing /had few large loose dark brown bowel movement Continue PPN for nutrition Reconsult General surgery they recommend trial of clamping NG tube tomorrow if output continued to decrease Acute kidney injury possibly secondary to hypo perfusion progressed to ATN from cholecystitis / partial bowel obstruction/no obstructive uropathy noted Started on hemodialysis on 10/03 Last hemodialysis on 10/05/24 Being followed by Nephrology Acute on chronic normocytic anemia, hematocrit dropped to 25, likely due to intermittent vaginal bleed and bleeding from puncture sites transfuse for hemoglobin less than 7 grams/deciliter Prediabetic Blood sugars stable hold insulin. Vaginal bleed secondary to uterine mass, will continue close monitoring, if noted to have heavy bleeding will obtain OBGYN consult, patient was previously referred to [facility] by Dr. Garcia. Super morbid Obesity. BMI 60.8 recommend low-calorie diet Prophylaxis: compression boots Quality Stroke Does the patient have a stroke diagnosis?: No VTE Prior VTE?: No VTE Risk Level:: Medical - moderate - high VTE Device Contraindication: N/A - Device Ordered VTE Drug Contraindication: Treatment Not Indicated
--- NOTE | 2024-10-06 15:44 | MHC.CM.PN ---
EMR reviewed and per MD rounds, pt is not medically cleared for discharge due to downgraded from the ICU.
--- NOTE | 2024-10-06 16:00 | P.CNID_ITS ---
History of Present Illness Data of Consult Service Date: 10/06/24 Requesting physician: Nanda Birmingham Primary Care Provider: Rhina Malave MD HPI Reason for consult: leukocytosis Inhouse full time staff interpreter Jeyson. She presents with shortness of breath on 09/22. She received Prednisone for asthma concerns. She then developed abdominal discomfort RUQ and found to have acute cholecystitis and given cholestotomy tube which is in and draining less. She has been on Zosyn and itching and rash and then switched to [place] and itchy although rash less and asking not to get penicillin. She is also getting workup for possible uterine mass with bleeding. She also has NGT in place and has ileus concerns. Review of Systems 2 Review of Systems: Yes all other systems are reviewed and are negative PMFSH Past Medical History Medical History Fibromyalgia Hx of migraine headaches DELANEY (obstructive sleep apnea) Asthma Wheelchair dependent Obesity, morbid, BMI 50 or higher Pre-diabetes HTN (hypertension) Family History Family History Mother Diabetes Throat cancer Hypertension Father Hypertension Family history: reviewed and not pertinent Surgical History Surgical History History of hysteroscopy (~05/2024) Hx of colonoscopy Hx of tubal ligation Hx of section History of knee surgery Social History Social History Household Members: Children Household Members Other:: son, grandaughter Housing: Apartment Are you a primary customer care assistant to a significant other at home: No Do you presently have visiting nurse or other home services: No Alcohol intake: never Patient Tobacco Use Status: Never used Tobacco e-Cigarette/Vaping Use: Never Used Second Hand Smoke Exposure: No service: No Current occupational status: disabled Sexual orientation: Straight/Heterosexual Gender identity: Female Cognitive needs: Yes Hearing needs: No Vision needs: Yes Meds Allergies Allergy/AdvReac Type Severity Reaction Status Date / Time Penicillins [PENICILLINS] Allergy Unknown ITCHING Verified 09/22/24 16:12 Active Medications: Current Medications Acetaminophen (Acetaminophen 325 Mg Tablet) 650 mg PO Q6H PRN PRN Reason: Pain, Mild (Pain Scale 1-3), fever or headache Last Admin: 09/27/24 21:37 Dose: 650 mg Calcium Carbonate (Calcium Carbonate 750 Mg Tab.Chew) 750 mg PO Q4H PRN PRN Reason: Heartburn Hydralazine HCl (Hydralazine Hcl 20 Mg/Ml Vial) 10 mg [facility]USH Q6H [facility]; Protocol Last Admin: 10/05/24 15:42 Dose: Not Given Hydromorphone HCl (Hydromorphone Hcl 0.5 Mg/0.5 Ml Syringe) 0.25 mg IVPUSH Q4H PRN; Protocol PRN Reason: Pain, Moderate(Pain Scale 4-6) Last Admin: 10/06/24 15:01 Dose: 0.25 mg Nutrition (Parenteral) (Parenteral Nutrition) 1,800 mls @ 75 mls/hr IV .Q24H [facility]; Protocol Stop: 10/06/24 20:59 Last Admin: 10/05/24 21:22 Dose: 75 mls/hr Nutrition (Parenteral) (Parenteral Nutrition) 1,800 mls @ 75 mls/hr IV .Q24H [facility]; Protocol Stop: 10/07/24 20:59 Magnesium Hydroxide (Milk Of Magnesia 30 Ml Oral.Susp) 30 ml PO DAILY PRN PRN Reason: Constipation Melatonin (Melatonin 3 Mg Tablet) 6 mg PO BEDTIME PRN PRN Reason: Insomnia Last Admin: 09/27/24 21:39 Dose: 6 mg Metoclopramide HCl (Metoclopramide Hcl 10 Mg/2 Ml Vial) 10 mg IVPUSH Q8H [facility] Last Admin: 10/06/24 09:29 Dose: 10 mg Ondansetron HCl (Ondansetron Hcl 4 Mg/2 Ml Vial) 4 mg IVPUSH Q8H PRN PRN Reason: Nausea and Vomiting Last Admin: 10/03/24 22:43 Dose: 4 mg Pantoprazole Sodium (Pantoprazole Sodium 40 Mg/10 Ml Vial) 40 mg IVPUSH DAILY@0630 [facility] Last Admin: 10/06/24 06:02 Dose: 40 mg Pharmacy Consult (Consult Rx Parenteral Nutrition Ordering) 1 each MISCELLANE DAILY PRN PRN Reason: Consult order Polyethylene Glycol (Polyethylene Glycol 3350 17 Gm Powd.Pack) 17 gm PO DAILY PRN PRN Reason: constipation Last Admin: 09/23/24 16:28 Dose: 17 gm Sodium Chloride (0.9 % Sodium Chloride Flush 3 Ml Syringe) 3 ml IVFLUSH QSHIFT [facility] Last Admin: 10/06/24 09:29 Dose: 3 ml Home Medications ?Medication ?Instructions ?Recorded ?Confirmed ?Last Taken ?Type miconazole nitrate 2 % topical 1 appl topical DAILY PRN Rash 09/23/24 09/23/24 Unknown History powder (Remedy Phytoplex Antifungal) Physical Exam 2 Vital Signs: Vital Signs: Last Vital Signs Temp 97 F 10/06/24 15:39 Pulse 107 H 10/06/24 15:39 Resp 18 10/06/24 15:39 BP 163/65 H 10/06/24 15:39 Pulse Ox 94 10/06/24 15:39 O2 Del Method Nasal Cannula 10/06/24 15:39 O2 Flow Rate 1 10/06/24 15:39 FiO2 25 10/05/24 08:00 Oxygen Flow Rate 9 09/22/24 16:09 BMI result Body Mass Index 59.4 Const: General: cooperative HEENT: Other: NGT slight drainage Face and sinus: Yes normal facial exam Mouth: Normal oral and palatal mucosa present Teeth and gingiva: dentition normal Eyes: General: appearance normal, both eyes and all related structures P upils: Equal, round and reactive pupils present Resp: Effort & Inspection: normal respiratory effort Cardio: Rate: regular rate Rhythm: regular rhythm GI: Other: drain minimal gallbladder Palpation (GI): Soft to palpation and nontender : General: Yes no CVA tenderness Back/Spine/Pelvis: Back: no CVA tenderness Skin: General skin exam: no rashes or lesions noted Neuro: General: moves all extremities Cranial nerves: Yes Equal, round and reactive pupils present Extrem: General: Yes normal to inspection Psych: Appearance: grossly normal Results Labs 10/05/24 15:47 10/06/24 06:55 Labs: Short CBC 10/05/24 Range/Units 15:47 WBC 26.5 H (4.8-10.8) X10*3/uL Hgb 7.8 L (12.0-16.0) g/dl Hct 25.2 L (37.0-47.0) % Plt Count 306 (160-400) X10*3/uL BMP 10/06/24 06:55 Sodium 138 Potassium 4.0 Chloride 99 Carbon Dioxide 27 BUN 68 H Creatinine 4.13 H* Calcium 8.6 D Liver Function 10/06/24 Range/Units 06:55 Total Bilirubin 0.5 (0.0-1.0) mg/dL AST 98 H (5-31) U/L ALT 55 H (0-31) U/L Alkaline Phosphatase 114 (39-117) U/L Albumin 2.9 L (3.5-5.0) g/dL Microbiology Microbiology Results: Microbiology 09/22/24 18:00 Blood - Venous Blood Culture - Final No growth after 5 days. 09/22/24 16:30 Blood - Venous Blood Culture - Final No growth after 5 days. Assessment and Plan (1) Ileus: Status: Acute (2) Acute calculous cholecystitis: Status: Acute (3) Sepsis: Status: Acute Plan Likely gallbladder sepsis now resolving from 09/22. She has leukocytosis may be ileus or from malignancy uterus or allergic reaction to Penicillin although rash seems to be gone is itchy. There is no fungal involvement either. Would stop antibiotics at this time and observe. Consider recheck surgery opinion drain if persists ? move .
--- NOTE | 2024-10-06 16:01 | PM.PNNEP ---
Subjective Subjective Date of Service: 10/06/24 Interval history: awake alert this morning ; D/W family; denies nausea, no vomiting, no shortness of breath, no fevers, no chills, no lightheadedness or dizziness no acute events overnight. Hemodynamics stable. Physical Exam Vital Signs: Vital Signs: Last Vital Signs Temp 97 F 10/06/24 15:39 Pulse 107 H 10/06/24 15:39 Resp 18 10/06/24 15:39 BP 163/65 H 10/06/24 15:39 Pulse Ox 94 10/06/24 15:39 O2 Del Method Nasal Cannula 10/06/24 15:39 O2 Flow Rate 1 10/06/24 15:39 FiO2 25 10/05/24 08:00 Oxygen Flow Rate 9 09/22/24 16:09 BMI result Body Mass Index 59.4 Const: General: no acute distress Orientation/consciousness: patient oriented x3 Eyes: EOM: EOMs intact bilaterally Resp: Auscultation: diminished lung sounds Cardio: Rate: regular rate GI: Palpation (GI): Soft to palpation Neuro: General: patient oriented x3 Objective Data Labs 10/05/24 15:47 10/06/24 06:55 Labs: Laboratory Results - last 24 hr 10/05/24 10/06/24 15:47 06:55 WBC 26.5 H RBC 2.86 L Hgb 7.8 L Hct 25.2 L MCV 88.1 MCH 27.3 MCHC 31.0 RDW 15.5 Plt Count 306 MPV 10.4 Immature Gran % (Auto) 4.9 H Neut % (Auto) 81.0 H Lymph % (Auto) 6.2 L [place] % (Auto) 4.5 Eos % (Auto) 3.2 Baso % (Auto) 0.2 Lymph # (Auto) 1.6 [place] # (Auto) 1.2 Eos # (Auto) 0.8 H Baso # (Auto) 0.1 Abs Immat Gran (auto) 1.29 H Absolute Neuts (auto) 21.4 H Absolute Nucleated RBC 0.000 Nucleated RBC % (auto) 0.0 Smear Tech's Comments VERIFIED Sodium 138 Potassium 4.0 Chloride 99 Carbon Dioxide 27 Anion Gap 16 BUN 68 H Creatinine 4.13 H* Estim Creat Clear Calc 21.0 Estimated GFR 11 Random Glucose 142 H Calcium 8.6 D Phosphorus 2.6 L Magnesium 2.2 Total Bilirubin 0.5 AST 98 H ALT 55 H Alkaline Phosphatase 114 Total Protein 6.7 Albumin 2.9 L Microbiology Microbiology Results: Microbiology 09/22/24 18:00 Blood - Venous Blood Culture - Final No growth after 5 days. 09/22/24 16:30 Blood - Venous Blood Culture - Final No growth after 5 days. Procedures Date of Service Date of Service: 10/06/24 Assessment & Plan Assessment and plan (1) CASSIE (acute kidney injury): Status: Acute Plan CASSIE due to tubular injury Hemodynamics stable No reason to supsect GN/AIN Had been tolerating renal replacement Next HD tomorrow( HD RN aware(HD orders in expanse) Shall watch closely for renal recovery Progress Note: Quality Stroke Does the patient have a stroke diagnosis?: No
[2024-10-06 18:17] LABS: CDiff Gene PCR NEGATIVE (Negative)
[2024-10-06] MEDS: Parenteral Nutrition 1,800 ML 75 ML IV (21:11)
[2024-10-07] MEDS: 0.9 % Sodium Chloride Flush 3 ML SYRINGE IVFLUSH ×3 (00:27→18:10)
[2024-10-07] MEDS: Metoclopramide HCl 10 MG/2 ML VIAL IVPUSH ×3 (00:27→18:10)
[2024-10-07 01:43] VITALS: BP 150/70; PULSE 99; RESP 20; O2SAT 99
[2024-10-07] MEDS: HYDROmorphone HCl 0.5 MG/0.5 ML SYRINGE 0.25 MG IVPUSH ×3 (01:44→21:57)
[2024-10-07 03:34] VITALS: BP 128/60; PULSE 111; RESP 19; TEMP 36.4; O2SAT 92
[2024-10-07] MEDS: Pantoprazole Sodium 40 MG/10 ML VIAL IVPUSH (06:04)
[2024-10-07 08:00] VITALS: BP 170/66; PULSE 117; RESP 20; TEMP 36.3; O2SAT 97
[2024-10-07 08:14] LABS: Hematocrit 25.1 % (37.0-47.0); Hemoglobin 7.7 g/dl (12.0-16.0); Mean Corpuscular HGB Conc 30.7 g/dl (31.0-35.0); Mean Corpuscular Hemoglobin 26.8 pg (27.0-33.0); Mean Corpuscular Volume 87.5 fL (80.0-98.0); Mean Platelet Volume 10.1 fL (9.4-12.3); NRBC Pct Auto 0.2 /100WBC (0.0-0.2); Platelet Count 353 X10*3/uL (160-400); Red Blood Count 2.87 X10*6/uL (4.20-5.50); Red Cell Distribution Width 15.9 % (11.0-16.0); White Blood Count 20.8 X10*3/uL (4.8-10.8)
[2024-10-07 08:29] LABS: Alanine Aminotransferase 72 U/L (0-31); Albumin Level 3.1 g/dL (3.5-5.0); Alkaline Phosphatase 124 U/L (39-117); Anion Gap 17 (12-20); Aspartate Amino Transferase 102 U/L (5-31); Bilirubin Total 0.4 mg/dL (0.0-1.0); Blood Urea Nitrogen 65 mg/dL (9-16); Carbon Dioxide 26 mmol/L (22-29); Chloride 102 mmol/L (96-108); Creatinine Clr Calc Pharmacy 28.1; Estimated Glomerular Filt Rate 15; Glucose Random 144 mg/dL (60-115); Phosphorus 3.6 mg/dL (2.7-4.5); Potassium 4.9 mmol/L (3.3-5.1); Sodium 140 mmol/L (135-145); Total Protein 7.4 g/dL (6.5-8.0)
--- NOTE | 2024-10-07 14:58 | P.PNIM_ITS ---
Subjective Subjective Date of Service: 10/07/24 Interval History: Being followed for acute calculous cholecystitis, ATN now receiving hemodialysis Patient denies abdominal pain, no fevers no chills, no chest pain, no palpitations tele monitor showed sinus tachycardia heart rate up to 120 Son at bedside assisted in history Review of Systems All other system reviewed and negative Physical Exam 2 Vital Signs: Vital Signs: Last Vital Signs Temp 97.3 F 10/07/24 08:00 Pulse 117 H 10/07/24 08:00 Resp 20 10/07/24 08:00 BP 170/66 H 10/07/24 08:00 Pulse Ox 97 10/07/24 08:00 O2 Del Method Nasal Cannula, Bi PAP 10/07/24 08:00 O2 Flow Rate 1 10/07/24 01:43 FiO2 25 10/05/24 08:00 Oxygen Flow Rate 9 09/22/24 16:09 BMI result Body Mass Index 59.4 Const: Other: General morbidly obese, resting comfortably in no acute distress. Neck no JVD. CVS regular rate rhythm, Respiratory lungs no respiratory distress Gastrointestinal abdomen soft, no right upper quadrant discomfort with palpation, LESLY drain with bilious drainage, bowel sounds audible, no guarding , no rigidity. Extremities no pitting edema. Neuro non focal /awake ,alert Left IJ catheter in place NG to suction Objective Data Active Medications Acetaminophen (Acetaminophen 325 Mg Tablet) 650 mg PO Q6H PRN PRN Reason: Pain, Mild (Pain Scale 1-3), fever or headache Last Admin: 09/27/24 21:37 Dose: 650 mg Documented By: YOKASTA Calcium Carbonate (Calcium Carbonate 750 Mg Tab.Chew) 750 mg PO Q4H PRN PRN Reason: Heartburn Hydralazine HCl (Hydralazine Hcl 20 Mg/Ml Vial) 10 mg IVPUSH Q6H [facility]; Protocol Last Admin: 10/05/24 15:42 Dose: Not Given Documented By: MERLINE Non-Admin Reason: Pt on evophed Hydromorphone HCl (Hydromorphone Hcl 0.5 Mg/0.5 Ml Syringe) 0.25 mg IVPUSH Q4H PRN; Protocol PRN Reason: Pain, Moderate(Pain Scale 4-6) Last Admin: 10/07/24 09:16 Dose: 0.25 mg Documented By: IVANNA Nutrition (Parenteral) (Parenteral Nutrition) 1,800 mls @ 75 mls/hr IV .Q24H [facility]; Protocol Stop: 10/07/24 20:59 Last Admin: 10/06/24 21:11 Dose: 75 mls/hr Documented By: CRISTOFER Nutrition (Parenteral) (Parenteral Nutrition) 1,800 mls @ 75 mls/hr IV .Q24H [facility]; Protocol Stop: 10/08/24 20:59 Magnesium Hydroxide (Milk Of Magnesia 30 Ml Oral.Susp) 30 ml PO DAILY PRN PRN Reason: Constipation Melatonin (Melatonin 3 Mg Tablet) 6 mg PO BEDTIME PRN PRN Reason: Insomnia Last Admin: 09/27/24 21:39 Dose: 6 mg Documented By: YOKASTA Metoclopramide HCl (Metoclopramide Hcl 10 Mg/2 Ml Vial) 10 mg IVPUSH Q8H [facility] Last Admin: 10/07/24 08:24 Dose: 10 mg Documented By: IVANNA Ondansetron HCl (Ondansetron Hcl 4 Mg/2 Ml Vial) 4 mg IVPUSH Q8H PRN PRN Reason: Nausea and Vomiting Last Admin: 10/03/24 22:43 Dose: 4 mg Documented By: STEF Pantoprazole Sodium (Pantoprazole Sodium 40 Mg/10 Ml Vial) 40 mg IVPUSH DAILY@0630 [facility] Last Admin: 10/07/24 06:04 Dose: 40 mg Documented By: CRISTOFER Pharmacy Consult (Consult Rx Parenteral Nutrition Ordering) 1 each MISCELLANE DAILY PRN PRN Reason: Consult order Polyethylene Glycol (Polyethylene Glycol 3350 17 Gm Powd.Pack) 17 gm PO DAILY PRN PRN Reason: constipation Last Admin: 09/23/24 16:28 Dose: 17 gm Documented By: DEAN Sodium Chloride (0.9 % Sodium Chloride Flush 3 Ml Syringe) 3 ml IVFLUSH QSHIFT [facility] Last Admin: 10/07/24 08:24 Dose: 3 ml Documented By: IVANNA Labs 10/07/24 07:53 10/07/24 07:53 Labs: Laboratory Results - last 24 hr 10/06/24 10/07/24 17:11 07:53 MCV 87.5 MCH 26.8 L MCHC 30.7 L RDW 15.9 Plt Count 353 MPV 10.1 Absolute Nucleated RBC 0.050 H Nucleated RBC % (auto) 0.2 Anion Gap 17 Estim Creat Clear Calc 28.1 Estimated GFR 15 Random Glucose 144 H Calcium 9.0 Phosphorus 3.6 Magnesium 2.0 Total Bilirubin 0.4 AST 102 H ALT 72 H Alkaline Phosphatase 124 H Total Protein 7.4 Albumin 3.1 L C. difficile Tox B Gene NEGATIVE Assessment and Plan (1) Ileus: Status: Acute (2) Obesity hypoventilation syndrome: Status: Acute (3) Morbid obesity: Status: Acute Plan 64-year-old lady with underlying history of morbid obesity, hypertension, asthma, uterine mass, DELANEY noncompliant with CPAP admitted on 09/22/2024 with nausea, vomiting, and abdominal pain. Patient noted to have sepsis with likely etiology being cholecystitis. Surgical consultation is obtained. Initially patient was managed conservatively. Then on 09/25/2024 she had cholecystostomy drain placed. Hospital stay complicated by development of acute hypercapnic respiratory failure on 09/28/2024 necessitating transfer to intensive care unit in application of rescue BiPAP and further development of anuria and acute kidney injury overnight 09/29. Repeat CT abdomen with ileus, but no obstruction. Acute toxic metabolic encephalopathy Resolved, was likely due to infection and uremia Continue to treat infection, and continue hemodialysis till renal recovery avoid sedating medications Acute on chronic hypercapnic respiratory failure due to obesity hypoventilation syndrome given BMI of 60 with non compliance to NIPPV and multiple sedative pain medications. Continue nocturnal BiPAP support and daytime NIPPV as needed while sleeping Avoid sedatives Acute calculus cholecystitis/persistent leukocytosis: Status post cholecystostomy tube placement, LESLY drain with minimal drainage CT abdomen suggestive of acute cholecystitis and dilated bowel loop with the possibility of partial distal colon obstruction Initially treated with Zosyn for cholecystitis developed rash therefore switch to meropenem blood cultures x2 negative , has allergy to penicillin Persistent leukocytosis received prednisone last dose , WBC trending down Blood cultures negative Case discussed with ID will discontinue meropenem, follow CBC and clinical course, C diff negative Continue cholecystostomy tube/ IV Protonix for epigastric discomfort Partial distal colon obstruction: NG tube output decreasing /had few large loose dark brown bowel movement Continue PPN for nutrition KUB 10/06 showed gas-filled loops of mildly distended bowel nonspecific no evidence of free air Will clamp NG tube /continue NPO needs speech therapy eval if no recurrent nausea vomiting will DC NG tube Acute kidney injury possibly secondary to hypo perfusion progressed to ATN from cholecystitis / partial bowel obstruction/no obstructive uropathy noted Started on hemodialysis on 10/03 Last hemodialysis on 10/05/24, scheduled for hemodialysis today Being followed by Nephrology Acute on chronic normocytic anemia, hematocrit dropped to 25, likely due to intermittent vaginal bleed and bleeding from puncture sites transfuse for hemoglobin less than 7 grams/deciliter H&H remained stable Prediabetic Blood sugars stable hold insulin. Vaginal bleed secondary to uterine mass, will continue close monitoring, if noted to have heavy bleeding will obtain OBGYN consult, patient was previously referred to [facility] OBGYN by Dr. Garcia. Super morbid Obesity. BMI 60.8 recommend low-calorie diet Sinus tachycardia asymptomatic will follow Prophylaxis: compression boots Quality Stroke Does the patient have a stroke diagnosis?: No VTE Prior VTE?: No VTE Risk Level:: Medical - moderate - high VTE Device Contraindication: N/A - Device Ordered VTE Drug Contraindication: Treatment Not Indicated
[2024-10-07 18:22] VITALS: BP 153/74; PULSE 117; RESP 18; TEMP 36.2; O2SAT 98
[2024-10-07 19:06] VITALS: BP 139/61; PULSE 113; RESP 16; TEMP 36.2; O2SAT 100
[2024-10-07] MEDS: ondansetron HCL 4 MG/2 ML VIAL IVPUSH (21:49)
[2024-10-07] MEDS: Parenteral Nutrition 1,800 ML 75 ML IV (22:01)
[2024-10-08] MEDS: Metoclopramide HCl 10 MG/2 ML VIAL IVPUSH ×3 (01:48→18:04)
[2024-10-08 03:35] VITALS: BP 155/65; PULSE 116; RESP 15; TEMP 36.2; O2SAT 97
[2024-10-08 06:00] VITALS: BMI 55.7
[2024-10-08] MEDS: Pantoprazole Sodium 40 MG/10 ML VIAL IVPUSH (06:27)
--- NOTE | 2024-10-08 07:23 | PC.NURSE ---
Patient c/o nausea, PRN zofran administered with good effect, also asked for pain medication c/o LLQ pain, dilaudid administered also with good effect. Patient continue to have small amount of blood vaginally. One episode of loose stool. NG tube present in R nare, clamped, new adhesive securement placed, to keep the tube secure in place. Max assist with repo, patient tolerated repos well. Unable to tolerated bipap, tried twice and unable to keep it on for more than 10 min. O2 sats above 90% on 2L NC
[2024-10-08 07:27] VITALS: BP 136/66; PULSE 109; RESP 14; TEMP 36.4; O2SAT 100
[2024-10-08 07:31] LABS: Alanine Aminotransferase 78 U/L (0-31); Albumin Level 2.9 g/dL (3.5-5.0); Anion Gap 13 (12-20); Aspartate Amino Transferase 102 U/L (5-31); Bilirubin Total 0.4 mg/dL (0.0-1.0); Blood Urea Nitrogen 34 mg/dL (9-16); Calcium 8.8 mg/dL (8.4-10.2); Carbon Dioxide 25 mmol/L (22-29); Chloride 104 mmol/L (96-108); Creatinine Clr Calc Pharmacy 49.9; Estimated Glomerular Filt Rate 31; Glucose Random 157 mg/dL (60-115); Magnesium 1.6 mg/dL (1.6-2.6); Phosphorus 3.1 mg/dL (2.7-4.5); Potassium 4.3 mmol/L (3.3-5.1); Sodium 138 mmol/L (135-145); Total Protein 7.1 g/dL (6.5-8.0)
[2024-10-08 07:36] LABS: Alkaline Phosphatase 119 U/L (39-117)
[2024-10-08] MEDS: 0.9 % Sodium Chloride Flush 3 ML SYRINGE IVFLUSH ×3 (09:17→21:49)
--- NOTE | 2024-10-08 12:43 | HO.PM.IMPN ---
Subjective Subjective Date of Service: 10/08/24 Interval History: History obtained via birth attendant Patient awake alert denies abdominal pain, complaining of gurgling lower abdomen, no heartburn or acidity, requesting for NG and left IJ catheter to be removed complaining of sore throat due to NG tube. Review of Systems All other system reviewed and are negative Physical Exam Vital Signs: Vital Signs: Last Vital Signs Temp 97.5 F 10/08/24 07:27 Pulse 109 H 10/08/24 07:27 Resp 14 10/08/24 07:27 BP 136/66 10/08/24 07:27 Pulse Ox 100 10/08/24 07:27 O2 Del Method Nasal Cannula 10/08/24 07:27 O2 Flow Rate 1 10/08/24 07:27 FiO2 25 10/05/24 08:00 Oxygen Flow Rate 9 09/22/24 16:09 BMI result Body Mass Index 55.7 Const: Other: General morbidly obese, resting comfortably in no acute distress. Neck no JVD. CVS regular rate rhythm, Respiratory lungs no respiratory distress Gastrointestinal abdomen soft, no right upper quadrant discomfort with palpation, LESLY drain with bilious drainage, bowel sounds audible, no guarding , no rigidity. Extremities no pitting edema. Neuro non focal /awake ,alert Left IJ catheter in place Psych appropriate affect Objective Data Active Medications Acetaminophen (Acetaminophen 325 Mg Tablet) 650 mg PO Q6H PRN PRN Reason: Pain, Mild (Pain Scale 1-3), fever or headache Last Admin: 09/27/24 21:37 Dose: 650 mg Documented By: YOKASTA Calcium Carbonate (Calcium Carbonate 750 Mg Tab.Chew) 750 mg PO Q4H PRN PRN Reason: Heartburn Hydralazine HCl (Hydralazine Hcl 20 Mg/Ml Vial) 10 mg IVPUSH Q6H [facility]; Protocol Last Admin: 10/05/24 15:42 Dose: Not Given Documented By: MERLINE Non-Admin Reason: Pt on evophed Hydromorphone HCl (Hydromorphone Hcl 0.5 Mg/0.5 Ml Syringe) 0.25 mg IVPUSH Q4H PRN; Protocol PRN Reason: Pain, Moderate(Pain Scale 4-6) Last Admin: 10/07/24 21:57 Dose: 0.25 mg Documented By: BIJU Nutrition (Parenteral) (Parenteral Nutrition) 1,800 mls @ 75 mls/hr IV .Q24H [facility]; Protocol Stop: 10/08/24 20:59 Last Admin: 10/07/24 22:01 Dose: 75 mls/hr Documented By: BIJU Nutrition (Parenteral) (Parenteral Nutrition) 1,800 mls @ 75 mls/hr IV .Q24H [facility]; Protocol Stop: 10/09/24 20:59 Magnesium Hydroxide (Milk Of Magnesia 30 Ml Oral.Susp) 30 ml PO DAILY PRN PRN Reason: Constipation Melatonin (Melatonin 3 Mg Tablet) 6 mg PO BEDTIME PRN PRN Reason: Insomnia Last Admin: 09/27/24 21:39 Dose: 6 mg Documented By: YOKASTA Metoclopramide HCl (Metoclopramide Hcl 10 Mg/2 Ml Vial) 10 mg IVPUSH Q8H [facility] Last Admin: 10/08/24 09:17 Dose: 10 mg Documented By: IVANNA Ondansetron HCl (Ondansetron Hcl 4 Mg/2 Ml Vial) 4 mg IVPUSH Q8H PRN PRN Reason: Nausea and Vomiting Last Admin: 10/07/24 21:49 Dose: 4 mg Documented By: BIJU Pantoprazole Sodium (Pantoprazole Sodium 40 Mg/10 Ml Vial) 40 mg IVPUSH DAILY@0630 [facility] Last Admin: 10/08/24 06:27 Dose: 40 mg Documented By: BIJU Pharmacy Consult (Consult Rx Parenteral Nutrition Ordering) 1 each MISCELLANE DAILY PRN PRN Reason: Consult order Polyethylene Glycol (Polyethylene Glycol 3350 17 Gm Powd.Pack) 17 gm PO DAILY PRN PRN Reason: constipation Last Admin: 09/23/24 16:28 Dose: 17 gm Documented By: DEAN Sodium Chloride (0.9 % Sodium Chloride Flush 3 Ml Syringe) 3 ml IVFLUSH QSHIFT [facility] Last Admin: 10/08/24 09:17 Dose: 3 ml Documented By: IVANNA Labs 10/07/24 07:53 10/08/24 06:41 Labs: Laboratory Results - last 24 hr 10/08/24 06:41 Hold Purple Top SEE NOTE Anion Gap 13 Estim Creat Clear Calc 49.9 Estimated GFR 31 Random Glucose 157 H Calcium 8.8 Phosphorus 3.1 Magnesium 1.6 Total Bilirubin 0.4 AST 102 H ALT 78 H Alkaline Phosphatase 119 H Total Protein 7.1 Albumin 2.9 L Assessment and Plan (1) Ileus: Status: Acute (2) Obesity hypoventilation syndrome: Status: Acute (3) Morbid obesity: Status: Acute (4) CASSIE (acute kidney injury): Status: Acute Plan 64-year-old lady with underlying history of morbid obesity, hypertension, asthma, uterine mass, DELANEY noncompliant with CPAP admitted on 09/22/2024 with nausea, vomiting, and abdominal pain. Patient noted to have sepsis with likely etiology being cholecystitis. Surgical consultation is obtained. Initially patient was managed conservatively. Then on 09/25/2024 she had cholecystostomy drain placed. Hospital stay complicated by development of acute hypercapnic respiratory failure on 09/28/2024 necessitating transfer to intensive care unit in application of rescue BiPAP and further development of anuria and acute kidney injury overnight 09/29. Repeat CT abdomen with ileus, but no obstruction. Acute toxic metabolic encephalopathy Resolved, was likely due to infection and uremia Continue to treat infection, and hemodialysis as needed. avoid sedating medications Acute on chronic hypercapnic respiratory failure due to obesity hypoventilation syndrome given BMI of 60 with non compliance to NIPPV and multiple sedative pain medications. Refusing nocturnal BiPAP and daytime NIPPV as needed while sleeping Encourage BiPAP, Avoid sedatives Acute calculus cholecystitis/persistent leukocytosis: Status post cholecystostomy tube placement, LESLY drain with minimal drainage CT abdomen suggestive of acute cholecystitis and dilated bowel loop with the possibility of partial distal colon obstruction Initially treated with Zosyn for cholecystitis developed rash therefore switch to meropenem blood cultures x2 negative , has allergy to penicillin, meropenem discontinued on 10/06 Persistent leukocytosis received prednisone last dose 09/25, WBC trending down Blood cultures negative follow CBC and clinical course, C diff negative Continue cholecystostomy tube/ IV Protonix for GI prophylaxis till NPO Partial distal colon obstruction: NG tube output decreased clamped NG tube times 24 hours, re-clamped this morning noted to have no residual therefore NG pulled out continue NPO Continue PPN for nutrition KUB on 10/06 showed gas-filled loops of mildly distended bowel nonspecific no evidence of free air speech therapy eval at a.m. Acute kidney injury possibly secondary to hypo perfusion progressed to ATN from cholecystitis / partial bowel obstruction/no obstructive uropathy noted Started on hemodialysis on 10/03 Last hemodialysis on 10/07/24, Nephrology recommend to hold hemodialysis and start 24 hours urine collection from tomorrow morning/making urine 0.17ml /hr suggestive of renal recovery Acute on chronic normocytic anemia, hematocrit dropped to 25, likely due to intermittent chronic vaginal bleed and bleeding from puncture sites transfuse for hemoglobin less than 7 grams/deciliter H&H remained stable Prediabetic Blood sugars stable hold insulin. Vaginal bleed secondary to uterine mass, will continue close monitoring, if noted to have heavy bleeding will obtain OBGYN consult, patient seen at [facility] in the past they are waiting for cardiopulmonary Clearance prior to any procedure.. Super morbid Obesity. BMI 60.8 recommend low-calorie diet Sinus tachycardia asymptomatic will follow Hypertension stable BP on IV hydralazine currently on hold, home medications including amlodipine 5 mg, lisinopril 40 mg, spironolactone 25 mg on hold. Prophylaxis: compression boots Quality Stroke Does the patient have a stroke diagnosis?: No VTE Prior VTE?: No VTE Risk Level:: Medical - moderate - high VTE Device Contraindication: N/A - Device Ordered VTE Drug Contraindication: Treatment Not Indicated
[2024-10-08 16:00] VITALS: BP 142/67; PULSE 110; RESP 16; TEMP 36.4; O2SAT 98
[2024-10-08] MEDS: HYDROmorphone HCl 0.5 MG/0.5 ML SYRINGE 0.25 MG IVPUSH (18:04)
[2024-10-08 20:00] VITALS: BP 124/57; PULSE 120; RESP 20; TEMP 36.4; O2SAT 100
[2024-10-08 21:24] LABS: Glucose, Whole Blood 158 mg/dL (60-115)
[2024-10-08 21:34] VITALS: PULSE 100; RESP 20; O2SAT 96
[2024-10-08] MEDS: Parenteral Nutrition 1,800 ML 75 ML IV (21:49)
[2024-10-09] VITALS (15 sets, daily range): BP systolic 91–142; BP diastolic 43–74; PULSE 67–117; RESP 16–22; TEMP 36.1–37.2; O2SAT 94–100; BMI 53.7
[2024-10-09] MEDS: Lactated Ringers 1,000 ML 999 ML IV (00:25)
[2024-10-09] MEDS: Metoclopramide HCl 10 MG/2 ML VIAL IVPUSH ×3 (00:27→17:07)
[2024-10-09] MEDS: Pantoprazole Sodium 40 MG/10 ML VIAL IVPUSH (06:06)
[2024-10-09 07:44] LABS: Alanine Aminotransferase 90 U/L (0-31); Albumin Level 2.8 g/dL (3.5-5.0); Alkaline Phosphatase 103 U/L (39-117); Anion Gap 12 (12-20); Aspartate Amino Transferase 101 U/L (5-31); Bilirubin Total 0.3 mg/dL (0.0-1.0); Blood Urea Nitrogen 35 mg/dL (9-16); Calcium 8.8 mg/dL (8.4-10.2); Carbon Dioxide 23 mmol/L (22-29); Chloride 109 mmol/L (96-108); Creatinine Clr Calc Pharmacy 55.3; Estimated Glomerular Filt Rate 36; Glucose Random 137 mg/dL (60-115); Magnesium 1.6 mg/dL (1.6-2.6); Phosphorus 4.3 mg/dL (2.7-4.5); Potassium 5.3 mmol/L (3.3-5.1); Sodium 139 mmol/L (135-145); Total Protein 7.1 g/dL (6.5-8.0)
[2024-10-09 07:45] LABS: Hemoglobin 6.3 g/dl (12.0-16.0); Mean Corpuscular HGB Conc 31.5 g/dl (31.0-35.0); Mean Corpuscular Hemoglobin 27.4 pg (27.0-33.0); Mean Platelet Volume 10.8 fL (9.4-12.3); NRBC Pct Auto 0.7 /100WBC (0.0-0.2); Platelet Count 309 X10*3/uL (160-400)
[2024-10-09] MEDS: 0.9 % Sodium Chloride Flush 3 ML SYRINGE IVFLUSH ×3 (08:46→20:50)
--- NOTE | 2024-10-09 08:54 | P.PNNP_ITS ---
Subjective Subjective Date of Service: 10/09/24 Interval history: Events noted Physical Exam 2 Vital Signs: Vital Signs: Last Vital Signs Temp 98.5 F 10/09/24 08:00 Pulse 115 H 10/09/24 08:00 Resp 18 10/09/24 08:00 BP 128/61 10/09/24 08:00 Pulse Ox 100 10/09/24 08:00 O2 Del Method Nasal Cannula 10/09/24 08:00 O2 Flow Rate 2 10/09/24 08:00 FiO2 25 10/05/24 08:00 Oxygen Flow Rate 9 09/22/24 16:09 BMI result Body Mass Index 53.7 Const: General: ill appearing Neck: Neck: Yes supple Resp: Auscultation: clear to auscultation bilaterally Cardio: Palpation: no palpable S3 Heart sounds: no rubs GI: Palpation (GI): Soft to palpation Auscultation: normal bowel sounds Neuro: Motor exam (neuro): no asterixis Objective Data Labs 10/09/24 06:22 10/09/24 06:22 Labs: Laboratory Results - last 24 hr 10/08/24 10/09/24 21:12 06:22 WBC 18.0 H RBC 2.30 L Hgb 6.3 L* Hct 20.0 L* D MCV 87.0 MCH 27.4 MCHC 31.5 RDW 16.0 Plt Count 309 MPV 10.8 Absolute Nucleated RBC 0.120 H Nucleated RBC % (auto) 0.7 H Sodium 139 Potassium 5.3 H D Chloride 109 H Carbon Dioxide 23 Anion Gap 12 BUN 35 H Creatinine 1.47 H Estim Creat Clear Calc 55.3 Estimated GFR 36 POC Glucose 158 H Random Glucose 137 H Calcium 8.8 Phosphorus 4.3 Magnesium 1.6 Total Bilirubin 0.3 AST 101 H ALT 90 H Alkaline Phosphatase 103 Total Protein 7.1 Albumin 2.8 L Microbiology Microbiology Results: Microbiology 09/22/24 18:00 Blood - Venous Blood Culture - Final No growth after 5 days. 09/22/24 16:30 Blood - Venous Blood Culture - Final No growth after 5 days. Procedures Date of Service Date of Service: 10/09/24 Assessment & Plan Assessment and plan (1) CASSIE (acute kidney injury): Status: Acute Plan CASSIE due to tubular injury Hemodynamics stable No reason to supsect GN/AIN Had been tolerating renal replacement Cr appears stable HOLD HD today and reassess Add Lokelma PO x 1 dose Watch K Shall watch closely for renal recovery Time Spent With Patient Time: Total time managing care of this patient today ____ minutes. Progress Note: Quality Stroke Does the patient have a stroke diagnosis?: No
--- NOTE | 2024-10-09 11:23 | MHC.CLN ---
F/U REMAINS NPO-NGT REMOVED PER MD REVIEWED LABS FIELD STAFF MANAGER PENDING SWALLOW EVAL CONTINUE PPN AT MAX GOAL RATE 75ML/HR WITH 46 G LIPIDS PROVIDES 1378 TOTAL KCALS (25KCALS/KG BASED ON IBW), 77G PROTEIN (1.4G/KG BASED ON IBW), 180G DEXTROSE REPLETE LYTES NEEDED
--- NOTE | 2024-10-09 13:38 | MHC.CM.PN ---
EMR reviewed and per MD rounds, pt is not medically cleared for discharge at this time, pt receiving a blood transfusion today.
[2024-10-09] MEDS: ondansetron HCL 4 MG/2 ML VIAL IVPUSH (14:15)
--- NOTE | 2024-10-09 14:39 | MHC.SLORD ---
Speech Language Pathology Order Status: Pt on Bipap, endorsing nausea, very lethargic. Pt son at bedside, lang interpreter services present during TRIAGE TECHNICIAN visit. Pt not appropriate for PO trials this day. TRIAGE TECHNICIAN to assess daily. Son verbalized understanding. Note: Son expressed urgency that he speak to MD about d/c plan as pt landlord had given him a deadline of 3:30pm today to decide if pt will return to her apartment. RN and MD notified of son's request.
--- NOTE | 2024-10-09 15:19 | HO.PM.IMPN ---
Subjective Subjective Date of Service: 10/09/24 Interval History: Hemoglobin 6.2 in the absence of active bleeding. No acute issues overnight Review of Systems Denies chest pain Denies shortness of breath Denies nausea vomiting diarrhea Denies fever chills Physical Exam Vital Signs: Vital Signs: Last Vital Signs Temp 97.4 F 10/09/24 14:47 Pulse 103 H 10/09/24 14:47 Resp 16 10/09/24 14:47 BP 134/62 10/09/24 14:47 Pulse Ox 100 10/09/24 08:00 O2 Del Method Nasal Cannula 10/09/24 08:00 O2 Flow Rate 2 10/09/24 08:00 FiO2 25 10/05/24 08:00 Oxygen Flow Rate 9 09/22/24 16:09 BMI result Body Mass Index 53.7 Const: Other: Awake alert BiPAP on at this time Resp: Other: Clear to auscultation bilaterally no rales rhonchi or wheezes Cardio: Other: No S4; positive S1-S2; no S3 murmurs rubs or gallops GI: Other: Obese positive bowel sounds Extrem: Other: Bilateral edema Objective Data Active Medications Acetaminophen (Acetaminophen 325 Mg Tablet) 650 mg PO Q6H PRN PRN Reason: Pain, Mild (Pain Scale 1-3), fever or headache Last Admin: 09/27/24 21:37 Dose: 650 mg Documented By: YOKASTA Calcium Carbonate (Calcium Carbonate 750 Mg Tab.Chew) 750 mg PO Q4H PRN PRN Reason: Heartburn Hydralazine HCl (Hydralazine Hcl 20 Mg/Ml Vial) 10 mg IVPUSH Q6H [facility]; Protocol Last Admin: 10/05/24 15:42 Dose: Not Given Documented By: MERLINE Non-Admin Reason: Pt on evophed Hydromorphone HCl (Hydromorphone Hcl 0.5 Mg/0.5 Ml Syringe) 0.25 mg IVPUSH Q4H PRN; Protocol PRN Reason: Pain, Moderate(Pain Scale 4-6) Last Admin: 10/08/24 18:04 Dose: 0.25 mg Documented By: IVANNA Nutrition (Parenteral) (Parenteral Nutrition) 1,800 mls @ 75 mls/hr IV .Q24H [facility]; Protocol Stop: 10/09/24 20:59 Last Infusion: 10/09/24 11:24 Dose: 0 mls/hr Documented By: JO Nutrition (Parenteral) (Parenteral Nutrition) 1,800 mls @ 75 mls/hr IV .Q24H [facility]; Protocol Stop: 10/10/24 20:59 Magnesium Hydroxide (Milk Of Magnesia 30 Ml Oral.Susp) 30 ml PO DAILY PRN PRN Reason: Constipation Melatonin (Melatonin 3 Mg Tablet) 6 mg PO BEDTIME PRN PRN Reason: Insomnia Last Admin: 09/27/24 21:39 Dose: 6 mg Documented By: YOKASTA Metoclopramide HCl (Metoclopramide Hcl 10 Mg/2 Ml Vial) 10 mg IVPUSH Q8H [facility] Last Admin: 10/09/24 08:45 Dose: 10 mg Documented By: JO Ondansetron HCl (Ondansetron Hcl 4 Mg/2 Ml Vial) 4 mg IVPUSH Q8H PRN PRN Reason: Nausea and Vomiting Last Admin: 10/09/24 14:15 Dose: 4 mg Documented By: JO Pantoprazole Sodium (Pantoprazole Sodium 40 Mg/10 Ml Vial) 40 mg IVPUSH DAILY@0630 [facility] Last Admin: 10/09/24 06:06 Dose: 40 mg Documented By: BRENDEN-CORETTA Pharmacy Consult (Consult Rx Parenteral Nutrition Ordering) 1 each MISCELLANE DAILY PRN PRN Reason: Consult order Polyethylene Glycol (Polyethylene Glycol 3350 17 Gm Powd.Pack) 17 gm PO DAILY PRN PRN Reason: constipation Last Admin: 09/23/24 16:28 Dose: 17 gm Documented By: DEAN Sodium Chloride (0.9 % Sodium Chloride Flush 3 Ml Syringe) 3 ml IVFLUSH QSHIFT [facility] Last Admin: 10/09/24 08:46 Dose: 3 ml Documented By: JO Labs 10/09/24 06:22 10/09/24 06:22 Labs: Laboratory Results - last 24 hr 10/08/24 10/09/24 10/09/24 21:12 06:22 08:45 MCV 87.0 MCH 27.4 MCHC 31.5 RDW 16.0 Plt Count 309 MPV 10.8 Absolute Nucleated RBC 0.120 H Nucleated RBC % (auto) 0.7 H Smear Path Review SEE NOTE Anion Gap 12 Estim Creat Clear Calc 55.3 Estimated GFR 36 POC Glucose 158 H Random Glucose 137 H Calcium 8.8 Phosphorus 4.3 Magnesium 1.6 Total Bilirubin 0.3 AST 101 H ALT 90 H Alkaline Phosphatase 103 Total Protein 7.1 Albumin 2.8 L Blood Type A Positive Antibody Screen NEGATIVE Crossmatch See Detail Assessment and Plan (1) Obesity hypoventilation syndrome: Status: Acute (2) CASSIE (acute kidney injury): Status: Acute Plan 64-year-old lady with underlying history of morbid obesity, hypertension, asthma, uterine mass, DELANEY noncompliant with CPAP admitted on 09/22/2024 with nausea, vomiting, and abdominal pain. Patient noted to have sepsis with likely etiology being cholecystitis. Surgical consultation is obtained. Initially patient was managed conservatively. Then on 09/25/2024 she had cholecystostomy drain placed. Hospital stay complicated by development of acute hypercapnic respiratory failure on 09/28/2024 necessitating transfer to intensive care unit in application of rescue BiPAP and further development of anuria and acute kidney injury overnight 09/29. Repeat CT abdomen with ileus, but no obstruction. 1.Acute on chronic hypercapnic respiratory failure due to obesity hypoventilation syndrome -encourage BiPAP -avoid sedating medicines 2.Acute calculus cholecystitis/persistent leukocytosis: -continue cholecystostomy tube/ IV Protonix for GI prophylaxis -follow clinically 3.Partial distal colon obstruction -NG-tube out speech following -continue PPN for nutrition 4.Acute kidney injury -hemodialysis on 10/03;last hemodialysis on 10/07/24, -renal following -follow renals/divalents 5.Acute/chronic normocytic anemia -hemoglobin 6.3 this a.m. -transfused 2 units packed red cells -follow hemoglobin in a.m. 6. Hypertension -acceptable control off therapies -reintroduced when clinically appropriate Pneumatics DNR DNI Requires ongoing hospitalization to follow renal function and transfuse as indicated Quality Stroke Does the patient have a stroke diagnosis?: No VTE Prior VTE?: No VTE Risk Level:: Medical - moderate - high VTE Device Contraindication: N/A - Device Ordered VTE Drug Contraindication: Treatment Not Indicated
[2024-10-09] MEDS: Acetaminophen 1,000 MG/100 ML PIGGYBACK 400 MG IV (20:47)
[2024-10-09] MEDS: Parenteral Nutrition 1,800 ML 75 ML IV (20:50)
[2024-10-10] VITALS (8 sets, daily range): BP systolic 134–148; BP diastolic 60–65; PULSE 80–110; RESP 16–22; TEMP 36.1–36.8; O2SAT 100
[2024-10-10] MEDS: Metoclopramide HCl 10 MG/2 ML VIAL IVPUSH ×3 (01:33→18:07)
[2024-10-10] MEDS: HYDROmorphone HCl 0.5 MG/0.5 ML SYRINGE 0.25 MG IVPUSH (02:26)
[2024-10-10 03:22] LABS: Hemoglobin 9.1 g/dl (12.0-16.0)
[2024-10-10] MEDS: Pantoprazole Sodium 40 MG/10 ML VIAL IVPUSH (06:02)
[2024-10-10 07:15] LABS: Hematocrit 28.5 % (37.0-47.0); Hemoglobin 9.1 g/dl (12.0-16.0); Mean Corpuscular HGB Conc 31.9 g/dl (31.0-35.0); Mean Corpuscular Hemoglobin 28.3 pg (27.0-33.0); Mean Corpuscular Volume 88.8 fL (80.0-98.0); Mean Platelet Volume 9.7 fL (9.4-12.3); NRBC Pct Auto 0.2 /100WBC (0.0-0.2); Platelet Count 329 X10*3/uL (160-400); Red Blood Count 3.21 X10*6/uL (4.20-5.50); White Blood Count 16.5 X10*3/uL (4.8-10.8)
[2024-10-10 07:32] LABS: Alanine Aminotransferase 82 U/L (0-31); Albumin Level 2.9 g/dL (3.5-5.0); Alkaline Phosphatase 92 U/L (39-117); Anion Gap 13 (12-20); Aspartate Amino Transferase 72 U/L (5-31); Bilirubin Total 0.4 mg/dL (0.0-1.0); Blood Urea Nitrogen 30 mg/dL (9-16); Calcium 8.5 mg/dL (8.4-10.2); Carbon Dioxide 24 mmol/L (22-29); Chloride 111 mmol/L (96-108); Creatinine Clr Calc Pharmacy 70.2; Estimated Glomerular Filt Rate 47; Glucose Random 136 mg/dL (60-115); Magnesium 1.5 mg/dL (1.6-2.6); Phosphorus 3.9 mg/dL (2.7-4.5); Potassium 4.5 mmol/L (3.3-5.1); Sodium 143 mmol/L (135-145); Total Protein 7.1 g/dL (6.5-8.0)
[2024-10-10 08:01] LABS: Band Neutrophils Percent 2 % (3-5); Basophils Abs Manual 0.2 X10*3/uL (0.0-0.2); Basophils Percent Manual 1 % (0-2); Eosinophils Absolute Manual 0.5 X10*3/uL (0.0-0.4); Eosinophils Percent Manual 3 % (0-4); Lymphocytes Absolute Manual 2.6 X10*3/uL (1.2-4.9); Lymphocytes Percent Manual 16 % (20-40); Metamyelocytes Absolute 0.2 X10*3/uL; Metamyelocytes Percent 1 %; Monocytes Absolute Manual 1.3 X10*3/uL (0.1-1.2); Monocytes Percent Manual 8 % (2-11); Myelocytes Absolute 0.2 X10*/uL; Myelocytes Percent 1 %; Neutrophils Absolute Manual 11.6 X10*3/uL (2.0-8.3); Neutrophils Percent Manual 68 % (45-73)
[2024-10-10 08:04] LABS: Hypochromasia 1+ (5-14) /OIF; Polychromasia 1+ (0-2) /OIF; RBC Morphology NOTED
[2024-10-10 08:05] LABS: Platelet Estimate NORMAL (NORMAL); Platelet Morphology Comment NORMAL
--- NOTE | 2024-10-10 09:44 | PM.GYNCN ---
OUTSOLE HANDLER - CN: HPI Data of Consult Consult date: 10/10/24 Requesting Physician: Paco Ferguson DO Primary Care Provider: Rhina Malave MD Consult Narrative Narrative: I was consulted on Monica Henry who is a 64 year old female with morbid obesity, hypertension, asthma, DELANEY noncompliant with CPAP admitted on 09/22/2024 with nausea, vomiting, and abdominal pain. Patient noted to have sepsis with likely etiology being cholecystitis and developed CASSIE. The patient gives a 2 year history of vaginal bleeding with passage of blood clots, the patient is status post 2 unit blood transfusion The patient gives history of abnormal Pap smear recent done at [facility], no records available cc:: CC: Paco Ferguson DO [facility] Past Medical History Medical History Fibromyalgia Hx of migraine headaches DELANEY (obstructive sleep apnea) Asthma Wheelchair dependent Obesity, morbid, BMI 50 or higher Pre-diabetes HTN (hypertension) Family History Family History Mother Diabetes Throat cancer Hypertension Father Hypertension Family history: reviewed and not pertinent Surgical History Surgical History History of hysteroscopy (~05/2024) Hx of colonoscopy Hx of tubal ligation Hx of section History of knee surgery Social History Social History Household Members: Children Household Members Other:: son, grandaughter Housing: Apartment Are you a primary patient care nursing assistant to a significant other at home: No Do you presently have visiting nurse or other home services: No Alcohol intake: never Patient Tobacco Use Status: Never used Tobacco e-Cigarette/Vaping Use: Never Used Second Hand Smoke Exposure: No service: No Current occupational status: disabled Sexual orientation: Straight/Heterosexual Gender identity: Female Cognitive needs: Yes Hearing needs: No Vision needs: Yes Meds Allergies Allergy/AdvReac Type Severity Reaction Status Date / Time Penicillins [PENICILLINS] Allergy Unknown ITCHING Verified 09/22/24 16:12 Active Medications: Current Medications Acetaminophen (Acetaminophen 325 Mg Tablet) 650 mg PO Q6H PRN PRN Reason: Pain, Mild (Pain Scale 1-3), fever or headache Last Admin: 09/27/24 21:37 Dose: 650 mg Calcium Carbonate (Calcium Carbonate 750 Mg Tab.Chew) 750 mg PO Q4H PRN PRN Reason: Heartburn Hydralazine HCl (Hydralazine Hcl 20 Mg/Ml Vial) 10 mg IVPUSH Q6H [facility]; Protocol Last Admin: 10/05/24 15:42 Dose: Not Given Hydromorphone HCl (Hydromorphone Hcl 0.5 Mg/0.5 Ml Syringe) 0.25 mg IVPUSH Q4H PRN; Protocol PRN Reason: Pain, Moderate(Pain Scale 4-6) Last Admin: 10/10/24 02:26 Dose: 0.25 mg Nutrition (Parenteral) (Parenteral Nutrition) 1,800 mls @ 75 mls/hr IV .Q24H [facility]; Protocol Stop: 10/10/24 20:59 Last Admin: 10/09/24 20:50 Dose: 75 mls/hr Nutrition (Parenteral) (Parenteral Nutrition) 1,800 mls @ 75 mls/hr IV .Q24H [facility]; Protocol Stop: 10/11/24 20:59 Magnesium Hydroxide (Milk Of Magnesia 30 Ml Oral.Susp) 30 ml PO DAILY PRN PRN Reason: Constipation Melatonin (Melatonin 3 Mg Tablet) 6 mg PO BEDTIME PRN PRN Reason: Insomnia Last Admin: 09/27/24 21:39 Dose: 6 mg Metoclopramide HCl (Metoclopramide Hcl 10 Mg/2 Ml Vial) 10 mg IVPUSH Q8H [facility] Last Admin: 10/10/24 01:33 Dose: 10 mg Ondansetron HCl (Ondansetron Hcl 4 Mg/2 Ml Vial) 4 mg IVPUSH Q8H PRN PRN Reason: Nausea and Vomiting Last Admin: 10/09/24 14:15 Dose: 4 mg Pantoprazole Sodium (Pantoprazole Sodium 40 Mg/10 Ml Vial) 40 mg IVPUSH DAILY@0630 [facility] Last Admin: 10/10/24 06:02 Dose: 40 mg Pharmacy Consult (Consult Rx Parenteral Nutrition Ordering) 1 each MISCELLANE DAILY PRN PRN Reason: Consult order Polyethylene Glycol (Polyethylene Glycol 3350 17 Gm Powd.Pack) 17 gm PO DAILY PRN PRN Reason: constipation Last Admin: 09/23/24 16:28 Dose: 17 gm Sodium Chloride (0.9 % Sodium Chloride Flush 3 Ml Syringe) 3 ml IVFLUSH QSHIFT [facility] Last Admin: 10/09/24 20:50 Dose: 3 ml Home Medications ?Medication ?Instructions ?Recorded ?Confirmed ?Last Taken ?Type miconazole nitrate 2 % topical 1 appl topical DAILY PRN Rash 09/23/24 09/23/24 Unknown History powder (Remedy Phytoplex Antifungal) OUTSOLE HANDLER Physical Exam Vitals Vital signs: Temp Pulse Resp BP Pulse Ox O2 Del Method O2 Flow Rate 97.4 F 100 17 148/62 H 100 Nasal Cannula 4 10/10/24 07:17 10/10/24 07:17 10/10/24 07:17 10/10/24 07:17 10/10/24 07:17 10/10/24 07:17 10/10/24 07:17 FiO2 10/05/24 08:00 BMI result Body Mass Index 53.7 Female Genitalia (Pelvic) Vulva: No lesions Vagina: Nontender and No lesions Additional Comments: Suboptimal exam since the patient is bed-bound with morbid obesity and no availability of bariatric manager strategic sourcing stretcher, cervix was not seen, no evidence of active vaginal bleeding, uterus and /or adnexa suboptimally assessed because of body habitus OUTSOLE HANDLER - Results Labs 10/10/24 06:30 10/10/24 06:30 Labs: Short CBC 10/10/24 10/10/24 Range/Units 03:11 06:30 WBC 16.5 H (4.8-10.8) X10*3/uL Hgb 9.1 L D 9.1 L (12.0-16.0) g/dl Hct 28.0 L D 28.5 L (37.0-47.0) % Plt Count 329 (160-400) X10*3/uL BMP 10/10/24 06:30 Sodium 143 Potassium 4.5 Chloride 111 H Carbon Dioxide 24 BUN 30 H Creatinine 1.16 Calcium 8.5 Liver Function 10/10/24 Range/Units 06:30 Total Bilirubin 0.4 (0.0-1.0) mg/dL AST 72 H (5-31) U/L ALT 82 H (0-31) U/L Alkaline Phosphatase 92 (39-117) U/L Albumin 2.9 L (3.5-5.0) g/dL Urine 10/03/24 Range/Units 14:29 Urine Color Yellow Urine Appearance Turbid Urine pH 5.0 (5.0-9.0) Ur Specific [place] 1.025 (1.005-1.025) Urine Protein 100 (2+) H (Neg-Trace) mg/dL Urine Glucose (UA) Negative (Negative) mg/dL Antibody Screen Antibody Screen NEGATIVE 10/09/24 08:45 Assessment and Plan (1) Postmenopausal bleeding: Status: Acute Discussed with the patient the differential diagnosis of postmenopausal bleeding with thickened endometrium including but not limited to abnormal cervical /endocervical pathology including dysplasia and/ or cancer, endometrial pathology including endometrial hyperplasia and/ or or malignancy or a endometrial polyp. Pelvic Ultrasound done at the bedside during the pelvic exam, no reports available yet ; endocervical thickness looked abnormal measured around 15 mm. Recommended referral to tertiary care center at [facility] with more available resources after the patient is medically stable and is discharged for an evaluation including but not limited to exam under anesthesia, Pap smear, colposcopy, cervical biopsy, endocervical curettage, hysteroscopy D&C possible polypectomy. Plan discussed with Dr. Ferguson
[2024-10-10] MEDS: 0.9 % Sodium Chloride Flush 3 ML SYRINGE IVFLUSH ×3 (10:27→20:16)
--- NOTE | 2024-10-10 11:19 | MHC.CLN ---
F/U REMAINS NPO REVIEWED LABS DISCUSSED WITH PHARMACY CONTINUE PPN AT MAX GOAL RATE 75ML/HR WITH 46 G LIPIDS PROVIDES 1378 TOTAL KCALS (25KCALS/KG BASED ON IBW), 77G PROTEIN (1.4G/KG BASED ON IBW), 180G DEXTROSE REPLETE LYTES NEEDED
[2024-10-10 12:34] LABS: Total Volume 24 Hour Urine 1825 mL
[2024-10-10 12:50] LABS: Creatinine, 24Hr Urine 0.9 G/Day (1.0-2.0); Creatinine, mg/dL 50.71; Protein 24 Hr Urine 748 mg/Day (<150); Protein mg/dL 41 mg/dL
--- NOTE | 2024-10-10 15:15 | P.PNIM_ITS ---
Subjective Subjective Date of Service: 10/10/24 Interval History: More alert today. Good response to packed red cells Review of Systems Denies chest pain Denies shortness of breath Denies nausea vomiting diarrhea Denies fever chills Physical Exam 2 Vital Signs: Vital Signs: Last Vital Signs Temp 97.4 F 10/10/24 07:17 Pulse 100 10/10/24 07:17 Resp 17 10/10/24 07:17 BP 148/62 H 10/10/24 07:17 Pulse Ox 100 10/10/24 07:17 O2 Del Method Nasal Cannula 10/10/24 07:17 O2 Flow Rate 4 10/10/24 07:17 FiO2 25 10/05/24 08:00 Oxygen Flow Rate 9 09/22/24 16:09 BMI result Body Mass Index 53.7 Const: Other: Awake alert BiPAP on at this time Resp: Other: Clear to auscultation bilaterally no rales rhonchi or wheezes Cardio: Other: No S4; positive S1-S2; no S3 murmurs rubs or gallops GI: Other: Obese positive bowel sounds Extrem: Other: Bilateral edema Objective Data Active Medications Acetaminophen (Acetaminophen 325 Mg Tablet) 650 mg PO Q6H PRN PRN Reason: Pain, Mild (Pain Scale 1-3), fever or headache Last Admin: 09/27/24 21:37 Dose: 650 mg Documented By: YOKASTA Calcium Carbonate (Calcium Carbonate 750 Mg Tab.Chew) 750 mg PO Q4H PRN PRN Reason: Heartburn Hydralazine HCl (Hydralazine Hcl 20 Mg/Ml Vial) 10 mg IVPUSH Q6H [facility]; Protocol Last Admin: 10/05/24 15:42 Dose: Not Given Documented By: MERLINE Non-Admin Reason: Pt on evophed Hydromorphone HCl (Hydromorphone Hcl 0.5 Mg/0.5 Ml Syringe) 0.25 mg IVPUSH Q4H PRN; Protocol PRN Reason: Pain, Moderate(Pain Scale 4-6) Last Admin: 10/10/24 02:26 Dose: 0.25 mg Documented By: NICHOLE Nutrition (Parenteral) (Parenteral Nutrition) 1,800 mls @ 75 mls/hr IV .Q24H [facility]; Protocol Stop: 10/10/24 20:59 Last Admin: 10/09/24 20:50 Dose: 75 mls/hr Documented By: NICHOLE Nutrition (Parenteral) (Parenteral Nutrition) 1,800 mls @ 75 mls/hr IV .Q24H [facility]; Protocol Stop: 10/11/24 20:59 Magnesium Hydroxide (Milk Of Magnesia 30 Ml Oral.Susp) 30 ml PO DAILY PRN PRN Reason: Constipation Melatonin (Melatonin 3 Mg Tablet) 6 mg PO BEDTIME PRN PRN Reason: Insomnia Last Admin: 09/27/24 21:39 Dose: 6 mg Documented By: YOKASTA Metoclopramide HCl (Metoclopramide Hcl 10 Mg/2 Ml Vial) 10 mg IVPUSH Q8H [facility] Last Admin: 10/10/24 10:27 Dose: 10 mg Documented By: QING Ondansetron HCl (Ondansetron Hcl 4 Mg/2 Ml Vial) 4 mg IVPUSH Q8H PRN PRN Reason: Nausea and Vomiting Last Admin: 10/09/24 14:15 Dose: 4 mg Documented By: JO Pantoprazole Sodium (Pantoprazole Sodium 40 Mg/10 Ml Vial) 40 mg IVPUSH DAILY@0630 [facility] Last Admin: 10/10/24 06:02 Dose: 40 mg Documented By: NICHOLE Pharmacy Consult (Consult Rx Parenteral Nutrition Ordering) 1 each MISCELLANE DAILY PRN PRN Reason: Consult order Polyethylene Glycol (Polyethylene Glycol 3350 17 Gm Powd.Pack) 17 gm PO DAILY PRN PRN Reason: constipation Last Admin: 09/23/24 16:28 Dose: 17 gm Documented By: DEAN Sodium Chloride (0.9 % Sodium Chloride Flush 3 Ml Syringe) 3 ml IVFLUSH QSHIFT [facility] Last Admin: 10/10/24 10:27 Dose: 3 ml Documented By: QING Labs 10/10/24 06:30 10/10/24 06:30 Labs: Laboratory Results - last 24 hr 10/09/24 10/09/24 10/10/24 08:45 11:15 06:30 MCV 88.8 MCH 28.3 MCHC 31.9 RDW 16.0 Plt Count 329 MPV 9.7 Immature Gran % (Auto) Cancelled Neut % (Auto) Cancelled Lymph % (Auto) Cancelled [place] % (Auto) Cancelled Eos % (Auto) Cancelled Baso % (Auto) Cancelled Lymph # (Auto) Cancelled [place] # (Auto) Cancelled Eos # (Auto) Cancelled Baso # (Auto) Cancelled Abs Immat Gran (auto) Cancelled Absolute Neuts (auto) Cancelled Absolute Nucleated RBC 0.030 H Nucleated RBC % (auto) 0.2 Neutrophils % (Manual) 68 Band Neutrophils % 2 L Lymphocytes % (Manual) 16 L Monocytes % (Manual) 8 Eosinophils % (Manual) 3 Basophils % (Manual) 1 Metamyelocytes % 1 Myelocytes % 1 Abs Neuts (Manual) 11.6 H Lymphocytes # (Manual) 2.6 Monocytes # (Manual) 1.3 H Eosinophils # (Manual) 0.5 H Basophils # (Manual) 0.2 Metamyelocytes # 0.2 Myelocytes # 0.2 Platelet Estimate NORMAL Plt Morphology Comment NORMAL RBC Morphology NOTED Polychromasia 1+ (0-2) Hypochromasia 1+ (5-14) Anion Gap 13 Estim Creat Clear Calc 70.2 Estimated GFR 47 Random Glucose 136 H Calcium 8.5 Phosphorus 3.9 Magnesium 1.5 L Total Bilirubin 0.4 AST 72 H ALT 82 H Alkaline Phosphatase 92 Total Protein 7.1 Albumin 2.9 L Ur 24 Hour Volume 1825 Ur Creatinine mg/dL 50.71 Ur Creatinine 24 Hour 0.9 L Ur Total Protein 24 Hr 748 H Crossmatch See Detail Assessment and Plan (1) Acute hypercapnic respiratory failure: Status: Acute (2) Obesity hypoventilation syndrome: Status: Acute (3) Acute cholecystitis: Status: Acute Plan 64-year-old lady with underlying history of morbid obesity, hypertension, asthma, uterine mass, DELANEY noncompliant with CPAP admitted on 09/22/2024 with nausea, vomiting, and abdominal pain. Patient noted to have sepsis with likely etiology being cholecystitis. Surgical consultation is obtained. Initially patient was managed conservatively. Then on 09/25/2024 she had cholecystostomy drain placed. Hospital stay complicated by development of acute hypercapnic respiratory failure on 09/28/2024 necessitating transfer to intensive care unit in application of rescue BiPAP and further development of anuria and acute kidney injury overnight 09/29. Repeat CT abdomen with ileus, but no obstruction. 1.Acute on chronic hypercapnic respiratory failure due to obesity hypoventilation syndrome -encourage BiPAP... Good results when compliance -avoid sedating medicines 2.Acute calculus cholecystitis/persistent leukocytosis: -continue cholecystostomy tube/ IV Protonix for GI prophylaxis -switch to p.o. upon DC 3.Partial distal colon obstruction -NG-tube out speech .. Follow up -continue PPN for nutrition 4.Acute kidney injury -hemodialysis on 10/03;last hemodialysis on 10/07/24, -renal following -follow renals/divalents 5.Acute/chronic normocytic anemia -hemoglobin 6.3 this a.m. -transfused 2 units packed red cells -follow hemoglobin in a.m. 6. Hypertension -acceptable control off therapies -reintroduced when clinically appropriate Pneumatics DNR DNI Requires ongoing hospitalization to follow renal function and transfuse as indicated Quality Stroke Does the patient have a stroke diagnosis?: No VTE Prior VTE?: No VTE Risk Level:: Medical - moderate - high VTE Device Contraindication: N/A - Device Ordered VTE Drug Contraindication: Treatment Not Indicated
--- NOTE | 2024-10-10 17:15 | MHC.SL.SWA ---
Speech Pathologist Impression: Risk of Aspiration Due to: Dysphasia Diet Status: Liquid Consistency and Strategies for Safe Swallow: Liquid Intake Recommendation: Thin Liquid Intake Strategies: Small Sips Unrestricted Solid Food Consistency: Dietary Recommendations: Chopped/Advanced (NDD3) Additional Modifications to Solid Foods: Oral Medication Intake: Whole with Puree Please contact the pharmacy regarding appropriate crushable or liquid drug formulations that are available whenever modified delivery is recommended. Compensatory Strategies and Precautions to be Taken for Safe Swallow: Sitting Upright (90 deg) Liquids from Cup Liquids from Straw Liquids from Spoon Small Bites and Sips Alternate Liquids/Solids Rate of Ingestion Change Oral Check Supervision While Eating and Drinking for Safe Swallow: Total Supervision (1:1) Foods to Avoid: Swallowing Recommended Treatments: Compens. Strategy Educat. Recommendation for Speech: Inpatient Speech Therapy Comment: Recommend return to diet of Chopped/Advanced Solids (NDD3) with Thin Liquids. Meds Whole with Liquid. Pt will need Close Supervision and Assistance with meals due to limited mobility. Her Family is often in the room for meals. PHYSICS TECHNICIAN will monitor tolerance. Frequency/Duration: Daily Date Range for Service Req: Admission Timeline to reassess: PRN Dairy Manufacturing Technologist Clinican/Clinical Fellow: No Supervisory Statement: I have reviewed and agree with the student/clinical fellow's documentation: N/A Speech Language Pathologist: Cornell Turcios M.A., CCC-PHYSICS TECHNICIAN
--- NOTE | 2024-10-10 18:43 | PM.PNNEP ---
Subjective Subjective Date of Service: 10/10/24 Interval history: More alert today.All recent data reviewed; Renal functions better Physical Exam Vital Signs: Vital Signs: Last Vital Signs Temp 98.2 F 10/10/24 15:41 Pulse 105 H 10/10/24 15:41 Resp 20 10/10/24 15:41 BP 134/62 10/10/24 15:41 Pulse Ox 100 10/10/24 15:41 O2 Del Method Nasal Cannula 10/10/24 15:41 O2 Flow Rate 4 10/10/24 15:41 FiO2 25 10/05/24 08:00 Oxygen Flow Rate 9 09/22/24 16:09 BMI result Body Mass Index 53.7 Const: General: comfortable and no acute distress HEENT: Head: Yes normocephalic Mouth: Normal oral and palatal mucosa present Eyes: EOM: EOMs intact bilaterally Neck: Neck: Yes supple Resp: Auscultation: clear to auscultation bilaterally Cardio: Jugular venous distension: no JVD Rate: regular rate GI: Palpation (GI): Soft to palpation Auscultation: normal bowel sounds : General: Yes no CVA tenderness Back/Spine/Pelvis: Back: no CVA tenderness Skin: General skin exam: no rashes or lesions noted Neuro: General: moves all extremities Objective Data Labs 10/10/24 06:30 10/10/24 06:30 Labs: Laboratory Results - last 24 hr 10/09/24 10/10/24 10/10/24 11:15 03:11 06:30 WBC 16.5 H RBC 3.21 L D Hgb 9.1 L D 9.1 L Hct 28.0 L D 28.5 L MCV 88.8 MCH 28.3 MCHC 31.9 RDW 16.0 Plt Count 329 MPV 9.7 Immature Gran % (Auto) Cancelled Neut % (Auto) Cancelled Lymph % (Auto) Cancelled [place] % (Auto) Cancelled Eos % (Auto) Cancelled Baso % (Auto) Cancelled Lymph # (Auto) Cancelled [place] # (Auto) Cancelled Eos # (Auto) Cancelled Baso # (Auto) Cancelled Abs Immat Gran (auto) Cancelled Absolute Neuts (auto) Cancelled Absolute Nucleated RBC 0.030 H Nucleated RBC % (auto) 0.2 Neutrophils % (Manual) 68 Band Neutrophils % 2 L Lymphocytes % (Manual) 16 L Monocytes % (Manual) 8 Eosinophils % (Manual) 3 Basophils % (Manual) 1 Metamyelocytes % 1 Myelocytes % 1 Abs Neuts (Manual) 11.6 H Lymphocytes # (Manual) 2.6 Monocytes # (Manual) 1.3 H Eosinophils # (Manual) 0.5 H Basophils # (Manual) 0.2 Metamyelocytes # 0.2 Myelocytes # 0.2 Platelet Estimate NORMAL Plt Morphology Comment NORMAL RBC Morphology NOTED Polychromasia 1+ (0-2) Hypochromasia 1+ (5-14) Sodium 143 Potassium 4.5 Chloride 111 H Carbon Dioxide 24 Anion Gap 13 BUN 30 H Creatinine 1.16 Estim Creat Clear Calc 70.2 Estimated GFR 47 Random Glucose 136 H Calcium 8.5 Phosphorus 3.9 Magnesium 1.5 L Total Bilirubin 0.4 AST 72 H ALT 82 H Alkaline Phosphatase 92 Total Protein 7.1 Albumin 2.9 L Ur 24 Hour Volume 1825 Ur Creatinine mg/dL 50.71 Ur Creatinine 24 Hour 0.9 L Ur Total Protein 24 Hr 748 H Microbiology Microbiology Results: Microbiology 09/22/24 18:00 Blood - Venous Blood Culture - Final No growth after 5 days. 09/22/24 16:30 Blood - Venous Blood Culture - Final No growth after 5 days. Procedures Date of Service Date of Service: 10/10/24 Assessment & Plan Assessment and plan (1) CASSIE (acute kidney injury): Status: Acute Plan CASSIE due to tubular injury Hemodynamics stable No reason to supsect GN/AIN Had renal replacement Renal functions better No further HD;C/W rest of mgt Progress Note: Quality Stroke Does the patient have a stroke diagnosis?: No
[2024-10-10] MEDS: Morphine Sulfate 4 MG/ML CARTRIDGE IVPUSH (18:44)
[2024-10-10] MEDS: Parenteral Nutrition 1,800 ML 75 ML IV (20:16)
[2024-10-11] VITALS (10 sets, daily range): BP systolic 119–175; BP diastolic 60–84; PULSE 84–110; RESP 14–27; TEMP 36.3–36.8; O2SAT 92–100; BMI 53.9
[2024-10-11] MEDS: Metoclopramide HCl 10 MG/2 ML VIAL IVPUSH ×2 (00:42→09:29)
[2024-10-11] MEDS: Pantoprazole Sodium 40 MG/10 ML VIAL IVPUSH (06:34)
--- NOTE | 2024-10-11 08:37 | PM.PNGS ---
Subjective Subjective Date of Service: 10/11/24 Interval history: Patient is doing well status post NG tube removal. She has mild left lower quadrant abdominal symptoms but otherwise no other abdominal complaints. Physical Exam Vital Signs: Vital Signs: Last Vital Signs Temp 97.4 F 10/11/24 07:54 Pulse 100 10/11/24 07:54 Resp 14 10/11/24 07:54 BP 143/69 H 10/11/24 07:54 Pulse Ox 100 10/11/24 07:54 O2 Del Method Nasal Cannula 10/11/24 07:54 O2 Flow Rate 3 10/11/24 07:54 FiO2 25 10/05/24 08:00 Oxygen Flow Rate 9 09/22/24 16:09 BMI result Body Mass Index 53.9 GI: Other: Very corpulent abdomen. LESLY drain in place with minimal bilious output. Abdomen is a difficult exam but benign. Objective Data Active Medications Acetaminophen (Acetaminophen 325 Mg Tablet) 650 mg PO Q6H PRN PRN Reason: Pain, Mild (Pain Scale 1-3), fever or headache Last Admin: 09/27/24 21:37 Dose: 650 mg Documented By: YOKASTA Calcium Carbonate (Calcium Carbonate 750 Mg Tab.Chew) 750 mg PO Q4H PRN PRN Reason: Heartburn Hydralazine HCl (Hydralazine Hcl 20 Mg/Ml Vial) 10 mg IVPUSH Q6H ASHLEY; Protocol Last Admin: 10/05/24 15:42 Dose: Not Given Documented By: MERLINE Non-Admin Reason: Pt on evophed Nutrition (Parenteral) (Parenteral Nutrition) 1,800 mls @ 75 mls/hr IV .Q24H ASHLEY; Protocol Stop: 10/11/24 20:59 Last Admin: 10/10/24 20:16 Dose: 75 mls/hr Documented By: ROSALINO Magnesium Hydroxide (Milk Of Magnesia 30 Ml Oral.Susp) 30 ml PO DAILY PRN PRN Reason: Constipation Melatonin (Melatonin 3 Mg Tablet) 6 mg PO BEDTIME PRN PRN Reason: Insomnia Last Admin: 09/27/24 21:39 Dose: 6 mg Documented By: YOKASTA Metoclopramide HCl (Metoclopramide Hcl 10 Mg/2 Ml Vial) 10 mg IVPUSH Q8H ASHLEY Last Admin: 10/11/24 00:42 Dose: 10 mg Documented By: NICHOLE Ondansetron HCl (Ondansetron Hcl 4 Mg/2 Ml Vial) 4 mg IVPUSH Q8H PRN PRN Reason: Nausea and Vomiting Last Admin: 10/09/24 14:15 Dose: 4 mg Documented By: JO Pantoprazole Sodium (Pantoprazole Sodium 40 Mg/10 Ml Vial) 40 mg IVPUSH DAILY@0630 [facility] Last Admin: 10/11/24 06:34 Dose: 40 mg Documented By: NICHOLE Pharmacy Consult (Consult Rx Parenteral Nutrition Ordering) 1 each MISCELLANE DAILY PRN PRN Reason: Consult order Polyethylene Glycol (Polyethylene Glycol 3350 17 Gm Powd.Pack) 17 gm PO DAILY PRN PRN Reason: constipation Last Admin: 09/23/24 16:28 Dose: 17 gm Documented By: DEAN Sodium Chloride (0.9 % Sodium Chloride Flush 3 Ml Syringe) 3 ml IVFLUSH [facility] Last Admin: 10/10/24 20:16 Dose: 3 ml Documented By: ROSALINO Labs 10/10/24 06:30 10/10/24 06:30 Labs: Laboratory Results - last 24 hr 10/09/24 11:15 Ur 24 Hour Volume 1825 Ur Creatinine mg/dL 50.71 Ur Creatinine 24 Hour 0.9 L Ur Total Protein 24 Hr 748 H Procedures Date of Service Date of Service: 10/11/24 Progress Note: A&P Assessment and plan (1) Acute calculous cholecystitis: Status: Acute (2) Chronic abdominal pain: Status: Acute Plan Continue current plan. IR drain in place for 4-6 weeks and then for contrast study to document patency of cystic duct prior to drain removal. Time Spent With Patient Time: Total time managing care of this patient today ____ minutes. Quality Stroke Does the patient have a stroke diagnosis?: No VTE Prior VTE?: No VTE Risk Level:: Medical - moderate - high VTE Device Contraindication: N/A - Device Ordered VTE Drug Contraindication: Treatment Not Indicated
[2024-10-11] MEDS: 0.9 % Sodium Chloride Flush 3 ML SYRINGE IVFLUSH ×2 (09:29→16:38)
--- NOTE | 2024-10-11 11:22 | MHC.CLN ---
F/U DIET ADVANCED TO CHOPPED PER ALTERATIONS MANAGER DISCUSSED WITH PHARMACY PT PENDING D/C TODAY PER D/C PPN WHICH WAS RUNNING AT MAX GOAL RATE 75ML/HR WITH 46 G LIPIDS PROVIDED 1378 TOTAL KCALS (25KCALS/KG BASED ON IBW), 77G PROTEIN (1.4G/KG BASED ON IBW), 180G DEXTROSE MONITOR PO INTAKE CLOSELY
--- NOTE | 2024-10-11 11:59 | MHC.SL.SWA ---
Speech Pathologist Impression: Mild oropharyngeal dysphagia Risk of Aspiration Due to: Weakness Dysphasia Diet Status: Liquid Consistency and Strategies for Safe Swallow: Liquid Intake Recommendation: Thin Liquid Intake Strategies: Small Sips Unrestricted Solid Food Consistency: Dietary Recommendations: Chopped/Advanced (NDD3) Additional Modifications to Solid Foods: Oral Medication Intake: Whole with Liquid Please contact the pharmacy regarding appropriate crushable or liquid drug formulations that are available whenever modified delivery is recommended. Compensatory Strategies and Precautions to be Taken for Safe Swallow: Sitting Upright (90 deg) Liquids from Cup Liquids from Straw Liquids from Spoon Small Bites and Sips Alternate Liquids/Solids Rate of Ingestion Change Oral Check Supervision While Eating and Drinking for Safe Swallow: Total Supervision (1:1) Foods to Avoid: Swallowing Recommended Treatments: Compens. Strategy Educat. Recommendation for Speech: Inpatient Speech Therapy Comment: Recommend Chopped/Advanced Solids (NDD3) with Thin Liquids. Meds Whole with Liquid. Close Supervision and Assistance with meals due to limited mobility/weakness. LANDSCAPE LABORER treatment indicated upon discharge to monitor tolerance, provide education and suggestions for compensatory strategies. Frequency/Duration: Daily Date Range for Service Req: Admission Timeline to reassess: PRN Roentgenologist Clinican/Clinical Fellow: No Supervisory Statement: I have reviewed and agree with the student/clinical fellow's documentation: N/A Speech Language Pathologist: Claudia Valdovinos M.S., [facility]-LANDSCAPE LABORER
[2024-10-11 12:02] LABS: Alanine Aminotransferase 72 U/L (0-31); Albumin Level 3.2 g/dL (3.5-5.0); Alkaline Phosphatase 94 U/L (39-117); Anion Gap 12 (12-20); Aspartate Amino Transferase 44 U/L (5-31); Bilirubin Total 0.3 mg/dL (0.0-1.0); Blood Urea Nitrogen 24 mg/dL (9-16); Calcium 8.7 mg/dL (8.4-10.2); Carbon Dioxide 26 mmol/L (22-29); Chloride 107 mmol/L (96-108); Creatinine Clr Calc Pharmacy 94.9; Estimated Glomerular Filt Rate > 60; Glucose Random 156 mg/dL (60-115); Magnesium 1.4 mg/dL (1.6-2.6); Phosphorus 3.3 mg/dL (2.7-4.5); Potassium 4.4 mmol/L (3.3-5.1); Sodium 141 mmol/L (135-145); Total Protein 7.9 g/dL (6.5-8.0)
--- NOTE | 2024-10-11 12:29 | P.PNIM_ITS ---
Subjective Subjective Date of Service: 10/11/24 Interval History: Tolerating diet. No acute issues. Review of Systems Denies chest pain Denies shortness of breath Denies nausea vomiting diarrhea Denies fever chills Physical Exam 2 Vital Signs: Vital Signs: Last Vital Signs Temp 98.2 F 10/11/24 12:00 Pulse 103 H 10/11/24 12:00 Resp 16 10/11/24 12:00 BP 164/74 H 10/11/24 12:00 Pulse Ox 100 10/11/24 12:00 O2 Del Method Nasal Cannula 10/11/24 12:00 O2 Flow Rate 3 10/11/24 12:00 FiO2 25 10/05/24 08:00 Oxygen Flow Rate 9 09/22/24 16:09 BMI result Body Mass Index 53.9 Const: Other: Awake alert BiPAP on at this time Resp: Other: Clear to auscultation bilaterally no rales rhonchi or wheezes Cardio: Other: No S4; positive S1-S2; no S3 murmurs rubs or gallops GI: Other: Obese positive bowel sounds Extrem: Other: Bilateral edema Objective Data Active Medications Acetaminophen (Acetaminophen 325 Mg Tablet) 650 mg PO Q6H PRN PRN Reason: Pain, Mild (Pain Scale 1-3), fever or headache Last Admin: 09/27/24 21:37 Dose: 650 mg Documented By: YOKASTA Calcium Carbonate (Calcium Carbonate 750 Mg Tab.Chew) 750 mg PO Q4H PRN PRN Reason: Heartburn Hydralazine HCl (Hydralazine Hcl 20 Mg/Ml Vial) 10 mg IVPUSH Q6H [facility]; Protocol Last Admin: 10/05/24 15:42 Dose: Not Given Documented By: MERLINE Non-Admin Reason: Pt on evophed Magnesium Sulfate (Magnesium Sulfate/H2o) 2 gm in 50 mls @ 25 mls/hr IV ONCE ONE Stop: 10/11/24 14:00 Magnesium Hydroxide (Milk Of Magnesia 30 Ml Oral.Susp) 30 ml PO DAILY PRN PRN Reason: Constipation Melatonin (Melatonin 3 Mg Tablet) 6 mg PO BEDTIME PRN PRN Reason: Insomnia Last Admin: 09/27/24 21:39 Dose: 6 mg Documented By: YOKASTA Metoclopramide HCl (Metoclopramide Hcl 10 Mg/2 Ml Vial) 10 mg IVPUSH Q8H ASHLEY Last Admin: 10/11/24 09:29 Dose: 10 mg Documented By: TRENTON Ondansetron HCl (Ondansetron Hcl 4 Mg/2 Ml Vial) 4 mg IVPUSH Q8H PRN PRN Reason: Nausea and Vomiting Last Admin: 10/09/24 14:15 Dose: 4 mg Documented By: JO Pharmacy Consult (Consult Rx Parenteral Nutrition Ordering) 1 each MISCELLANE DAILY PRN PRN Reason: Consult order Polyethylene Glycol (Polyethylene Glycol 3350 17 Gm Powd.Pack) 17 gm PO DAILY PRN PRN Reason: constipation Last Admin: 09/23/24 16:28 Dose: 17 gm Documented By: DEAN Sodium Chloride (0.9 % Sodium Chloride Flush 3 Ml Syringe) 3 ml IVFLUSH QSHIFT [facility] Last Admin: 10/11/24 09:29 Dose: 3 ml Documented By: TRENTON Labs 10/10/24 06:30 10/11/24 11:15 Labs: Laboratory Results - last 24 hr 10/09/24 10/11/24 11:15 11:15 Anion Gap 12 Estim Creat Clear Calc 94.9 Estimated GFR > 60 Random Glucose 156 H Calcium 8.7 Phosphorus 3.3 Magnesium 1.4 L* Total Bilirubin 0.3 AST 44 H ALT 72 H Alkaline Phosphatase 94 Total Protein 7.9 Albumin 3.2 L Ur 24 Hour Volume 1825 Ur Creatinine mg/dL 50.71 Ur Creatinine 24 Hour 0.9 L Ur Total Protein 24 Hr 748 H Assessment and Plan (1) Acute hypercapnic respiratory failure: Status: Acute (2) Acute cholecystitis: Status: Acute Plan 64-year-old lady with underlying history of morbid obesity, hypertension, asthma, uterine mass, DELANEY noncompliant with CPAP admitted on 09/22/2024 with nausea, vomiting, and abdominal pain. Patient noted to have sepsis with likely etiology being cholecystitis. Surgical consultation is obtained. Initially patient was managed conservatively. Then on 09/25/2024 she had cholecystostomy drain placed. Hospital stay complicated by development of acute hypercapnic respiratory failure on 09/28/2024 necessitating transfer to intensive care unit in application of rescue BiPAP and further development of anuria and acute kidney injury overnight 09/29. Repeat CT abdomen with ileus, but no obstruction. 1.Acute on chronic hypercapnic respiratory failure due to obesity hypoventilation syndrome -encourage BiPAP... Good results when compliance -avoid sedating medicines -doing well 2.Acute calculus cholecystitis/persistent leukocytosis: -continue cholecystostomy tube/ IV Protonix for GI prophylaxis -switch to p.o. upon DC -appreciate surgical input. With the least 2 been with follow up 4-6 weeks in office 3.Partial distal colon obstruction -resolved 4.Acute kidney injury -hemodialysis on 10/03;last hemodialysis on 10/07/24... Creatinine back to baseline -renal following -follow renals/divalents 5.Acute/chronic normocytic anemia -hemoglobin 6.3 this a.m. -transfused 2 units packed red cells -follow hemoglobin in a.m. 6. Hypertension -acceptable control off therapies -reintroduced when clinically appropriate Pneumatics DNR DNI Requires ongoing hospitalization to follow renal function and transfuse as indicated Quality Stroke Does the patient have a stroke diagnosis?: No VTE Prior VTE?: No VTE Risk Level:: Medical - moderate - high VTE Device Contraindication: N/A - Device Ordered VTE Drug Contraindication: Treatment Not Indicated
[2024-10-11] MEDS: Magnesium Sulfate/H2O 2 GM/50 ML PIGGYBACK IV (12:51)
--- NOTE | 2024-10-11 14:08 | MHC.CM.PN ---
EMR reviewed and per MD rounds, pt is not medically cleared for discharge today due to monitoring of renal function and awaiting PO tolerance.
[2024-10-11] MEDS: Acetaminophen 325 MG TABLET 650 MG PO (16:51)
[2024-10-11] MEDS: ondansetron HCL 4 MG/2 ML VIAL IVPUSH (22:49)
[2024-10-12] MEDS: 0.9 % Sodium Chloride Flush 3 ML SYRINGE IVFLUSH ×2 (03:03→09:13)
[2024-10-12] MEDS: Acetaminophen 325 MG TABLET 650 MG PO (03:28)
[2024-10-12 03:54] VITALS: BP 139/63; PULSE 106; RESP 139; TEMP 36.3; O2SAT 100
[2024-10-12 07:16] LABS: Alanine Aminotransferase 52 U/L (0-31); Alkaline Phosphatase 87 U/L (39-117); Anion Gap 12 (12-20); Aspartate Amino Transferase 39 U/L (5-31); Bilirubin Total 0.3 mg/dL (0.0-1.0); Blood Urea Nitrogen 17 mg/dL (9-16); Calcium 7.9 mg/dL (8.4-10.2); Carbon Dioxide 26 mmol/L (22-29); Chloride 109 mmol/L (96-108); Creatinine Clr Calc Pharmacy 114.9; Estimated Glomerular Filt Rate > 60; Glucose Random 105 mg/dL (60-115); Magnesium 1.7 mg/dL (1.6-2.6); Phosphorus 3.6 mg/dL (2.7-4.5); Potassium 4.2 mmol/L (3.3-5.1); Sodium 143 mmol/L (135-145); Total Protein 7.4 g/dL (6.5-8.0)
[2024-10-12 07:48] VITALS: BP 125/59; PULSE 92; RESP 20; TEMP 36.2; O2SAT 97
[2024-10-12] MEDS: Metoclopramide HCl 10 MG/2 ML VIAL IVPUSH (09:13)
--- NOTE | 2024-10-12 10:36 | MHC.CLN ---
F/U PO INTAKE VARIABLE RANGING FROM 0-100% DIET RX: CHOPPED PER COMPOSING ROOM MACHINIST APPRENTICE PPN D/C YESTERDAY MONITOR PO INTAKE CLOSELY
--- NOTE | 2024-10-12 12:16 | MHC.CM.PN ---
Addendum entered by Janeen Camarena RN 10/12/24 16:30: PT DISCHARGING ON NEW HOME O2 W/LAURA RUBIN MET W/PT AND SON AT BEDSIDE TO UPDATE, [facility] also updated Original Note: PT TO BE MEDICALLY CLEARED PENDING REMOVAL OF HD CATH HOME W/NEW COMFORT [facility]US [facility] FOR SN AND RESUMP OF PATIENT REGISTRATION SUPERVISOR SERVICES, [facility] FOR BLS TRANSPORT AT 5PM.
--- NOTE | 2024-10-12 14:17 | PM.DS ---
DS: Providers Provider Date of Service: 10/12/24 Date of admission: 09/22/24 21:37 Date of discharge: 10/12/24 Primary care physician: Rhina Malave MD Consults: 09/22/24 21:44 Consult to General Surgery Routine Consulting Provider: [facility] [place] [facility] Reason for consultation: calculous cholecystitis 10/01/24 11:11 Consult to Nephrology Routine Consulting Provider: [facility] [place] [facility] Reason for consultation: Acute kidney injury Has provider been notified: No 10/05/24 10:49 Consult to Wound Care Routine Reason for consultation: open area coccyx 10/06/24 06:49 Consult to Infectious Diseases Routine Consulting Provider: [facility] [place] [facility] Reason for consultation: Cholecystitis, persistent high wbc Has provider been notified: No 10/06/24 08:10 Consult to General Surgery Routine Consulting Provider: [facility] [place] [facility] Reason for consultation: colonic ileus/cholecystostomy tube Has provider been notified: No 10/10/24 02:31 Consult to Obstetrics / Gynecology Routine Consulting Provider: Roberto Garcia Reason for consultation: Anemia requiring blood transfusion, vaginal bleeding Has provider been notified: No DS: Diagnosis Discharge Diagnosis (1) Acute hypercapnic respiratory failure: Status: Acute (2) Acute cholecystitis: Status: Acute DS: Summary Hospital Course Hospital Course: History and physical as per admitting provider. This is a 64-year-old female with pertinent history of asthma not on home oxygen, hypertension, insomnia, migraine, uterine mass, hip osteoarthritis, DELANEY noncompliant with CPAP who presents to the emergency department for evaluation abdominal pain, nausea, vomiting and difficulty breathing. Patient states symptoms started 6 days prior to presentation. She has been having right upper abdominal discomfort which was initially intermittent but progressed to being constant. It was associated with nausea and multiple episodes of nonbloody emesis. Unable to tolerate p.o. intake. Also started having difficulty with breathing 2 days prior to presentation. Associated with wheezing and nonproductive cough. No history of similar abdominal discomfort before. Does endorse constipation. No fever, chills, chest pain, palpitations, changes in urinary habits. In the emergency department, patient requiring 2 L supplemental oxygen. Was found to be tachycardic with white count 19. Imaging concerning for early cholecystitis. Developed acute respiratory failure requiring BiPAP and ICU admission. Discussion with family yielded a DNR DNI designation. She was seen in consultation by surgery for the acute calculous cholecystitis. She was deemed not to be a candidate for surgery at a percutaneous cholecystostomy tube was introduced. She received 10 days of Zosyn with good results. At this point she will be discharged home with the percutaneous drain and seen in the surgery office 4-6 weeks for removal. She also presented with the acute kidney injury that ultimately required a temporary dialysis catheter and HD. Last dialysis was 1 4 and her creatinine is now back to baseline. She has been fairly compliant with her CPAP. Long discussion with son who is caregiver and he is comfortable with resuming her care at home. She will resume her home medicines and follow up with the PCP and surgery to remove drain. Her appetite was poor and she did receive short course of TPN however she was cleared by speech and her diet was adequate the last 48 hours prior to discharge. She will be discharged home to follow up with PCP and surgery as arranged Time Attestation Discharge Coordination Time (in mins): 35 Quality: Safe Use of Opioids Does Pt have an Active Cancer Diagnosis on the Problem List?: No Quality: Stroke Does the patient have a stroke diagnosis?: No Physical Exam Vital Signs: Vital Signs: Last Vital Signs Temp 97.2 F 10/12/24 07:48 Pulse 92 10/12/24 07:48 Resp 20 10/12/24 07:48 BP 125/59 L 10/12/24 07:48 Pulse Ox 97 10/12/24 07:48 O2 Del Method Nasal Cannula 10/12/24 07:48 O2 Flow Rate 5 10/12/24 07:48 FiO2 25 10/05/24 08:00 Oxygen Flow Rate 9 09/22/24 16:09 BMI result Body Mass Index 53.9 Const: Other: Awake alert BiPAP on at this time Resp: Other: Clear to auscultation bilaterally no rales rhonchi or wheezes Cardio: Other: No S4; positive S1-S2; no S3 murmurs rubs or gallops GI: Other: Obese positive bowel sounds Extrem: Other: Bilateral edema DS: Data Data Completed and Pending Labs on day of discharge: Laboratory Results - last 24 hr 10/12/24 06:37 Hold Purple Top SEE NOTE Sodium 143 Potassium 4.2 Chloride 109 H Carbon Dioxide 26 Anion Gap 12 BUN 17 H Creatinine 0.71 Estim Creat Clear Calc 114.9 Estimated GFR > 60 Random Glucose 105 Calcium 7.9 L D Phosphorus 3.6 Magnesium 1.7 Total Bilirubin 0.3 AST 39 H ALT 52 H Alkaline Phosphatase 87 Total Protein 7.4 Albumin 3.0 L Discharge Plan Discharge Anticipated Discharge Date/Time: 10/12/24 14:14 Patient Disposition: Home Health Service Discharge Diagnosis: Acute calculous cholecystitis Referrals: [facility] [Outside] - 1 Week Rhina Mcgrath MD [Primary Care Provider] - 1 Week Discharge Medications: Continued sumatriptan succinate 25 mg tablet 25 mg PO Q2-4H PRN (Reason: migraine headache) 30 Days Qty: 9 0RF Rx Instructions: do not exceed 8 doses per 24 hrs albuterol sulfate [Ventolin HFA] 90 mcg/actuation HFA aerosol inhaler 2 puff inhalation Q6H PRN (Reason: wheezing) 30 Days Qty: 18 2RF albuterol sulfate 2.5 mg /3 mL (0.083 %) solution for nebulization 2.5 mg inhalation Q6H PRN (Reason: wheezing) Qty: 90 0RF lisinopril 40 mg tablet 40 mg PO DAILY 90 Days Qty: 90 1RF amlodipine 5 mg tablet 5 mg PO DAILY 90 Days Qty: 90 1RF amitriptyline 50 mg tablet 50 mg PO BEDTIME 90 Days Qty: 90 1RF cetirizine 10 mg tablet 10 mg PO DAILY 90 Days Qty: 90 1RF spironolactone 25 mg tablet 25 mg PO DAILY 90 Days Qty: 90 1RF miconazole nitrate [Remedy Phytoplex Antifungal] 2 % powder 1 appl topical DAILY PRN (Reason: Rash) polyethylene glycol 3350 [Miralax] 17 gram/dose powder 17 g PO DAILY PRN (Reason: constipation) 30 Days Qty: 510 6RF Discharge Orders: Discharge Order (Routine); Ordered 10/12/24 Ordered By: Paco Ferguson Diet: Advance to usual diet Activity on Discharge: As tolerated Stand Alone Forms: Patient Portal Discharge page Print Language: Welsh Care Plan Goals: Resume all medication and therapies as prior to hospitalization Health Concerns: Acute cholecystitis Asthma exacerbatiion Acute hypoxic respiratory failure Plan of Treatment: Follow up with surgery in 4-6 weeks to have drain removed. Dr. Stone office will call with appointment Assessment: See discharge summary
[2024-10-12 14:40] VITALS: O2SAT 95
--- NOTE | 2024-10-12 14:56 | W.MHC.F2F ---
Service Date Service Date: 10/12/24 Encounter Date of encounter: 10/12/24 Encounter: Acute hospitalization Reasons for Services Signs and symptoms assessed: Respiratory status; compliance with CPAP machine and med management Reason for custodial: medication management, medication treatment and teach disease management Reason for occupational therapy: therapeutic exercises and restore joint function Homebound: Leaving the home is medically contraindicated at this time without the asist of a device and/or another person due th the listed conditions above and below. Reason homebound: bedbound/chairbound and unable to drive Certification: Based on the above findings, I certify that this patient is confined to the home and needs intermittent custodial care, physical therapy and/or speech therapy, or continues to need occupational therapy. The patient is under my care, and I have initiated the establishment of the plan of care. The patient will be followed by a physician who will periodically review the plan of care. Time Spent With Patient Time: Total time managing care of this patient today ____ minutes.
[2024-10-12 16:00] VITALS: BP 140/64; PULSE 112; RESP 14; TEMP 36.3; O2SAT 97
[2024-10-12 16:12] VITALS: PULSE 115; PULSE 117; PULSE 123; O2SAT 82; O2SAT 86; O2SAT 89
== END 2024-10-12 18:00 | disposition home health service (06) | DRG 444 ==
LOC: HO.ED 22:07 → HO.EDOVER 22:15 → HO.S3 23:28 → HO.ICU 09-28 11:26 → HO.IMC 10-05 17:57
PROVIDERS: Family Medicine; Hospitalist; Internal Medicine; Internal Medicine Critical Care Medicine; Internal Medicine Hypertension Specialist; Internal Medicine Pulmonary Disease; Nurse Practitioner Acute Care; Physician Assistant Medical; Physician Assistant Surgical; Registered Nurse Community Health; Student in an Organized Health Care Education/Training Program; Admitting Provider Student in an Organized Health Care Education/Training Program; Emergency Provider Emergency Medicine; PCP Internal Medicine; Visit Provider Hospitalist
PROC: 0F9430Z Drainage of Gallbladder with Drainage Device, Percutaneous Approach (ICD-10-PCS; principal; 2024-09-25 16:00)
DX: K80.00 Calculus of gallbladder with acute cholecystitis without obstruction (principal); A41.9 Sepsis, unspecified organism; G92.8 Other toxic encephalopathy; J96.21 Acute and chronic respiratory failure with hypoxia; J96.22 Acute and chronic respiratory failure with hypercapnia; N17.0 Acute kidney failure with tubular necrosis; J45.31 Mild persistent asthma with (acute) exacerbation; Z68.44 Body mass index [BMI] 60.0-69.9, adult; E66.2 Morbid (severe) obesity with alveolar hypoventilation; E87.0 Hyperosmolality and hypernatremia; K56.7 Ileus, unspecified; N95.0 Postmenopausal bleeding; D64.9 Anemia, unspecified; I10 Essential (primary) hypertension; Z71.3 Dietary counseling and surveillance; G47.00 Insomnia, unspecified; M79.7 Fibromyalgia; Z99.3 Dependence on wheelchair; Z91.199 Patient's noncompliance with other medical treatment and regimen due to unspecified reason; Z20.822 Contact with and (suspected) exposure to COVID-19; Z79.899 Other long term (current) drug therapy
CPT/HCPCS: 0241U; 36415; 36600; 49406; 71045; 74018; 74177; 76705; 76830; 78226; 80048; 80053; 80076; 81001; 82040; 82140; 82570; 82803; 82947; 83605; 83735; 83880; 84100; 84156; 84478; 84484; 85007; 85014; 85018; 85025; 85027; 85610; 86704; 86706; 86850; 86900; 86901; 86923; 87040; 87340; 87493; 90999; 92526; 92610; 93005; 94640; 94660; 97162; 99285; A9537; C1729; C1758; J0131; J0360; J1171; J1200; J1885; J1940; J2185; J2270; J2405; J2470; J2543; J2765; J2919; J3010; J3475; J7120; P9016; P9047; Q9967

== ENCOUNTER → 2024-09-22 16:11 | Outpatient (BNV) | payer OTHER, SELFPAY | PROVIDERS: Admitting Provider Student in an Organized Health Care Education/Training Program; Emergency Provider Emergency Medicine; PCP Internal Medicine; Visit Provider Internal Medicine | DX: R06.02 Shortness of breath (principal); R00.0 Tachycardia, unspecified; I45.10 Unspecified right bundle-branch block; R94.31 Abnormal electrocardiogram [ECG] [EKG] | CPT/HCPCS: 93010 ==

== ENCOUNTER → 2024-09-22 16:44 | Outpatient (BNV) | payer OTHER, SELFPAY | PROVIDERS: Emergency Provider Emergency Medicine; PCP Internal Medicine; Visit Provider Student in an Organized Health Care Education/Training Program | DX: K81.0 Acute cholecystitis (principal); J45.901 Unspecified asthma with (acute) exacerbation | CPT/HCPCS: 99223; 99232 ==

== ENCOUNTER 2024-09-22 21:37 | Outpatient (BNV) | payer OTHER, SELFPAY | END 2024-10-10 07:00 | PROVIDERS: Admitting Provider Student in an Organized Health Care Education/Training Program; Emergency Provider Emergency Medicine; PCP Internal Medicine; Visit Provider Radiology Diagnostic Radiology | DX: N85.00 Endometrial hyperplasia, unspecified (principal) | CPT/HCPCS: 76830 ==

== ENCOUNTER 2024-09-22 21:37 | Outpatient (BNV) | payer OTHER, SELFPAY | END 2024-10-05 10:27 | PROVIDERS: Admitting Provider Student in an Organized Health Care Education/Training Program; Emergency Provider Emergency Medicine; PCP Internal Medicine; Visit Provider Radiology Diagnostic Radiology | DX: Z95.9 Presence of cardiac and vascular implant and graft, unspecified (principal) | CPT/HCPCS: 71045 ==

== ENCOUNTER 2024-09-22 21:37 | Outpatient (BNV) | payer OTHER, SELFPAY | END 2024-09-28 10:00 | PROVIDERS: Admitting Provider Student in an Organized Health Care Education/Training Program; Emergency Provider Emergency Medicine; PCP Internal Medicine; Visit Provider Radiology Diagnostic Radiology | DX: I51.7 Cardiomegaly (principal); J98.11 Atelectasis | CPT/HCPCS: 71045 ==

== ENCOUNTER 2024-09-22 21:37 | Outpatient (BNV) | payer OTHER, SELFPAY | END 2024-09-30 01:00 | PROVIDERS: Admitting Provider Student in an Organized Health Care Education/Training Program; Emergency Provider Emergency Medicine; PCP Internal Medicine; Visit Provider Radiology Neuroradiology | DX: R91.8 Other nonspecific abnormal finding of lung field (principal) | CPT/HCPCS: 71045 ==

== ENCOUNTER 2024-09-22 21:37 | Outpatient (BNV) | payer OTHER, SELFPAY | END 2024-09-25 16:56 | PROVIDERS: Admitting Provider Student in an Organized Health Care Education/Training Program; Emergency Provider Emergency Medicine; PCP Internal Medicine; Visit Provider Student in an Organized Health Care Education/Training Program | DX: K81.0 Acute cholecystitis (principal) | CPT/HCPCS: 49406 ==

== ENCOUNTER 2024-09-22 21:37 | Outpatient (BNV) | payer OTHER, SELFPAY | END 2024-10-06 10:57 | PROVIDERS: Admitting Provider Student in an Organized Health Care Education/Training Program; Emergency Provider Emergency Medicine; PCP Internal Medicine; Visit Provider Radiology Vascular & Interventional Radiology | DX: R14.0 Abdominal distension (gaseous) (principal) | CPT/HCPCS: 74018 ==

== ENCOUNTER 2024-09-22 21:37 | Outpatient (BNV) | payer OTHER, SELFPAY | END 2024-10-02 17:00 | PROVIDERS: Admitting Provider Student in an Organized Health Care Education/Training Program; Emergency Provider Emergency Medicine; PCP Internal Medicine; Visit Provider Radiology Diagnostic Radiology | DX: Z95.9 Presence of cardiac and vascular implant and graft, unspecified (principal) | CPT/HCPCS: 71045 ==

== ENCOUNTER → 2024-09-22 21:37 | Outpatient (BNV) | payer OTHER, SELFPAY | PROVIDERS: Admitting Provider Student in an Organized Health Care Education/Training Program; Emergency Provider Emergency Medicine; PCP Internal Medicine; Visit Provider Registered Nurse Community Health | DX: J96.02 Acute respiratory failure with hypercapnia (principal); E66.2 Morbid (severe) obesity with alveolar hypoventilation; K81.0 Acute cholecystitis; J45.40 Moderate persistent asthma, uncomplicated; N17.9 Acute kidney failure, unspecified | CPT/HCPCS: 36556; 99291 ==

== ENCOUNTER → 2024-09-22 21:37 | Outpatient (BNV) | payer OTHER, SELFPAY | PROVIDERS: Admitting Provider Student in an Organized Health Care Education/Training Program; Emergency Provider Emergency Medicine; PCP Internal Medicine; Visit Provider Internal Medicine | DX: K56.7 Ileus, unspecified (principal); K80.00 Calculus of gallbladder with acute cholecystitis without obstruction; A41.9 Sepsis, unspecified organism | CPT/HCPCS: 99222 ==

== ENCOUNTER → 2024-09-22 21:37 | Outpatient (BNV) | payer OTHER, SELFPAY | PROVIDERS: Admitting Provider Student in an Organized Health Care Education/Training Program; Emergency Provider Emergency Medicine; PCP Internal Medicine; Visit Provider Internal Medicine Pulmonary Disease | DX: K81.0 Acute cholecystitis (principal); K56.7 Ileus, unspecified; N17.9 Acute kidney failure, unspecified; E66.2 Morbid (severe) obesity with alveolar hypoventilation | CPT/HCPCS: 99291 ==

== ENCOUNTER → 2024-09-22 21:37 | Outpatient (BNV) | payer OTHER, SELFPAY | PROVIDERS: Admitting Provider Student in an Organized Health Care Education/Training Program; Emergency Provider Emergency Medicine; PCP Internal Medicine; Visit Provider Surgery | DX: K80.00 Calculus of gallbladder with acute cholecystitis without obstruction (principal); E66.9 Obesity, unspecified | CPT/HCPCS: 99223; 99232 ==

== ENCOUNTER → 2024-09-22 21:37 | Outpatient (BNV) | payer OTHER, SELFPAY | PROVIDERS: Admitting Provider Student in an Organized Health Care Education/Training Program; Emergency Provider Emergency Medicine; PCP Internal Medicine; Visit Provider Obstetrics & Gynecology | DX: N95.0 Postmenopausal bleeding (principal) | CPT/HCPCS: 99222 ==

== ENCOUNTER → 2024-09-22 21:37 | Outpatient (BNV) | payer OTHER, SELFPAY | PROVIDERS: Admitting Provider Student in an Organized Health Care Education/Training Program; Emergency Provider Emergency Medicine; PCP Internal Medicine; Visit Provider Internal Medicine Hypertension Specialist | DX: N17.0 Acute kidney failure with tubular necrosis (principal) | CPT/HCPCS: 90935; 99223; 99232 ==

== ENCOUNTER 2024-10-18 09:09 | Outpatient (AMB) | payer OTHER, SELFPAY ==
--- NOTE | 2024-10-18 09:17 | MHC.OFFVIS ---
Intake Visit Reasons: nause, diarrhea, ULQ pain, Jasper not decreasing Intake Note: Patient scheduled today's appointment c/o; nausea, diarrhea, LUQ pain. Reports JASPER not decreasing. Patient c/o: nausea, diarrhea. Rhic Systems Safety Engineer Required: Yes Rhic Systems Safety Engineer Name: Latasha Johansen ANDRIYEligio Accompanied by: son Charles Allergies Penicillins [PENICILLINS] Allergy (Unknown, Verified 10/18/24 09:33) ITCHING Medication List - Last Reconciled 10/18/24 by Isaac Stone MD albuterol sulfate 2.5 mg (3 mL) inhalation Q6H PRN amitriptyline 50 mg PO BEDTIME 90 days amlodipine 5 mg PO DAILY 90 days cetirizine 10 mg PO DAILY 90 days lisinopril 40 mg PO DAILY 90 days miconazole nitrate 2% (Remedy Phytoplex Antifungal) 1 appl topical DAILY PRN oxycodone 5 mg PO Q6H PRN MDD 15 polyethylene glycol 3350 (Miralax) 17 grams PO DAILY PRN 30 days spironolactone 25 mg PO DAILY 90 days sumatriptan succinate 25 mg PO Q2-4H PRN 30 days Ventolin HFA 90 mcg/actuation (albuterol sulfate) 2 puffs inhalation Q6H PRN 30 days NS HPI Comments Details: Patient presents with a family member's status post recent hospitalization with a plethora of comorbidities and intercurrent medical problems as well as acute cholecystitis. Patient was in non operative candidate and underwent IR placement of cholecystostomy tube. She presents here for tube assessment. Tube was functioning well. Bilious output. She has no right upper quadrant symptoms at this time. She has other GI issues including occasional diarrhea and some nausea and vomiting. She will be followed up by her tractor trailer moving van driver regarding this. Patient was known to me from recent hospitalization [facility] Medical History Fibromyalgia Hx of migraine headaches DELANEY (obstructive sleep apnea) Asthma Wheelchair dependent Obesity, morbid, BMI 50 or higher Pre-diabetes HTN (hypertension) Surgical History History of hysteroscopy (~05/2024) Hx of colonoscopy Hx of tubal ligation Hx of section History of knee surgery Family History Mother Diabetes Throat cancer Hypertension Father Hypertension Social History Household Members: Children Household Members Other:: son, jazmine Housing: Apartment Are you a primary elderly caregiver to a significant other at home: No Do you presently have visiting nurse or other home services: No Alcohol intake: never Patient Tobacco Use Status: Never used Tobacco e-Cigarette/Vaping Use: Never Used Second Hand Smoke Exposure: No service: No Current occupational status: disabled Sexual orientation: Straight/Heterosexual Gender identity: Female Cognitive needs: Yes Hearing needs: No Vision needs: Yes Physical Exam GI Other: Very corpulent abdomen. IR drain in place. Bilious output. Abdomen otherwise benign. Assessment & Plan Assessment & Plan (1) History of insertion of cholecystostomy tube: Code(s): Z98.890 - Other specified postprocedural states Category: Surgical Plan: Current plan is to arrange for IR evaluation of the cholecystostomy tube for cystic duct patency which if present, IR can remove the tube. This was explained to the patient and her accompanying family member. They understand. They are in agreement with the plan. All questions answered. Arrangements were made for this. Patient will otherwise follow-up with me p.r.n.. Follow up appointment with the gastroenterology will also be made for the patient. Orders: Orders IR fluoroscopy <1hr Today Z98.890 - Other specified postprocedural states Coding Level of Care Code Est Pt Level 4 (37932) Diagnoses History of insertion of cholecystostomy tube Z98.890
== END 2024-10-18 09:34 | disposition home or self-care (01) ==
PROVIDERS: PCP Internal Medicine; Visit Provider Surgery
DX: Z98.890 Other specified postprocedural states (principal)
CPT/HCPCS: 99214

== ENCOUNTER 2024-10-18 11:42 | Emergency (ER) | payer OTHER, SELFPAY ==
[2024-10-18 12:08] VITALS: BP 132/90; BP 140/52; PULSE 103; PULSE 98; RESP 16; TEMP 37.1; O2SAT 100; BMI 60.6
--- NOTE | 2024-10-18 12:49 | ED.ABDPAIN ---
HPI - Abdominal Pain General Chief Complaint: Abdominal Pain Stated Complaint: ABD PAIN AROUND DRAINAGE TUBE Time Seen by Provider: 10/18/24 12:49 Source: patient and EMS Mode of arrival: EMS Limitations: no limitations History of Present Illness ED Provider: NAM HEARD PA-C HPI narrative: 64 year old [place] speaking female with pmhx significant for HTN, morbid obesity, asthma, DELANEY, migraines, fibromyalgia presents to the ED today for evaluation of right upper quadrant pain. Patient recently had cholecystectomy tube placed s/p acute cholecystitis. She states she was seen in Dr. Ramirez's office this morning for cholecystectomy tube follow-up. At that time, Dr. Ramirez noted tube was functioning well with bilious output. She did not have any right upper quadrant pain at that time. She was ultimately discharged home with plan for outpatient IR evaluation and likely tube removal. On returning home, she began having intense right upper quadrant pain which lasted for about 15 minutes before completely resolving on its own. She states she was seated for quite some time in a wheelchair prior to onset of pain. She was unsure whether her pain was due to the position that she was in. After lying down in bed at home the pain seemed to dissipate. Her family member called EMS and patient was subsequently transferred to our ED for further evaluation. At present, patient does not endorse any right upper quadrant pain. She endorses chronic nausea and diarrhea whom she follows GI for. This is not new today. Denies any other concerns at present. Denies fever, chills, abd pain, vomiting, constipation, flank pain, dysuria, hematuria. Related Data Home Medications ?Medication ?Instructions ?Recorded ?Confirmed miconazole nitrate 2 % topical 1 appl topical DAILY PRN Rash 09/23/24 10/19/24 powder (Remedy Phytoplex Antifungal) Previous Rx's ?Medication ?Instructions ?Recorded polyethylene glycol 3350 17 17 g PO DAILY PRN constipation 30 06/30/23 gram/dose oral powder (Miralax) days #510 grams sumatriptan succinate 25 mg tablet 25 mg PO Q2-4H PRN migraine 07/06/23 headache 30 days #9 tabs Ventolin HFA 90 mcg/actuation 2 puff inhalation Q6H PRN wheezing 11/23/23 aerosol inhaler (albuterol sulfate) 30 days #18 grams albuterol sulfate 2.5 mg/3 mL 2.5 mg (3 mL) inhalation Q6H PRN 05/24/24 (0.083 %) solution for nebulization wheezing #90 mL amitriptyline 50 mg tablet 50 mg PO BEDTIME 90 days #90 tabs 05/25/24 amlodipine 5 mg tablet 5 mg PO DAILY 90 days #90 tabs 05/25/24 cetirizine 10 mg tablet 10 mg PO DAILY 90 days #90 tabs 05/25/24 lisinopril 40 mg tablet 40 mg PO DAILY 90 days #90 tabs 05/25/24 spironolactone 25 mg tablet 25 mg PO DAILY 90 days #90 tabs 06/14/24 oxycodone 5 mg tablet 5 mg PO Q6H PRN pain #20 tabs 10/12/24 ondansetron 4 mg disintegrating 4 mg PO DAILY PRN nausea and 10/18/24 tablet vomiting 5 days #10 tabs Lactobacillus rhamnosus GG 10 1 cap PO DAILY 30 days #30 caps 10/19/24 billion cell capsule (Culturelle) omeprazole 20 mg capsule,delayed 20 mg PO BID 60 days #120 caps 10/19/24 release Allergies Allergy/AdvReac Type Severity Reaction Status Date / Time Penicillins [PENICILLINS] Allergy Unknown ITCHING Verified 10/19/24 11:59 Review of Systems Review of Systems Constitutional: No fever, chills, fatigue, night sweats, weight changes ENT/Mouth: No ear pain, hearing loss, nasal congestion, sinus pain, rhinorrhea, sore throat Eyes: No eye pain, swelling, redness, vision changes, discharge Cardio: No chest pain, palpitations, COYLE, orthopnea, peripheral edema Pulm: No SOB, cough, sputum, wheezing, dyspnea, hemoptysis GI: No nausea, vomiting, hematemesis, abdominal pain, diarrhea, constipation, hematochezia, melena : No irregular bleeding, dysuria, frequency, urgency, hesitancy, hematuria, flank pain, urinary flow changes, urinary incontinence or retention MSK: No back pain, neck pain, joint pain, myalgias Skin: No lesions, rashes Neuro: No weakness, numbness, paresthesias, LOC, dizziness, headache Psych: No anxiety/panic, depression, SI/HI, AH/VH All other systems reviewed and are negative. [facility] Past Medical History Attestation statement: The following information was validated with the patient. Source: old records reviewed and nursing notes reviewed Medical History Fibromyalgia Hx of migraine headaches DELANEY (obstructive sleep apnea) Asthma Wheelchair dependent Obesity, morbid, BMI 50 or higher Pre-diabetes HTN (hypertension) Surgical History History of hysteroscopy (~05/2024) Hx of colonoscopy Hx of tubal ligation Hx of section History of knee surgery Family History Family History Mother Diabetes Throat cancer Hypertension Father Hypertension Social History Social History Household Members: Children Household Members Other:: son, grandaughter Housing: Apartment Are you a primary rn care transition to a significant other at home: No Do you presently have visiting nurse or other home services: No Alcohol intake: never Patient Tobacco Use Status: Never used Tobacco e-Cigarette/Vaping Use: Never Used Second Hand Smoke Exposure: No service: No Current occupational status: disabled Sexual orientation: Straight/Heterosexual Gender identity: Female Cognitive needs: Yes Hearing needs: No Vision needs: Yes Physical Exam ED Vital Signs: Vital Signs - 24 hr 10/18/24 12:08 Temperature 98.7 F Pulse Rate 103 H Respiratory Rate 16 Blood Pressure 140/52 H Pulse Oximetry 100 Oxygen Delivery Method Nasal Cannula BMI result Body Mass Index 60.6 tachycardic, hypertensive, afebrile General: Well appearing, in no acute distress. Skin: Warm, dry, intact. No rashes or lesions. Head: Normocephalic, atraumatic. EENT: Hearing is intact b/l. Conjunctiva clear. Sclera is anicteric. PERRLA. Moist mucous membranes.? Neck: Supple without LAD Cardiac: Chest wall symmetric. RRR Lungs: Normal respiratory effort without accessory muscle use. CTA bilaterally Abdomen: Obese abdomen, soft, nondistended, nontender to palpation. No rebound tenderness or guarding. Cholecystectomy tube placed to right upper quadrant, draining bilious fluid. no signs of infection. no acute blood. + Ext: Upper and lower extremities atraumatic, without tenderness, deformity, swelling or erythema Neuro: AOx3. Normal speech. Psych: Appropriate mood and affect. Responds appropriately to questions. Course Course Course Narrative: 1300 -- I spoke with Dr. Ramirez - recommending basic labs to r/o any acute process. No imaging warranted at this time. CBC without leukocytosis or left shift. chronic anemia, around baseline when compared to priors. h&h above transfusion threshold. patient admits to requiring blood transfusions in the past d/t symptomatic anemia secondary to vaginal bleeding. she denies and fatigue, sob, chest pain, syncope. no currently bleeding. no blood noted in stools. no blood in LESLY drain. magnesium of 1.2 - repletion ordered. no other acute electrolyte abnormality requiring intervention. no deep. liver function wnl. > work up reassuring. no concern for acute cholecystectomy tube complication. draining appropriately in ED. on arrival, LESLY drain full. my suspicion is patient's discomfort was secondary to full LESLY drain. advised patient to empty drain when she sees that it is full. i do not feel as though imaging is warranted at this time. she continues to decline any pain. will have her follow up with gen surg and GI outpatient as scheduled. Patient has remained stable throughout ED visit today. Discussed worrisome signs and symptoms and when to return to the ED. All questions answered at this time. Patient is agreeable with disposition and stable for discharge. Medical Decision Making Medical Decision Making [facility] Narrative: 64 year old [place] speaking female with pmhx significant for HTN, morbid obesity, asthma, DELAENY, migraines, fibromyalgia presents to the ED today for evaluation of right upper quadrant pain. patient hypertensive and tachycardic. vitals otherwise wnl. on exam, obese abdomen, soft, nondistended, nontender to palpation. No rebound tenderness or guarding. Cholecystectomy tube placed to right upper quadrant, draining bilious fluid. no signs of infection. no acute blood. Differential diagnosis includes anemia, electrolyte abnormality, biliary colic, cholecystitis, blocked LESLY drain. Unlikely pancreatitis, appendicitis, acute abdomen. Plan for basic labs, re-evaluation. Differential Diagnosis Differential Diagnoses: The differential diagnosis associated with the presentation includes as above. Admission/Observation not indicated. Consult Healthcare Provider general surgery - dr. ramirez Lab Data [facility] Lab Attestation statement: I reviewed the patient's lab results. as above. 10/18/24 13:42 10/18/24 13:42 Labs: Lab Results 10/18/24 Range/Units 13:42 WBC 10.3 (4.8-10.8) X10*3/uL RBC 2.93 L (4.20-5.50) X10*6/uL Hgb 8.2 L (12.0-16.0) g/dl Hct 27.3 L (37.0-47.0) % MCV 93.2 (80.0-98.0) fL MCH 28.0 (27.0-33.0) pg MCHC 30.0 L (31.0-35.0) g/dl RDW 16.9 H (11.0-16.0) % Plt Count 228 D (160-400) X10*3/uL MPV 9.3 L (9.4-12.3) fL Immature Gran % (Auto) 0.4 (0.0-0.4) % Neut % (Auto) 62.4 (45-73) % Lymph % (Auto) 20.5 (20-40) % Morrison % (Auto) 11.3 H (2-11) % Eos % (Auto) 4.7 H (0-4) % Baso % (Auto) 0.7 (0-2) % Lymph # (Auto) 2.1 (1.2-4.9) X10*3/uL Morrison # (Auto) 1.2 (0.1-1.2) X10*3/uL Eos # (Auto) 0.5 H (0.0-0.4) X10*3/uL Baso # (Auto) 0.1 (0.0-0.2) X10*3/uL Abs Immat Gran (auto) 0.04 H (0.00-0.03) X10*3/uL Absolute Neuts (auto) 6.4 (2.0-8.3) x10*3/uL Absolute Nucleated RBC 0.000 (0.0-0.012) X10*3/uL Nucleated RBC % (auto) 0.0 (0.0-0.2) /100WBC Sodium 142 (135-145) mmol/L Potassium 4.4 (3.3-5.1) mmol/L Chloride 109 H (96-108) mmol/L Carbon Dioxide 30 H (22-29) mmol/L Anion Gap 7 L (12-20) BUN 10 (9-16) mg/dL Creatinine 0.77 (0.5-1.4) mg/dL Estim Creat Clear Calc 114.3 Estimated GFR > 60 Random Glucose 101 (60-115) mg/dL Calcium 6.8 L D (8.4-10.2) mg/dL Magnesium 1.2 L* (1.6-2.6) mg/dL Total Bilirubin 0.4 (0.0-1.0) mg/dL AST 30 (5-31) U/L ALT 26 (0-31) U/L Alkaline Phosphatase 91 (39-117) U/L Total Protein 8.0 (6.5-8.0) g/dL Albumin 3.3 L (3.5-5.0) g/dL Lipase 64 (8-78) U/L External Record Review External record reviewed: Inpatient record, Office record, Outpatient record, Prior outpatient labs, Prior outpatient radiology, Primary care record and Outside ED record Prescription Management I considered prescription management with: Pain Medication Social Determinants Patient?s care significantly limited by Social Determinants of Health including: Other Social Determinant of Health Medications Administered Discontinued Medications Generic Name Dose Route Start Last Admin Trade Name Freq PRN Reason Stop Dose Admin Magnesium Sulfate 2 gm in 50 mls @ 150 mls/hr 10/18/24 15:09 10/18/24 16:08 Magnesium Sulfate/H2o IV 10/18/24 15:28 150 mls/hr ONCE ONE Administration Ondansetron HCl 4 mg 10/18/24 15:49 10/18/24 16:08 Ondansetron Hcl 4 Mg/2 Ml Vial IVPUSH 10/18/24 15:50 4 mg ONCE ONE Administration Critical Care Time Critical Care Time Critical Care Time: No Discharge Plan Discharge Clinical Impression: Abdominal pain, History of insertion of cholecystostomy tube Patient Disposition: Home, Self-Care Instructions: Abdominal Pain (ED) Additional Instructions: You were evaluated in the ED today for right upper abdominal pain. Pain had resolved without intervention. I suspect your discomfort was due to your LESLY drain being too full. I advise you to empty your LESLY drain when you see that it is full to prevent any back up of fluid/ pressure. Your LESLY drain was emptied in ED today. Gladis has been sent to your pharmacy to help with your nausea. Follow up with your GI specialist and general surgeon as planned. Your blood work showed low magnesium levels, otherwise reassuring. You received magnesium in ED today. Please follow up with PCP for repeat blood work to ensure your magnesium levels stay normal. Return with any new or worsening symptoms. In the case of an emergency call 911. Prescriptions: New ondansetron 4 mg tablet,disintegrating 4 mg PO DAILY PRN (Reason: nausea and vomiting) 5 Days Qty: 10 0RF No Action sumatriptan succinate 25 mg tablet 25 mg PO Q2-4H PRN (Reason: migraine headache) 30 Days Qty: 9 0RF Rx Instructions: do not exceed 8 doses per 24 hrs albuterol sulfate [Ventolin HFA] 90 mcg/actuation HFA aerosol inhaler 2 puff inhalation Q6H PRN (Reason: wheezing) 30 Days Qty: 18 2RF albuterol sulfate 2.5 mg /3 mL (0.083 %) solution for nebulization 2.5 mg inhalation Q6H PRN (Reason: wheezing) Qty: 90 0RF lisinopril 40 mg tablet 40 mg PO DAILY 90 Days Qty: 90 1RF amlodipine 5 mg tablet 5 mg PO DAILY 90 Days Qty: 90 1RF amitriptyline 50 mg tablet 50 mg PO BEDTIME 90 Days Qty: 90 1RF cetirizine 10 mg tablet 10 mg PO DAILY 90 Days Qty: 90 1RF spironolactone 25 mg tablet 25 mg PO DAILY 90 Days Qty: 90 1RF miconazole nitrate [Remedy Phytoplex Antifungal] 2 % powder 1 appl topical DAILY PRN (Reason: Rash) oxycodone 5 mg tablet 5 mg PO Q6H MDD 15 PRN (Reason: pain) Qty: 20 0RF Rx Instructions: Partial Fill upon patient request. polyethylene glycol 3350 [Miralax] 17 gram/dose powder 17 g PO DAILY PRN (Reason: constipation) 30 Days Qty: 510 6RF omeprazole 20 mg capsule,delayed release(DR/EC) 20 mg PO BID 60 Days Qty: 120 3RF Culturelle 10 billion cell capsule 1 cap PO DAILY 30 Days Qty: 30 3RF Referrals: Rhina Mcgrath MD [Primary Care Provider] - Isaac Ramirez MD [Physician] - Discharge Date/Time: 10/19/24 08:07 Print Language: Tanzanian
[2024-10-18 13:46] LABS: MANUAL DIFF FLAG NO
[2024-10-18 13:47] LABS: Basophils Absolute Auto 0.1 X10*3/uL (0.0-0.2); Basophils Percent Auto 0.7 % (0-2); Eosinophils Absolute Auto 0.5 X10*3/uL (0.0-0.4); Eosinophils Percent Auto 4.7 % (0-4); Hematocrit 27.3 % (37.0-47.0); Hemoglobin 8.2 g/dl (12.0-16.0); Imm Gran Abs Auto 0.04 X10*3/uL (0.00-0.03); Imm Gran Pct Auto 0.4 % (0.0-0.4); Lymphocytes Absolute Auto 2.1 X10*3/uL (1.2-4.9); Lymphocytes Percent Auto 20.5 % (20-40); Mean Corpuscular Volume 93.2 fL (80.0-98.0); Mean Platelet Volume 9.3 fL (9.4-12.3); Monocytes Absolute Auto 1.2 X10*3/uL (0.1-1.2); Monocytes Percent Auto 11.3 % (2-11); Neutrophils Absolute Auto 6.4 x10*3/uL (2.0-8.3); Neutrophils Percent Auto 62.4 % (45-73); Platelet Count 228 X10*3/uL (160-400); Red Blood Count 2.93 X10*6/uL (4.20-5.50); Red Cell Distribution Width 16.9 % (11.0-16.0); White Blood Count 10.3 X10*3/uL (4.8-10.8)
[2024-10-18 14:18] LABS: Alanine Aminotransferase 26 U/L (0-31); Albumin Level 3.3 g/dL (3.5-5.0); Alkaline Phosphatase 91 U/L (39-117); Anion Gap 7 (12-20); Aspartate Amino Transferase 30 U/L (5-31); Bilirubin Total 0.4 mg/dL (0.0-1.0); Blood Urea Nitrogen 10 mg/dL (9-16); Calcium 6.8 mg/dL (8.4-10.2); Carbon Dioxide 30 mmol/L (22-29); Chloride 109 mmol/L (96-108); Creatinine Clr Calc Pharmacy 114.3; Estimated Glomerular Filt Rate > 60; Glucose Random 101 mg/dL (60-115); Lipase 64 U/L (8-78); Magnesium 1.2 mg/dL (1.6-2.6); Potassium 4.4 mmol/L (3.3-5.1); Sodium 142 mmol/L (135-145)
[2024-10-18] MEDS: Magnesium Sulfate/H2O 2 GM/50 ML PIGGYBACK IV (16:08)
[2024-10-18] MEDS: ondansetron HCL 4 MG/2 ML VIAL IVPUSH (16:08)
== END 2024-10-19 08:07 | disposition home or self-care (01) ==
PROVIDERS: Physician Assistant Medical; Emergency Provider Student in an Organized Health Care Education/Training Program; PCP Internal Medicine
DX: R10.2 Pelvic and perineal pain (principal); R10.11 Right upper quadrant pain; Z79.899 Other long term (current) drug therapy
CPT/HCPCS: 36415; 80053; 83690; 83735; 85025; 96374; 96375; 99212; 99282; 99284; J2405; J3475

== ENCOUNTER 2024-10-19 11:40 | Outpatient (AMB) | payer OTHER, SELFPAY ==
[2024-10-19 11:58] VITALS: BP 126/58; PULSE 92; O2SAT 100
--- NOTE | 2024-10-19 11:58 | MHC.OFFVIS ---
Vital Signs 10/19/24 11:58 Height 5 ft 4 in BP 126/58 L Blood Pressure Location Lt radial Position Sitting Pulse 92 Pulse Source Pulse Oximeter Pulse Oximetry (%) 100 Oxygen Delivery Method Nasal Cannula Oxygen Flow Rate 2 Comment Wheelchair bound Intake Visit Reasons: Nauseas & diarrhea Intake Note: ESTABLISHED PATIENT Reason; Re Est. JM Pt. Last seen 01/2024. Changes/concerns? LUQ Pain and diarrhea. Dry Heat Room Attendant Required: Yes Dry Heat Room Attendant Name: [id number] Cynthia. Allergies Penicillins [PENICILLINS] Allergy (Unknown, Verified 12/04/24 16:53) ITCHING Medication List - Last Reconciled 10/19/24 by Dex Carr MD albuterol sulfate 2.5 mg (3 mL) inhalation Q6H PRN amitriptyline 50 mg PO BEDTIME 90 days amlodipine 5 mg PO DAILY 90 days cetirizine 10 mg PO DAILY 90 days lisinopril 40 mg PO DAILY 90 days miconazole nitrate 2% (Remedy Phytoplex Antifungal) 1 appl topical DAILY PRN ondansetron 4 mg PO DAILY PRN 5 days oxycodone 5 mg PO Q6H PRN MDD 15 polyethylene glycol 3350 (Miralax) 17 grams PO DAILY PRN 30 days spironolactone 25 mg PO DAILY 90 days sumatriptan succinate 25 mg PO Q2-4H PRN 30 days Ventolin HFA 90 mcg/actuation (albuterol sulfate) 2 puffs inhalation Q6H PRN 30 days NS HPI HPI Nauseas & diarrhea: Details: GI clinic visit for this 64 YF with morbid obesity, asthma on home oxygen (2L/min by [place]), hypertension, insomnia, migraine, uterine mass, hip osteoarthritis, DELANEY noncompliant with CPAPfor nausea and diarrhea Patient was previously followed by Mickie Ryan. Pt was hospitalized at [facility] [place] 09/22/24 to 10/12/24: 64-year-old female with pertinent history of asthma not on home oxygen, hypertension, insomnia, migraine, uterine mass, hip osteoarthritis, DELANEY noncompliant with CPAP who presents to the emergency department for evaluation abdominal pain, nausea, vomiting and difficulty breathing. Patient states symptoms started 6 days prior to presentation. She has been having right upper abdominal discomfort which was initially intermittent but progressed to being constant. It was associated with nausea and multiple episodes of non-bloody emesis. Unable to tolerate p.o. intake. Also started having difficulty with breathing 2 days prior to presentation. Associated with wheezing and nonproductive cough. No history of similar abdominal discomfort before. Does endorse constipation. No fever, chills, chest pain, palpitations, changes in urinary habits. In the emergency department, patient requiring 2 L supplemental oxygen. Was found to be tachycardic with white count 19. Imaging concerning for early cholecystitis. Developed acute respiratory failure requiring BiPAP and ICU admission. Discussion with family yielded a DNR DNI designation. She was seen in consultation by surgery for the acute calculous cholecystitis. She was deemed not to be a candidate for surgery at a percutaneous cholecystostomy tube was introduced. She received 10 days of Zosyn with good results. She was transfused 2 U of PRBC on 10/09/24 due to a decrease in H &H to 6.3 & 20 without overt bleeding with appropriate increase post transfusion. At this point she will be discharged home with the percutaneous drain and seen in the surgery office 4-6 weeks for removal. She also presented with the acute kidney injury that ultimately required a temporary dialysis catheter and HD. Last dialysis was 1 4 and her creatinine is now back to baseline. She has been fairly compliant with her CPAP. Long discussion with son who is caregiver and he is comfortable with resuming her care at home. She will resume her home medicines and follow up with the PCP and surgery to remove drain. Her appetite was poor and she did receive short course of TPN however she was cleared by speech and her diet was adequate the last 48 hours prior to discharge. She will be discharged home to follow up with PCP and surgery as arranged TODAY'S VISIT: Pt is accompanied by her son, Charles, who is also her SCAFFOLD WORKER. Pt weighs 328 lbs (BMI of 60) - lost 22 lbs during her recent hospitalization Complains of abdominal pain and diarrhea x 2 weeks - had diarrhea while in the hospital Pt complains of LUQ pain (8/10) and radiates to the back - intermittent after she eats Had 10 BMs a day - diarrhea is improving and had two BMs today No relieving factors Complains of heart burn and not on any PPI Had constipation in the past and was treated with enemas On IV nutrition during hospitalization while in ICU At present she is taking a light diet - bashir Feels full after eating rice and solid food Discharged on 2 litres of oxygen Pt has asthma and denies major cardiac or pulmonary problems, and admits to loud snoring and sleep apnea and being scheduled for a sleep study Denies problems with anesthesia in the past. Denies being on chronic anticoagulation. Patient denies known family history of colon polyps, colon cancer or other GI malignancies. PAST EGD/COLONOSCOPY: Colonoscopy > 10 yrs ago at [facility] [place] polyps were removed. Never had an EGD LABS IN [facility] : Reviewed IMAGING STUDIES: 09/[address] SCAN SHOWED: 1. Dilated and fluid-filled small bowel loops with air-fluid levels. Mildly dilated right colon and transverse colon with air-fluid levels. The descending, sigmoid colon, and rectum are nondistended. No definite transition point. Findings are thought to represent ileus. A distal colonic partial obstruction could be considered in the appropriate clinical setting. No significant bowel wall thickening or inflammatory change. 2. Trace right hepatic ascites, new when compared to the prior examination. No organized fluid collection or abscess formation. 3. Dilated gallbladder with multiple gallstones and associated wall thickening as well as mild adjacent inflammatory change, slightly decreased when compared to the prior examination. Findings are consistent with acute cholecystitis. No evidence of perforation. 4. Bibasilar atelectasis versus infiltrates, slightly increased when compared to the prior examination. PAST GI HISTORY BY REVIEW OF MEDICAL RECORDS: 01/2024 PT WAS LAST SEEN BY ROSEANN LYMAN: A 63 y/o obese female w/c assisted referred back for colonoscopy- accompanied by SCAFFOLD WORKER and granddaughter Seen last nov-with LLQ pain- we had ordered abdominal CT however it was not authorized by insurance- pretty much resolved- She has occ. Nonspecific abdominal pain- nothing brings it on- or makes worse or better- alternating stool pattern-has been typical for her for many years Appetite is good She has no other GI or general complaints No nausea, vomiting, hematemesis, hematochezia fever or chills Dry Heat Room Attendant device Morbidly obese-wheelchair dependent-difficult to assess CT ordered last visit for chronic abdominal pain has a denied MiraLax Colace daily may had try to tweak that SCAFFOLD WORKER present he is unable to give detail as well [facility] Medical History (Updated 12/04/24 @ 16:52 by Shellie Varghese RN) On home oxygen therapy Chronic hypoxemic respiratory failure Obesity hypoventilation syndrome Morbid obesity Fibromyalgia Hx of migraine headaches DELANEY (obstructive sleep apnea) Asthma Wheelchair dependent Obesity, morbid, BMI 50 or higher Pre-diabetes HTN (hypertension) Chronic abdominal pain Moderate persistent asthma Obstructive sleep apnea Obesity Essential hypertension Surgical History History of hysteroscopy (~05/2024) Hx of colonoscopy Hx of tubal ligation Hx of section History of knee surgery Family History Mother Diabetes Throat cancer Hypertension Father Hypertension Social History (Updated 12/04/24 @ 16:51 by Shellie Varghese RN) Household Members: Children Household Members Other:: son, jazmine Housing: Apartment Are you a primary doggy daycare activities director to a significant other at home: No Do you presently have visiting nurse or other home services: Yes (son SCAFFOLD WORKER 24/7) Alcohol intake: never Patient Tobacco Use Status: Never used Tobacco e-Cigarette/Vaping Use: Never Used Second Hand Smoke Exposure: No service: No Current occupational status: disabled Sexual orientation: Straight/Heterosexual Gender identity: Female Cognitive needs: Yes (wheelchair) Hearing needs: No Vision needs: Yes Review of Systems Const Reports fatigue, Denies fever(s), Denies headache(s) and Reports weight loss (of 22 lbs) Eyes Denies eye discharge and Denies irritation ENT Reports Normal hearing present, Denies dysphagia, Denies dizziness and Denies headache(s) Card Denies chest pain, Denies leg edema and Reports dyspnea on exertion Resp Denies cough, Reports dyspnea on exertion and Reports wheezing GI Reports abdominal pain, Reports bloating, Denies change in bowel habits, Denies dysphagia, Reports early satiety, Reports heartburn, Reports diarrhea, Reports nausea, Reports vomiting and Reports other (decreased appetite) Denies difficulty voiding and Denies dysuria Musc Denies back pain, Reports arthralgias and Reports other (arthritis) Skin/Breast Denies pruritus, Denies rash and Denies jaundice Neuro Reports Normal hearing present, Denies Abnormal speech present, Denies dizziness, Denies headache(s) and Denies seizure-like activity Psych Reports anxiety, Denies depression and Denies panic attacks Endo Denies cold intolerance, Reports fatigue, Denies flushing and Denies heat intolerance Salvatore/Lymph Denies easy bleeding and Denies easy bruising Aller/Immun Reports wheezing Physical Exam Vital Signs: Last Vital Signs Pulse 92 10/19/24 11:58 BP 126/58 L 10/19/24 11:58 Pulse Ox 100 10/19/24 11:58 Oxygen Delivery Method Nasal Cannula 10/19/24 11:58 Oxygen Flow Rate 2 10/19/24 11:58 Const General: no acute distress Nutritional Appearance: obese (Morbidly obese) Orientation/consciousness: patient oriented x3 Limitations: wheelchair (pt sitting in a motorized wheelchair) HEENT Head: Yes normal to inspection Ears: hearing grossly normal bilaterally Eyes Sclerae: sclerae normal Pupils: Equal, round and reactive pupils present Neck Neck: Yes normal visual inspection Chest Chest palpation & inspection: normal inspection of the chest Resp Effort & Inspection: normal respiratory effort Auscultation: clear to auscultation bilaterally Cardio Palpation: normal PMI Rate: regular rate Rhythm: regular rhythm Heart sounds: S1 normal heart sound present, S2 normal heart sound present and no murmurs GI Inspection: Yes other (Biliary drain in RUQ draining clear bilious fluid) Palpation (GI): Soft to palpation, Tenderness to palpation present (GI) (LUQ tenderness without rebound) and No hepatosplenomegaly present Auscultation: normal bowel sounds Rectal Exam - Female: deferred Skin General skin exam: no rashes or lesions noted Neuro General: patient oriented x3, gait normal and moves all extremities Cranial nerves: Yes Equal, round and reactive pupils present and Yes Normal hearing present Speech: No Abnormal speech present Psych Appearance: grossly normal Mental Status: mental status grossly normal Assessment & Plan Assessment & Plan (1) Diarrhea: Comment: Requesting colonoscopy however due to multiple comorbidities, increased anesthesia risk Code(s): R19.7 - Diarrhea, unspecified Category: Medical (2) LUQ abdominal pain: Code(s): R10.12 - Left upper quadrant pain Category: Medical (3) History of insertion of cholecystostomy tube: Code(s): Z98.890 - Other specified postprocedural states Category: Surgical (4) Morbid obesity: Code(s): E66.01 - Morbid (severe) obesity due to excess calories Category: Medical (5) Wheelchair confinement: Comment: Since 2016 Code(s): Z99.3 - Dependence on wheelchair Category: Medical Plan 64-year-old female with morbid obesity, wheel chair bound, pertinent history of asthma on home oxygen, hypertension, insomnia, migraine, uterine mass, hip osteoarthritis, DELANEY noncompliant with CPAP urgently referred to GI by Dr Stone due to LUQ pain and diarrhea. Pt discharged after prolonged hospitalization at [facility] [place] for acute calculous cholecystitis and a percutaneous cholecystostomy tube was placed (deemed not to be a candidate for surgery) and treated with 10 days of Zosyn and discharged home with the percutaneous drain. Pt complains of left upper quadrant pain and diarrhea x 2 weeks - symptoms are likely due to C Diff colitis given recent antibiotic use Complains of heart burn and early satiety and not on any PPI. Pt was advised to start Omeprazole 20 mg twice a day and start taking probiotics. Check stool GI panel and C Diff toxin Advised to go to the ER if symptoms get worse FU in 3 weeks - scheduled 11/09/24 Pt is scheduled for a colonoscopy on 12/18/24 It will be likely difficult for her to prep since she is wheel chair bound and unable to ambulate by herself - I will address this with her and her son at her FU appt Orders: Orders GI Panel 10/19/24 R10.12 - Left upper quadrant pain, R19.7 - Diarrhea, unspecified CDiff Gene PCR 10/19/24 R10.12 - Left upper quadrant pain, R19.7 - Diarrhea, unspecified Medications: New omeprazole 20 mg PO BID 120 caps 3RF 60 days Lactobacillus rhamnosus GG (Culturelle) 1 cap PO DAILY 30 caps 3RF 30 days R19.7 - Diarrhea, unspecified Coding Level of Care Code New Pt Level 4 (55279) Diagnoses Diarrhea R19.7 LUQ abdominal pain R10.12 History of insertion of cholecystostomy tube Z98.890 Morbid obesity E66.01 Wheelchair confinement Z99.3 Time Spent (min) 40
== END 2024-10-19 12:45 | disposition home or self-care (01) ==
PROVIDERS: PCP Internal Medicine; Visit Provider Internal Medicine Gastroenterology
DX: R19.7 Diarrhea, unspecified (principal); R10.12 Left upper quadrant pain; Z98.890 Other specified postprocedural states; E66.01 Morbid (severe) obesity due to excess calories; Z99.3 Dependence on wheelchair
CPT/HCPCS: 99204

== ENCOUNTER → 2024-10-19 11:40 | Outpatient (BNVA) | payer OTHER, SELFPAY | PROVIDERS: PCP Internal Medicine; Visit Provider Internal Medicine Gastroenterology | DX: R19.7 Diarrhea, unspecified (principal); R10.12 Left upper quadrant pain; E66.01 Morbid (severe) obesity due to excess calories; Z98.890 Other specified postprocedural states; Z99.3 Dependence on wheelchair | CPT/HCPCS: 99202 ==

== ENCOUNTER 2024-10-20 09:15 | Outpatient (AMB) | payer OTHER, SELFPAY ==
--- NOTE | 2024-10-20 09:19 | MHC.PC.OV ---
Vital Signs 10/20/24 09:25 Height 5 ft 4 in BMI Reason not done Patient refused/unable BP 124/70 Blood Pressure Location Lt brachial Position Sitting Temp 97.1 F Temp Source Skin Oxygen Delivery Method Nasal Cannula Intake Visit Reasons: TCM [facility] 10/12 abdominal pain Intake Note: Patient is here for hospital discharge and TCM follow up. Patient was discharged from [facility] on 10/12/24. Manufacturing Plant Controller Required: Yes Manufacturing Plant Controller Language: Chief Psychology Name: Kumar ([id number]) Information Interpreted: non-clinical & clinical Retaining Room Cutter: Present Accompanied by: Son Allergies Penicillins [PENICILLINS] Allergy (Unknown, Verified 10/20/24 09:25) ITCHING Tobacco use date assessed: 10/20/24 Dental Screening Dental Screen Date: 10/20/24 Did you have a dental visit in the last 12 months?: No Did you have a dental problem in the last 6 months where you did not have access to dental care?: No Was dental information given to patient?: No HPI TCM TCM Information Date of Discharge 10/12/24 Discharged From [facility] Interactive Contact Date (Reference documentation from this date) 10/13/24 HPI Comments History of Present Illness Details 64 y/o female patient who presents to the clinic today for EDF. She was briefly admitted at [facility] on 10/19/24 and discharged home the same day due to RUQ abdominal pain around the Cholecystectomy Drainage Area. Pt under went IR placement of Cholecystectomy Drainage Tube 10/18/24 due to Cholecystitis (not a good candidate for surgery). She has a f/u appointment with GI in January 2025. Pt accompanied by family member today. Denies any concerns today. [facility] Medical History Fibromyalgia Hx of migraine headaches DELANEY (obstructive sleep apnea) Asthma Wheelchair dependent Obesity, morbid, BMI 50 or higher Pre-diabetes HTN (hypertension) Surgical History History of hysteroscopy (~05/2024) Hx of colonoscopy Hx of tubal ligation Hx of section History of knee surgery Family History Mother Diabetes Throat cancer Hypertension Father Hypertension Social History (Reviewed 10/20/24 @ 09:20 by BERKLEY Matthews Household Members: Children Household Members Other:: son, jazmine Housing: Apartment Are you a primary care center manager to a significant other at home: No Do you presently have visiting nurse or other home services: No Alcohol intake: never Patient Tobacco Use Status: Never used Tobacco e-Cigarette/Vaping Use: Never Used Second Hand Smoke Exposure: No service: No Current occupational status: disabled Sexual orientation: Straight/Heterosexual Gender identity: Female Cognitive needs: Yes (wheelchair) Hearing needs: No Vision needs: Yes Questionnaire PHQ-9 Over the last 2 weeks, how often have you been bothered by any of the following problems? 1. Little interest or pleasure in doing things: not at all 2. Feeling down, depressed, or hopeless: not at all 3. Trouble falling or staying asleep, or sleeping too much: not at all 4. Feeling tired or having little energy: not at all 5. Poor appetite or overeating: not at all 6. Feeling bad about yourself - or that you are a failure or have let yourself or your family down: not at all 7. Trouble concentrating on things, such as reading the newspaper or watching television: not at all 8. Moving or speaking so slowly that other people could have noticed. Or the opposite - being so fidgety or restless that you have been moving around a lot more than usual: not at all 9. Thoughts that you would be better off or of hurting yourself in some way: not at all Total score: 0 Depression Screening Interpretation: Negative Depression Screening Done: Yes Source: Developed by Drs. Jeronimo Trinidad, Nora Stone, Hipolito Finley and colleagues, with an educational neil from [employer]. Thrive Questionnaire Date Thrive assessed: 10/20/24 I am a: Patient What is your living situation today?: I have a steady place to live Within the past 12 months, did the food you bought not last and you didn't have the money to get more?: Never true Within the past 12 months, did you worry whether your food would run out before you got money to buy more?: Never true Do you have trouble paying for medicines?: No Do you have trouble getting transportation to medical appointments?: No Do you have trouble paying your heating and electricity bill?: No Do you have trouble taking care of your child, family member or friend?: No Do you have trouble with day-to-day activities such as bathing, preparing meals, shopping, managing finances, etc.?: No Are you currently unemployed and looking for a job?: No Are you interested in more education?: No Please select the resources that you would like help with: None Currently or been in a relationship where the following occur: No concerns reported THRIVE Score: 0 AUDIT C Alcohol Use Questionnaire (AUDIT-C) 1. How often do you have a drink containing alcohol?: Never Total Score: 0 AUGUSTO-7 AMB Questionnaire AUGUSTO-7 Date AUGUSTO - 7 assessed: 10/20/24 Feeling nervous, anxious, or on edge: 0 = Not at all Not being able to stop or control worryin = Not at all Worrying too much about different things: 0 = Not at all Trouble relaxin = Not at all Being so restless that it is hard to sit still: 0 = Not at all Becoming easily annoyed or irritable: 0 = Not at all Feeling afraid as if something awful might happen: 0 = Not at all Total AUGUSTO-7 score (0-4 normal; 5-9 mild; 10-14 moderate; 15-21 severe): 0 Source: Developed by Drs. Jeronimo Trinidad, Nora Stone, Hioplito Finley and colleagues, with an educational neil from [employer]. Review of Systems Const All systems reviewed & are unremarkable except as noted in HPI and below Physical exam (Primary Care) Vital Signs: Last Vital Signs Temp 97.1 F 10/20/24 09:25 BP 124/70 10/20/24 09:25 Oxygen Delivery Method Nasal Cannula 10/20/24 09:25 Tobacco/Smoking Status: Tobacco use Status Tobacco use date assessed 10/20/24 10/20/24 09:31 Patient Tobacco Use Status Never used Tobacco 10/20/24 09:21 e-Cigarette/Vaping Use Never Used 10/20/24 09:21 PHQ-9: PHQ-9 Score PHQ-9: Total score 0 10/20/24 09:48 Depression Screening Interpretation: Negative Thrive Assessment: Date of Thrive Assessment Date Thrive assessed 10/20/24 10/20/24 09:21 Currently or been in a relationship where the following occur: No concerns reported Const General: cooperative Nutritional Appearance: obese morbidly obese Orientation/consciousness: patient oriented x3 Limitations: wheelchair Resp Effort & Inspection: normal respiratory effort and able to speak in complete sentences Auscultation: clear to auscultation bilaterally Cardio Heart sounds: S1 normal heart sound present and S2 normal heart sound present GI Inspection: Yes Abdominal panniculus present and Yes obesity Palpation (GI): Soft to palpation Auscultation: normal bowel sounds Abdomen image: 1. Drainage Bag presents, dressing clean and Dry. No bleeding, no pain and no signs of infection. Neuro General: patient oriented x3 Coding Level of Care Code TCM Mod MDM <= 7 Days Diagnoses History of insertion of cholecystostomy tube Z98.890 Time Spent (min) 20 Assessment & Plan Assessment & Plan (1) History of insertion of cholecystostomy tube: Code(s): Z98.890 - Other specified postprocedural states Category: Surgical Plan: Stable, drainage intact, dressing clean and dry. F/U with GI and PCP as scheduled.
[2024-10-20 09:25] VITALS: BP 124/70; TEMP 36.2
== END 2024-10-20 10:21 | disposition home or self-care (01) ==
PROVIDERS: PCP Internal Medicine; Visit Provider Nurse Practitioner Family
DX: R10.11 Right upper quadrant pain (principal); Z98.890 Other specified postprocedural states

== ENCOUNTER → 2024-10-20 09:15 | Outpatient (BNVA) | payer OTHER, SELFPAY | PROVIDERS: PCP Internal Medicine; Visit Provider Nurse Practitioner Family | DX: Z98.890 Other specified postprocedural states (principal); I10 Essential (primary) hypertension; G47.33 Obstructive sleep apnea (adult) (pediatric) | CPT/HCPCS: 99495 ==

== ENCOUNTER 2024-11-03 09:02 | Outpatient (AMB) | payer OTHER, SELFPAY ==
[2024-11-03 09:16] VITALS: BP 128/78; PULSE 100; O2SAT 100
--- NOTE | 2024-11-03 09:16 | A.OFFVIS_ITS ---
Vital Signs 11/03/24 09:16 Height 5 ft 4 in BMI Reason not done Patient refused/unable BP 128/78 Blood Pressure Location Lt radial Position Sitting Pulse 100 Pulse Source Pulse Oximeter Pulse Oximetry (%) 100 Oxygen Delivery Method Nasal Cannula Oxygen Flow Rate 2 Intake Visit Reasons: DELANEY/Pre Op: Possible Hysterectomy Allergies Penicillins [PENICILLINS] Allergy (Unknown, Verified 11/03/24 09:21) ITCHING HPI Comments Details: The patient is here for outpatient pulmonary evaluation. The patient is a 64 year woman with known history of obesity hyperventilation syndrome and sleep apnea. She does have a CPAP through [employer] but she is not or has not been compliant with. She is no longer active with [employer] at this time and therefore is not getting supplies. She was hospitalized recently with worsening shortness of breath and she was admitted to the hospital. She was found to have severe anemia. She was placed on oxygen because of her respiratory failure. She has done well. She continues to be on 2 L continuously. The patient in the meantime was also found to have a cholecystitis. Because she was not deemed a surgical candidate a drain was placed and currently has the gallbladder drain in the meantime. Ultimately the patient was found to have the cholecystitis and knee surgery for that and also was found to have what appears to be a pelvic mass that also needs to be excised. At this point the patient is high risk will go ahead and see about getting her back on CPAP. She does have the machine with her at home I did provide her with a N 30 I cradle mask that she can try to use to see if she start using the machine. She will come back in the next 3-4 weeks and will bring her machine with her. In the meantime she is going to continue with the current respiratory therapy. Hopefully at that point once she is using her CPAP and her respiratory status is better we can allow her to proceed with surgery. [facility] Medical History (Updated 11/05/24 @ 19:13 by Lázaro Ruiz MD) Obesity hypoventilation syndrome Obstructive sleep apnea Chronic hypoxemic respiratory failure Morbid obesity Chronic abdominal pain Moderate persistent asthma Obesity Essential hypertension Fibromyalgia Hx of migraine headaches DELANEY (obstructive sleep apnea) Asthma Wheelchair dependent Obesity, morbid, BMI 50 or higher Pre-diabetes HTN (hypertension) Surgical History History of hysteroscopy (~05/2024) Hx of colonoscopy Hx of tubal ligation Hx of section History of knee surgery Family History Mother Diabetes Throat cancer Hypertension Father Hypertension Social History Household Members: Children Household Members Other:: son, grandaughterence Housing: Apartment Are you a primary healthcare administrator to a significant other at home: No Do you presently have visiting nurse or other home services: No Alcohol intake: never Patient Tobacco Use Status: Never used Tobacco e-Cigarette/Vaping Use: Never Used Second Hand Smoke Exposure: No service: No Current occupational status: disabled Sexual orientation: Straight/Heterosexual Gender identity: Female Cognitive needs: Yes (wheelchair) Hearing needs: No Vision needs: Yes Review of Systems Const All systems reviewed & are unremarkable except as noted in HPI and below Reports daytime sleepiness and Reports snoring ENT Reports Normal hearing present and Reports nasal congestion Card Denies chest pain at rest and Reports dyspnea on exertion Resp Denies cough, Reports dyspnea on exertion and Reports snoring GI Denies abdominal pain, Denies change in bowel habits, Denies excessive flatus, Denies nausea and Denies vomiting Reports as per HPI Musc Reports back pain, Denies atrophy, Denies deformity, Reports arthralgias and Reports limited range of motion Skin/Breast Denies bleeding lesions, Denies changing lesions and Denies rash Neuro Reports Normal hearing present, Denies Abnormal speech present, Denies behavioral changes and Denies lack of coordination Psych Denies behavioral changes Physical Exam Vital Signs: Last Vital Signs Pulse 100 11/03/24 09:16 BP 128/78 11/03/24 09:16 Pulse Ox 100 11/03/24 09:16 Oxygen Delivery Method Nasal Cannula 11/03/24 09:16 Oxygen Flow Rate 2 11/03/24 09:16 Const General: no acute distress Nutritional Appearance: obese (Morbidly obese) Orientation/consciousness: patient oriented x3 Limitations: wheelchair (pt sitting in a motorized wheelchair) HEENT Head: Yes normal to inspection Ears: hearing grossly normal bilaterally Eyes Sclerae: sclerae normal Pupils: Equal, round and reactive pupils present Neck Neck: Yes normal visual inspection Chest Chest palpation & inspection: normal inspection of the chest Resp Effort & Inspection: normal respiratory effort Auscultation: diminished lung sounds Cardio Palpation: normal PMI Rate: regular rate Rhythm: regular rhythm Heart sounds: S1 normal heart sound present, S2 normal heart sound present and no murmurs GI Palpation (GI): Soft to palpation Skin General skin exam: no rashes or lesions noted Neuro General: patient oriented x3, gait normal and moves all extremities Cranial nerves: Yes Equal, round and reactive pupils present and Yes Normal hearing present Speech: No Abnormal speech present Psych Appearance: grossly normal Mental Status: mental status grossly normal Assessment & Plan Assessment & Plan (1) Pre-op evaluation: Code(s): Z01.818 - Encounter for other preprocedural examination Category: Medical (2) Chronic hypoxemic respiratory failure: Code(s): J96.11 - Chronic respiratory failure with hypoxia Category: Medical (3) Obstructive sleep apnea: Code(s): G47.33 - Obstructive sleep apnea (adult) (pediatric) Category: Medical (4) Obesity hypoventilation syndrome: Code(s): E66.2 - Morbid (severe) obesity with alveolar hypoventilation Category: Medical Plan in lab PSG continue oxygen supplementation KATHERIN as needed Needs to have surgery. We will first plan to address the DELANEY and hypoventilation syndrome. F/U 6-8 weeks Coding Level of Care Code New Pt Level 4 (10236) Diagnoses Pre-op evaluation Z01.818 Chronic hypoxemic respiratory failure J96.11 Obstructive sleep apnea G47.33 Obesity hypoventilation syndrome E66.2 Time Spent (min) 35
--- OUTSIDE RECORDS SUMMARY | 2024-11-03 09:25 | XMS_ITS | Clinical Summary ---
Author Organization [facility] it Address [address] [place] [address] Care Team Providers Care Cellular Equipment Repairer Name Role Phone Unavailable Primary Care Provider Unavailabl e Surgical History Surgery Date Site/Laterality Comments OTHER SURGICAL HISTORY Right PROCEDURE: ME AMPUTATION LEG THROUGH TIBIA&FIBULA COLONOSCOPY PROCEDURE: HISTORICAL COLONOSCOPY Medical History Medical History Date Comments Acanthosis nigricans DX:Acanthos is nigricans Asthma DX:Asthma Diverticulosis DX:Diverticulosi s Fibromyalgia DX:Fibromyalgia Headache DX:Headache Essential hypertension DX:Essent ial hypertension Morbid obesity (CMS/HCC) DX:Morb id obesity (HCC) Sleep apnea DX:Sleep apnea Osteoarthritis DX:Osteoarthriti s Supraventricular tachycardia (CMS/HCC) DX:Supraventricular tachycardia (HCC) Vitamin D deficiency DX:Vitamin D deficiency Social History Tobacco Use Types Packs/Day Years Used Date Smoking Tobacco: Never Assessed Sex and Gender Information Value Date Recorded Sex Assigned at Not on file Gender Identity Not on file Sexual Orientation Not on file Obstetrics History Plan of Treatment Health Maintenance Due Date Last Done Comments Breast Cancer Screening 1961 DTaP,Tdap,and Td Vaccines (1 - Tdap) 1980 Cervical Cancer Screening: P ap Smear 1982 Zoster Vaccines (1 of 2) 2011 Colorectal Cancer Screening: Colonoscopy 09/13/2022 Depression Screening 09/13/2022 HIV Screening 09/13/2022 Hepatitis C Screening 09/13/2022 Social Influencers of Health Screening 09/13/2022 COVID-19 Vaccine ( - 2023-2 5 season) 2024 Influenza Vaccine (#1) 2024 RSV Immunization Patients 60 + Years Old (1 - 1-dose 75+ series) 2036 HIB Vaccines Aged Out No longer eligi ble based on patient's age to complete this topic HPV Vaccines Aged Out No longer eligi ble based on patient's age to complete this topic Hepatitis A Vaccines Aged Out No long er eligible based on patient's age to complete this topic Hepatitis B Vaccines Aged Out No long er eligible based on patient's age to complete this topic IPV Vaccines Aged Out No longer eligi ble based on patient's age to complete this topic MMR Vaccines Aged Out No longer eligi ble based on patient's age to complete this topic Meningococcal ACWY Vaccine Aged Out N o longer eligible based on patient's age to complete this topic Pneumococcal Vaccine: Pediat rics (0 to 5 Years) and At-Risk Patients (6 to 64 Years) Aged Out No longer eligible b ased on patient's age to complete this topic RSV Immunization Patients Un guido 20 months Aged Out No longer eligible b ased on patient's age to complete this topic Varicella Vaccines Aged Out No longer eligible based on patient's age to complete this topic
== END 2024-11-03 09:47 | disposition home or self-care (01) ==
PROVIDERS: PCP Internal Medicine; Visit Provider Hospitalist
DX: Z01.818 Encounter for other preprocedural examination (principal); J96.11 Chronic respiratory failure with hypoxia; G47.33 Obstructive sleep apnea (adult) (pediatric); E66.2 Morbid (severe) obesity with alveolar hypoventilation
CPT/HCPCS: 99204

== ENCOUNTER → 2024-11-03 09:02 | Outpatient (BNVA) | payer OTHER, SELFPAY | PROVIDERS: PCP Internal Medicine; Visit Provider Hospitalist | DX: Z01.818 Encounter for other preprocedural examination (principal); G47.33 Obstructive sleep apnea (adult) (pediatric); J96.11 Chronic respiratory failure with hypoxia; E66.2 Morbid (severe) obesity with alveolar hypoventilation; Z99.81 Dependence on supplemental oxygen; Z99.89 Dependence on other enabling machines and devices | CPT/HCPCS: 99202 ==

== ENCOUNTER 2024-11-09 13:36 | Outpatient (AMB) | payer OTHER, SELFPAY ==
--- OUTSIDE RECORDS SUMMARY | 2024-11-09 13:39 | XMS_ITS | Clinical Summary ---
Author Organization [facility] it Address [address] [place] [address] Care Team Providers Care Elementary Assistant Principal Name Role Phone Unavailable Primary Care Provider Unavailabl e Surgical History Surgery Date Site/Laterality Comments OTHER SURGICAL HISTORY Right PROCEDURE: PA AMPUTATION LEG THROUGH TIBIA&FIBULA COLONOSCOPY PROCEDURE: HISTORICAL [...]
--- NOTE | 2024-11-09 13:47 | A.OFFVIS_ITS ---
Vital Signs 11/09/24 13:49 Height 5 ft 4 in BP 118/52 L Blood Pressure Location Lt radial Position Sitting Pulse 114 H Pulse Source Pulse Oximeter Pulse Oximetry (%) 97 Oxygen Delivery Method Room Air Comment Pt is wheelchair bound Intake Visit Reasons: diarrhea Intake Note: ESTABLISHED PATIENT for 3 weeks follow up for diarrhea and no lab results order on her lily. Chief Complaint; Diarrhea, moderate to severe episodes since being discharged from hospital. Pt also reports worsening nausea, occasional vomiting, and reflux. Pt denies any dysphagia or other GI concerns. Research Management Associate Required: Yes Research Management Associate Services: Research Management Associate Present Research Management Associate Name: Adeline Huynh [id number] Information Interpreted: clinical only Accompanied by: Family/Other Allergies Penicillins [PENICILLINS] Allergy (Unknown, Verified 12/04/24 16:53) ITCHING Medication List - Last Reconciled 11/09/24 by Dex Carr MD albuterol sulfate 2.5 mg (3 mL) inhalation Q6H PRN amitriptyline 50 mg PO BEDTIME 90 days amlodipine 5 mg PO DAILY 90 days cetirizine 10 mg PO DAILY 90 days Lactobacillus rhamnosus GG (Culturelle) 1 cap PO DAILY 30 days lisinopril 40 mg PO DAILY 90 days miconazole nitrate 2% (Remedy Phytoplex Antifungal) 1 appl topical DAILY PRN omeprazole 20 mg PO BID 60 days ondansetron 4 mg PO DAILY PRN 5 days oxycodone 5 mg PO Q6H PRN MDD 15 polyethylene glycol 3350 (Miralax) 17 grams PO DAILY PRN 30 days spironolactone 25 mg PO DAILY 90 days sumatriptan succinate 25 mg PO Q2-4H PRN 30 days Ventolin HFA 90 mcg/actuation (albuterol sulfate) 2 puffs inhalation Q6H PRN 30 days NS HPI HPI diarrhea: Details: GI clinic visit for this 64 YF with morbid obesity, asthma on home oxygen (2L/min by MIKA), hypertension, insomnia, migraine, uterine mass, hip osteoarthritis, DELANEY noncompliant with CPAP for nausea and diarrhea Patient was previously followed by Mickie Ryan. Pt was hospitalized at [facility] 09/22/24 to 10/12/24: 64-year-old female with pertinent history of asthma not on home oxygen, hypertension, insomnia, migraine, uterine mass, hip osteoarthritis, DELANEY noncompliant with CPAP who presents to the emergency department for evaluation abdominal pain, nausea, vomiting and difficulty breathing. Patient states symptoms started 6 days prior to presentation. She has been having right upper abdominal discomfort which was initially intermittent but progressed to being constant. It was associated with nausea and multiple episodes of non-bloody emesis. Unable to tolerate p.o. intake. Also started having difficulty with breathing 2 days prior to presentation. Associated with wheezing and nonproductive cough. No history of similar abdominal discomfort before. Does endorse constipation. No fever, chills, chest pain, palpitations, changes in urinary habits. In the emergency department, patient requiring 2 L supplemental oxygen. Was found to be tachycardic with white count 19. Imaging concerning for early cholecystitis. Developed acute respiratory failure requiring BiPAP and ICU admission. Discussion with family yielded a DNR DNI designation. She was seen in consultation by surgery for the acute calculous cholecystitis. She was deemed not to be a candidate for surgery at a percutaneous cholecystostomy tube was introduced. She received 10 days of Zosyn with good results. She was transfused 2 U of PRBC on 10/09/24 due to a decrease in H &H to 6.3 & 20 without overt bleeding with appropriate increase post transfusion. At this point she will be discharged home with the percutaneous drain and seen in the surgery office 4-6 weeks for removal. She also presented with the acute kidney injury that ultimately required a temporary dialysis catheter and HD. Last dialysis was 1 4 and her creatinine is now back to baseline. She has been fairly compliant with her CPAP. Long discussion with son who is caregiver and he is comfortable with resuming her care at home. She will resume her home medicines and follow up with the PCP and surgery to remove drain. Her appetite was poor and she did receive short course of TPN however she was cleared by speech and her diet was adequate the last 48 hours prior to discharge. She will be discharged home to follow up with PCP and surgery as arranged TODAY'S VISIT: [facility] softball winder ESTABLISHED PATIENT for 3 weeks follow up for diarrhea and no lab results order on her lily. Chief Complaint; Diarrhea, moderate to severe episodes since being discharged from hospital. Pt also reports worsening nausea, occasional vomiting, and reflux. Pt denies any dysphagia or other GI concerns. Pt is accompanied by her son, Charles, who is also her PROPERTY INSURANCE CLAIMS EXAMINER. Has constant diarrhea and LLQ pain and left side of abdomen is always hard. Stool is black. She was taking oxycodone for pain and she ran out. Had chills for 3 days last Wednesday to . Notes nausea when she eats rice - eats crackers and breads since other foods cause nausea. Has diarrhea 3-4 times a day - stointermittentlyol are liquid. Takes imodium Wt loss from 350 to 328 lbs during hospitalization - has not been weighed since she was discharged PAST VISIT: Pt weighs 328 lbs (BMI of 60) - lost 22 lbs during her recent hospitalization Complains of abdominal pain and diarrhea x 2 weeks - had diarrhea while in the hospital Pt complains of LUQ pain (8/10) and radiates to the back - intermittent after she eats Had 10 BMs a day - diarrhea is improving and had two BMs today No relieving factors Complains of heart burn and not on any PPI Had constipation in the past and was treated with enemas On IV nutrition during hospitalization while in ICU At present she is taking a light diet - jello Feels full after eating rice and solid food Discharged on 2 litres of oxygen Pt has asthma and denies major cardiac or pulmonary problems, and admits to loud snoring and sleep apnea and being scheduled for a sleep study Denies problems with anesthesia in the past. Denies being on chronic anticoagulation. Patient denies known family history of colon polyps, colon cancer or other GI malignancies. PAST EGD/COLONOSCOPY: Colonoscopy > 10 yrs ago at [facility] [place] ? polyps were removed. Never had an EGD LABS IN [facility] : Reviewed IMAGING STUDIES: 09/[address] SCAN SHOWED: 1. Dilated and fluid-filled small bowel loops with air-fluid levels. Mildly dilated right colon and transverse colon with air-fluid levels. The descending, sigmoid colon, and rectum are nondistended. No definite transition point. Findings are thought to represent ileus. A distal colonic partial obstruction could be considered in the appropriate clinical setting. No significant bowel wall thickening or inflammatory change. 2. Trace right hepatic ascites, new when compared to the prior examination. No organized fluid collection or abscess formation. 3. Dilated gallbladder with multiple gallstones and associated wall thickening as well as mild adjacent inflammatory change, slightly decreased when compared to the prior examination. Findings are consistent with acute cholecystitis. No evidence of perforation. 4. Bibasilar atelectasis versus infiltrates, slightly increased when compared to the prior examination. PAST GI HISTORY BY REVIEW OF MEDICAL RECORDS: 01/2024 PT WAS LAST SEEN BY ROSEANN LYMAN: A 63 y/o obese female w/c assisted referred back for colonoscopy- accompanied by PROPERTY INSURANCE CLAIMS EXAMINER and granddaughter Seen last nov-with LLQ pain- we had ordered abdominal CT however it was not authorized by insurance- pretty much resolved- She has occ. Nonspecific abdominal pain- nothing brings it on- or makes worse or better- alternating stool pattern-has been typical for her for many years Appetite is good She has no other GI or general complaints No nausea, vomiting, hematemesis, hematochezia fever or chills Research Management Associate device Morbidly obese-wheelchair dependent-difficult to assess CT ordered last visit for chronic abdominal pain has a denied MiraLax Colace daily may had try to tweak that PROPERTY INSURANCE CLAIMS EXAMINER present he is unable to give detail as well [facility] Medical History (Updated 12/04/24 @ 16:52 by Shellie Varghese, JAMES) On home oxygen therapy Chronic hypoxemic respiratory failure Obesity hypoventilation syndrome Morbid obesity Fibromyalgia Hx of migraine headaches DELANEY (obstructive sleep apnea) Asthma Wheelchair dependent Obesity, morbid, BMI 50 or higher Pre-diabetes HTN (hypertension) Chronic abdominal pain Moderate persistent asthma Obstructive sleep apnea Obesity Essential hypertension Surgical History History of hysteroscopy (~05/2024) Hx of colonoscopy Hx of tubal ligation Hx of section History of knee surgery Family History Mother Diabetes Throat cancer Hypertension Father Hypertension Social History (Updated 12/04/24 @ 16:51 by Shellie Varghese, JAMES) Household Members: Children Household Members Other:: son, grandaughter Housing: Apartment Are you a primary career transition specialist to a significant other at home: No Do you presently have visiting nurse or other home services: Yes (son PROPERTY INSURANCE CLAIMS EXAMINER 26/04) Alcohol intake: never Patient Tobacco Use Status: Never used Tobacco e-Cigarette/Vaping Use: Never Used Second Hand Smoke Exposure: No service: No Current occupational status: disabled Sexual orientation: Straight/Heterosexual Gender identity: Female Cognitive needs: Yes (wheelchair) Hearing needs: No Vision needs: Yes Review of Systems Const All systems reviewed & are unremarkable except as noted in HPI and below ENT Reports Normal hearing present Neuro Reports Normal hearing present and Denies Abnormal speech present Physical Exam Vital Signs: Last Vital Signs Pulse 114 H 11/09/24 13:49 BP 118/52 L 11/09/24 13:49 Pulse Ox 97 11/09/24 13:49 Oxygen Delivery Method Room Air 11/09/24 13:49 Const General: no acute distress Nutritional Appearance: obese (Morbidly obese) Orientation/consciousness: patient oriented x3 Limitations: wheelchair (pt sitting in a motorized wheelchair) HEENT Head: Yes normal to inspection Ears: hearing grossly normal bilaterally Eyes Sclerae: sclerae normal Pupils: Equal, round and reactive pupils present Neck Neck: Yes normal visual inspection Chest Chest palpation & inspection: normal inspection of the chest Resp Effort & Inspection: normal respiratory effort Auscultation: diminished lung sounds Cardio Palpation: normal PMI Rate: regular rate Rhythm: regular rhythm Heart sounds: S1 normal heart sound present, S2 normal heart sound present and no murmurs GI Palpation (GI): Soft to palpation Skin General skin exam: no rashes or lesions noted Neuro General: patient oriented x3, gait normal and moves all extremities Cranial nerves: Yes Equal, round and reactive pupils present and Yes Normal hearing present Speech: No Abnormal speech present Psych Appearance: grossly normal Mental Status: mental status grossly normal Assessment & Plan Assessment & Plan (1) LUQ abdominal pain: Code(s): R10.12 - Left upper quadrant pain Category: Medical (2) Diarrhea: Comment: Requesting colonoscopy however due to multiple comorbidities, increased anesthesia risk Code(s): R19.7 - Diarrhea, unspecified Category: Medical (3) Chronic constipation: Comment: Encouraged consistent bowel regimen Code(s): K59.09 - Other constipation Category: Medical (4) Wheelchair confinement: Comment: Since 2017 Code(s): Z99.3 - Dependence on wheelchair Category: Medical (5) Anemia: Code(s): D64.9 - Anemia, unspecified Category: Medical Plan 64-year-old female with morbid obesity, wheel chair bound, pertinent history of asthma on home oxygen, hypertension, insomnia, migraine, uterine mass, hip osteoarthritis, DELANEY noncompliant with CPAP urgently referred to GI by Dr Stone due to LUQ pain and diarrhea. Pt discharged after prolonged hospitalization at [facility] for acute calculous cholecystitis and a percutaneous cholecystostomy tube was placed (deemed not to be a candidate for surgery) and treated with 10 days of Zosyn and discharged home with the percutaneous drain. Pt complains of left upper quadrant pain and diarrhea x 2 weeks - symptoms are likely due to C Diff colitis given recent antibiotic use Complains of heart burn and early satiety and not on any PPI. Pt was advised to start Omeprazole 20 mg twice a day and start taking probiotics. Check stool GI panel and C Diff toxin Advised to go to the ER if symptoms get worse FU in 3 weeks - scheduled 11/09/24 11/09/24 Complains of worsening LLQ pain and persistent diarrhea Pt advised to 1. Check labs 2. Start Dicyclomine three times daily before meals for abdominal pain. 3. Scheduled for cholecytostomy tube study on 11/15/24 4. Pt is scheduled for a colonoscopy on 12/18/24 - I will check with anesthesia It will be likely difficult for pt to prep at home - if anesthesia clears her to have the procedure. Advised to go to the ED if she has worsening abd pain ADDENDUM: Discussed pt with Anesthesia. Per Dr Mancia: Pt is very high risk for anesthesia due to morbid obesity, severe sleep apnea (non-compliant with CPAP) and hypoventilation syndrome. She recommended pt to have her procedure done at [facility] if pt wants to proceed with colonoscopy. Called Charles, pt's son and PROPERTY INSURANCE CLAIMS EXAMINER, with the help of a [place] electric meter tester helper # [id number] to inform him of above, LMTCB Orders: Orders Complete Blood Count Auto Diff 11/09/24 D64.9 - Anemia, unspecified IRON PROFILE 11/09/24 D64.9 - Anemia, unspecified Magnesium 11/09/24 D64.9 - Anemia, unspecified XR KUB 11/09/24 R19.7 - Diarrhea, unspecified, R10.12 - Left upper quadrant pain Comprehensive Met. Panel 11/09/24 D64.9 - Anemia, unspecified Ferritin 11/09/24 D64.9 - Anemia, unspecified C Reactive Protein 11/09/24 D64.9 - Anemia, unspecified Medications: New dicyclomine Take 1 tab three times a day before meals 20 mg PO TID PRN 90 tabs 3RF abdominal pain 30 days R10.10 - Upper abdominal pain, unspecified Coding Level of Care Code Est Pt Level 4 (56382) Diagnoses LUQ abdominal pain R10.12 Diarrhea R19.7 Chronic constipation K59.09 Wheelchair confinement Z99.3 Anemia D64.9 Time Spent (min) 25
[2024-11-09 13:49] VITALS: BP 118/52; PULSE 114; O2SAT 97
== END 2024-11-09 15:43 | disposition home or self-care (01) ==
PROVIDERS: PCP Internal Medicine; Visit Provider Internal Medicine Gastroenterology
DX: R10.12 Left upper quadrant pain (principal); R19.7 Diarrhea, unspecified; K59.09 Other constipation; Z99.3 Dependence on wheelchair; D64.9 Anemia, unspecified
CPT/HCPCS: 99214

== ENCOUNTER → 2024-11-09 13:36 | Outpatient (BNVA) | payer OTHER, SELFPAY | PROVIDERS: PCP Internal Medicine; Visit Provider Internal Medicine Gastroenterology | DX: K59.09 Other constipation (principal); R10.12 Left upper quadrant pain; R19.7 Diarrhea, unspecified; D64.9 Anemia, unspecified; Z99.3 Dependence on wheelchair | CPT/HCPCS: 99212 ==

== ENCOUNTER 2024-11-15 10:09 | Outpatient (REF) | payer OTHER, SELFPAY ==
--- NOTE | ~2024-11-15 | FL_ITS ---
EXAMINATION: FLUOROSCOPIC CHOLANGIOGRAM INDICATIONS: Status post cholecystostomy tube. Assess cystic duct patency. Comparison: None TECHNIQUE: Dilute Omnipaque 300 was injected through the cholecystostomy tube and multiple cine loops and spot images were obtained. FINDINGS: A cholecystostomy tube is present in the right upper abdomen. There are multiple large filling defects within the gallbladder, consistent with cholelithiasis. The cystic duct is patent. The common bile duct opacifies, however, no contrast flows into the duodenum. Due to the patient's significant discomfort, no additional contrast was administered. FLUOROSCOPY TIME: 1 minute 9 seconds DOSE AREA PRODUCT: 1260 uGy-m2 (microgray-meter squared) FL/FL fistula/abscess/sinus tract IMPRESSION: 1. Status post cholecystostomy tube. The drain is well-positioned within the fundus of the gallbladder. There are multiple large filling defects within the gallbladder, consistent with cholelithiasis. 2. Patent cystic duct, however, no contrast is seen filling the duodenum. Choledocholithiasis cannot be excluded. Given the presence of the multiple large stones within the gallbladder, and failure of the contrast to opacify the duodenum, the cholecystostomy tube was not removed. This procedure was performed by Mookie Rodriguez PA-C, and supervised by Dr. Gonzalez Electronically signed by: Yazan Gonzalez MD 11/30/2024 07:24 AM [facility]
[2024-11-15] MEDS: iohexoL 300 MG/ML 50 ML INFUS..BTL 20 ML INTRAARTIC (11:22)
--- OUTSIDE RECORDS SUMMARY | 2024-11-15 12:02 | XMS_ITS | Clinical Summary ---
Author Organization [employer] [facility] it Address [address] [place] [address] Care Team Providers Care Semiconductor Lab Technician Name Role Phone Unavailable Primary Care Provider Unavailabl e Surgical History Surgery Date Site/Laterality Comments OTHER SURGICAL HISTORY Right PROCEDURE: [place] AMPUTATION LEG THROUGH TIBIA&FIBULA COLONOSCOPY PROCEDURE: HISTORICAL [...] Years Used Date Smoking Tobacco: Never Assessed Comments Unknown Sex and Gender Information Value Date Recorded Sex Assigned at Not on file Legal Sex Female 4:31 PM EST Gender Identity Not on file Sexual Orientation Not on file Obstetrics History Plan of Treatment Health Maintenance Due Date Last Done Comments Breast Cancer Screening 1961 DTaP,Tdap,and Td Vaccines (1 - Tdap) 1980 Cervical Cancer Screening: P ap Smear 1982 Pneumococcal Vaccine: 50+ Ye ars (1 of 1 - PCV) 2011 Zoster Vaccines (1 of 2) 2011 Colorectal Cancer Screening: Colonoscopy 09/13/2022 Depression Screening 09/13/2022 HIV Screening 09/13/2022 Hepatitis C Screening 09/13/2022 Social Influencers of Health Screening 09/13/2022 COVID-19 Vaccine (1 - 2023-2 5 season) 2024 Influenza Vaccine [...] patient's age to complete this topic Meningococcal B Vacine Aged Out No lo nger eligible based on patient's age to complete [...]
== END 2024-11-15 10:10 | disposition home or self-care (01) ==
LOC: HO.XRAY 10:09
PROVIDERS: PCP Internal Medicine; Visit Provider Surgery
DX: Z98.890 Other specified postprocedural states (principal)
CPT/HCPCS: 76080; Q9967

== ENCOUNTER → 2024-11-15 10:40 | Outpatient (BNV) | payer OTHER, SELFPAY | PROVIDERS: PCP Internal Medicine; Visit Provider Physician Assistant Surgical | DX: K80.20 Calculus of gallbladder without cholecystitis without obstruction (principal); Z93.59 Other cystostomy status | CPT/HCPCS: 76080 ==

== ENCOUNTER 2024-12-07 09:25 | Outpatient (REF) | payer OTHER, SELFPAY ==
[2024-12-07 10:35] LABS: MANUAL DIFF FLAG NO
[2024-12-07 10:40] LABS: VBG Base Excess 3.5 mmol/L; VBG pCO2 56 mmHg; VBG pH 7.34 (7.32-7.43); VBG pO2 38 mmHg
[2024-12-07 10:40] LABS: Venous Blood Gas Refer to POC result
[2024-12-07 10:41] LABS: VBG HCO3 30 mmol/L (22-26)
[2024-12-07 11:18] LABS: Basophils Percent Auto 0.4 % (0-2); Eosinophils Absolute Auto 0.3 X10*3/uL (0.0-0.4); Eosinophils Percent Auto 3.1 % (0-4); Hematocrit 35.1 % (37.0-47.0); Hemoglobin 10.5 g/dl (12.0-16.0); Imm Gran Abs Auto 0.03 X10*3/uL (0.00-0.03); Imm Gran Pct Auto 0.3 % (0.0-0.4); Lymphocytes Absolute Auto 2.6 X10*3/uL (1.2-4.9); Lymphocytes Percent Auto 28.7 % (20-40); Mean Corpuscular HGB Conc 29.9 g/dl (31.0-35.0); Mean Corpuscular Hemoglobin 27.1 pg (27.0-33.0); Mean Corpuscular Volume 90.7 fL (80.0-98.0); Mean Platelet Volume 10.3 fL (9.4-12.3); Monocytes Absolute Auto 0.6 X10*3/uL (0.1-1.2); Monocytes Percent Auto 7.1 % (2-11); Neutrophils Absolute Auto 5.4 x10*3/uL (2.0-8.3); Neutrophils Percent Auto 60.4 % (45-73); Platelet Count 410 X10*3/uL (160-400); Red Blood Count 3.87 X10*6/uL (4.20-5.50); Red Cell Distribution Width 17.4 % (11.0-16.0)
--- OUTSIDE RECORDS SUMMARY | 2024-12-07 11:59 | XMS_ITS | Clinical Summary ---
Author Organization [employer] [facility] it Address [address] [place] [address] Care Team Providers Care Directory Operator Name Role Phone Unavailable Primary Care Provider Unavailabl e Surgical History Surgery Date Site/Laterality Comments OTHER SURGICAL HISTORY Right PROCEDURE: [place] AMPUTATION LEG THROUGH TIBIA&FIBULA COLONOSCOPY PROCEDURE: HISTORICAL [...]
[2024-12-07 12:06] LABS: Alanine Aminotransferase 29 U/L (0-31); Albumin Level 3.5 g/dL (3.5-5.0); Alkaline Phosphatase 104 U/L (39-117); Anion Gap 10 (12-20); Aspartate Amino Transferase 49 U/L (5-31); Bilirubin Total 0.3 mg/dL (0.0-1.0); Blood Urea Nitrogen 6 mg/dL (9-16); Calcium 8.8 mg/dL (8.4-10.2); Carbon Dioxide 31 mmol/L (22-29); Chloride 105 mmol/L (96-108); Estimated Glomerular Filt Rate > 60; Glucose Random 78 mg/dL (60-115); Iron 40 mcg/dL (30-160); Magnesium 1.5 mg/dL (1.6-2.6); Percent Iron Saturation 19 % (15-50); Potassium 3.4 mmol/L (3.3-5.1); Sodium 143 mmol/L (135-145); Total Iron Binding Capacity 206 mcg/dL (228-428); Total Protein 8.7 g/dL (6.5-8.0); Unsaturated Iron Binding 166 ug/dL
[2024-12-07 12:07] LABS: Ferritin 70 ng/mL (10-250)
== END 2024-12-07 09:26 | disposition home or self-care (01) ==
LOC: HO.LAB 09:25
PROVIDERS: Absent Provider Internal Medicine Gastroenterology; PCP Internal Medicine; Visit Provider Hospitalist
DX: Z01.818 Encounter for other preprocedural examination (principal); D64.9 Anemia, unspecified; J96.11 Chronic respiratory failure with hypoxia; E66.2 Morbid (severe) obesity with alveolar hypoventilation
CPT/HCPCS: 36415; 80053; 82728; 82803; 83540; 83735; 85025; 86140; 99212

== ENCOUNTER 2024-12-07 09:25 | Outpatient (AMB) | payer OTHER, SELFPAY ==
--- NOTE | 2024-12-07 09:29 | MHC.OFFVIS ---
Vital Signs 12/07/24 09:30 Height 5 ft 4 in BMI Reason not done Patient refused/unable BP 112/56 L Blood Pressure Location Lt radial Position Sitting Pulse 112 H Pulse Source Pulse Oximeter Pulse Oximetry (%) 96 Oxygen Delivery Method Room Air Intake Visit Reasons: Obstructive sleep apnea Allergies Penicillins [PENICILLINS] Allergy (Unknown, Verified 12/04/24 16:53) ITCHING HPI Comments Details: The patient is a 64 year woman with known history of obesity hyperventilation syndrome and sleep apnea. She does have a CPAP through [employer] but she is not or has not been compliant with. She is no longer active with [employer] at this time and therefore is not getting supplies. She was hospitalized recently with worsening shortness of breath and she was admitted to the hospital. She was found to have severe anemia. She was placed on oxygen because of her respiratory failure. She has done well. She continues to be on 2 L continuously. The patient in the meantime was also found to have a cholecystitis. Because she was not deemed a surgical candidate a drain was placed and currently has the gallbladder drain in the meantime. Ultimately the patient was found to have the cholecystitis and knee surgery for that and also was found to have what appears to be a pelvic mass that also needs to be excised. At this point the patient is high risk will go ahead and see about getting her back on CPAP. She does have the machine with her at home I did provide her with a N 30 I cradle mask that she can try to use to see if she start using the machine. She will come back in the next 3-4 weeks and will bring her machine with her. In the meantime she is going to continue with the current respiratory therapy. Hopefully at that point once she is using her CPAP and her respiratory status is better we can allow her to proceed with surgery. 12/07/2024 The patient is here for a pulmonary follow up visit. The patient is doing well. Has been trying to use her APAP more. AHI 0.4. She will continue to use the FM. The patient had a repeat blood gas and overall doing better. At this time she will need to undergo a colonoscopy and possible Cholecystectomy. She does have increased risk for perioperative pulmonary complications, which include: atelectasis, hypoxia, pneumonia and respiratory failure. Clinically she is doing well and is able to proceed both with anesthesia and endoscopic and surgical procedures. [facility] Medical History (Updated 12/04/24 @ 16:52 by Shellie Varghese, RN) On home oxygen therapy Chronic hypoxemic respiratory failure Obesity hypoventilation syndrome Morbid obesity Fibromyalgia Hx of migraine headaches DELANEY (obstructive sleep apnea) Asthma Wheelchair dependent Obesity, morbid, BMI 50 or higher Pre-diabetes HTN (hypertension) Chronic abdominal pain Moderate persistent asthma Obstructive sleep apnea Obesity Essential hypertension Surgical History History of hysteroscopy (~05/2024) Hx of colonoscopy Hx of tubal ligation Hx of section History of knee surgery Family History Mother Diabetes Throat cancer Hypertension Father Hypertension Social History (Updated 12/04/24 @ 16:51 by Shellie Varghese, RN) Household Members: Children Household Members Other:: son, jazmine Housing: Apartment Are you a primary health care recruiter to a significant other at home: No Do you presently have visiting nurse or other home services: Yes (son [employer]ISK MANAGEMENT MANAGER 24/7) Alcohol intake: never Patient Tobacco Use Status: Never used Tobacco e-Cigarette/Vaping Use: Never Used Second Hand Smoke Exposure: No service: No Current occupational status: disabled Sexual orientation: Straight/Heterosexual Gender identity: Female Cognitive needs: Yes (wheelchair) Hearing needs: No Vision needs: Yes Review of Systems Const All systems reviewed & are unremarkable except as noted in HPI and below Reports daytime sleepiness and Reports snoring ENT Reports Normal hearing present and Reports nasal congestion Card Denies chest pain at rest and Reports dyspnea on exertion Resp Denies cough, Reports dyspnea on exertion and Reports snoring GI Denies abdominal pain, Denies change in bowel habits, Denies excessive flatus, Denies nausea and Denies vomiting Reports as per HPI Musc Reports back pain, Denies atrophy, Denies deformity, Reports arthralgias and Reports limited range of motion Skin/Breast Denies bleeding lesions, Denies changing lesions and Denies rash Neuro Reports Normal hearing present, Denies Abnormal speech present, Denies behavioral changes and Denies lack of coordination Psych Denies behavioral changes Physical Exam Vital Signs: Last Vital Signs Pulse 112 H 12/07/24 09:30 BP 112/56 L 12/07/24 09:30 Pulse Ox 96 12/07/24 09:30 Oxygen Delivery Method Room Air 12/07/24 09:30 Const General: no acute distress Nutritional Appearance: obese (Morbidly obese) Orientation/consciousness: patient oriented x3 Limitations: wheelchair (pt sitting in a motorized wheelchair) HEENT Head: Yes normal to inspection Ears: hearing grossly normal bilaterally Eyes Sclerae: sclerae normal Pupils: Equal, round and reactive pupils present Neck Neck: Yes normal visual inspection Chest Chest palpation & inspection: normal inspection of the chest Resp Effort & Inspection: normal respiratory effort Auscultation: diminished lung sounds Cardio Palpation: normal PMI Rate: regular rate Rhythm: regular rhythm Heart sounds: S1 normal heart sound present, S2 normal heart sound present and no murmurs GI Palpation (GI): Soft to palpation Skin General skin exam: no rashes or lesions noted Neuro General: patient oriented x3, gait normal and moves all extremities Cranial nerves: Yes Equal, round and reactive pupils present and Yes Normal hearing present Speech: No Abnormal speech present Psych Appearance: grossly normal Mental Status: mental status grossly normal Assessment & Plan Assessment & Plan (1) Pre-op evaluation: Code(s): Z01.818 - Encounter for other preprocedural examination Category: Medical (2) Chronic hypoxemic respiratory failure: Code(s): J96.11 - Chronic respiratory failure with hypoxia Category: Medical (3) Obstructive sleep apnea: Code(s): G47.33 - Obstructive sleep apnea (adult) (pediatric) Category: Medical (4) Obesity hypoventilation syndrome: Code(s): E66.2 - Morbid (severe) obesity with alveolar hypoventilation Category: Medical Plan continue oxygen supplementation KATHERIN as needed continue APAP therapy ok to proceed anesthesia and endoscopy/surgery at this time F/U 3-4 months Orders: Orders Venous Blood Gas Today J96.11 - Chronic respiratory failure with hypoxia Coding Level of Care Code Est Pt Level 4 (80130) Diagnoses Pre-op evaluation Z01.818 Chronic hypoxemic respiratory failure J96.11 Obstructive sleep apnea G47.33 Obesity hypoventilation syndrome E66.2 Time Spent (min) 16
[2024-12-07 09:30] VITALS: BP 112/56; PULSE 112; O2SAT 96
--- OUTSIDE RECORDS SUMMARY | 2024-12-07 10:44 | XMS_ITS | Clinical Summary ---
Author Organization [employer] [facility] it Address [address] [place] [address] Care Team Providers Care Clean Out Driller Helper Name Role Phone Unavailable Primary Care Provider Unavailabl e Surgical History Surgery Date Site/Laterality Comments OTHER SURGICAL HISTORY Right PROCEDURE: [place] AMPUTATION LEG THROUGH TIBIA&FIBULA COLONOSCOPY PROCEDURE: HISTORICAL [...]
== END 2024-12-07 10:06 | disposition home or self-care (01) ==
PROVIDERS: PCP Internal Medicine; Visit Provider Hospitalist
DX: Z01.818 Encounter for other preprocedural examination (principal); J96.11 Chronic respiratory failure with hypoxia; G47.33 Obstructive sleep apnea (adult) (pediatric); E66.2 Morbid (severe) obesity with alveolar hypoventilation
CPT/HCPCS: 99214

== ENCOUNTER 2024-12-19 08:53 | Outpatient (AMB) | payer OTHER, SELFPAY ==
--- NOTE | 2024-12-19 08:57 | MHC.PC.OV ---
Vital Signs 12/19/24 09:02 Height 5 ft 4 in Weight 328 lb BMI 56.3 BP 126/78 Blood Pressure Location Lt brachial Position Sitting Intake Visit Reasons: PE Intake Note: Patient here for a physical exam Complex Director Required: No Accompanied by: Son Allergies Penicillins [PENICILLINS] Allergy (Unknown, Verified 12/19/24 09:32) ITCHING Medication List - Last Reconciled 12/19/24 by Rhina Malave MD albuterol sulfate 2.5 mg (3 mL) inhalation Q6H PRN amitriptyline 50 mg PO BEDTIME 90 days amlodipine 5 mg PO DAILY 90 days cetirizine 10 mg PO DAILY 90 days dicyclomine 20 mg PO TID PRN 30 days Lactobacillus rhamnosus GG (Culturelle) 1 cap PO DAILY 30 days lisinopril 40 mg PO DAILY 90 days miconazole nitrate 2% (Remedy Phytoplex Antifungal) 1 appl topical DAILY PRN omeprazole 20 mg PO BID 60 days ondansetron 4 mg PO DAILY PRN 5 days oxycodone 5 mg PO Q6H PRN MDD 15 polyethylene glycol 3350 (Miralax) 17 grams PO DAILY PRN 30 days spironolactone 25 mg PO DAILY 90 days sumatriptan succinate 25 mg PO Q2-4H PRN 30 days Ventolin HFA 90 mcg/actuation (albuterol sulfate) 2 puffs inhalation Q6H PRN 30 days NS Tobacco use date assessed: 10/20/24 Dental Screening Dental Screen Date: 10/20/24 HPI HPI Comments History of Present Illness Details The patient is a 64-year-old female presenting for her physical exam. Previously, she has undergone several abdominal procedures which are significant in her medical history. The cause of the current acute pain is suspected to be related to acute cholecystitis, prompting a referral to gastroenterology. The patient also reports a penicillin allergy. Her chronic conditions such as hypertension and migraines are managed with amlodipine, lisinopril, and sumatriptan respectively. The patient uses a CPAP machine for sleep apnea. Obesity is acknowledged, likely contributing to other health issues. Past surgeries include knee surgery, tubal ligation, and hysteroscopy. In terms of health maintenance, the patient received a tetanus vaccine in 2021. Her last colonoscopy was over a decade ago, exposing potential gaps in screening. She has low levels of both iron and magnesium, necessitating supplementation. - Tetanus vaccination received in 2021. - Iron and magnesium supplementation due to low lab results. - Referral for colonoscopy was made, but procedure incomplete; last successful screening over ten years ago. - No smoking or alcohol use. - CPAP in use for sleep apnea. [facility] Medical History (Updated 12/19/24 @ 11:50 by Rhina Malave MD) On home oxygen therapy Chronic hypoxemic respiratory failure Obesity hypoventilation syndrome Morbid obesity Fibromyalgia Hx of migraine headaches DELANEY (obstructive sleep apnea) Asthma Wheelchair dependent Obesity, morbid, BMI 50 or higher Pre-diabetes HTN (hypertension) Chronic abdominal pain Moderate persistent asthma Obstructive sleep apnea Obesity Essential hypertension Surgical History History of hysteroscopy (~05/2024) Hx of colonoscopy Hx of tubal ligation Hx of section History of knee surgery Family History Mother Diabetes Throat cancer Hypertension Father Hypertension Social History Household Members: Children Household Members Other:: son, [facility] Housing: Apartment Are you a primary care coordinator to a significant other at home: No Do you presently have visiting nurse or other home services: Yes (son [employer] 24/7) Alcohol intake: never Patient Tobacco Use Status: Never used Tobacco e-Cigarette/Vaping Use: Never Used Second Hand Smoke Exposure: No service: No Current occupational status: disabled Sexual orientation: Straight/Heterosexual Gender identity: Female Cognitive needs: Yes (wheelchair) Hearing needs: No Vision needs: Yes Questionnaire PHQ-9 Over the last 2 weeks, how often have you been bothered by any of the following problems? 1. Little interest or pleasure in doing things: not at all 2. Feeling down, depressed, or hopeless: not at all 3. Trouble falling or staying asleep, or sleeping too much: not at all 4. Feeling tired or having little energy: not at all 5. Poor appetite or overeating: not at all 6. Feeling bad about yourself - or that you are a failure or have let yourself or your family down: not at all 7. Trouble concentrating on things, such as reading the newspaper or watching television: not at all 8. Moving or speaking so slowly that other people could have noticed. Or the opposite - being so fidgety or restless that you have been moving around a lot more than usual: not at all 9. Thoughts that you would be better off or of hurting yourself in some way: not at all Total score: 0 Depression Screening Interpretation: Negative Depression Screening Done: Yes 04804 - PHQ-9 Billing: Yes Source: Developed by Drs. Jeronimo Trinidad, Nora Stone, Hipolito Finley and colleagues, with an educational neil from [employer]. Thrive Questionnaire Date Thrive assessed: 12/14/24 I am a: Patient What is your living situation today?: I have a steady place to live Within the past 12 months, did the food you bought not last and you didn't have the money to get more?: I choose not to answer this question Within the past 12 months, did you worry whether your food would run out before you got money to buy more?: Never true Do you have trouble paying for medicines?: No Do you have trouble getting transportation to medical appointments?: No Do you have trouble paying your heating and electricity bill?: No Do you have trouble taking care of your child, family member or friend?: No Do you have trouble with day-to-day activities such as bathing, preparing meals, shopping, managing finances, etc.?: Yes Are you currently unemployed and looking for a job?: I choose not to answer this question Are you interested in more education?: I choose not to answer this question Please select the resources that you would like help with: None Currently or been in a relationship where the following occur: No concerns reported THRIVE Score: 0 AUDIT C Alcohol Use Questionnaire (AUDIT-C) 1. How often do you have a drink containing alcohol?: Never Total Score: 0 Score Reviewed/Action Taken: No AUGUSTO-7 AMB Questionnaire AUGUSTO-7 Date AUGUSTO - 7 assessed: 10/20/24 Feeling nervous, anxious, or on edge: 1 = Several days Not being able to stop or control worryin = Several days Worrying too much about different things: 1 = Several days Trouble relaxin = Several days Being so restless that it is hard to sit still: 0 = Not at all Becoming easily annoyed or irritable: 0 = Not at all Feeling afraid as if something awful might happen: 1 = Several days Total AUGUSTO-7 score (0-4 normal; 5-9 mild; 10-14 moderate; 15-21 severe): 5 Source: Developed by Drs. Jeronimo Trinidad, Nora Stone, Hipolito Finley and colleagues, with an educational neil from [employer]. AUGUSTO-7 Assessment Billing AUGUSTO-7 Assessment Tool: AUGUSTO-7 Assessment 84348 Review of Systems Const All systems reviewed & are unremarkable except as noted in HPI and below Card Denies chest pain at rest, Denies chest pain with activity, Denies edema, Denies irregular heart rhythm, Denies claudication, Denies dyspnea, Denies dyspnea on exertion, Denies orthopnea, Denies paroxysmal nocturnal dyspnea and Denies slow heart rate Resp Denies cough, Denies dyspnea and Denies dyspnea on exertion Physical exam (Primary Care) Vital Signs: Last Vital Signs BP 126/78 12/19/24 09:02 BMI result Body Mass Index 56.3 BMI Assessment/Plan discussion: High BMI High, discussed plan: lifestyle, weight reduction, dietary and physical activity Tobacco/Smoking Status: Tobacco use Status Tobacco use date assessed 10/20/24 12/19/24 08:59 Patient Tobacco Use Status Never used Tobacco 12/19/24 08:59 e-Cigarette/Vaping Use Never Used 12/19/24 08:59 PHQ-9: PHQ-9 Score PHQ-9: Total score 0 12/19/24 09:57 Depression Screening Interpretation: Negative Thrive Assessment: Date of Thrive Assessment Date Thrive assessed 12/14/24 12/19/24 08:59 Currently or been in a relationship where the following occur: No concerns reported Const Limitations: wheelchair HENMT Head: Yes normal to inspection, Yes normocephalic and Yes atraumatic Ears: external ears normal Eyes General: appearance normal, both eyes and all related structures Eyelids: Yes eyelids normal Conjunctivae: conjunctivae normal Neck Neck: Yes normal visual inspection and Yes supple Resp Effort & Inspection: normal respiratory effort Auscultation: clear to auscultation bilaterally Cardio Jugular venous distension: no JVD Rate: regular rate Rhythm: regular rhythm Heart sounds: S1 normal heart sound present and S2 normal heart sound present GI Inspection: Yes normal to inspection Palpation (GI): Soft to palpation and nontender Auscultation: normal bowel sounds Skin General skin exam: no rashes or lesions noted Neuro General: no focal motor deficits Psych Appearance: grossly normal Coding Level of Care Code Est Pt Level 4 (57187) Est Pt Prev Care 40-64y(70121) Diagnoses Physical exam Z00.00 Morbid obesity with BMI of 50.0-59.9, adult E66.01; Z68.43 Hypomagnesemia E83.42 LUQ abdominal pain R10.12 History of insertion of cholecystostomy tube Z98.890 Anemia D64.9 Additional Codes AUGUSTO-7 Assessment Billing - AUGUSTO-7 Assessment Tool: AUGUSTO-7 Assessment 93432 ([id number]) PHQ-9 - 90796 - PHQ-9 Billing: Yes ([id number]) Time Spent (min) 40 Assessment & Plan Assessment & Plan (1) Physical exam: Code(s): Z00.00 - Encounter for general adult medical examination without abnormal findings Category: Medical (2) Morbid obesity with BMI of 50.0-59.9, adult: Code(s): E66.01 - Morbid (severe) obesity due to excess calories; Z68.43 - Body mass index [BMI] 50.0-59.9, adult Category: Medical (3) Hypomagnesemia: Code(s): E83.42 - Hypomagnesemia Category: Medical (4) LUQ abdominal pain: Code(s): R10.12 - Left upper quadrant pain Category: Medical (5) History of insertion of cholecystostomy tube: Code(s): Z98.890 - Other specified postprocedural states Category: Surgical (6) Anemia: Code(s): D64.9 - Anemia, unspecified Category: Medical Plan Management of the patient's acute cholecystitis includes referral to gastroenterology for further assessment. Stomach pain may be related and should be closely monitored. Sumatriptan will be used as-needed for migraines, and supplementation of magnesium and iron is initiated due to low levels found in tests. Importance of completing a follow-up colonoscopy given previous incomplete procedure is reiterated. CPAP remains critical in the management of her sleep apnea. No smoking or alcohol usage is a positive note for her overall health. The patient is adhering to her hypertension regimen, with amlodipine and lisinopril prescribed. Attention to diet and exercise is emphasized, while ensuring her vaccination status remains up-to-date. Patient was informed and verbally consented to the use of an ambient scribe for clinic note documentation during this visit. In our discussion, I underlined the need for referral to [facility] to evaluate the acute cholecystitis further, highlighting the implications it might have on her acute stomach pain. We reviewed her penicillin allergy and ensured medications avoided this. Magnesium and iron supplementation are started to correct deficiencies, aiming for improved lab results. I emphasized the necessity of a follow-up colonoscopy due to the significant gap since the last procedure. The continuity of CPAP therapy for sleep apnea is stressed for optimal breathing function and overall health. Furthermore, I provided reassurance regarding the effective management of migraines with sumatriptan. Understandingly, she agrees to maintain her current health maintenance practices including adherence to her vaccination schedule and lifestyle choices. Orders: Referrals Gastroenterology Referral K81.0 - Acute cholecystitis, R10.12 - Left upper quadrant pain, Z98.890 - Other specified postprocedural states Medications: New magnesium oxide 400 mg PO DAILY 90 days 90 caps 3RF E83.42 - Hypomagnesemia ferrous sulfate 325 mg PO DAILY 90 days 90 tabs 1RF Refilled sumatriptan succinate do not exceed 8 doses per 24 hrs 25 mg PO Q2-4H 30 days PRN 9 tabs 6RF migraine headache dicyclomine Take 1 tab three times a day before meals 20 mg PO TID 30 days PRN 90 tabs 3RF abdominal pain R10.10 - Upper abdominal pain, unspecified Patient Instructions: - Schedule and attend the referral at [facility]. - Continue using sumatriptan as needed for migraines. - Take magnesium and iron supplements as directed. - Use CPAP machine consistently. - Avoid penicillin-based medications. - Schedule a follow-up colonoscopy given the time elapsed since the last examination. - Maintain current lifestyle with no smoking or alcohol consumption.
[2024-12-19 09:02] VITALS: BP 126/78; BMI 56.3
== END 2024-12-19 10:20 | disposition home or self-care (01) ==
LOC: HO.HMCH 08:54
PROVIDERS: PCP Internal Medicine; Visit Provider Internal Medicine
DX: Z00.00 Encounter for general adult medical examination without abnormal findings (principal); R10.12 Left upper quadrant pain; E66.01 Morbid (severe) obesity due to excess calories; Z68.43 Body mass index [BMI] 50.0-59.9, adult; E83.42 Hypomagnesemia; Z98.890 Other specified postprocedural states; D64.9 Anemia, unspecified

== ENCOUNTER → 2024-12-19 08:53 | Outpatient (BNVA) | payer OTHER, SELFPAY | PROVIDERS: PCP Internal Medicine; Visit Provider Internal Medicine | DX: Z00.00 Encounter for general adult medical examination without abnormal findings (principal); E66.01 Morbid (severe) obesity due to excess calories; Z68.43 Body mass index [BMI] 50.0-59.9, adult; E83.42 Hypomagnesemia; R10.12 Left upper quadrant pain; D64.9 Anemia, unspecified; Z98.890 Other specified postprocedural states; Z71.3 Dietary counseling and surveillance | CPT/HCPCS: 96127; 99212; 99396 ==

== ENCOUNTER 2024-12-26 11:12 | Outpatient (AMB) | payer OTHER, SELFPAY ==
--- NOTE | 2024-12-26 11:15 | A.OFFVIS_ITS ---
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 She has minimal output. Drain was uneventfully removed and dressing applied. Patient tolerated this well. In the meantime, patient was like to have her recurrent biliary colic addressed. [facility] Medical History On home oxygen therapy Chronic hypoxemic respiratory failure Obesity hypoventilation syndrome Morbid obesity Fibromyalgia Hx of migraine headaches DELANEY (obstructive sleep apnea) Asthma Wheelchair dependent Obesity, morbid, BMI 50 or higher Pre-diabetes HTN (hypertension) Chronic abdominal pain Moderate persistent asthma Obstructive sleep apnea Obesity Essential hypertension Surgical History History of hysteroscopy (~05/2024) Hx of colonoscopy Hx of tubal ligation Hx of section History of knee surgery Family History Mother Diabetes Throat cancer Hypertension Father Hypertension Social History Household Members: Children Household Members Other:: son, [employer] [facility] Housing: Apartment Are you a primary lpn care manager to a significant other at home: No Do you presently have visiting nurse or other home services: Yes (son CUSTOMER COUNTER ASSOCIATE 24/7) Alcohol intake: never Patient Tobacco Use Status: Never used Tobacco e-Cigarette/Vaping Use: Never Used Second Hand Smoke Exposure: No service: No Current occupational status: disabled Sexual orientation: Straight/Heterosexual Gender identity: Female Cognitive needs: Yes (wheelchair) Hearing needs: No Vision needs: Yes Physical Exam Chest Other: Chest breath sounds bilaterally, HS 1 in 2 GI Other: Very corpulent abdomen. Soft, benign. Drain as noted above Assessment & Plan Assessment & Plan (1) Recurrent biliary colic: Code(s): K80.50 - Calculus of bile duct without cholangitis or cholecystitis without obstruction Category: Surgical Plan Risks, benefits, alternatives laparoscopic possible open cholecystectomy reviewed with the patient and her significant other and included but not limited to bleeding, infection, numbness, pain, scarring, bowel or bile duct injury or leak and they wished to proceed. Arrangements were made for this. Patient will undergo PAT evaluation prior to the procedure. All questions answered. Coding Level of Care Code Est Pt Level 5 (17197) Diagnoses Recurrent biliary colic K80.50
== END 2024-12-26 11:39 | disposition home or self-care (01) ==
LOC: HO.HGS 11:13
PROVIDERS: PCP Internal Medicine; Visit Provider Surgery
DX: K80.50 Calculus of bile duct without cholangitis or cholecystitis without obstruction (principal)
CPT/HCPCS: 99214

== ENCOUNTER → 2024-12-26 11:12 | Outpatient (BNVA) | payer OTHER, SELFPAY | PROVIDERS: PCP Internal Medicine; Visit Provider Surgery | DX: K80.50 Calculus of bile duct without cholangitis or cholecystitis without obstruction (principal) | CPT/HCPCS: 99212 ==

== ENCOUNTER → 2024-12-26 23:59 | Outpatient (BNV) | payer OTHER, SELFPAY | PROVIDERS: PCP Internal Medicine; Visit Provider Internal Medicine | DX: J96.02 Acute respiratory failure with hypercapnia (principal); J45.901 Unspecified asthma with (acute) exacerbation; I10 Essential (primary) hypertension; G47.33 Obstructive sleep apnea (adult) (pediatric) | CPT/HCPCS: G0179 ==

== ENCOUNTER 2025-01-08 09:19 | Outpatient (AMB) | payer OTHER, SELFPAY ==
--- NOTE | 2025-01-08 09:30 | A.OFFVIS_ITS ---
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 Virtualization Architect Required: Yes Virtualization Architect Services: Virtualization Architect Present Virtualization Architect Name: monique [id number] Accompanied by: Son Allergies Penicillins [PENICILLINS] Allergy (Unknown, Verified 12/19/24 09:32) ITCHING Medication List - Last Reconciled 01/08/25 by Bernardino Gilbert MD albuterol sulfate 2.5 mg (3 mL) inhalation Q6H PRN amitriptyline 50 mg PO BEDTIME 90 days amlodipine 5 mg PO DAILY 90 days cetirizine 10 mg PO DAILY 90 days dicyclomine 20 mg PO TID PRN 30 days ferrous sulfate 325 mg PO DAILY 90 days Lactobacillus rhamnosus GG (Culturelle) 1 cap PO DAILY 30 days lisinopril 40 mg PO DAILY 90 days magnesium oxide 400 mg PO DAILY 90 days miconazole nitrate 2% (Remedy Phytoplex Antifungal) 1 appl topical DAILY PRN [mobile scooter As directed] omeprazole 20 mg PO BID 60 days ondansetron 4 mg PO DAILY PRN 5 days oxycodone 5 mg PO Q6H PRN MDD 15 polyethylene glycol 3350 (Miralax) 17 grams PO DAILY PRN 30 days spironolactone 25 mg PO DAILY 90 days sumatriptan succinate 25 mg PO Q2-4H PRN 30 days Ventolin HFA 90 mcg/actuation (albuterol sulfate) 2 puffs inhalation Q6H PRN 30 days NS HPI Comments Details: Monica is here for cardiac consultation. It seems that she needs cholecystectomy. In September of 2024, she had acute cholecystitis. However, thought to be high-risk for cholecystectomy and had Interventional Radiology kyle ded gallbladder drainage. It seems that surgery is now contemplating proceeding with surgery. She is morbidly obese and essentially bed-bound. According to son, apparently she cannot move. He uses some kind of mechanical creatinine/highest to move her from bed. Today, she is coming in a wheelchair accompanied by son. They deny any prior history of coronary disease or myocardial infarction or cardiomyopathy or PCI. No clear-cut angina but difficult to evaluate as she does not walk. Some random chest pains at different times. [facility] Medical History On home oxygen therapy Chronic hypoxemic respiratory failure Obesity hypoventilation syndrome Morbid obesity Fibromyalgia Hx of migraine headaches DELANEY (obstructive sleep apnea) Asthma Wheelchair dependent Obesity, morbid, BMI 50 or higher Pre-diabetes HTN (hypertension) Chronic abdominal pain Moderate persistent asthma Obstructive sleep apnea Obesity Essential hypertension Surgical History History of hysteroscopy (~05/2024) Hx of colonoscopy Hx of tubal ligation Hx of section History of knee surgery Family History Mother Diabetes Throat cancer Hypertension Father Hypertension Social History Household Members: Children Household Members Other:: [facility], [facility] Housing: Apartment Are you a primary caregiver assisted living to a significant other at home: No Do you presently have visiting nurse or other home services: Yes (son FINISH SAW OPERATOR 24/7) Alcohol intake: never Patient Tobacco Use Status: Never used Tobacco e-Cigarette/Vaping Use: Never Used Second Hand Smoke Exposure: No service: No Current occupational status: disabled Sexual orientation: Straight/Heterosexual Gender identity: Female Cognitive needs: Yes (wheelchair) Hearing needs: No Vision needs: Yes Review of Systems Const Denies chills, Denies daytime sleepiness, Denies fatigue, Denies fever(s), Denies poor appetite, Denies snoring, Denies stops breathing during sleep, Denies weakness, Denies weight gain and Denies weight loss Eyes Denies loss of vision ENT Denies dizziness and Denies hearing loss Card Reports chest pain, Denies irregular heart rhythm, Denies claudication, Denies leg edema, Denies lightheadedness, Denies palpitations, Denies dyspnea on exertion and Denies orthopnea Resp Denies cough, Denies excessive phlegm production, Denies dyspnea on exertion, Denies snoring and Denies wheezing GI Denies abdominal pain, Denies hematochezia, Denies change in bowel habits, Denies nausea and Denies vomiting Denies urinary frequency and Denies dysuria Musc Denies arthralgias, Denies muscle weakness, Denies numbness and Denies other Skin/Breast Denies nail changes and Denies rash Neuro Denies Abnormal speech present, Denies dizziness, Denies loss of vision, Denies memory loss, Denies numbness and Denies weakness Psych Denies depression and Denies memory loss Endo Denies fatigue and Denies palpitations Salvatore/Lymph Denies easy bruising Aller/Immun Denies wheezing Physical Exam Vital Signs: Last Vital Signs Pulse 96 01/08/25 09:31 BP 130/70 01/08/25 09:31 Const General: comfortable and no acute distress Orientation/consciousness: patient oriented x3 HEENT Other: Unremarkable Head: Yes normal to inspection Neck Neck: Yes normal visual inspection Chest Chest palpation & inspection: normal inspection of the chest Resp Auscultation: diminished lung sounds Cardio Palpation: normal PMI Heart sounds: S1 normal heart sound present, S2 normal heart sound present, no gallops, no murmurs and no rubs GI Palpation (GI): Soft to palpation Back/Spine/Pelvis Other: unremarkable Skin General skin exam: no rashes or lesions noted Neuro General: patient oriented x3 Speech: No Abnormal speech present Extrem General: Yes normal to inspection Psych Mental Status: mental status grossly normal Office Procedures EKG Details: EKG with underlying sinus rhythm at 96/Min; right bundle-branch block pattern; borderline IA prolongation 204 milliseconds. Corrected QT is prolonged because of the right bundle-branch block. [id number], Complete Assessment & Plan Assessment & Plan (1) Preoperative cardiovascular examination: Code(s): Z01.810 - Encounter for preprocedural cardiovascular examination Category: Medical (2) Morbid obesity with BMI of 50.0-59.9, adult: Code(s): E66.01 - Morbid (severe) obesity due to excess calories; Z68.43 - Body mass index [BMI] 50.0-59.9, adult Category: Medical (3) Bedbound: Code(s): Z74.01 - Bed confinement status Category: Medical (4) Chronic hypoxemic respiratory failure: Code(s): J96.11 - Chronic respiratory failure with hypoxia Category: Medical Plan Available high sensitivity troponin from September is within normal range. She has got no overt cardiac history but she is bed-bound with no mobility whatsoever. Has chronic respiratory failure. In this context, she is not really a candidate for any ischemic workup. May get an echocardiogram for cardiac function but as she is not able to move from the wheelchair, quality might be limited. Overall, irrespective of the echocardiographic findings, she will be at high cardiac risk for surgery. Potential risks include myocardial infarction, congestive heart failure, . If these risks are acceptable, may proceed. Discussed with patient and son using registered representative. Orders: Orders CA echo transthoracic complete Today J96.11 - Chronic respiratory failure with hypoxia, Z01.810 - Encounter for preprocedural cardiovascular examination Coding Level of Care Code New Pt Level 5 (97654) Complex EM visit Add On G2211 Diagnoses Preoperative cardiovascular examination Z01.810 Morbid obesity with BMI of 50.0-59.9, adult E66.01; Z68.43 Bedbound Z74.01 Chronic hypoxemic respiratory failure J96.11 CPT Codes EKG - CPT: 62689-[id number], Complete ([id number])
[2025-01-08 09:31] VITALS: BP 130/70; PULSE 96
--- OUTSIDE RECORDS SUMMARY | 2025-01-08 10:25 | XMS_ITS | Clinical Summary ---
Author Organization [facility] ity Address [address] [place] [address] Care Team Providers Care Quality Control Microbiologist Name Role Phone Unavailable Primary Care Provider Unavailabl e Surgical History Surgery Date Site/Laterality Comments OTHER SURGICAL HISTORY Right PROCEDURE: [place] AMPUTATION LEG THROUGH TIBIA&FIBULA COLONOSCOPY PROCEDURE: HISTORICAL COLONOSCOPY Medical History Medical History Date Comments Acanthosis nigricans DX:Acanthos is nigricans Asthma DX:Asthma Diverticulosis DX:Diverticulosi s Fibromyalgia DX:Fibromyalgia Headache DX:Headache Essential hypertension DX:Essent ial hypertension Morbid obesity (CMS/HCC) DX:Morb id obesity (HCC) Sleep apnea DX:Sleep apnea Osteoarthritis DX:Osteoarthriti s Supraventricular tachycardia DX: Supraventricular tachycardia (HCC) Vitamin D deficiency DX:Vitamin D [...] - 2023-2 5 season) 2024 Influenza Vaccine (Season Ended) 2025 RSV Immunization Adult Patie nts (1 - 1-dose 75+ series) 2036 HIB [...]
== END 2025-01-08 09:59 | disposition home or self-care (01) ==
LOC: HO.HCS 09:20
PROVIDERS: PCP Internal Medicine; Visit Provider Internal Medicine
DX: J96.11 Chronic respiratory failure with hypoxia (principal); E66.01 Morbid (severe) obesity due to excess calories; Z68.43 Body mass index [BMI] 50.0-59.9, adult; Z74.01 Bed confinement status; Z01.810 Encounter for preprocedural cardiovascular examination; R94.31 Abnormal electrocardiogram [ECG] [EKG]
CPT/HCPCS: 93010; 99215; G2211

== ENCOUNTER → 2025-01-08 09:19 | Outpatient (BNVA) | payer OTHER, SELFPAY | PROVIDERS: PCP Internal Medicine; Visit Provider Internal Medicine | DX: Z01.810 Encounter for preprocedural cardiovascular examination (principal); E66.01 Morbid (severe) obesity due to excess calories; J96.11 Chronic respiratory failure with hypoxia; Z68.43 Body mass index [BMI] 50.0-59.9, adult; Z74.01 Bed confinement status | CPT/HCPCS: 93005; 99212 ==

== ENCOUNTER 2025-02-19 10:47 | Outpatient (AMB) | payer OTHER, SELFPAY ==
--- NOTE | 2025-02-19 11:20 | A.OFFPC_ITS ---
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 Accompanied by: son Allergies Penicillins [PENICILLINS] Allergy (Unknown, Verified 02/19/25 11:32) ITCHING Medication List - Last Reconciled 02/19/25 by Rhina Malave MD albuterol sulfate 2.5 mg (3 mL) inhalation Q6H PRN amitriptyline 50 mg PO BEDTIME 90 days amlodipine 5 mg PO DAILY 90 days cetirizine 10 mg PO DAILY 90 days dicyclomine 20 mg PO TID PRN 30 days ferrous sulfate 325 mg PO DAILY 90 days Lactobacillus rhamnosus GG (Culturelle) 1 cap PO DAILY 30 days [Lift recliner As directed] lisinopril 40 mg PO DAILY 90 days magnesium oxide 400 mg PO DAILY 90 days miconazole nitrate 2% (Remedy Phytoplex Antifungal) 1 appl topical DAILY PRN [mobile scooter As directed] omeprazole 20 mg PO BID 60 days ondansetron 4 mg PO DAILY PRN 5 days oxycodone 5 mg PO Q6H PRN MDD 15 polyethylene glycol 3350 (Miralax) 17 grams PO DAILY PRN 30 days spironolactone 25 mg PO DAILY 90 days sumatriptan succinate 25 mg PO Q2-4H PRN 30 days Ventolin HFA 90 mcg/actuation (albuterol sulfate) 2 puffs inhalation Q6H PRN 30 days NS Tobacco use date assessed: 10/20/24 Dental Screening Dental Screen Date: 10/20/24 Did you have a dental visit in the last 12 months?: No Did you have a dental problem in the last 6 months where you did not have access to dental care?: No Was dental information given to patient?: Patient has dentist HPI HPI Comments History of Present Illness Details The patient is a 64-year-old female presenting with chronic disease management and evaluation of current symptoms. She has a history of anemia managed with ferrous sulfate. Her hemoglobin has been low but improved. The patient also reports low magnesium levels being addressed through supplementation. She experiences depression, for which amitriptyline is being used, though she denies suicidal thoughts. Obstructive sleep apnea was diagnosed by a sleep study, yet the CPAP machine is not in use due to an ongoing pending process for further evaluation. Gastroesophageal reflux, constipation, and hypertension are being treated with omeprazole, MiraLAX, and amlodipine, respectively. Migraines occurring without f ull relief from sumatriptan are noted. Bilateral leg weakness leading to the use of her regular wheelchair is reported. The patient also mentions allergic symptoms managed with cetirizine and presents ear discomfort and intermittent tinnitus she attributes to allergies. Her medication regimen includes lisinopril, spironolactone, and others for various symptoms. No past stroke is reported, and she has an appointment with gastroenterology and a scheduled consult with cardiac surgery. [facility] Medical History (Updated 02/19/25 @ 11:56 by Rhina Malave MD) On home oxygen therapy Chronic hypoxemic respiratory failure Obesity hypoventilation syndrome Morbid obesity Fibromyalgia Hx of migraine headaches DELANEY (obstructive sleep apnea) Asthma Wheelchair dependent Obesity, morbid, BMI 50 or higher Pre-diabetes HTN (hypertension) Chronic abdominal pain Moderate persistent asthma Obstructive sleep apnea Obesity Essential hypertension Surgical History History of hysteroscopy (~05/2024) Hx of colonoscopy Hx of tubal ligation Hx of section History of knee surgery Family History Mother Diabetes Throat cancer Hypertension Father Hypertension Social History Household Members: Children Household Members Other:: [facility], [facility] Housing: Apartment Are you a primary intensive care nurse to a significant other at home: No Do you presently have visiting nurse or other home services: Yes (son [employer] MACHINE 24/7) Alcohol intake: never Patient Tobacco Use Status: Never used Tobacco e-Cigarette/Vaping Use: Never Used Second Hand Smoke Exposure: No service: No Current occupational status: disabled Sexual orientation: Straight/Heterosexual Gender identity: Female Cognitive needs: Yes (wheelchair) Hearing needs: No Vision needs: Yes Questionnaire PHQ-9 Over the last 2 weeks, how often have you been bothered by any of the following problems? 1. Little interest or pleasure in doing things: more than half the days 2. Feeling down, depressed, or hopeless: more than half the days 3. Trouble falling or staying asleep, or sleeping too much: more than half the days 4. Feeling tired or having little energy: more than half the days 5. Poor appetite or overeating: more than half the days 6. Feeling bad about yourself - or that you are a failure or have let yourself or your family down: more than half the days 7. Trouble concentrating on things, such as reading the newspaper or watching television: more than half the days 8. Moving or speaking so slowly that other people could have noticed. Or the opposite - being so fidgety or restless that you have been moving around a lot more than usual: several days 9. Thoughts that you would be better off or of hurting yourself in some way: not at all Total score: 15 Depression Screening Interpretation: Positive (no suicidal thoughts) Depression Screening Follow-up: Existing condition and Follow-up Visit Requested Depression Screening Done: Yes 33577 - PHQ-9 Billing: Yes Source: Developed by Drs. Jeronimo Trinidad, Nora Stone, Hipolito Finley and colleagues, with an educational neil from [employer]. Thrive Questionnaire Date Thrive assessed: 12/14/24 I am a: Patient What is your living situation today?: I have a steady place to live Within the past 12 months, did the food you bought not last and you didn't have the money to get more?: I choose not to answer this question Within the past 12 months, did you worry whether your food would run out before you got money to buy more?: Never true Do you have trouble paying for medicines?: No Do you have trouble getting transportation to medical appointments?: No Do you have trouble paying your heating and electricity bill?: No Do you have trouble taking care of your child, family member or friend?: No Do you have trouble with day-to-day activities such as bathing, preparing meals, shopping, managing finances, etc.?: Yes Are you currently unemployed and looking for a job?: I choose not to answer this question Are you interested in more education?: I choose not to answer this question Please select the resources that you would like help with: None Currently or been in a relationship where the following occur: No concerns reported THRIVE Score: 0 AUGUSTO-7 AMB Questionnaire AUGUSTO-7 Date AUGUSTO - 7 assessed: 10/20/24 Feeling nervous, anxious, or on edge: 1 = Several days Not being able to stop or control worryin = Several days Worrying too much about different things: 1 = Several days Trouble relaxin = Several days Being so restless that it is hard to sit still: 0 = Not at all Becoming easily annoyed or irritable: 0 = Not at all Feeling afraid as if something awful might happen: 1 = Several days Total AUGUSTO-7 score (0-4 normal; 5-9 mild; 10-14 moderate; 15-21 severe): 5 Source: Developed by Drs. Jeronimo Trinidad, Nora Stone, Hipolito Finley and colleagues, with an educational neil from [employer]. AUGUSTO-7 Assessment Billing AUGUSTO-7 Assessment Tool: AUGUSTO-7 Assessment 68766 Review of Systems Const All systems reviewed & are unremarkable except as noted in HPI and below Card Denies chest pain at rest, Denies chest pain with activity, Denies edema, Denies irregular heart rhythm, Denies claudication, Denies dyspnea, Denies dyspnea on exertion, Denies orthopnea, Denies paroxysmal nocturnal dyspnea and Denies slow heart rate Resp Denies cough, Denies dyspnea and Denies dyspnea on exertion GI Denies abdominal pain, Denies change in bowel habits, Denies excessive flatus, Denies nausea and Denies vomiting Physical exam (Primary Care) Vital Signs: Last Vital Signs BP 132/78 02/19/25 11:21 BMI Assessment/Plan discussion: High BMI High, discussed plan: lifestyle, weight reduction, dietary and physical activity Tobacco/Smoking Status: Tobacco use Status Tobacco use date assessed 10/20/24 02/19/25 11:26 Patient Tobacco Use Status Never used Tobacco 02/19/25 11:26 e-Cigarette/Vaping Use Never Used 02/19/25 11:26 PHQ-9: PHQ-9 Score PHQ-9: Total score 15 02/19/25 11:26 Depression Screening Interpretation: Positive (no suicidal thoughts) Depression Screening Follow-up: Existing condition and Follow-up Visit Requested Thrive Assessment: Date of Thrive Assessment Date Thrive assessed 12/14/24 02/19/25 11:26 Currently or been in a relationship where the following occur: No concerns reported Const Limitations: wheelchair Resp Effort & Inspection: normal respiratory effort Auscultation: clear to auscultation bilaterally Cardio Jugular venous distension: no JVD Rate: regular rate Rhythm: regular rhythm Heart sounds: S1 normal heart sound present and S2 normal heart sound present Coding Level of Care Code Est Pt Level 4 (36318) Complex EM visit Add On G2211 Diagnoses Ventral hernia K43.9 Hypomagnesemia E83.42 Chronic constipation K59.09 Migraines G43.909 Anemia D64.9 Obstructive sleep apnea G47.33 Obesity hypoventilation syndrome E66.2 Additional Codes AUGUSTO-7 Assessment Billing - AUGUSTO-7 Assessment Tool: AUGUSTO-7 Assessment 35205 ([id number]) PHQ-9 - 70808 - PHQ-9 Billing: Yes ([id number]) Time Spent (min) 25 Assessment & Plan Assessment & Plan (1) Ventral hernia: Code(s): K43.9 - Ventral hernia without obstruction or gangrene Category: Medical (2) Hypomagnesemia: Code(s): E83.42 - Hypomagnesemia Category: Medical (3) Chronic constipation: Comment: Encouraged consistent bowel regimen Code(s): K59.09 - Other constipation Category: Medical (4) Migraines: Code(s): G43.909 - Migraine, unspecified, not intractable, without status migrainosus Category: Medical (5) Anemia: Code(s): D64.9 - Anemia, unspecified Category: Medical (6) Obstructive sleep apnea: Code(s): G47.33 - Obstructive sleep apnea (adult) (pediatric) Category: Medical (7) Obesity hypoventilation syndrome: Code(s): E66.2 - Morbid (severe) obesity with alveolar hypoventilation Category: Medical Plan The patient will continue on prescribed iron and magnesium supplements to manage anemia and hypomagnesemia. Amitriptyline will remain at the current dose for depression, as no suicidal thoughts are reported. The previous diagnosis of obstructive sleep apnea requires follow-up for CPAP therapy. Ongoing management of reflux and constipation involves omeprazole and MiraLAX. Blood pressure control with amlodipine 5 mg continues, while migraine management may need neurology input due to sumatriptan's limited relief. Allergic manifestations are currently managed with cetirizine. Continuation of planned consultations for gastrointestinal and cardiac evaluations is important. Medication reviews and potential modifications will occur based on these evaluations. Patient was informed and verbally consented to the use of an ambient scribe for clinic note documentation during this visit. During the visit, I discussed the ongoing management of anemia and hypomagnesemia with continued supplementation as necessary. The patient acknowledged the depression treatment plan with amitriptyline, understanding the lack of suicidal ideation. There was a discussion on the importance of follow-up for the CPAP therapy for obstructive sleep apnea and other relevant management p lans. Medicines for hypertension, reflux, constipation, and allergic symptoms were elaborated on with a caution on remaining observant of any side effects or inefficacies. Neurological consultation for migraines was proposed as a necessary step. The findings about her ear health were explained, and further consultations for gastrointestinal and cardiac systems were planned. I emphasized the importance of adhering to prescribed medication while awaiting additional medical input. Orders: Orders Complete Blood Count Auto Diff Today D64.9 - Anemia, unspecified Vitamin B12 and Folate Today E53.8 - Deficiency of other specified B group vitamins Vitamin D 25-OH Total Today E55.9 - Vitamin D deficiency, unspecified IRON PROFILE Today D64.9 - Anemia, unspecified Comprehensive Met. Panel Today E66.01 - Morbid (severe) obesity due to excess calories, Z68.43 - Body mass index [BMI] 50.0-59.9, adult Magnesium Today E83.42 - Hypomagnesemia US abdomen limited Today K43.9 - Ventral hernia without obstruction or gangrene Medications: New rizatriptan do not exceed 3 doses per 24 hrs 10 mg PO Q2-4H 30 days PRN 9 tabs 1RF migraine headache Refilled Lactobacillus rhamnosus GG (Culturelle) 1 cap PO DAILY 30 days 30 caps 3RF R19.7 - Diarrhea, unspecified Discontinued sumatriptan succinate do not exceed 8 doses per 24 hrs Discontinued Reason: Patient Completed Course 25 mg PO Q2-4H 30 days PRN 9 tabs 6RF migraine headache Patient Instructions: - Continue taking updates on iron and magnesium supplements. - Keep taking all prescribed medications as directed. - Follow up on CPAP therapy once follow-up study is available. - Attend scheduled gastroenterology and cardiac consultations. - Monitor and report any side effects or changes in health. - Follow up with neurology for further migraine management. - Use cetirizine for any allergic reactions as needed.
[2025-02-19 11:21] VITALS: BP 132/78
--- OUTSIDE RECORDS SUMMARY | 2025-02-19 11:24 | XMS_ITS | Clinical Summary ---
Author Organization [facility] it Address [address] [place] [address] Care Team Providers Care Budget Engineer Name Role Phone Unavailable Primary Care Provider Unavailabl e Surgical History Surgery Date Site/Laterality Comments OTHER SURGICAL HISTORY Right PROCEDURE: [place] AMPUTATION LEG THROUGH TIBIA&FIBULA COLONOSCOPY PROCEDURE: HISTORICAL COLONOSCOPY Medical History Medical History Date Comments Acanthosis nigricans DX:Acanthos is nigricans Asthma DX:Asthma Diverticulosis DX:Diverticulosi s Fibromyalgia DX:Fibromyalgia Headache DX:Headache Essential hypertension DX:Essent ial hypertension Morbid obesity (CMS/HCC V24, CMS/HCC V28) DX:Morbid obesity (HCC) Sleep apnea DX:Sleep apnea Osteoarthritis DX:Osteoarthriti s Supraventricular tachycardia (CMS/HCC V24) DX:Supraventricular tachycardia (HCC) Vitamin D deficiency DX:Vitamin [...] age to complete this topic Meningococcal B Vaccine Aged Out No l onger eligible based on patient's age to complete [...]
== END 2025-02-19 11:42 | disposition home or self-care (01) ==
LOC: HO.HMCH 10:48
PROVIDERS: PCP Internal Medicine; Visit Provider Internal Medicine
DX: E83.42 Hypomagnesemia (principal); K43.9 Ventral hernia without obstruction or gangrene; E66.2 Morbid (severe) obesity with alveolar hypoventilation; K59.09 Other constipation; G43.909 Migraine, unspecified, not intractable, without status migrainosus; D64.9 Anemia, unspecified; G47.33 Obstructive sleep apnea (adult) (pediatric)

== ENCOUNTER → 2025-02-19 10:47 | Outpatient (BNVA) | payer OTHER, SELFPAY | PROVIDERS: PCP Internal Medicine; Visit Provider Internal Medicine | DX: K43.9 Ventral hernia without obstruction or gangrene (principal); E83.42 Hypomagnesemia; K59.09 Other constipation; G43.909 Migraine, unspecified, not intractable, without status migrainosus; D64.9 Anemia, unspecified; G47.33 Obstructive sleep apnea (adult) (pediatric); E66.2 Morbid (severe) obesity with alveolar hypoventilation | CPT/HCPCS: 96127; 99212 ==

== ENCOUNTER 2025-02-20 08:17 | Outpatient (REF) | payer OTHER, SELFPAY ==
--- OUTSIDE RECORDS SUMMARY | 2025-02-20 08:23 | XMS_ITS | Clinical Summary ---
Author Organization [facility] it Address [address] [place] [address] Care Team Providers Care Battery Vent Plug Inserter Name Role Phone Unavailable Primary Care Provider [...]
== END 2025-02-20 08:18 | disposition home or self-care (01) ==
LOC: HO.XRAY 08:17
PROVIDERS: PCP Internal Medicine; Visit Provider Internal Medicine
DX: Z13.89 Encounter for screening for other disorder (principal)

== ENCOUNTER → 2025-02-22 09:21 | Outpatient (REF) | payer OTHER, SELFPAY ==
--- NOTE | 2025-02-22 09:24 | CA_ITS ---
Transthoracic Echocardiogram Patient (Last, First, Middle): Monica Henry, Gender: Female Date of : 1960 Age: 64 Procedure Date: 02/22/2025 Procedure Type: Transthoracic Echocardiogram Location: OP Height: 162.56 cm Weight: 148.78 kg BSA: 2.41 m2 Heart Rate: 77 bpm Intensive Care Anaesthetist: KEV Referring MD: Bernardino Gilbert MD Patient Office Rep: Bernard Chang MD Symptoms: Z01.810 - Encounter for preprocedural cardiovascular examination Study Quality: Technically Difficult ECG Rhythm: Sinus Conclusions: - 1. Technically difficult study due to limited windows 2. Hyperdynamic LV EF of greater than 70% 3. Possible mild aortic stenosis Findings Procedure Information Contrast agent, definity, is being given per protocol without apparent complications. The quality of the study was technically difficult. The study quality is limited by patients body habitus and lung artifact. Left Ventricle Normal left ventricular cavity size. There is normal left ventricular wall thickness. The left ventricular systolic function is hyperdynamic. The visually estimated ejection fraction is >70%. Diastolic function is indeterminate on the basis of available data. Right Ventricle The right ventricle was not well visualized. Atria The left atrium was not well visualized. Interatrial shunt cannot be excluded. The right atrium was not well visualized. Aortic Valve The aortic valve was not well visualized. There is mild calcification of the aortic valve. possible mild aortic stenosis based on the gradients. Mitral Valve The mitral valve was not well visualized. There is no mitral valve regurgitation. Pulmonic Valve The pulmonic valve was not well visualized. Tricuspid Valve The tricuspid valve was not well visualized. Tricuspid regurgitation envelope is inadequate for calculation of right ventricular systolic pressure. Indeterminate right atrial pressure. Great Vessels The aorta was not well visualized. The pulmonary artery was not well visualized. Venous The inferior vena cava was not well visualized. Pericardium/Pleural The pericardium was not well visualized. Prior Study Comparison No prior study available for comparison. Measurements 2D Linear Measurements IVSd: 0.87 0.6-0.9/0.6-1.0 cm LVIDd: 4.92 3.9-5.3/4.2-5.9 cm LVIDd Index: 2.04 2.4-3.2/2.2-3.1 cm/m2 LVIDs: 2.76 2.0-3.6 cm LVPWd: 1.01 0.7-1.1 cm LA Diam: 2.60 2.7-3.8/3.0-4.0 cm LAIDs Index: 1.08 1.5-2.3 cm/m2 LV Mass: 203.01 67-162/88-224 g LV Mass Index: 84.23 43-95/49-115 g/m2 LVOT Diam: 2.00 3.0+(-)1.3 cm 2D Systolic Function EF 4C: 79.40 >55% EF 2C: 67.30 >55% EF BiP: 74.50 >55% Mitral Valve MV Pk E: 1.17 MV PK A: 1.19 MV Decel Time: 157.00 E/A: 1.00 E'Lateral: 6.09 E'Medial: 8.16 E/E' Med: 14.30 E/E' Lat: 19.20 PHT: 46.00 MVA PHT: 4.78 Decel White: 7.47 Aortic Valve AoV Pk Trev: 2.13 AoV Mn Trev: 1.39 AoV VTI: 0.46 AoV Pk Grad: 18.00 Aov Mn Grad: 9.00 HEIDY Cont.VTI: 1.28 LVOT LVOT Pk Trev: 0.90 LVOT Mn Trev: 0.58 LVOT VTI: 0.19 LVOT Pk Grad: 3.00 LVOT Mn Grad: 2.00 LVOT Diam: 2.00 LVOT Area: 3.14 Diastolic Function MV Pk E: 1.17 MV Pk A: 1.19 E/A: 1.00 E'Medial: 8.16 E/E' Med: 14.30 E' Laterial: 6.09 E/E' Lat: 19.20 Great Vessels Aorta Sinus of Valsalva: 2.70 2.0-3.5 cm Updated in Other Vendor System with Status of Final Bernard Chang MD electronically signed on 02/22/2025 3:55:30 PM with status of Final
--- OUTSIDE RECORDS SUMMARY | 2025-02-22 09:35 | XMS_ITS | Clinical Summary ---
Author Organization [facility] it Address [address] [place] [address] Care Team Providers Care Naval Architect Specialist Name Role Phone Unavailable Primary Care Provider Unavailabl e Surgical History Surgery Date Site/Laterality Comments OTHER SURGICAL HISTORY Right PROCEDURE: [place] AMPUTATION LEG THROUGH TIBIA&FIBULA COLONOSCOPY PROCEDURE: HISTORICAL [...]
== END ==
LOC: HO.CARD 09:21
PROVIDERS: PCP Internal Medicine; Visit Provider Internal Medicine
DX: Z01.810 Encounter for preprocedural cardiovascular examination (principal); J96.11 Chronic respiratory failure with hypoxia
CPT/HCPCS: 93306; Q9957

== ENCOUNTER → 2025-02-22 09:24 | Outpatient (BNV) | payer OTHER, SELFPAY | PROVIDERS: PCP Internal Medicine; Visit Provider Internal Medicine Cardiovascular Disease | DX: I35.0 Nonrheumatic aortic (valve) stenosis (principal); I35.8 Other nonrheumatic aortic valve disorders | CPT/HCPCS: 93306 ==

== ENCOUNTER 2025-03-08 09:41 | Outpatient (AMB) | payer OTHER, SELFPAY ==
--- NOTE | 2025-03-08 09:44 | MHC.OFFVIS ---
Vital Signs 03/08/25 09:45 Height 5 ft 4 in BMI Reason not done Patient refused/unable BP 146/50 H Blood Pressure Location Rt radial Position Sitting Pulse 77 Pulse Source Pulse Oximeter Pulse Oximetry (%) 97 Oxygen Delivery Method Room Air Intake Visit Reasons: Obstructive sleep apnea Allergies Penicillins [PENICILLINS] Allergy (Unknown, Verified 03/08/25 09:46) ITCHING HPI Comments Details: The patient is a 64 year woman with known history of obesity hyperventilation syndrome and sleep apnea. She does have a CPAP through [facility] but she is not or has not been compliant with. She is no longer active with [employer] at this time and therefore is not getting supplies. She was hospitalized recently with worsening shortness of breath and she was admitted to the hospital. She was found to have severe anemia. She was placed on oxygen because of her respiratory failure. She has done well. She continues to be on 2 L continuously. The patient in the meantime was also found to have a cholecystitis. Because she was not deemed a surgical candidate a drain was placed and currently has the gallbladder drain in the meantime. Ultimately the patient was found to have the cholecystitis and knee surgery for that and also was found to have what appears to be a pelvic mass that also needs to be excised. At this point the patient is high risk will go ahead and see about getting her back on CPAP. She does have the machine with her at home I did provide her with a N 30 I cradle mask that she can try to use to see if she start using the machine. She will come back in the next 3-4 weeks and will bring her machine with her. In the meantime she is going to continue with the current respiratory therapy. Hopefully at that point once she is using her CPAP and her respiratory status is better we can allow her to proceed with surgery. 12/07/2024 The patient is here for a pulmonary follow up visit. The patient is doing well. Has been trying to use her APAP more. AHI 0.4. She will continue to use the FM. The patient had a repeat blood gas and overall doing better. At this time she will need to undergo a colonoscopy and possible Cholecystectomy. She does have increased risk for perioperative pulmonary complications, which include: atelectasis, hypoxia, pneumonia and respiratory failure. Clinically she is doing well and is able to proceed both with anesthesia and endoscopic and surgical procedures. 03/08/2025 the patient is here for a pulmonary follow-up visit. Overall the patient has been doing okay. She does use her oxygen throughout the day with activity. In addition to that she does uses CPAP at nighttime. She is however starts coughing and she can not tolerate the CPAP mask she takes it off. She is on an DANIEL-inhibitor. Will try to get her off it with the help of her primary care in order to decrease the cough burden and hopefully she can not tolerated better. She can also try a sleep aid in order to be able fall asleep with in not be bothered with the mask. The patient definitely is to be on the CPAP. We need to increase the pressures as her AHI continues to be elevated on the low CPAP numbers. Will go ahead also requesting in-lab sleep study with the hope that she can have a split study so we can titrate her as I believe that she will do better on a BiPAP. The patient continues with respiratory therapy. She has a scheduled colonoscopy coming up. She is able to move forward with anesthesia on her colonoscopy at this time. Will follow-up after her sleep study in order to get her back active with the [employer] and see if she needs a different type of PAP therapy. Will follow-up in 3 months. If she has any issues prior to that she will call for an earlier assessment. [facility] Medical History On home oxygen therapy Chronic hypoxemic respiratory failure Obesity hypoventilation syndrome Morbid obesity Fibromyalgia Hx of migraine headaches DELANEY (obstructive sleep apnea) Asthma Wheelchair dependent Obesity, morbid, BMI 50 or higher Pre-diabetes HTN (hypertension) Chronic abdominal pain Moderate persistent asthma Obstructive sleep apnea Obesity Essential hypertension Surgical History History of hysteroscopy (~05/2024) Hx of colonoscopy Hx of tubal ligation Hx of section History of knee surgery Family History Mother Diabetes Throat cancer Hypertension Father Hypertension Social History Household Members: Children Household Members Other:: son, grandaughter Housing: Apartment Are you a primary animal care taker to a significant other at home: No Do you presently have visiting nurse or other home services: Yes (son [employer] 24/7) Alcohol intake: never Patient Tobacco Use Status: Never used Tobacco e-Cigarette/Vaping Use: Never Used Second Hand Smoke Exposure: No service: No Current occupational status: disabled Sexual orientation: Straight/Heterosexual Gender identity: Female Cognitive needs: Yes (wheelchair) Hearing needs: No Vision needs: Yes Review of Systems Const All systems reviewed & are unremarkable except as noted in HPI and below Denies chills, Reports daytime sleepiness, Reports difficulty sleeping, Reports fatigue, Denies fever(s), Reports snoring, Denies weight gain and Denies weight loss ENT Reports Normal hearing present and Denies dizziness Card Denies chest pain, Reports leg edema, Denies lightheadedness, Denies palpitations, Reports dyspnea on exertion, Reports orthopnea and Denies other Resp Denies cough, Reports dyspnea on exertion and Reports snoring GI Denies hematochezia and Denies change in stool character Reports as per HPI Musc Denies abnormal gait, Denies muscle weakness, Denies numbness, Denies radiating pain into limb and Denies tingling Skin/Breast Denies bleeding lesions, Denies changing lesions and Denies rash Neuro Reports Normal hearing present, Denies Abnormal speech present, Denies abnormal gait, Denies behavioral changes, Denies dizziness, Denies numbness and Denies tingling Psych Denies behavioral changes Endo Reports fatigue and Denies palpitations Physical Exam Vital Signs: Last Vital Signs Pulse 77 03/08/25 09:45 BP 146/50 H 03/08/25 09:45 Pulse Ox 97 03/08/25 09:45 Oxygen Delivery Method Room Air 03/08/25 09:45 Const General: no acute distress Nutritional Appearance: obese (Morbidly obese) Orientation/consciousness: patient oriented x3 Limitations: wheelchair (pt sitting in a motorized wheelchair) HEENT Head: Yes normal to inspection Ears: hearing grossly normal bilaterally Eyes Sclerae: sclerae normal Pupils: Equal, round and reactive pupils present Neck Neck: Yes normal visual inspection Chest Chest palpation & inspection: normal inspection of the chest Resp Effort & Inspection: normal respiratory effort Auscultation: diminished lung sounds Cardio Palpation: normal PMI Rate: regular rate Rhythm: regular rhythm Heart sounds: S1 normal heart sound present, S2 normal heart sound present and no murmurs GI Palpation (GI): Soft to palpation Skin General skin exam: no rashes or lesions noted Neuro General: patient oriented x3, gait normal and moves all extremities Cranial nerves: Yes Equal, round and reactive pupils present and Yes Normal hearing present Speech: No Abnormal speech present Psych Appearance: grossly normal Mental Status: mental status grossly normal Assessment & Plan Assessment & Plan (1) Pre-op evaluation: Code(s): Z01.818 - Encounter for other preprocedural examination Category: Medical (2) Chronic hypoxemic respiratory failure: Code(s): J96.11 - Chronic respiratory failure with hypoxia Category: Medical (3) Obstructive sleep apnea: Code(s): G47.33 - Obstructive sleep apnea (adult) (pediatric) Category: Medical (4) Obesity hypoventilation syndrome: Code(s): E66.2 - Morbid (severe) obesity with alveolar hypoventilation Category: Medical Plan continue oxygen supplementation KATHERIN as needed continue APAP therapy ok to proceed anesthesia and endoscopy/surgery at this time change DANIEL to ARB start Trazodone F/U 3-4 months Orders: Orders RT PSG in-lab sleep study Today E66.2 - Morbid (severe) obesity with alveolar hypoventilation, G47.33 - Obstructive sleep apnea (adult) (pediatric), J96.11 - Chronic respiratory failure with hypoxia Medications: New trazodone 50 mg PO BEDTIME 30 days 30 tabs 5RF Coding Level of Care Code Est Pt Level 4 (81849) Complex EM visit Add On G2211 Diagnoses Pre-op evaluation Z01.818 Chronic hypoxemic respiratory failure J96.11 Obstructive sleep apnea G47.33 Obesity hypoventilation syndrome E66.2 Time Spent (min) 17
[2025-03-08 09:45] VITALS: BP 146/50; PULSE 77; O2SAT 97
--- OUTSIDE RECORDS SUMMARY | 2025-03-08 10:54 | XMS_ITS | Clinical Summary ---
Author Organization [facility] it Address [address] [place] [address] Care Team Providers Care Instructional Technology Coach Name Role Phone Unavailable Primary Care Provider Unavailabl e Surgical History Surgery Date Site/Laterality Comments OTHER SURGICAL HISTORY Right PROCEDURE: [place] AMPUTATION LEG THROUGH TIBIA&FIBULA COLONOSCOPY PROCEDURE: HISTORICAL [...]
== END 2025-03-08 10:07 | disposition home or self-care (01) ==
LOC: HO.HPS 09:42
PROVIDERS: PCP Internal Medicine; Visit Provider Hospitalist
DX: Z01.818 Encounter for other preprocedural examination (principal); J96.11 Chronic respiratory failure with hypoxia; G47.33 Obstructive sleep apnea (adult) (pediatric); E66.2 Morbid (severe) obesity with alveolar hypoventilation
CPT/HCPCS: 99214; G2211

== ENCOUNTER → 2025-03-08 09:41 | Outpatient (BNVA) | payer OTHER, SELFPAY | PROVIDERS: PCP Internal Medicine; Visit Provider Hospitalist | DX: Z01.818 Encounter for other preprocedural examination (principal); J96.11 Chronic respiratory failure with hypoxia; G47.33 Obstructive sleep apnea (adult) (pediatric) | CPT/HCPCS: 99212 ==

== ENCOUNTER 2025-04-04 10:09 | Outpatient (AMB) | payer OTHER, SELFPAY ==
--- NOTE | 2025-04-04 10:27 | MHC.OFFVIS ---
Vital Signs 04/04/25 10:37 Height 5 ft 4 in Weight 338 lb BMI 58.0 BP 138/62 Blood Pressure Location Lt radial Position Sitting Pulse 81 Intake Visit Reasons: discuss w/u HIGH RISK FOR SURGERY ([facility] pt) Intake Note: Patient scheduled today's appointment to discuss gallbladder surgery. Last seen by Dr. Stone December 2024. Patient c/o: pain on RUQ. Abdomen pelvis CT: 09-29-2024 Computer Support Specialist Required: Yes Computer Support Specialist Name: Cindy MO Accompanied by: Charles son, Beatrice grand daughter Allergies Penicillins (PENICILLINS) Allergy (Unknown, Verified 04/04/25 10:34) ITCHING Medication List - Last Reconciled 04/04/25 by Elvin Reyes MD albuterol sulfate 2.5 mg (3 mL) inhalation Q6H PRN amitriptyline 50 mg PO BEDTIME 90 days amlodipine 5 mg PO DAILY 90 days cetirizine 10 mg PO DAILY 90 days dicyclomine 20 mg PO TID PRN 30 days ferrous sulfate 325 mg PO DAILY 90 days Lactobacillus rhamnosus GG (Culturelle) 1 cap PO DAILY 30 days [Lift recliner As directed] losartan 50 mg PO DAILY 90 days magnesium oxide 400 mg PO DAILY 90 days miconazole nitrate 2% (Remedy Phytoplex Antifungal) 1 appl topical DAILY PRN 30 days [mobile scooter As directed] omeprazole 20 mg PO BID 60 days ondansetron 4 mg PO DAILY PRN 5 days oxycodone 5 mg PO Q6H PRN MDD 15 polyethylene glycol 3350 (Miralax) 17 grams PO DAILY PRN 30 days rizatriptan 10 mg PO Q2-4H PRN 30 days spironolactone 25 mg PO DAILY 90 days trazodone 50 mg PO BEDTIME 30 days Ventolin HFA 90 mcg/actuation (albuterol sulfate) 2 puffs inhalation Q6H PRN 30 days NS HPI HPI discuss w/u HIGH RISK FOR SURGERY ([facility] pt): Details: She is here for follow-up for her gallstones. She was being followed by Dr. Stone. She had IR cholecystostomy tube drain for acute cholecystitis Oscar She does have multiple medical problems including morbid obesity with a BMI of 58, obstructive sleep apnea, hypertension, chronic hypoxemic respiratory failure with hypoventilation syndrome. She is wheelchair-bound as well She admits to occasional pain on the right upper quadrant although this has been quite rare according to her family. She has good oral intake. [facility] Medical History (Updated 04/04/25 @ 10:43 by Elvin Reyes MD) History of cholecystitis On home oxygen therapy Chronic hypoxemic respiratory failure Obesity hypoventilation syndrome Morbid obesity Fibromyalgia Hx of migraine headaches DELANEY (obstructive sleep apnea) Asthma Wheelchair dependent Obesity, morbid, BMI 50 or higher Pre-diabetes HTN (hypertension) Chronic abdominal pain Moderate persistent asthma Obstructive sleep apnea Obesity Essential hypertension Surgical History History of hysteroscopy (~05/2024) Hx of colonoscopy Hx of tubal ligation Hx of section History of knee surgery Family History Mother Diabetes Throat cancer Hypertension Father Hypertension Social History Household Members: Children Household Members Other:: son, [facility] Housing: Apartment Are you a primary health care facility administrator to a significant other at home: No Do you presently have visiting nurse or other home services: Yes (son [employer] 24/7) Alcohol intake: never Patient Tobacco Use Status: Never used Tobacco e-Cigarette/Vaping Use: Never Used Second Hand Smoke Exposure: No service: No Current occupational status: disabled Sexual orientation: Straight/Heterosexual Gender identity: Female Cognitive needs: Yes (wheelchair) Hearing needs: No Vision needs: Yes Review of Systems Card Reports dyspnea, Reports dyspnea on exertion and Reports orthopnea Resp Reports dyspnea and Reports dyspnea on exertion GI Denies abdominal pain and Denies vomiting Physical Exam Vital Signs: Last Vital Signs Pulse 81 04/04/25 10:37 BP 138/62 04/04/25 10:37 BMI result Body Mass Index 58.0 Const Other: On wheelchair General: no acute distress Nutritional Appearance: obese (Very morbidly obese) morbidly obese Resp Effort & Inspection: normal respiratory effort Cardio Rate: regular rate GI Palpation (GI): Soft to palpation, not firm, nontender and no guarding Assessment & Plan Assessment & Plan (1) History of cholecystitis: Code(s): Z87.19 - Personal history of other diseases of the digestive system Category: Medical Plan: She has gallstones with a history of cholecystitis. She has multiple medical problems. She has been seen by Cardiology and was deemed to be at high cardiac risk for surgery I therefore recommended against proceeding with surgery. I explained this with the family. They understand that if she does have another attack of acute cholecystitis, she may benefit from another IR drain They understand the plan well. Coding Level of Care Code Est Pt Level 3 (34320) Diagnoses History of cholecystitis Z87.19
[2025-04-04 10:37] VITALS: BP 138/62; PULSE 81; BMI 58.0
--- OUTSIDE RECORDS SUMMARY | 2025-04-04 10:40 | XMS_ITS | Clinical Summary ---
Author Organization [facility] it Address [address] [place] [address] Care Team Providers Care Flavorer Name Role Phone Unavailable Primary Care Provider Unavailabl e Surgical History Surgery Date Site/Laterality Comments OTHER SURGICAL HISTORY Right PROCEDURE: [place] AMPUTATION LEG THROUGH TIBIA&FIBULA COLONOSCOPY PROCEDURE: HISTORICAL [...]
== END 2025-04-04 10:43 | disposition home or self-care (01) ==
LOC: HO.HGS 10:10
PROVIDERS: PCP Internal Medicine; Visit Provider Surgery
DX: Z87.19 Personal history of other diseases of the digestive system (principal)
CPT/HCPCS: 99213

== ENCOUNTER → 2025-04-04 10:09 | Outpatient (BNVA) | payer OTHER, SELFPAY | PROVIDERS: PCP Internal Medicine; Visit Provider Surgery | DX: Z87.19 Personal history of other diseases of the digestive system (principal) | CPT/HCPCS: 99212 ==

== ENCOUNTER 2025-06-21 10:12 | Outpatient (AMB) | payer OTHER, SELFPAY ==
--- NOTE | 2025-06-21 10:26 | A.OFFPC_ITS ---
Vital Signs 06/21/25 10:27 Height 5 ft 4 in BMI Reason not done Patient refused/unable BP 130/70 Blood Pressure Location Lt brachial Position Sitting Respiration 18 Pulse 76 Pulse Source Pulse Oximeter Temp 97.3 F Temp Source Temporal Artery Scan Pulse Oximetry (%) 97 Oxygen Delivery Method Room Air Intake Visit Reasons: bp Scow Captain Required: No Accompanied by: Self / Same As Patient Allergies Penicillins (PENICILLINS) Allergy (Unknown, Verified 06/21/25 10:56) ITCHING Medication List - Last Reconciled 06/21/25 by Rhina Malave MD [disposable bed pads Use 8 bed pads a day] albuterol sulfate 2.5 mg (3 mL) inhalation Q6H PRN amitriptyline 50 mg PO BEDTIME 90 days amlodipine 5 mg PO DAILY 90 days cetirizine 10 mg PO DAILY 90 days dicyclomine 20 mg PO TID PRN 30 days ferrous sulfate 325 mg PO DAILY 90 days Lactobacillus rhamnosus GG (Culturelle) 1 cap PO DAILY 30 days [Lift recliner As directed] losartan 50 mg PO DAILY 90 days magnesium oxide 400 mg PO DAILY 90 days miconazole nitrate 2% (Remedy Phytoplex Antifungal) 1 appl topical DAILY PRN 30 days [mobile scooter As directed] omeprazole 20 mg PO BID 90 days ondansetron 4 mg PO DAILY PRN 5 days oxycodone 5 mg PO Q6H PRN MDD 15 polyethylene glycol 3350 (Miralax) 17 grams PO DAILY PRN 30 days rizatriptan 10 mg PO Q2-4H PRN 30 days spironolactone 25 mg PO DAILY 90 days trazodone 50 mg PO BEDTIME 30 days Ventolin HFA 90 mcg/actuation (albuterol sulfate) 2 puffs inhalation Q6H PRN 30 days NS Tobacco use date assessed: 06/21/25 Dental Screening Dental Screen Date: 06/21/25 Did you have a dental visit in the last 12 months?: No Did you have a dental problem in the last 6 months where you did not have access to dental care?: No Was dental information given to patient?: No HPI HPI Comments History of Present Illness Details The patient is a 64-year-old female presenting with follow-up on her chronic conditions. Hypertension is well controlled with amlodipine and losartan, with a blood pressure reading of 130/70 mmHg. She has depression and migraines, managed with amitriptyline, and her PHQ-9 score is 15, indicating moderate depression without suicidal thoughts. Anemia is managed with ferrous sulfate, and she also has chronic GERD treated with omeprazole. Constipation is addressed with MiraLAX, and she is in a wheelchair due to severe knee osteoarthritis, resulting in multiple falls. She is obese and wishes to lose weight, with topiramate being considered for this purpose. [facility] Medical History (Updated 06/21/25 @ 12:41 by Rhina Malave MD) Essential hypertension History of cholecystitis On home oxygen therapy Chronic hypoxemic respiratory failure Obesity hypoventilation syndrome Morbid obesity Fibromyalgia Hx of migraine headaches DELANEY (obstructive sleep apnea) Asthma Wheelchair dependent Obesity, morbid, BMI 50 or higher Pre-diabetes HTN (hypertension) Chronic abdominal pain Moderate persistent asthma Obstructive sleep apnea Obesity Surgical History History of hysteroscopy (~05/2024) Hx of colonoscopy Hx of tubal ligation Hx of section History of knee surgery Family History Mother Diabetes Throat cancer Hypertension Father Hypertension Social History Household Members: Children Household Members Other:: son, jazmine Housing: Apartment Are you a primary acute care assistant to a significant other at home: No Do you presently have visiting nurse or other home services: Yes (son [employer] 24/7) Alcohol intake: never Patient Tobacco Use Status: Never used Tobacco e-Cigarette/Vaping Use: Never Used Second Hand Smoke Exposure: No service: No Current occupational status: disabled Sexual orientation: Straight/Heterosexual Gender identity: Female Cognitive needs: Yes (wheelchair) Hearing needs: No Vision needs: Yes Questionnaire PHQ-9 Over the last 2 weeks, how often have you been bothered by any of the following problems? 1. Little interest or pleasure in doing things: more than half the days 2. Feeling down, depressed, or hopeless: more than half the days 3. Trouble falling or staying asleep, or sleeping too much: more than half the days 4. Feeling tired or having little energy: more than half the days 5. Poor appetite or overeating: more than half the days 6. Feeling bad about yourself - or that you are a failure or have let yourself or your family down: more than half the days 7. Trouble concentrating on things, such as reading the newspaper or watching television: more than half the days 8. Moving or speaking so slowly that other people could have noticed. Or the opposite - being so fidgety or restless that you have been moving around a lot more than usual: several days 9. Thoughts that you would be better off or of hurting yourself in some way: not at all Total score: 15 Depression Screening Interpretation: Positive (no suicidal thoughts) Depression Screening Follow-up: Existing condition, In treatment, Community Mental Health Worker F/U and Follow-up Visit Requested Depression Screening Done: Yes 97300 - PHQ-9 Billing: Yes Source: Developed by Drs. Jeronimo Trinidad, Nora Stone, Hipolito Finley and colleagues, with an educational neil from [employer]. Thrive Questionnaire Date Thrive assessed: 12/14/24 I am a: Patient What is your living situation today?: I have a steady place to live Within the past 12 months, did the food you bought not last and you didn't have the money to get more?: I choose not to answer this question Within the past 12 months, did you worry whether your food would run out before you got money to buy more?: Never true Do you have trouble paying for medicines?: No Do you have trouble getting transportation to medical appointments?: No Do you have trouble paying your heating and electricity bill?: No Do you have trouble taking care of your child, family member or friend?: No Do you have trouble with day-to-day activities such as bathing, preparing meals, shopping, managing finances, etc.?: Yes Are you currently unemployed and looking for a job?: I choose not to answer this question Are you interested in more education?: I choose not to answer this question Please select the resources that you would like help with: None Currently or been in a relationship where the following occur: No concerns reported THRIVE Score: 0 AUDIT C Alcohol Use Questionnaire (AUDIT-C) 1. How often do you have a drink containing alcohol?: Never Total Score: 0 Score Reviewed/Action Taken: No AUGUSTO-7 AMB Questionnaire AUGUSTO-7 Date AUGUSTO - 7 assessed: 10/20/24 Feeling nervous, anxious, or on edge: 1 = Several days Not being able to stop or control worryin = Several days Worrying too much about different things: 1 = Several days Trouble relaxin = Several days Being so restless that it is hard to sit still: 0 = Not at all Becoming easily annoyed or irritable: 0 = Not at all Feeling afraid as if something awful might happen: 1 = Several days Total AUGUSTO-7 score (0-4 normal; 5-9 mild; 10-14 moderate; 15-21 severe): 5 Source: Developed by Drs. Jeronimo Trinidad, Nora Stone, Hipolito Finley and colleagues, with an educational neil from [employer]. AUGUSTO-7 Assessment Billing AUGUSTO-7 Assessment Tool: AUGUSTO-7 Assessment 04752 Review of Systems Const All systems reviewed & are unremarkable except as noted in HPI and below Card Denies chest pain at rest, Denies chest pain with activity, Denies edema, Denies irregular heart rhythm, Denies claudication, Denies orthopnea, Denies paroxysmal nocturnal dyspnea and Denies slow heart rate Physical exam (Primary Care) Vital Signs: Last Vital Signs Temp 97.3 F 06/21/25 10:27 Pulse 76 06/21/25 10:27 Resp 18 06/21/25 10:27 BP 130/70 06/21/25 10:27 Pulse Ox 97 06/21/25 10:27 Oxygen Delivery Method Room Air 06/21/25 10:27 Tobacco/Smoking Status: Tobacco use Status Tobacco use date assessed 06/21/25 06/21/25 10:37 Patient Tobacco Use Status Never used Tobacco 06/21/25 10:37 e-Cigarette/Vaping Use Never Used 06/21/25 10:37 PHQ-9: PHQ-9 Score PHQ-9: Total score 15 06/21/25 11:02 Depression Screening Interpretation: Positive (no suicidal thoughts) Depression Screening Follow-up: Existing condition, In treatment, Community Mental Health Worker F/U and Follow-up Visit Requested Thrive Assessment: Date of Thrive Assessment Date Thrive assessed 12/14/24 06/21/25 10:37 Currently or been in a relationship where the following occur: No concerns re ported Const Limitations: wheelchair Resp Effort & Inspection: normal respiratory effort Auscultation: clear to auscultation bilaterally Cardio Jugular venous distension: no JVD Rate: regular rate Rhythm: regular rhythm Heart sounds: S1 normal heart sound present and S2 normal heart sound present Coding Level of Care Code Est Pt Level 4 (61714) Complex EM visit Add On G2211 Diagnoses Essential hypertension I10 Chronic constipation K59.09 Hypomagnesemia E83.42 Anemia D64.9 Hx of migraine headaches Z86.69 Moderate recurrent major depression F33.1 Additional Codes AUGUSTO-7 Assessment Billing - AUGUSTO-7 Assessment Tool: AUGUSTO-7 Assessment 02504 ([id number]) PHQ-9 - 99584 - PHQ-9 Billing: Yes ([id number]) Time Spent (min) 23 Assessment & Plan Assessment & Plan (1) Essential hypertension: Code(s): I10 - Essential (primary) hypertension Category: Medical (2) Chronic constipation: Comment: Encouraged consistent bowel regimen Code(s): K59.09 - Other constipation Category: Medical (3) Hypomagnesemia: Code(s): E83.42 - Hypomagnesemia Category: Medical (4) Anemia: Code(s): D64.9 - Anemia, unspecified Category: Medical (5) Hx of migraine headaches: Code(s): Z86.69 - Personal history of other diseases of the nervous system and sense organs Category: Medical (6) Moderate recurrent major depression: Code(s): F33.1 - Major depressive disorder, recurrent, moderate Category: Medical Plan Plan Patient was informed and verbally consented to the use of an ambient scribe for clinic note documentation during this visit. 1. Hypertension Hypertension is well controlled with amlodipine and losartan, and the patient's blood pressure is stable at 130/70 mmHg. 2. Depression Depression is managed with amitriptyline, and the patient has a PHQ-9 score of 15, indicating moderate depression without suicidal ideation. 3. Migraine Migraine is treated with amitriptyline and Rizatriptan as needed. 4. Anemia Anemia is managed with ferrous sulfate, and hemoglobin levels will be rechecked. 5. Gastroesophageal Reflux Disease (Gerd) GERD is managed with omeprazole. 6. Constipation Constipation is treated with MiraLAX. 7. Osteoarthritis Of The Knee Severe knee osteoarthritis has resulted in the patient being wheelchair-bound and experiencing multiple falls. 8. Obesity The patient is obese and wishes to lose weight; topiramate will be prescribed to assist with weight management. Medications: New topiramate 25 mg PO BEDTIME 90 tabs 0RF 90 days
[2025-06-21 10:27] VITALS: BP 130/70; PULSE 76; RESP 18; TEMP 36.3; O2SAT 97
--- OUTSIDE RECORDS SUMMARY | 2025-06-21 12:11 | XMS_ITS | Clinical Summary ---
Author Organization [facility] it Address [address] [place] [address] Care Team Providers Care Inbound Sales Manager Name Role Phone Unavailable Primary Care Provider Unavailabl e Surgical History Surgery Date Site/Laterality Comments OTHER SURGICAL HISTORY Right PROCEDURE: [place] AMPUTATION LEG THROUGH TIBIA&FIBULA COLONOSCOPY PROCEDURE: HISTORICAL [...] 2) 2011 Colorectal Cancer Screening: Colonoscopy 09/13/2022 HIV Screening 09/13/2022 Hepatitis C Screening 09/13/2022 Social Influencers of Health Screening 09/13/2022 Depression Screening 10/04/2024 COVID-19 Vaccine (1 - 2023-2 5 season) 2025 Influenza Vaccine (#1) 2025 RSV Immunization Adult Patie nts (1 [...]
== END 2025-06-21 11:08 | disposition home or self-care (01) ==
LOC: HO.HMCH 10:12
PROVIDERS: PCP Internal Medicine; Visit Provider Internal Medicine
DX: I10 Essential (primary) hypertension (principal); K59.09 Other constipation; F33.1 Major depressive disorder, recurrent, moderate; E83.42 Hypomagnesemia; D64.9 Anemia, unspecified; Z86.69 Personal history of other diseases of the nervous system and sense organs

== ENCOUNTER → 2025-06-21 10:12 | Outpatient (BNVA) | payer OTHER, SELFPAY | PROVIDERS: PCP Internal Medicine; Visit Provider Internal Medicine | DX: I10 Essential (primary) hypertension (principal); G43.909 Migraine, unspecified, not intractable, without status migrainosus; D64.9 Anemia, unspecified; K59.00 Constipation, unspecified; E66.9 Obesity, unspecified; K59.09 Other constipation; E83.42 Hypomagnesemia; F33.1 Major depressive disorder, recurrent, moderate; M17.10 Unilateral primary osteoarthritis, unspecified knee; Z99.3 Dependence on wheelchair; Z86.69 Personal history of other diseases of the nervous system and sense organs; Z79.899 Other long term (current) drug therapy | CPT/HCPCS: 96127; 99212 ==

== ENCOUNTER 2025-10-03 08:46 | Outpatient (REF) | payer OTHER, SELFPAY ==
--- OUTSIDE RECORDS SUMMARY | 2025-10-03 08:52 | XMS_ITS | Clinical Summary ---
Author Organization [address] [facility] Address [address] [place] [address] Phone Care Team Providers Care Group Chief Operator Name Role Phone Unavailable Primary Care Provider Unavailabl e Surgical History Surgery Date Site/Laterality Comments OTHER SURGICAL HISTORY Right PROCEDURE: [place] AMPUTATION LEG THROUGH TIBIA&FIBULA COLONOSCOPY PROCEDURE: HISTORICAL COLONOSCOPY Medical History Medical History Date Comments Acanthosis nigricans DX:Acanthos is nigricans Asthma DX:Asthma Diverticulosis DX:Diverticulosi s Fibromyalgia DX:Fibromyalgia Headache DX:Headache Essential hypertension DX:Essent ial hypertension Morbid obesity ([facility]/HCC V24, [facility]/HCC V28) DX:Morbid obesity (HCC) Sleep apnea DX:Sleep apnea Osteoarthritis DX:Osteoarthriti s Supraventricular tachycardia ([facility] V24) DX:Supraventricular tachycardia (HCC) Vitamin D deficiency DX:Vitamin D deficiency Social History Tobacco Use Types Packs/Day Years Used Date Smoking Tobacco: Never Assessed Comments Unknown Sex and Gender Information Value Date Recorded Sex Assigned at Not on file Legal Sex Female 4:31 PM EST Gender Identity Not on file Sexual Orientation Not on file Plan of Treatment Health Maintenance Due Date Last Done Comments Breast Cancer Screening 1961 Colorectal Cancer Screening: Colonoscopy 1961 DTaP,Tdap,and Td Vaccines (1 - Tdap) 1980 Cervical Cancer Screening: P ap Smear 1982 Pneumococcal Vaccine: 50+ Ye ars (1 of 1 - PCV) 2011 Zoster Vaccines (1 of 2) 2011 HIV Screening 09/13/2022 Hepatitis C Screening 09/13/2022 Medicare Annual Wellness Visit 09/13/2022 Social Influencers of Health Screening 09/13/2022 Depression Screening 10/04/2024 COVID-19 Vaccine (1 - 2024-2 6 season) 2025 Influenza Vaccine (#1) 2025 RSV [...] on patient's age to complete this topic Insurance [id number] RETIREMENT OPTIONS Member Subscriber Plan / Payer (Ef fective 2018-Present) Name:MONICA HENRY Relation to Subscriber:Self Name:Monica Henry Payer ID:[id number] Group ID:[id number] Type:Not on file Address: [facility] [address] [phone]
[2025-10-03 09:10] LABS: MANUAL DIFF FLAG NO
[2025-10-03 09:29] LABS: Hematocrit 38.5 % (37.0-47.0); Hemoglobin 11.7 g/dl (12.0-16.0); Imm Gran Abs Auto 0.03 X10*3/uL (0.00-0.03); Imm Gran Pct Auto 0.3 % (0.0-0.4); Lymphocytes Absolute Auto 3.7 X10*3/uL (1.2-4.9); Mean Corpuscular HGB Conc 30.4 g/dl (31.0-35.0); Mean Corpuscular Hemoglobin 27.7 pg (27.0-33.0); Mean Corpuscular Volume 91.0 fL (80.0-98.0); NRBC Abs Auto 0.000 X10*3/uL (0.0-0.012); NRBC Pct Auto 0.0 /100WBC (0.0-0.2); Platelet Count 261 X10*3/uL (160-400); Red Blood Count 4.23 X10*6/uL (4.20-5.50); White Blood Count 9.3 X10*3/uL (4.8-10.8)
[2025-10-03 09:54] LABS: Alanine Aminotransferase 15 U/L (0-31); Albumin Level 4.2 g/dL (3.5-5.0); Alkaline Phosphatase 95 U/L (39-117); Anion Gap 11 (12-20); Aspartate Amino Transferase 27 U/L (5-31); Blood Urea Nitrogen 10 mg/dL (9-16); Calcium 9.0 mg/dL (8.4-10.2); Carbon Dioxide 31 mmol/L (22-29); Chloride 104 mmol/L (96-108); Cholesterol 155 mg/dL (<200); Estimated Glomerular Filt Rate > 60; HDL Cholesterol 42 mg/dL (>40); Iron 57 mcg/dL (30-160); Magnesium 1.7 mg/dL (1.6-2.6); Percent Iron Saturation 26 % (15-50); Potassium 3.7 mmol/L (3.3-5.1); Sodium 142 mmol/L (135-145); Total Iron Binding Capacity 220 mcg/dL (228-428); Total Protein 8.3 g/dL (6.5-8.0); Triglycerides 77 mg/dL (<150); Unsaturated Iron Binding 163 ug/dL
[2025-10-03 10:24] LABS: Folate 3.7 ng/mL (> or = 4.0); Vitamin B12 228 pg/mL (200-900)
== END 2025-10-03 08:47 | disposition home or self-care (01) ==
LOC: HO.LAB 08:46
PROVIDERS: Absent Provider Internal Medicine; PCP Internal Medicine; Visit Provider Student in an Organized Health Care Education/Training Program
DX: I10 Essential (primary) hypertension (principal); E53.8 Deficiency of other specified B group vitamins; E66.01 Morbid (severe) obesity due to excess calories; E83.42 Hypomagnesemia; E78.5 Hyperlipidemia, unspecified; D64.9 Anemia, unspecified; Z68.43 Body mass index [BMI] 50.0-59.9, adult
CPT/HCPCS: 36415; 80053; 80061; 82306; 82607; 82746; 83540; 83735; 85025